=== PATIENT | male | born 1935 | race Caucasian/White ===

== ENCOUNTER 2020-08-14 14:43 | Outpatient (CLI) | payer MEDICARE, SELFPAY ==
--- NOTE | ~2020-08-14 | XR_ITS ---
XR knee LT min 4V 08/14/2020 15:21 Indication: Left knee pain Procedure: 4 views left knee Comparison: No prior studies for comparison. Findings: Mild patellofemoral compartment osteoarthritis. No fracture or traumatic malalignment. Smal l joint effusion. Impression: 1: Mild patellofemoral compartment osteoarthritis. 2: Small joint effusion. Reviewed, dictated and finalized at location B. Impression: 1: Mild patellofemoral compartment osteoarthritis. 2: Small joint effusion.
--- NOTE | ~2020-08-14 | XR_ITS ---
XR knee RT min 4V 08/14/2020 15:22 Indication: Right knee pain Procedure: 4 views right knee Comparison: . No prior studies for comparison. Findings: No fracture, subluxation or dislocation small joint effusion. No significant joint effusion . Mild prepatellar soft tissue swelling. Impression: 1: No acute fracture. 2: Small joint effusion. Reviewed, dictated and finalized at location B. Impression: 1: No acute fracture. 2: Small joint effusion.
== END 2020-08-14 14:44 | disposition home or self-care (01) ==
PROVIDERS: PCP Family Medicine; Visit Provider Family Medicine
DX: M25.462 Effusion, left knee (principal); M25.461 Effusion, right knee; M79.89 Other specified soft tissue disorders; M17.12 Unilateral primary osteoarthritis, left knee
CPT/HCPCS: 73564

== ENCOUNTER 2021-03-15 18:01 | Emergency (ER) | payer MEDICARE, SELFPAY ==
--- NOTE | ~2021-03-15 | XR_ITS ---
XR lumbar spine 2-3V 03/15/2021 19:55 Indication: Low back pain Procedure: 3 views lumbar spine Comparison: 10/27/2013 Findings: There is disc narrowing at L3-4, L4-5 and L5-S1. There is facet hypertrophy at these levels . Vertebral body heights are maintained. No acute fracture or traumatic malalignment. No evidence for spondylolisthesis. Pedicles intact. Sacral foramen are symmetric. Impression: 1: Progression of moderate lumbar spondylosis, most advanced at L4-5. Reviewed, dictated and finalized at location A. Impression: 1: Progression of moderate lumbar spondylosis, most advanced at L4-5.
--- NOTE | ~2021-03-15 | CT_ITS ---
EXAMINATION: CT abdomen pelvis wo con DATE: 03/15/2021 21:09 INDICATION: Flank pain TECHNIQUE: Computed tomography (CT) of the abdomen and pelvis was performed without intravenous contr ast. The dose-length product was 278.18 mGy-cm. Automated exposure control and iterative reconstructi on technique were employed. COMPARISON: None. FINDINGS: Heart size is normal. No significant pleural or pericardial effusion. Moderate atherosclero sis. No aneurysm. No lymphadenopathy. No free air or free fluid. Multiple low-density lesions in the liver, likely benign cysts. The spleen, pancreas, adrenal glands and kidneys are unremarkable. Gallbladder is present. Kidneys are within normal limits. No hydronephr osis. No renal or ureteral stone. Moderate colonic fecal loading. Prostate gland is enlarged. Bladder is moderately distended. IMPRESSION: 1. Enlarged prostate gland with moderate bladder distention. 2: No acute abnormality of the abdomen or pelvis. Reviewed, dictated and finalized at location A.
[2021-03-15 18:02] VITALS: BP 158/79; PULSE 75; RESP 16; TEMP 36.4; O2SAT 100
--- NOTE | 2021-03-15 19:40 | PC.NURSE ---
Pt to imaging at this time.
--- NOTE | 2021-03-15 20:08 | ED.GENADULT ---
HPI - General Adult General Chief complaint: Back Pain/Injury Stated complaint: knee and back pain Time Seen by Provider: 03/15/21 19:02 History of Present Illness HPI narrative: Patient is an 85-year-old male who presents ER with right-sided back pain. Began today. Aching. Radiates towards his leg. Worse with going from sitting to standing. No numbness or tingling in his privates or his lower extremity. No recent trauma. Has had similar pain in the past that usually responds ibuprofen. He took Aleve today with mild improvement. He has scheduled follow-up with his PCP in a couple weeks. He has history of microdiscectomy in the 80s. Patient also reports some chronic knee issues for which she is gone to physical therapy with minimal improvement. No acute changes with his knees today. Related Data Home Medications Medication Instructions Recorded Confirmed aspirin 81 mg tablet,delayed 81 mg PO DAILY 08/14/19 02/19/21 release cholecalciferol (vitamin D3) 25 1,000 unit PO DAILY cap 08/14/19 02/19/21 mcg (1,000 unit) capsule glucosamine HCl 1,500 mg tablet 1,500 mg PO DAILY 08/14/19 02/19/21 multivitamin 1 tablet PO DAILY 08/14/19 02/19/21 omega-3 fatty acids 1,000 mg 1,000 mg PO DAILY 09/15/19 02/19/21 capsule Allergies Allergy/AdvReac Type Severity Reaction Status Date / Time No Known Allergies Allergy Verified 02/19/21 14:04 Review of Systems Review of Systems: All systems reviewed & are unremarkable except as noted in HPI and below Constitutional: Constitutional: Denies chills, Denies fever(s) and Denies weakness Gastrointestinal: Gastrointestinal: Denies abdominal pain, Denies nausea and Denies vomiting Genitourinary: Genitourinary: Denies hematuria, Denies dysuria, Denies urinary frequency and Denies urinary incontinence [facility] Past Medical History Medical History (Updated 03/15/21 @ 21:45 by Alex Kimball MD) Benign prostatic hyperplasia Hearing problem Pure hypercholesterolemia, unspecified Surgical History Surgical History (Updated 03/15/21 @ 21:46 by Alex Kimball MD) History of microdiscectomy Family History Family History Father Family history of diabetes mellitus in first degree relative Diabetes mellitus Family history of cardiovascular disease Cerebrovascular accident Patient's father is , Onset Age: 83 Mother Family history of diabetes mellitus in first degree relative Diabetes mellitus Patient's mother is , Onset Age: 99 Other Family history of malignant neoplasm of brain Social History Social History (Updated 02/19/21 @ 14:04 by Tena Anderson [facility]) Alcohol intake: never Exam Narrative: GENERAL: Well-appearing, well-nourished, and in no acute distress. HEAD: Normocephalic, atraumatic. CHEST: Clear to auscultation. No respiratory distress. HEART: Regular rate and rhythm. Normal peripheral pulses. Back: No reproducible midline tenderness. Moderate paraspinal muscular tenderness in lower lumbar region. No SI tenderness. EXTREMITIES: Normal range of motion. No edema. SKIN: Warm, dry, no rash. NEURO: Alert and oriented x3. PSYCH: Normal mood and affect. Course Course Emergency Course: Patient informed results. Will start on Flomax as well as inflammatories and muscle x-rays. Keep follow-up with PCP. Also recommend follow-up with urology. Vital Signs Vital signs: Vital Signs Temperature 97.5 F L 03/15/21 18:02 Pulse Rate 75 03/15/21 18:02 Respiratory Rate 16 03/15/21 18:02 Blood Pressure 158/79 H 03/15/21 18:02 Pulse Oximetry 100 03/15/21 18:02 Temperature 97.5 F L 03/15/21 18:02 Pulse Rate 75 03/15/21 18:02 Respiratory Rate 16 03/15/21 18:02 Blood Pressure 158/79 H 03/15/21 18:02 Pulse Oximetry 100 03/15/21 18:02 Medical Decision Making Vital Signs Vital Signs: Vital Signs Temperature 97.5 F L 1
[2021-03-15 20:30] LABS: Add Urine Microscopic? YES; Appearance Urine Clear (Clear); Bacteria Urine Trace /hpf; Bilirubin Urine Negative (Negative); Blood Urine 1+ (Negative); Color Urine Yellow (Yellow); Glucose Urine UA Negative (Negative); Ketones Urine Negative (Negative); Leukocyte Esterase Ur Negative LEU/UL (Negative); Nitrate Urine Negative (Negative); Protein Urine Negative (Negative); Specific Grav Ur 1.009 (1.001-1.035); Urobilinogen Urine Negative mg/dL (<2.0); WBC Urine 0-3 /hpf
--- NOTE | 2021-03-15 21:02 | PC.NURSE ---
Pt to imaging at this time.
[2021-03-15] MEDS: TAMSULOSIN HCL 0.4 MG CAPSULE PO (22:10)
[2021-03-15] MEDS: CYCLOBENZAPRINE HCL 5 MG TABLET PO (22:10)
[2021-03-15 22:11] VITALS: BP 159/80; PULSE 64; RESP 18; O2SAT 100
== END 2021-03-15 22:14 | disposition home or self-care (01) ==
PROVIDERS: Emergency Provider Emergency Medicine; PCP Family Medicine
DX: S39.012A Strain of muscle, fascia and tendon of lower back, initial encounter (principal); N40.0 Benign prostatic hyperplasia without lower urinary tract symptoms; E78.00 Pure hypercholesterolemia, unspecified; Z79.82 Long term (current) use of aspirin; X58.XXXA Exposure to other specified factors, initial encounter
CPT/HCPCS: 72100; 74176; 81001; 99284; A9270

== ENCOUNTER 2022-12-23 15:27 | Emergency (ER) | payer MEDICARE, SELFPAY ==
--- NOTE | ~2022-12-23 | CT_ITS ---
EXAMINATION: CT facial & cervical spine wo DATE: 12/23/2022 16:00 INDICATION: Fall. TECHNIQUE: Computed tomography (CT) of the maxillofacial region and cervical spine was performed with out intravenous contrast. Automated exposure control and iterative reconstruction technique were empl oyed. The dose-length product was 314.08 mGy-cm. COMPARISON: None FINDINGS: MAXILLOFACIAL CT: There is frontal scalp soft tissue swelling. There is right periorbital soft tissue swelling. There a re likely changes of ocular lens replacement surgeries. There is mild mucosal thickening in the paran kat sinuses. There is rightward deviation of the nasal septum. No fracture. CERVICAL SPINE CT: There is mild scarring at the lung apices. There is kyphosis of cervical spine. There is 2 mm anterol isthesis of C4 on C5. There is interbody fusion at C3-C4 and C5-C6. There is mildly decreased disc he ight at C2-C3 and moderately decreased disc height at C4-C5. The following disc levels are specifical ly discussed: C2-C3: There is mild bilateral uncovertebral joint osteoarthritis. There is severe bilateral facet dick int osteoarthritis. There is mild bilateral neural foraminal stenosis. There is no central canal sten osis. C3-C4: There is mild bilateral uncovertebral joint hypertrophy. There is ankylosis of the facet joint s with severe left hypertrophy. There is mild left neural foraminal stenosis. There is no central can al stenosis. C4-C5: There is severe bilateral uncovertebral joint osteoarthritis. There is severe right facet join t osteoarthritis. There is ankylosis of left facet joint with severe hypertrophy. There is mild right and moderate left neural foraminal stenosis. There is mild central canal stenosis. C5-C6: There is no uncovertebral joint hypertrophy. There is ankylosis of the facet joints without hy pertrophy. There is no neural foraminal stenosis. There is no central canal stenosis. C6-C7: There is no uncovertebral joint osteoarthritis. There is mild bilateral facet joint osteoarthr itis. There is no neural foraminal stenosis. There is no central canal stenosis. C7-T1: There is no uncovertebral joint osteoarthritis. There is severe bilateral facet joint osteoart hritis. There is mild bilateral neural foraminal stenosis. There is no central canal stenosis. IMPRESSION: 1. No fracture. 2. Moderate cervical spondylosis. Reviewed, dictated and finalized at location A.
--- NOTE | ~2022-12-23 | CT_ITS ---
EXAMINATION: CT brain wo con DATE: 12/23/2022 15:58 INDICATION: Fall. TECHNIQUE: Computed tomography (CT) of the head was performed without intravenous contrast. The mA wa s adjusted according to patient size. Iterative reconstruction technique was employed. The dose-lengt h product was 681.00 mGy-cm. COMPARISON: None FINDINGS: There is no intracranial hemorrhage, acute infarction, or abnormal intracranial mass lesion . The ventricles are normal in size. There are likely changes of ocular lens replacement surgeries. T here is mild mucosal thickening in the ethmoid sinuses. The mastoid air cells are normal. There is ri ght periorbital soft tissue swelling. IMPRESSION: 1. Normal brain. Reviewed, dictated and finalized at location A. IMPRESSION: 1. Normal brain.
[2022-12-23 15:31] VITALS: BP 138/57; PULSE 66; RESP 16; TEMP 37.1; O2SAT 100
--- NOTE | 2022-12-23 15:50 | PC.NURSE ---
Patient off unit to CT.
--- NOTE | 2022-12-23 17:54 | ED.GENADULT ---
HPI - General Adult General Chief complaint: Fall Stated complaint: fall Time Seen by Provider: 12/23/22 17:06 Source: patient Mode of arrival: ambulatory History of Present Illness HPI narrative: This is an 87-year-old male who presents to the ED with chief complaint of a fall and head injury that occurred 2 days ago. Patient states he was walking in his basement which was dark and he accidentally stumbled on a stool on the ground. Reports that he fell onto his hands but hit his face on the ground. Reports immediate pain in the area but did not have any LOC. He is not on blood thinners. He reports since the fall he has noticed some more bruising around his eyes which prompted him to come to the ED. He reports a knot to the forehead and a little bit of soreness in that region. Denies any problems with ambulation. Denies numbness, weakness, further site of pain or injury. He does endorse some abrasions to his elbow and right knee but denies any pain or problems with range of motion. Denies any neck pain after the injury or today. Related Data Home Medications Medication Instructions Recorded Confirmed aspirin 81 mg tablet,delayed 81 mg PO DAILY 08/14/19 11/23/22 release (Adult Low Dose Aspirin) cholecalciferol (vitamin D3) 25 1,000 unit PO DAILY 08/14/19 11/23/22 mcg (1,000 unit) capsule glucosamine HCl 1,500 mg tablet 1,500 mg PO DAILY 08/14/19 11/23/22 multivitamin 1 tablet PO DAILY 08/14/19 11/23/22 omega-3 fatty acids 1,000 mg 1,000 mg PO DAILY 09/15/19 11/23/22 capsule (Fish Oil Concentrate) Allergies Allergy/AdvReac Type Severity Reaction Status Date / Time No Known Allergies Allergy Verified 11/23/22 13:04 Review of Systems Review of Systems: All systems as dictated in [facility] Past Medical History Medical History Benign prostatic hyperplasia Carpal tunnel syndrome Hearing problem Pure hypercholesterolemia, unspecified Surgical History Surgical History History of carpal tunnel release History of microdiscectomy Family History Family History Father Family history of diabetes mellitus in first degree relative Diabetes mellitus Family history of cardiovascular disease Cerebrovascular accident Patient's father is , Onset Age: 83 Mother Family history of diabetes mellitus in first degree relative Diabetes mellitus Patient's mother is , Onset Age: 99 Other Family history of malignant neoplasm of brain Social History Social History Smoking status: Never smoker Alcohol intake: never Substance use: never Substance use type: does not use Lack of Transportation: No Lack of Food: Never True Current Housing: I Have Housing Concerned About Future Housing: No Difficulty Paying Gas/Electric Bills: No Difficulty Paying for Meds: No Currently Unemployed: No Education: Master's Degree or Higher Difficulty w/ Childcare or Family Care: No Living arrangements: alone Occupation/Education: retired Gender identity (if verbalized by the patient): Male Exam Narrative: GENERAL: Well-appearing, well-nourished, and in no acute distress. HEAD: Slight bruising and swelling in the frontal head. No tenderness. Normocephalic, atraumatic. EYES: Periorbital bruising noted bilaterally, right greater than left. Minimal tenderness. PERRLA and EOMI. no pain with EOMs. ENT: No tenderness throughout the facial bones. Nares clear, no rhinorrhea or epistaxis. Mucous membranes moist. Oropharynx without tonsillar hypertrophy exudate or other lesions. TMs intact bilaterally. NECK: Supple. No adenopathy or masses. CHEST: No respiratory distress. Clear to auscultation. No wheezes rales or rhonchi HEART: Regular rate and rhythm.
== END 2022-12-23 18:18 | disposition home or self-care (01) ==
PROVIDERS: Emergency Provider Physician Assistant; PCP Family Medicine
DX: S00.83XA Contusion of other part of head, initial encounter (principal); S00.12XA Contusion of left eyelid and periocular area, initial encounter; S00.11XA Contusion of right eyelid and periocular area, initial encounter; N40.0 Benign prostatic hyperplasia without lower urinary tract symptoms; E78.00 Pure hypercholesterolemia, unspecified; W18.09XA Striking against other object with subsequent fall, initial encounter
CPT/HCPCS: 70450; 70486; 72125; 99284

== ENCOUNTER 2022-12-25 10:14 | Emergency (ER) | payer MEDICARE, SELFPAY ==
[2022-12-25 10:28] VITALS: BP 140/66; PULSE 72; RESP 16; TEMP 36.8; O2SAT 100
--- NOTE | 2022-12-25 11:18 | ED.FALL ---
HPI - Fall General Chief Complaint: Fall Stated Complaint: fall last week Time Seen by Provider: 12/25/22 10:33 History of Present Illness HPI Narrative: This is an 87-year-old male, with past medical history of BPH and hyperlipidemia, who presents emergency department for evaluation of bruising around the eyes after a fall approximately 1 week ago. The patient states he has had no difficulty, weakness, nausea, numbness or vomiting since the fall. However, he has noticed swelling and bruising around the eyes, drifting down from the forehead. He is primarily concerned with his appearance. Related Data Home Medications Medication Instructions Recorded Confirmed aspirin 81 mg tablet,delayed 81 mg PO DAILY 08/14/19 11/23/22 release (Adult Low Dose Aspirin) cholecalciferol (vitamin D3) 25 1,000 unit PO DAILY 08/14/19 11/23/22 mcg (1,000 unit) capsule glucosamine HCl 1,500 mg tablet 1,500 mg PO DAILY 08/14/19 11/23/22 multivitamin 1 tablet PO DAILY 08/14/19 11/23/22 omega-3 fatty acids 1,000 mg 1,000 mg PO DAILY 09/15/19 11/23/22 capsule (Fish Oil Concentrate) Allergies Allergy/AdvReac Type Severity Reaction Status Date / Time No Known Allergies Allergy Verified 11/23/22 13:04 Review of Systems Review of Systems: CONSTITUTIONAL: Denies fever, chills, or sweats. EYES: Denies visual changes, redness, or discharge. CARDIOVASCULAR: Denies chest pain, palpitations, or edema. RESPIRATORY: Denies cough or dyspnea. GASTROINTESTINAL: Denies abdominal pain, nausea, vomiting, or diarrhea. GENITOURINARY: Denies dysuria or hematuria. SKIN: Bruising around the bilateral eyes denies rash or itching. MUSCULOSKELETAL: Denies back pain, joint pain, or myalgia. NEUROLOGIC: Denies headache, numbness, dizziness, or weakness. PSYCHIATRIC: Denies anxiety or depression. [facility] Past Medical History Medical History Benign prostatic hyperplasia Carpal tunnel syndrome Hearing problem Pure hypercholesterolemia, unspecified Surgical History Surgical History History of carpal tunnel release History of microdiscectomy Family History Family History Father Family history of diabetes mellitus in first degree relative Diabetes mellitus Family history of cardiovascular disease Cerebrovascular accident Patient's father is , Onset Age: 83 Mother Family history of diabetes mellitus in first degree relative Diabetes mellitus Patient's mother is , Onset Age: 99 Other Family history of malignant neoplasm of brain Social History Social History Smoking status: Never smoker Alcohol intake: never Substance use: never Substance use type: does not use Lack of Transportation: No Lack of Food: Never True Current Housing: I Have Housing Concerned About Future Housing: No Difficulty Paying Gas/Electric Bills: No Difficulty Paying for Meds: No Currently Unemployed: No Education: Master's Degree or Higher Difficulty w/ Childcare or Family Care: No Living arrangements: alone Occupation/Education: retired Gender identity (if verbalized by the patient): Male Exam Narrative: GENERAL: Well-developed, well-nourished, and in no acute distress. HEAD: Normocephalic, atraumatic. EYES: PERRLA and EOMI. bilateral periorbital ecchymosis ENT: Nares clear, no rhinorrhea or epistaxis. Mucous membranes moist. Oropharynx without tonsillar hypertrophy exudate or other lesions. Bilateral TMs pearly escobar nonbulging. No hemotympanum NECK: Supple. No adenopathy or masses. No midline spine tenderness to palpation, no step-off or crepitus CHEST: Clear to auscultation. No respiratory distress. No wheezes rales or rhonchi HEART: Regular rate and rhythm. No murmur heard.
== END 2022-12-25 11:30 | disposition home or self-care (01) ==
PROVIDERS: Emergency Provider Preventive Medicine Aerospace Medicine; PCP Family Medicine
DX: S05.12XA Contusion of eyeball and orbital tissues, left eye, initial encounter (principal); S05.11XA Contusion of eyeball and orbital tissues, right eye, initial encounter; E78.5 Hyperlipidemia, unspecified; W19.XXXA Unspecified fall, initial encounter
CPT/HCPCS: 99282

== ENCOUNTER 2023-06-21 11:21 | Emergency (ER) | payer MEDICARE, SELFPAY ==
--- NOTE | ~2023-06-21 | XR_ITS ---
XR wrist LT min 3V DATE: 06/21/2023 12:04 INDICATION: Lateral wrist pain when using and dorsalis. TECHNIQUE: 4 views COMPARISON: None FINDINGS: There is mild radiocarpal joint space narrowing and minimal spurring. Mild osteoarthritis a t the first carpometacarpal joint. No fracture or dislocation, periosteal reaction or bone destruction. No erosive change. IMPRESSION: Mild osteoarthritis Reviewed, dictated and finalized at location B. 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
[2023-06-21 11:30] VITALS: BP 111/50; PULSE 70; RESP 16; TEMP 36.4; O2SAT 100
--- NOTE | 2023-06-21 12:49 | ED.EXTPRO ---
HPI - Extremity Problem General Chief complaint: Extremity Problem,Nontraumatic Stated complaint: L WRIST PAIN [id number] Time Seen by Provider: 06/21/23 12:27 Source: patient Mode of arrival: ambulatory Limitations: no limitations History of Present Illness HPI Narrative: 87-year-old with history of osteoarthritis, hyperlipidemia here with complaints of left wrist pain for past few days. Patient states that he was trying to get out of the chair felt a pain in his left wrist which is almost a week ago and ever since then he has been having constant pain.Denies any fall , he states if he moves his wrist certain way gets intense pain around the base of thumb . Complaint: joint paint Onset (ago): week(s) (1) Pain Consistency: intermittent Location: left and upper extremity Quality: aching Radiation: none Relieving factors: immobilization Exacerbating factors: range of motion Associated symptoms: denies other symptoms Related Data Home Medications Medication Instructions Recorded Confirmed aspirin 81 mg tablet,delayed 81 mg PO DAILY 08/14/19 04/05/23 release (Adult Low Dose Aspirin) cholecalciferol (vitamin D3) 25 1,000 unit PO DAILY 08/14/19 04/05/23 mcg (1,000 unit) capsule glucosamine HCl 1,500 mg tablet 1,500 mg PO DAILY 08/14/19 04/05/23 multivitamin 1 tablet PO DAILY 08/14/19 04/05/23 omega-3 fatty acids 1,000 mg 1,000 mg PO DAILY 09/15/19 04/05/23 capsule (Fish Oil Concentrate) Allergies Allergy/AdvReac Type Severity Reaction Status Date / Time No Known Allergies Allergy Verified 04/05/23 11:46 Review of Systems Review of Systems: All systems reviewed & are unremarkable except as noted in HPI and below Constitutional: Constitutional: Reports no additional constitutional complaints Eyes: Eyes: Reports no additional eye complaints ENT: Reports system reviewed and no additional complaints, except as documented Cardiovascular: Cardiovascular: Reports no additional cardiovascular complaints Respiratory: Respiratory: Reports no additional respiratory complaints Gastrointestinal: Gastrointestinal: Reports no additional gastrointestinal complaints Musculoskeletal: Musculoskeletal: Reports as per HPI Neurologic: Reports system reviewed and no additional complaints, except as documented PMFSH Past Medical History Medical History Benign prostatic hyperplasia Carpal tunnel syndrome Hearing problem Pure hypercholesterolemia, unspecified Surgical History Surgical History History of carpal tunnel release History of microdiscectomy Family History Family History Father Family history of diabetes mellitus in first degree relative Diabetes mellitus Family history of cardiovascular disease Cerebrovascular accident Patient's father is , Onset Age: 83 Mother Family history of diabetes mellitus in first degree relative Diabetes mellitus Patient's mother is , Onset Age: 99 Other Family history of malignant neoplasm of brain Social History Social History Smoking status: Never smoker Alcohol intake: never Substance use: never Substance use type: does not use Lack of Transportation: No Lack of Food: Never True Current Housing: I Have Housing Concerned About Future Housing: No Difficulty Paying Gas/Electric Bills: No Difficulty Paying for Meds: No Currently Unemployed: No Education: Master's Degree or Higher Difficulty w/ Childcare or Family Care: No Living arrangements: alone Occupation/Education: retired Gender identity (if verbalized by the patient): Male Exam Narrative: GENERAL: Well-appearing, well-nourished, and in no acute distress. HEAD: Normocephalic, atraumatic. EYES: PERRLA and EOMI. NECK: Supple. CHEST:
== END 2023-06-21 13:30 | disposition home or self-care (01) ==
PROVIDERS: Emergency Provider Family Medicine; PCP Family Medicine
DX: M77.8 Other enthesopathies, not elsewhere classified (principal); E78.00 Pure hypercholesterolemia, unspecified; N40.0 Benign prostatic hyperplasia without lower urinary tract symptoms; M19.032 Primary osteoarthritis, left wrist
CPT/HCPCS: 73110; 99283

== ENCOUNTER 2023-08-31 10:00 | Outpatient (CLI) | payer MEDICARE, SELFPAY ==
--- NOTE | ~2023-08-31 | US_ITS ---
EXAMINATION:US venous doppler LE BI INDICATION:Lower extremity swelling TECHNIQUE: Multiple grayscale, color flow and Doppler images of the right and left lower extremity de ep venous systems were obtained and reviewed. COMPARISON:No prior studies for comparison. FINDINGS: The common femoral, superficial femoral and popliteal veins demonstrate normal respiratory variation, augmentation and compressibility. Color flow is also seen within the posterior tibial, pe roneal, greater saphenous and profunda veins. IMPRESSION: 1: No lower extremity deep venous thrombosis. Reviewed, dictated and finalized at location B.
== END 2023-08-31 10:01 | disposition home or self-care (01) ==
PROVIDERS: PCP Family Medicine; Visit Provider Family Medicine
DX: M79.89 Other specified soft tissue disorders (principal); M79.604 Pain in right leg; M79.605 Pain in left leg
CPT/HCPCS: 93970

== ENCOUNTER 2023-09-13 10:11 | Outpatient (CLI) | payer MEDICARE, SELFPAY ==
--- NOTE | ~2023-09-13 | US_ITS ---
US arterial ankle brachial ind INDICATION: Lower extremity Doppler examination TECHNIQUE: Segmental pressures and plethysmographic and Doppler waveforms of the brachial and lower e xtremity arteries were obtained. COMPARISON: None. FINDINGS: Right and left brachial artery pressures of 123 mm Hg and 138 mm Hg, respectively, are concordant (no rmal difference <= 30 mmHg). The right ankle-brachial index (LEEANNE) is 1.07 (normal >= 0.9-1.0). The right great toe-brachial index (TBI) is 0.55 (normal >= 0.60). The left LEEANNE is 1.09. The left TBI is 0.7. IMPRESSION: 1. Normal bilateral ankle-brachial indices. Mildly decreased right toe brachial index, consistent wit h peripheral arterial disease. Reviewed, dictated and finalized at location B. IMPRESSION: 1. Normal bilateral ankle-brachial indices. Mildly decreased right toe brachial index, consistent with peripheral arterial disease.
== END 2023-09-13 10:12 | disposition home or self-care (01) ==
PROVIDERS: PCP Family Medicine; Visit Provider Family Medicine
DX: M79.89 Other specified soft tissue disorders (principal)
CPT/HCPCS: 93922

== ENCOUNTER 2023-09-17 06:32 | Observation (INO) | payer MEDICARE, SELFPAY ==
[2023-09-17] VITALS (25 sets, daily range): BP systolic 116–142; BP diastolic 52–76; PULSE 67–97; RESP 15–20; TEMP 35.8–36.7; O2SAT 94–100; BMI 21.2
--- NOTE | ~2023-09-17 | US_ITS ---
US right upper quadrant INDICATION: Right upper quadrant and chest pain PROCEDURE: Realtime right upper abdominal ultrasound. COMPARISON: No prior studies for comparison. FINDINGS: The pancreas is normal without focal mass or pancreatic ductal dilation. Liver echotexture is normal without focal mass or intrahepatic biliary dilatation. There is normal directional flow i n the portal vein. The gallbladder is normal without stones, gallbladder wall thickening or pericholecystic fluid. Comm on bile duct measures 2 mm. No sonographic Guevara's sign. There is a small right pleural effusion. IMPRESSION: 1: Normal limited abdominal ultrasound. 2: Small right pleural effusion. Reviewed, dictated and finalized at location B.
--- NOTE | ~2023-09-17 | CT_ITS ---
EXAMINATION: CTA chest PE protocol DATE: 09/17/2023 08:51 CDT INDICATION: Chest pain TECHNIQUE: Computed tomographic angiography (CTA) of the chest was performed with 100 mL Omnipaque-35 0 intravenous contrast. The dose-length product was 249.40 mGy-cm. Maximum intensity projection 3D-re constructions of the aorta and other arteries were constructed by the technologist on a separate work station. Automated exposure control and iterative reconstruction technique were employed. COMPARISON: None. FINDINGS: Study is technically adequate without evidence for pulmonary embolism. Small pleural effusi ons, right greater than left. No thoracic lymphadenopathy. Cardiomegaly. Mild atherosclerosis. There is a cyst of the right hepatic lobe. There is apical pleural thickening/scarring. There is atelectasi s/scarring of the right middle lobe, lingula and lower lobes. Cannot exclude superimposed pneumonia. No acute osseous abnormality. IMPRESSION: 1. No pulmonary embolism. 2: Small pleural effusions. 3: Linear infiltrates of the right middle lobe, lingula and lower lobes, most likely atelectasis or s carring. Pneumonia less favored. Reviewed, dictated and finalized at location B. IMPRESSION: 1. No pulmonary embolism. 2: Small pleural effusions. 3: Linear infiltrates of the right middle lobe, lingula and lower lobes, most l ikely atelectasis or scarring. Pneumonia less favored.
--- NOTE | ~2023-09-17 | XR_ITS ---
Clinical Indication: Chest pain PA and lateral views of the chest: Comparison: 11/18/2013 Findings: There is probable linear scarring or atelectasis right lung base. Probable COPD. Cardiomed iastinal silhouette is within normal limits. Bones and soft tissues are unremarkable. Impression: Probable COPD and linear scarring or atelectasis right lung base. Reviewed, dictated and finalized at location . Impression: Probable COPD and linear scarring or atelectasis right lung base.
--- NOTE | 2023-09-17 06:45 | ECG_ITS ---
SEE SCANNED COPY FOR CONFIRMED REPORT MTDD
[2023-09-17] MEDS: ASPIRIN 81 MG CHEWABLE TABLET 324 MG PO (07:00)
[2023-09-17 07:04] LABS: Basophils Percent Auto 0.4 % (0.2-1.2); Eosinophils Absolute Auto 0.1 K/mm3 (0-0.3); Eosinophils Percent Auto 0.6 % (0-4.4); Hematocrit 39.4 % (42.0-52.0); Hemoglobin 13.3 g/dL (14.0-18.0); Immature Granulocyte Absolute 0.03 K/mm3 (0.00-0.031); Immature Granulocyte Percent A 0.3 % (0-0.5); Immature Platelet Fraction Pct 3.8 % (0.9-11.2); Lymphocytes Absolute Auto 0.81 K/mm3 (0.9-3.2); Lymphocytes Percent Auto 8.6 % (18.3-44.2); Mean Corpuscular HGB Conc 33.8 g/dl (32-36); Mean Corpuscular Hemoglobin 32.4 pg (26-34); Mean Corpuscular Volume 95.9 fl (80-100); Mean Platelet Volume 10.7 fl (7.4-10.4); Monocytes Absolute Auto 0.6 K/mm3 (0.1-0.6); Monocytes Percent Auto 6.8 % (2.6-8.5); Neutrophils Absolute Auto 7.9 K/mm3 (1.3-6.7); Neutrophils Percent Auto 83.3 % (45.5-73.1); Platelet Count Result 133 k/mm3 (150-375); Red Blood Count 4.11 M/mm3 (4.6-6.20); Red Cell Distribution Width 14.4 % (11.5-14.5); White Blood Count 9.4 K/mm3 (4.5-10.0)
--- NOTE | 2023-09-17 07:10 | ED.GENADULT ---
HPI - General Adult General Chief complaint: Chest Pain Stated complaint: chest pain, rib pain Time Seen by Provider: 09/17/23 07:00 History of Present Illness HPI narrative: patient is an 87-year-old male who presents ER right-sided abdominal pain/chest pain. Has occurred each of the last 2 nights. Sharp. Worse with movements. No nausea or vomiting. No pain with eating or drinking. No exertional component. Denies fevers or chills or sweats. Has taken Aleve with only mild improvement. Pain is currently 10. Occassional radiation to the neck. Related Data Home Medications Medication Instructions Recorded Confirmed aspirin 81 mg tablet,delayed 81 mg PO DAILY 08/14/19 08/31/23 release (Adult Low Dose Aspirin) cholecalciferol (vitamin D3) 25 1,000 unit PO DAILY 08/14/19 08/31/23 mcg (1,000 unit) capsule glucosamine HCl 1,500 mg tablet 1,500 mg PO DAILY 08/14/19 08/31/23 multivitamin 1 tablet PO DAILY 08/14/19 08/31/23 omega-3 fatty acids 1,000 mg 1,000 mg PO DAILY 09/15/19 08/31/23 capsule (Fish Oil Concentrate) Allergies Allergy/AdvReac Type Severity Reaction Status Date / Time No Known Allergies Allergy Verified 08/31/23 08:32 Review of Systems Review of Systems: All systems reviewed & are unremarkable except as noted in HPI and below Constitutional: Constitutional: Reports no additional constitutional complaints ENT: Reports system reviewed and no additional complaints, except as documented Cardiovascular: Cardiovascular: Reports chest pain, Denies rapid heart rate and Denies radiating jaw, neck or arm pain Respiratory: Respiratory: Reports no additional respiratory complaints Gastrointestinal: Gastrointestinal: Reports abdominal pain, Denies constipation, Denies diarrhea, Denies nausea and Denies vomiting Genitourinary: Genitourinary: Reports no additional male genitourinary complaints Musculoskeletal: Musculoskeletal: Reports no additional musculoskeletal complaints FORMERLY [facility], [facility] Past Medical History Medical History Benign prostatic hyperplasia Carpal tunnel syndrome Hearing problem Pure hypercholesterolemia, unspecified Surgical History Surgical History History of carpal tunnel release History of microdiscectomy Family History Family History Father Family history of diabetes mellitus in first degree relative Diabetes mellitus Family history of cardiovascular disease Cerebrovascular accident Patient's father is , Onset Age: 83 Mother Family history of diabetes mellitus in first degree relative Diabetes mellitus Patient's mother is , Onset Age: 99 Other Family history of malignant neoplasm of brain Social History Social History Smoking status: Never smoker Alcohol intake: never Substance use: never Substance use type: does not use Do You Feel Safe in your Home?: Yes Lack of Transportation: No Lack of Food: Never True Current Housing: I Have Housing Concerned About Future Housing: No Difficulty Paying Gas/Electric Bills: No Difficulty Paying for Meds: No Currently Unemployed: No Education: Master's Degree or Higher Difficulty w/ Childcare or Family Care: No Living arrangements: alone Occupation/Education: retired Gender identity (if verbalized by the patient): Male Spiritual care concerns: No Exam Narrative: GENERAL: Well-appearing, well-nourished, and in no acute distress. HEAD: Normocephalic, atraumatic. EYES: PERRL and EOMI. Scleral icterus ENT: Mucous membranes moist. CHEST: Clear to auscultation. No respiratory distress. HEART: Regular rate and rhythm. Normal peripheral pulses. ABDOMEN: Soft, tender to palpation right upper quadrant, nondistended. EXTREMITIES: Normal range of motion
[2023-09-17 07:12] LABS: Alanine Aminotransferase 19 U/L (6-50); Alkaline Phosphatase 59 U/L (38-126); Anion Gap 8 mmol/L (4-12); Aspartate Amino Transferase 28 U/L (17-59); Bilirubin,Total 2.6 mg/dL (0.2-1.3); Blood Urea Nitrogen 20 mg/dL (9-20); Calcium 8.8 mg/dL (8.4-10.2); Carbon Dioxide 23 mmol/L (22-30); Chloride 103 mmol/L (98-107); Estimated CRCL calculation 57 ml/min; Estimated Glomerular Filt Rate > 60; Glucose 127 mg/dL (65-110); Lipase 21 U/L (23-300); Sodium 134 mmol/L (137-145)
[2023-09-17 07:14] LABS: INR 1.5; Partial Thromboplastin Time 40.1 Seconds (22.3-36.8); Prothrombin Time 19.5 Seconds (11.1-14.7)
[2023-09-17 07:31] LABS: Troponin I 0.087 ng/mL (0.000-0.034)
[2023-09-17] MEDS: MORPHINE SULFATE (*CRX) 2 MG/ML INJ IV PUSH ×2 (08:09→18:23)
[2023-09-17 08:50] LABS: Bilirubin Indirect 1.9 mg/dL (0-1.1)
[2023-09-17] MEDS: HEPARIN SODIUM 5,000 UNITS/ML VIAL 4000 UNITS IV PUSH (08:50)
[2023-09-17] MEDS: HEPARIN SOD/D5W 100 UNITS/ML 25,000 UNITS/250 ML BAG 8 UNITS IV CONT (08:51)
--- NOTE | 2023-09-17 09:05 | ADMGEN ---
This patient, Gerald Leonardo, was admitted to IMU Room 204-01. Patient/family oriented to hospital policies and general routines including ID bracelet, bed and alarms, visiting hours, pain management, procedures, bathroom and other care routines, personal items, smoking policy, room service/diet, and visiting hours. Information on how to activate the Rapid Response Team has been discussed. Patient/Family are encouraged to report perceived risks to care and to ask questions if they do not understand what they are told or what they should do.
[2023-09-17 10:32] LABS: Troponin I 0.092 ng/mL (0.000-0.034)
--- NOTE | 2023-09-17 12:28 | PM.CNCAR ---
Assessment and Plan Assessment and plan (1) Non-ST elevation GA (NSTEMI): Code(s): I21.4 - Non-ST elevation (NSTEMI) myocardial infarction Status: Acute Plan This is an 87-year-old man with a chest pain syndrome that is in my opinion noncardiac in nature he has relative ease significant right-sided chest pain that gets worse with changing body positions radiates down to the right lower quadrant. This sort of pain is highly unlikely to be related to myocardial ischemia. His electrocardiogram however does demonstrate some abnormalities not seen on previous tracings as mentioned above calling it a question of coronary disease and is a indicating potential evidence of a previous inferior infarction. He also has modestly elevated troponin levels. For further evaluation of this I believe a coronary angiogram should be performed to delineate his coronary anatomy and guide therapeutic decision making. He is agreeable with this and understands the procedure and its risks and would like to proceed. Derek Givens MD [facility] History of Present Illness History of Present Illness Consult date/time: 09/17/23 12:28 Reason For Visit: NSTEMI Narrative: This is a very pleasant 87-year-old man I am seeing at the request of the hospitalist because of chest pain and abnormality of his troponin level that was done following admission in the end evaluation in the emergency department. This gentleman came to the hospital early this morning because he has been having episodes of pain that began yesterday in the afternoon and evening he describes episodes of pain in the lower a lateral aspect of his thoracic area on the right side the pain would radiate down sometimes into the abdomen and out into the right lower quadrant and then radiate up into the center of the chest and across both sides of the chest the discomfort was intermittent was not exertional in nature but when it recurred as this morning and became more severe he came to the emergency department for evaluation. He did notice in his bed last night the pain was much worse if he laid in the right lateral decubitus position. The patient's electrocardiogram shows sinus rhythm with first-degree AV block, right bundle branch block and evidence consistent with previous inferior infarction. Whole ECGs that are present in the patient's record were normal. His troponin levels are slightly elevated at 0.08 and are essentially flat. In this setting he was placed on heparin diagnosed with a non ST elevation GA and admitted to the IMU. He has noticed in the last recent months that his exertional capability has declined primarily because of shortness of breath. He is an active gentleman the does walk for exercise he also works in [place] at the [employer] and tries to lead an active lifestyle and he had a healthy diet. He is a lifelong nonsmoker and does not have any history of hypertension or diabetes. He does have dyslipidemia for which she was prescribed simvastatin. Of note he has also noted the onset of some mild bilateral lower extremity edema for the last 2-3 weeks. He did mention this to his PCP at the time of her recent office visit. Review of Systems Constitutional: Constitutional: Reports no additional constitutional complaints Eyes: Eyes: Reports no additional eye complaints ENT: Reports system reviewed and no additional complaints, except as documented Cardiovascular: Cardiovascular: Reports as per HPI Respiratory: Respiratory: Reports no additional respiratory complaints Gastrointestinal: Gastrointestinal: Reports no additional gastrointestinal complaints Musculoskeletal: Musculoskeletal: Reports no additional musculoskeletal complaints Integumentary/Breasts: Skin/Breast: Reports system reviewed and no additional complaints, except as docu Neurologic: Reports system reviewed and no additional complaints, except as documented Endocrine: Endocrine: Reports no addition
[2023-09-17 13:05] LABS: Troponin I 0.079 ng/mL (0.000-0.034)
--- NOTE | 2023-09-17 13:09 | PC.NURSE ---
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 Informed solar lab technician of patient's refusal to notify family of his admission and scheduled procedure. Off of unit @ [id number]
[2023-09-17 13:10] LABS: Partial Thromboplastin Time 183.6 Seconds (22.3-36.8)
--- NOTE | 2023-09-17 13:45 | WPDCARDPROC ---
Cardiac Cath Procedure Note Date of procedure:: 09/17/23 Performing physician:: Derek Givens MD Indication:: chest pain clinically atypical of ischemia, elevated troponin Brief clinical history:: this is an 87-year-old man without previous cardiac history. He entered the hospital with a very atypical right-sided chest discomfort that was positional in nature. Troponin levels were found to be slightly elevated his electrocardiogram shows sinus rhythm with first-degree AV block and right bundle branch block as well as small inferior Q-waves. Because of these findings coronary angiography was recommended Procedure Procedure performed:: coronary angiography left ventriculography Angio-Seal to right femoral artery Sedation/Medication given:: fentanyl 25 mg Versed 1 mg case start time 1:29 p.m. case end time 1:41 p.m. sedation provided by Alexa Cage RN, trained observer Access site:: right femoral artery Estimated blood loss:: 20 cc Procedure note:: patient was brought to the cardiac catheterization lab in the postabsorptive state where the right femoral triangle was prepared and draped in the normal fashion. Anesthesia was provided with 1% lidocaine infiltrated locally. Using the modified Seldinger technique the femoral artery was punctured and a 5 Slovak vascular sheath was placed. After this left heart catheterization was carried out. I used 5 Slovak FL4 catheter to engage and inject the left coronary artery. A 5 Slovak JR4 catheter was used to engage inject the right coronary artery. A 5 Slovak angled pigtail catheter was used to measure left-sided hemodynamics and to inject the left ventriculogram in the CABA projection. After this the case was terminated. The angiogram was done of the femoral artery through the sheath and then an Angio-Seal device was deployed with a good hemostatic result. There were no apparent procedural complications and he left the labor law professor with no evidence of groin hematoma. Findings:: Hemodynamics: Central aortic pressure is 122 over 46 left ventricle 1 26/0 end-diastolic 12 there was pullback across the aortic valve. Left ventricle: The LV is normal in size all segments contract appropriately the global ejection fraction visually estimated to be 50%. The left main coronary artery is widely patent the left anterior descending caliber artery extending down to, around the apex provides the inferior wall as well. The LAD has minimal luminal irregularities but no significant disease. There is a very small distal 3rd diagonal branch that has an ostial 80% stenosis. The circumflex is a moderate caliber artery giving rise to the marginal branch. The circumflex system is tortuous but angiographically normal. Right coronary artery is moderate to large caliber. It gives rise to the right coronary trunk in the RPL branches there is no RPDA over to the fact that the LAD is providing flow to the inferior PDA territory as well as described above. The right coronary artery is angiographically free of disease. Conclusion:: 1. Codominant coronary circulation with very long LAD providing flow to the inferior segment as well. 2. 80% ostial stenosis of a very small distal 3rd diagonal branch 3. well-preserved left ventricular systolic function 4. based on these findings the patient has atypical chest pain is NOT cardiac and his modestly elevated troponins are NOT indicative of acute myocardial infarction in my opinion 5. simple medical therapy with low-dose aspirin and statin therapy should be continued for his moderate stenosis in the very tiny distal 3rd diagonal branch Derek Givens MD [facility]
[2023-09-17] MEDS: SODIUM CHLORIDE 0.9% IV 1,000 ML 125 ML IV CONT (15:18)
--- NOTE | 2023-09-17 15:33 | PC.NURSE ---
Patient returned from clam bed laborer @ 1505, bedside handoff received from clam bed laborer RNs.
--- NOTE | 2023-09-17 15:55 | PM.IMHP ---
H&P: HPI History of Present Illness Date/Time: 09/17/23 15:55 Chief Complaint: Chest pain Narrative: This is a very pleasant 87-year-old gentleman with a past medical history BPH. The patient presents with complaint of chest pain. He has already been taking baby aspirin and statin daily. His has multiple different complaints. He reports yesterday there is pain in the lateral aspects of his thoracic area on the rib cages with sometimes radiate into the abdomen sometime into the center of the chest. Describes it as sharp in nature. Upon ER evaluation is troponin is 0.079 and shortly peaked at 0.092. His EKG did not demonstrate acute ischemia but some old Q-wave right bundle branch block. Fortunately, the journalist Dr. Givens was available on the patient was shortly taken to veterinarian laboratory animal care. Results are as follows : 1.? ? Codominant coronary circulation with very long LAD providing flow to the inferior segment as well. 2. ? ? 80% ostial stenosis of a very small distal 3rd diagonal branch 3. ? well-preserved left ventricular systolic function 4. ? based on these findings the patient has atypical chest pain is NOT? cardiac and his modestly elevated troponins are NOT? indicative of acute myocardial infarction in my opinion 5. ? simple medical therapy with low-dose aspirin and statin therapy should be continued for his moderate stenosis in the very tiny distal 3rd diagonal branch Shortly after cardiac catheterization the patient is seen in room 204 bed 1 and he reports no symptomatology at the moment but further delineates that he has had few weeks of increased ankle swelling along with exertional dyspnea. He also reports the pain is exacerbated by changing the structure of his ribcage such as deep breathing. 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 He otherwise denies any exposure to fumes/dust/secondhand smoke. He is a never smoker. He has not used drugs. Does not have seasonal allergies aside from some sinus congestion 2 weeks ago that has now resolved. He denies having pets. No mold that he knows of in his house. He denies orthopnea. He is very active and frequents the gym to exercise 3 times per week. He lays flat at night and has no issues sleeping. Review of Systems Review of Systems: All systems reviewed & are unremarkable except as noted in HPI and below (Subjective) [facility] Past Medical History Medical History Benign prostatic hyperplasia Carpal tunnel syndrome Hearing problem Pure hypercholesterolemia, unspecified Surgical History Surgical History History of carpal tunnel release History of microdiscectomy Family History Family History Father Family history of diabetes mellitus in first degree relative Diabetes mellitus Family history of cardiovascular disease Cerebrovascular accident Patient's father is , Onset Age: 83 Mother Family history of diabetes mellitus in first degree relative Diabetes mellitus Patient's mother is , Onset Age: 99 Other Family history of malignant neoplasm of brain Social History Social History Smoking status: Never smoker Alcohol intake: never Substance use: never Substance use type: does not use Do You Feel Safe in your Home?: Yes Lack of Transportation: No Lack of Food: Never True Current Housing: I Have Housing Concerned About Future Housing: No Difficulty Paying Gas/Electric Bills: No Difficulty Paying for Meds: No Currently Unemployed: No Education: Master's Degree or Higher Difficulty w/ Childcare or Family Care: No Living arrangements: alone Occupation/Education: retired Gender identity (if verbalized by the patient): Male Spiritual care concerns: No Meds Ho
--- NOTE | 2023-09-17 16:08 | ECG_ITS ---
SEE SCANNED COPY FOR CONFIRMED REPORT MTDD
[2023-09-17 16:22] LABS: NT Pro B Type Natriuretic Pept 2450 pg/mL (19.9-100)
[2023-09-17] MEDS: FUROSEMIDE INJ 40 MG/4 ML VIAL 20 MG IV PUSH (16:40)
[2023-09-17 16:46] LABS: Influenza A QL RT-PCR Negative (Negative); Influenza B QL RT-PCR Negative (Negative); RSV RNA, RT-PCR Negative (Negative); SARS-CoV-2 RNA PCR Negative (Negative)
--- NOTE | 2023-09-17 17:55 | ECG_ITS ---
SEE SCANNED COPY FOR CONFIRMED REPORT MTDD
--- NOTE | 2023-09-17 18:05 | PC.NURSE ---
Patient experienced recurrence of chest and internal rib pain rating 8/10 @ 1800. Assessment of heart and lungs unchanged from previous assessment, no diaphoresis. Cath site clean dry and intact with no swelling or pain, right pedal pulse easily detected with doppler (unchanged from baseline assessment) Hospitalist notified, orders for repeat EKG, troponin, and 2mg IV morphine x1 obtained.
[2023-09-17 19:26] LABS: Troponin I 0.065 ng/mL (0.000-0.034)
[2023-09-17] MEDS: IBUPROFEN 200 MG TABLET PO (20:07)
[2023-09-18] VITALS: PULSE 83; PULSE 84
[2023-09-18 04:00] VITALS: PULSE 83
[2023-09-18 04:11] VITALS: BP 138/50; PULSE 78; RESP 18; TEMP 36.4; O2SAT 96
[2023-09-18 04:38] LABS: Basophils Percent Auto 0.4 % (0.2-1.2); Eosinophils Absolute Auto 0.1 K/mm3 (0-0.3); Eosinophils Percent Auto 1.4 % (0-4.4); Hematocrit 41.4 % (42.0-52.0); Hemoglobin 13.3 g/dL (14.0-18.0); Immature Granulocyte Absolute 0.05 K/mm3 (0.00-0.031); Immature Granulocyte Percent A 0.5 % (0-0.5); Lymphocytes Absolute Auto 0.68 K/mm3 (0.9-3.2); Lymphocytes Percent Auto 6.6 % (18.3-44.2); Mean Corpuscular HGB Conc 32.1 g/dl (32-36); Mean Corpuscular Hemoglobin 31.4 pg (26-34); Mean Corpuscular Volume 97.6 fl (80-100); Mean Platelet Volume 10.8 fl (7.4-10.4); Monocytes Absolute Auto 0.6 K/mm3 (0.1-0.6); Monocytes Percent Auto 6.3 % (2.6-8.5); Neutrophils Absolute Auto 8.7 K/mm3 (1.3-6.7); Neutrophils Percent Auto 84.8 % (45.5-73.1); Platelet Count Result 153 k/mm3 (150-375); Red Blood Count 4.24 M/mm3 (4.6-6.20); Red Cell Distribution Width 14.6 % (11.5-14.5); White Blood Count 10.2 K/mm3 (4.5-10.0)
[2023-09-18 04:55] LABS: Alanine Aminotransferase 15 U/L (6-50); Albumin Level 3.6 g/dL (3.5-5.1); Alkaline Phosphatase 59 U/L (38-126); Anion Gap 2 mmol/L (4-12); Aspartate Amino Transferase 21 U/L (17-59); Bilirubin Indirect 1.4 mg/dL (0-1.1); Bilirubin,Total 1.9 mg/dL (0.2-1.3); Blood Urea Nitrogen 19 mg/dL (9-20); Calcium 8.4 mg/dL (8.4-10.2); Carbon Dioxide 29 mmol/L (22-30); Chloride 105 mmol/L (98-107); Estimated CRCL calculation 47 ml/min; Estimated Glomerular Filt Rate > 60; Glucose 147 mg/dL (65-110); Sodium 136 mmol/L (137-145)
[2023-09-18 07:47] VITALS: BP 148/54; PULSE 94; RESP 18; TEMP 36.6; O2SAT 97
[2023-09-18 08:00] VITALS: PULSE 97; O2SAT 97
[2023-09-18] MEDS: FUROSEMIDE INJ 40 MG/4 ML VIAL 20 MG IV PUSH (08:13)
[2023-09-18] MEDS: ACIDOPHILUS/BULGARICUS CHEWABLE TABLET 1 TABLET BY MOUTH (08:14)
[2023-09-18] MEDS: ASPIRIN 81 MG ENTERIC TABLET PO (08:14)
[2023-09-18] MEDS: MULTIVITAMINS THERAPEUTIC TAB (*BKC) 1 TABLET PO (08:14)
[2023-09-18] MEDS: CHOLECALCIFEROL 1,000 UNITS TABLET 1000 UNITS PO (08:15)
[2023-09-18] MEDS: OMEGA 3 POLYUNSAT FATTY ACIDS 1 GM CAP PO (08:15)
[2023-09-18] MEDS: TAMSULOSIN HCL 0.4 MG CAPSULE PO (08:16)
--- NOTE | 2023-09-18 09:39 | PM.DS ---
DS: Admitting Diagnosis Discharge Date September 18, 2023 Admitting Diagnosis Chest pain DS: Discharge Diagnosis Discharge Diagnosis (1) Chest pain: Code(s): R07.9 - Chest pain, unspecified Status: Acute Assessment and Plan: Likely musculoskeletal (2) Impaired glucose tolerance: Code(s): R73.02 - Impaired glucose tolerance (oral) Status: Acute (3) Pure hypercholesterolemia, unspecified: Code(s): E78.00 - Pure hypercholesterolemia, unspecified Status: Acute (4) Nocturnal leg cramps: Code(s): G47.62 - Sleep related leg cramps Status: Acute DS: Summary Hospital Course Hospital Course: Admitted for evaluation of chest discomfort and mildly elevated troponin that was trending down. Had and negative CTA of the chest. EKG showed right bundle branch block with sinus rhythm. Coronary angiography showed good LV function and valvular function without obstructing coronary lesions. Patient continued to have a mild crampy discomfort bilaterally in his lateral chest wall. He said was similar to his nocturnal leg cramps but not as severe. He will try stretches and sugar free tonic water 1/2-1 cup at bedtime and discuss this further with his primary care physician. Incidentally noted was elevated bilirubin at 2.6 that improved to 1.9 overnight. Indirect bilirubin was 1.4. It was noted the bilirubin had been mildly elevated in the past. Given that his right upper quadrant ultrasound was normal and that this was likely a chronic issue no further evaluation was undertaken at this time. Time Spent with Patient Time attestation: Total time spent providing and/or coordinating discharge services: Exam Narrative: HEENT: PERRL, sclerae nonicteric, pharyngeal mucosa pink and intact NECK: No JVD CHEST: Clear to auscultation. Normal effort. HEART: NL S1/S2, regular, no murmur ABDOMEN: BS+, soft, nontender, no mass, no bruits EXTREMITIES: No cyanosis, edema, or clubbing NEUROLOGIC: CN intact and symmetric to inspection. MUSCULOSKELETAL: Tone and strength symmetric. PSYCH: Alert. Oriented to person, place, and time. DS: Data Data Completed and Pending Labs on day of discharge: Labs from last 24 hours 09/18/23 09/17/23 09/17/23 03:59 18:42 16:04 WBC 10.2 H RBC 4.24 L Hgb 13.3 L Hct 41.4 L MCV 97.6 MCH 31.4 MCHC 32.1 RDW 14.6 H Plt Count 153 MPV 10.8 H Immature Gran % (Auto) 0.5 Neut % (Auto) 84.8 H Lymph % (Auto) 6.6 L Crosby % (Auto) 6.3 Eos % (Auto) 1.4 Baso % (Auto) 0.4 Lymph # (Auto) 0.68 L Crosby # (Auto) 0.6 Eos # (Auto) 0.1 Baso # (Auto) 0.0 Abs Immat Gran (auto) 0.05 H Absolute Neuts (auto) 8.7 H Absolute Nucleated RBC 0.000 Nucleated RBC % 0.0 APTT Sodium 136 L Potassium 4.0 Chloride 105 Carbon Dioxide 29 Anion Gap 2 L BUN 19 Creatinine 1.00 Estim Creat Clear Calc 47 Estimated GFR > 60 Glucose 147 H Calcium 8.4 Total Bilirubin 1.9 H Indirect Bilirubin 1.4 H AST 21 ALT 15 Alkaline Phosphatase 59 Troponin I 0.065 H* NT-Pro-B Natriuret Pep Total Protein 6.0 L Albumin 3.6 Influenza A (RT-PCR) Negative Influenza B (RT-PCR) Negative RSV (RT-PCR) Negative SARS-CoV-2 RNA (RT-PCR) Negative 09/17/23 09/17/23 09/17/23 12:32 12:30 09:41 WBC RBC Hgb Hct MCV MCH MCHC RDW Plt Count MPV Immature Gran % (Auto) Neut % (Auto) Lymph % (Auto) Crosby % (Auto) Eos % (Auto) Baso % (Auto) Lymph # (Auto) Crosby # (Auto) Eos # (Auto) Baso # (Auto) Abs Immat Gran (auto) Absolute Neuts (auto) Absolute Nucleated RBC Nucleated RBC % APTT 183.6 H* Sodium Potassium Chloride Carbon Dioxide Anion Gap BUN Creatinine Estim Creat Clear Calc Estimated GFR Glucose Calcium Total Bilirubin Indirect Bilirubin
--- NOTE | 2023-09-18 10:29 | PM.PNCARD ---
Progress Note: A&P Assessment and Plan (1) Non-ST elevation [place] (NSTEMI): Code(s): I21.4 - Non-ST elevation (NSTEMI) myocardial infarction Status: Acute Assessment and Plan: Not related to obstructive CAD (2) CAD (coronary artery disease): Code(s): I25.10 - Atherosclerotic heart disease of [place] coronary artery without angina pectoris Status: Acute Assessment and Plan: No significant disease noted by catheterization. Will continue to treat medically. Statin, aspirin should be continued. (3) Shortness of breath: Code(s): R06.02 - Shortness of breath Status: Acute Assessment and Plan: No complaints today of shortness of breath. Will DC IV Lasix. (4) Chest pain: Code(s): R07.9 - Chest pain, unspecified Status: Acute Assessment and Plan: Resolved Plan Okay for discharge from cardiac perspective Subjective Date/time seen: 09/18/23 10:29 Interval history: 87-year-old admitted for chest pain and elevated troponins Catheterization showed ?1.? ? Codominant coronary circulation with very long LAD providing flow to the inferior segment as well. 2. ? ? 80% ostial stenosis of a very small distal 3rd diagonal branch 3. ? well-preserved left ventricular systolic function 4. ? based on these findings the patient has atypical chest pain is NOT? cardiac and his modestly elevated troponins are NOT? indicative of acute myocardial infarction in my opinion 5. ? simple medical therapy with low-dose aspirin and statin therapy should be continued for his moderate stenosis in the very tiny distal 3rd diagonal branch Date of service 09/18/2023: Feels well. No groin pain, chest pain or shortness of breath. Review of Systems Constitutional: Constitutional: Reports no additional constitutional complaints Eyes: Eyes: Reports no additional eye complaints ENT: Reports system reviewed and no additional complaints, except as documented Cardiovascular: Cardiovascular: Reports as per HPI Respiratory: Respiratory: Reports no additional respiratory complaints Gastrointestinal: Gastrointestinal: Reports no additional gastrointestinal complaints Musculoskeletal: Musculoskeletal: Reports no additional musculoskeletal complaints Integumentary/Breasts: Skin/Breast: Reports system reviewed and no additional complaints, except as docu Neurologic: Reports system reviewed and no additional complaints, except as documented Endocrine: Endocrine: Reports no additional endocrine complaints Hematologic/Lymphatic: Hematologic/Lymphatic: Reports no additional hematologic/lymphatic complaints Allergic/Immunologic: Allergic/Immunologic: Reports no additional allergic/immunologic complaints Exam Const: General: comfortable and no acute distress Other: Very pleasant elderly man resting comfortably in bed IV heparin is running HENMT: Mouth: Yes moist mucous membranes Eyes: Sclera: sclerae normal Neck: Neck: supple and no JVD Other: Carotid pulses are intact no bruits are audible over the neck Resp: Effort & Inspection: normal respiratory effort Auscultation: clear to auscultation bilaterally Other: Right groin is free of hematoma, ecchymosis or bruit Cardio: Rate: regular rate Rhythm: regular rhythm Other: S1 is soft S2 is normal there is no significant murmur GI: Auscultation: normal bowel sounds Skin: General skin exam: normal color Neuro: Other: Alert and oriented x3 Extrem: Other: Patient has mild soft pitting edema to the mid calf bilaterally excellent distal pulses Psych: Mental Status: mental status grossly normal Objective Data Vital Signs Vital Signs: Vital Signs - 24 hr 09/17/23 11:32 09/17/23 12:00 09/17/23 14:00 Temperature 35.8 C L Pulse Rate 67 74 74 Pulse Rate [Monitor] Respiratory Rate 20 16 Blood Pressure 116/56 L 119/65 Pulse Oximetry 100 99 Oxygen Delivery Room Air 05
== END 2023-09-18 10:34 | disposition home or self-care (01) ==
LOC: ANHED 07:44 → ANHIMU 09:43
PROVIDERS: Emergency Medicine; Specialist; Admitting Provider General Practice; Emergency Provider Emergency Medicine; PCP Family Medicine; Visit Provider Internal Medicine
PROC: 4A023N7 Measurement of Cardiac Sampling and Pressure, Left Heart, Percutaneous Approach (ICD-10-PCS; CPT 93452; principal; 2023-09-17 13:00)
DX: R07.89 Other chest pain (principal); R06.09 Other forms of dyspnea; R79.89 Other specified abnormal findings of blood chemistry; E80.6 Other disorders of bilirubin metabolism; J90 Pleural effusion, not elsewhere classified; R73.02 Impaired glucose tolerance (oral); G47.62 Sleep related leg cramps; I25.10 Atherosclerotic heart disease of native coronary artery without angina pectoris; E78.00 Pure hypercholesterolemia, unspecified; N40.0 Benign prostatic hyperplasia without lower urinary tract symptoms; Z79.82 Long term (current) use of aspirin; Z20.822 Contact with and (suspected) exposure to COVID-19
CPT/HCPCS: 36415; 71046; 71275; 76705; 80053; 83690; 83880; 84484; 85025; 85055; 85610; 85730; 87637; 93005; 93458; 96365; 96366; 96375; 96376; 99285; A9270; C1760; C1887; C1894; G0269; G0378; J1644; J1940; J2250; J2270; J3010; J7030; J7040; Q9967

== ENCOUNTER 2023-09-20 14:59 | Outpatient (CLI) | payer MEDICARE, SELFPAY ==
--- NOTE | 2023-09-20 15:08 | ECHO_ITS ---
Patient Info Name: Gerald Leonardo Age: 87 years : 1935 Gender: Male Ht: 72 in Wt: 152 lbs BSA: 1.86 m2 HR: 91 bpm BP: 138 / 69 mmHg Heart Rhythm: Sinus Rhythm Technical Quality: Good Exam Date: 09/20/2023 3:13 PM Exam Location: Echo Lab Patient Status: Outpatient Admit Date: 09/20/2023 Staff Ordering Physician: Latanya Vee DO Health Care Liaison: Trinidad Norton RDCS Attending Provider: Latanya Vee DO Referring Physician: Anjelica GUTIERREZ Exam Type: CA echo doppler color flow Study Info Indications - other buttermaker (current) drug therapy Complete two-dimensional, color flow and Doppler transthoracic echocardiogram is performed. Summary 1. Complete two-dimensional, color flow and Doppler transthoracic echocardiogram is performed. 2. Left ventricular chamber dimension is normal. 3. Left ventricular systolic function is normal, estimated at 60-65%. 4. There is moderate concentric increased left ventricular wall thickness. 5. The left ventricular diastolic function is abnormal. 6. E/e' 12 is mildly elevated. 7. Left atrial chamber dimension is moderately enlarged. 8. Right atrial chamber dimension is severely enlarged. 9. There is mild aortic valve sclerosis. 10. There is trace aortic valve regurgitation. 11. There is mild mitral valve regurgitation. Left Ventricle E/e' 12 is mildly elevated. Left ventricular chamber dimension is normal. Left ventricular systolic function is normal, estimated at 60-65%. There is moderate concentric increased left ventricular wall thickness. The left ventricular diastolic function is abnormal. Right Ventricle Right ventricular chamber dimension is normal. Right ventricular systolic function is normal. Left Atria Left atrial chamber dimension is moderately enlarged. Right Atria Right atrial chamber dimension is severely enlarged. Aortic Valve The aortic valve is trileaflet. There is mild aortic valve sclerosis. There is no aortic valve stenosis. There is trace aortic valve regurgitation. Pulmonic Valve There is no pulmonic regurgitation. Mitral Valve There is no mitral valve stenosis. There is mild mitral valve regurgitation. Tricuspid Valve There is no tricuspid valve regurgitation. Pericardium/Pleural There is no pericardial effusion. Inferior Vena Cava Normal inferior vena cava with >50% collapse upon inspiration consistent with normal right atrial pressure, 5 mmHg. Aorta The aortic root size at the sinus of Valsalva is normal. Tricuspid Valve Name Value Normal Estimated PAP/RSVP RA Pressure 5 mmHg <=5 Report Signatures
== END 2023-09-20 15:00 | disposition home or self-care (01) ==
LOC: ANHCARD 15:00
PROVIDERS: PCP Family Medicine; Visit Provider Family Medicine
DX: M79.89 Other specified soft tissue disorders (principal); E78.00 Pure hypercholesterolemia, unspecified; Z79.899 Other long term (current) drug therapy; I34.0 Nonrheumatic mitral (valve) insufficiency
CPT/HCPCS: 93306

== ENCOUNTER 2023-09-27 13:48 | Outpatient (CLI) | payer MEDICARE, SELFPAY ==
--- NOTE | ~2023-09-27 | XR_ITS ---
Clinical Indication: Pleural effusion PA and lateral views of the chest: Comparison: 09/17/2023 Findings: There is small layering right pleural effusion as well as rounded opacity right midlung, mo st compatible with fluid in the right minor fissure. Left lung clear.. Cardiomediastinal silhouette is within normal limits. Bones and soft tissues are unremarkable. Impression: Small layering right pleural effusion as well as additional probable fluid in the right minor fissure . Follow-up to radiographic resolution should be considered to better exclude underlying mass. Reviewed, dictated and finalized at location . Impression: Small layering right pleural effusion as well as additional probable fluid in t he right minor fissure. Follow-up to radiographic resolution should be consider ed to better exclude underlying mass.
== END 2023-09-27 13:49 ==
LOC: GOSHIMG 13:49
PROVIDERS: PCP Family Medicine; Visit Provider Nurse Practitioner
DX: J90 Pleural effusion, not elsewhere classified (principal)
CPT/HCPCS: 71046

== ENCOUNTER 2023-10-05 10:42 | Outpatient (CLI) | payer MEDICARE, SELFPAY ==
--- NOTE | ~2023-10-05 | XR_ITS ---
Clinical Indication: Pleural effusion PA and lateral views of the chest: Comparison: 09/27/2023 Findings: Small right pleural effusion present with right basilar consolidation. Left lung clear. Ca rdiomediastinal silhouette is within normal limits. Bones and soft tissues are unremarkable. Impression: Small right pleural effusion with right basilar atelectasis versus pneumonia. Correlate clinically. Reviewed, dictated and finalized at location . Impression: Small right pleural effusion with right basilar atelectasis versus pneumonia. C orrelate clinically.
== END 2023-10-05 10:43 | disposition home or self-care (01) ==
PROVIDERS: PCP Family Medicine; Referring Provider Nurse Practitioner Adult Health; Visit Provider Nurse Practitioner
DX: J90 Pleural effusion, not elsewhere classified (principal)
CPT/HCPCS: 71046

== ENCOUNTER 2023-10-06 12:07 | Observation (INO) | payer MEDICARE, SELFPAY ==
[2023-10-06] VITALS (25 sets, daily range): BP systolic 113–142; BP diastolic 54–80; PULSE 67–77; RESP 16–33; TEMP 36.5–37.1; O2SAT 97–100
--- NOTE | ~2023-10-06 | XR_ITS ---
EXAMINATION: [id number] DATE: 10/07/2023 10:25 INDICATION: Right pleural effusion status post thoracentesis. TECHNIQUE: Frontal and lateral views of the chest were obtained. COMPARISON: Chest 2 views 10/06/2023, chest CT 10/06/2023 FINDINGS: There are airspace opacities in the mid and lower lung zones bilaterally. There is a small loculated right pleural effusion. No pneumothorax. Cardiomegaly is noted. IMPRESSION: 1. Small loculated right pleural effusion. 2. Worsened airspace opacities in the mid and lower lung zones, right worse than left, consistent wit h pneumonia. 3. Cardiomegaly. Reviewed, dictated and finalized at location A. IMPRESSION: 1. Small loculated right pleural effusion. 2. Worsened airspace opacities in the mid and lower lung zones, right worse petar n left, consistent with pneumonia. 3. Cardiomegaly.
--- NOTE | ~2023-10-06 | CT_ITS ---
EXAMINATION: CTA chest PE protocol DATE: 10/06/2023 17:06 INDICATION: Dyspnea on exertion. TECHNIQUE: Computed tomography angiography (CTA) of the chest was performed with 100 mL Omnipaque-350 intravenous contrast timed to evaluate the pulmonary arteries. Coronal maximum intensity projection 3D-reconstructions were created by the technologist. Automated exposure control and iterative reconst ruction technique were employed. The dose-length product was 292.31 mGy-cm. COMPARISON: Chest CT 09/17/2023 FINDINGS: There is mild scarring at the lung apices. There is smooth septal thickening in the lungs, consistent mild pulmonary edema. There is mild atelectasis bilaterally. There is mild bronchiectasis in right middle lobe and lingula. There is a small right pleural effusion with pleural thickening and enhancement. There are dependent airspace opacities in right lower lobe with volume loss and hypoenh ancement, consistent with pneumonia. There is mild right hilar lymphadenopathy, likely reactive. Ther e is no pulmonary embolus. There is 11 mm cyst in the liver. There are bridging endplate osteophytes at multiple levels in the spine, consistent with diffuse idiopathic skeletal hyperostosis (DISH). IMPRESSION: 1. Right lower lobe pneumonia. 2. Small right pleural effusion with pleural thickening, likely an exudate. 3. Mild pulmonary edema. 4. Mild right hilar lymphadenopathy, likely reactive. 5. No pulmonary embolus. Reviewed, dictated and finalized at location A.
--- NOTE | ~2023-10-06 | US_ITS ---
EXAMINATION: US thoracentesis DATE: 10/07/2023 10:34 INDICATION: pleural effusion TECHNIQUE: The procedure and its risks, benefits, and alternatives were discussed with the patient. P otential risks discussed included bleeding, infection, and pneumothorax. The patient understood the r isks and agreed to proceed. The skin was prepped and draped in sterile fashion. 1% lidocaine was used for local anesthesia. Under ultrasound guidance, a 5 Fr catheter with trochar was advanced into the right pleural effusion. Fluid was aspirated. The catheter was removed, and a dressing was applied. Th ere were no immediate complications. FINDINGS: Ultrasound images demonstrate a right pleural effusion and the catheter within the fluid. IMPRESSION: 1. Successful ultrasound-guided thoracentesis yielding 36 mL of peach-colored fluid. Reviewed, dictated and finalized at location A.
--- NOTE | ~2023-10-06 | XR_ITS ---
XR chest 2V DATE: 10/06/2023 14:59 INDICATION: Increasing fatigue, weakness. Headache. TECHNIQUE: PA and lateral views COMPARISON: 10/05/2023 2 view chest FINDINGS: No significant change of cardiomegaly, mild right pleural effusion and right mid and lower lung infiltrate and/or atelectasis since 10/05/2023. Moderate bilateral hyperinflation. IMPRESSION: No significant change since 10/05/2023 Reviewed, dictated and finalized at location B.
--- NOTE | ~2023-10-06 | CT_ITS ---
EXAMINATION: CTA BRAIN/CAROTID DATE: 10/06/2023 17:06 INDICATION: Headache TECHNIQUE: Computed tomographic angiography (CTA) of the head and neck was performed with 100 mL Omni paque-350 intravenous contrast. Multiplanar reconstructions and maximum intensity projection 3D-recon structions of the carotid arteries and of the intracranial arteries were created by the technologist on a separate workstation. Precontrast CT of the head was also obtained. Automated exposure control and iterative reconstruction technique were employed.The dose-length product was 1957.09 mGy-cm. COMPARISON: None. FINDINGS: Carotid arteries: Aortic arch is normal in caliber with no dissection. There is 20% stenosis of the right carotid bulb relative to normal distal artery lumen diameter (NASCET criteria). There is a small amount of atheros clerotic plaque with 0% stenosis of the left carotid bulb relative to normal distal artery lumen diam eter. Visualized portions of the upper lungs and the superior mediastinum are unremarkable. Moderate to severe cervical spondylosis. Head: No acute intracranial hemorrhage, acute infarction or abnormal extra axial fluid collection. Symmetri c prominence of the sulci consistent with mild age-appropriate diffuse cerebral and cerebellar volume loss. Ventricles are normal and symmetric. No mass/mass effect. No abnormally enhancing brain lesio ns on postcontrast imaging. Changes of bilateral intraocular lens replacement. Frontal sinuses are de velopmentally absent. The orbits, remaining paranasal sinuses and mastoid air cells are normal. Intracranial arteries The left vertebral artery is dominant. There is no hemodynamically significant stenosis in the verteb ral, basilar and internal carotid arteries. There are no aneurysms identified. The bilateral A1 and l eft P1 segments are patent. The right posterior cerebral artery supplied via a patent right posterior communicating artery. Cerebral arterial arborization appears symmetric. IMPRESSION: 1. 20% stenosis of the right carotid bulb relative to normal distal artery lumen diameter (NASCET cri teria). 2. Small amount of atherosclerotic plaque with 0% stenosis of the left carotid bulb relative to lora l distal artery lumen diameter. 3. Normal aging brain with mild diffuse volume loss but no acute osseous abnormality or abnormally en hancing lesions. 4. Unremarkable cerebral CT angiogram with normal anatomic variant supply of the right posterior cere bral artery via a patent right posterior communicating artery. Reviewed, dictated and finalized at location A. IMPRESSION: 1. 20% stenosis of the right carotid bulb relative to normal distal artery lume n diameter (NASCET criteria). 2. Small amount of atherosclerotic plaque with 0% stenosis of the left carotid bulb relative to normal distal artery lumen diameter. 3. Normal aging brain with mild diffuse volume loss but no acute osseous abnorm ality or abnormally enhancing lesions. 4. Unremarkable cerebral CT angiogram with normal anatomic variant supply of th e right posterior cerebral artery via a patent right posterior communicating ar lindsey.
--- NOTE | 2023-10-06 14:23 | ED.GENADULT ---
HPI - General Adult General Chief complaint: Weakness Stated complaint: weakness Time Seen by Provider: 10/06/23 14:20 Source: patient Mode of arrival: ambulatory Limitations: no limitations History of Present Illness HPI narrative: Patient presents with a note that says: Since early September I have suffered from a strange array of symptoms. A hardened pain the right side of my head, right neck, and of shoulder. Upper right scalp remains touch sensitive. The ability to move my head up, down right, or left, is reduced and it is painful to push the limits. Pain meds (nsaids), taken once or twice a day help a little. One nurse call this a muscular/skeletal/ neurological issue. Long list of meds I have been prescribed reduce no notable resolved. Week ago I could taking mildly female walk. Walking to the car is now a challenge. Along with this is greatly increased weakness, to 25% of my usual energy. Foods: my oatmeal breakfast, or two slice PB&J lunch, cannot be finished. I eat half, feel indigestion, take a TUMS, then down for another nap. All of this shows no sign of abatement. Just constant increasing loss. With no relief in sight, life's meaning, as I define it, is disappearing. Patient states the pain is behind his ear. Unknown why eating less, can't determine if early satiety versus fatigue versus indigestion, change in taste, etc. Has been napping more frequently. Used to be more active, working out in the morning and staying mentally active writing a book. He denies any anhedonia; he wishes he could still participate in these activities. Increased urinary frequency. No photophobia or phonophobia. No vision changes. No chest pain. Has been having some shortness of breath with exertion and a dry cough of increasing frequency and intensity. No fevers. Admitted somewhat recently to this hospital. Also has received care through [facility]. Lives by himself; son visiting from [facility]. He does state that he has some ideas of suicide if he continues to feel this way and unable to resume his quality of life. Is frustrated with his decreased stamina. Denies alcohol or recreational drugs. Recent Medrol dose pack. Related Data Home Medications Medication Instructions Recorded Confirmed aspirin 81 mg tablet,delayed 81 mg PO DAILY 08/14/19 10/06/23 release (Adult Low Dose Aspirin) glucosamine HCl 1,500 mg tablet 1,500 mg PO DAILY 08/14/19 10/06/23 multivitamin 1 tablet PO DAILY 08/14/19 10/06/23 L.acidop,casei,lactis,rham-B.lact,colin 1 cap PO DAILY 09/17/23 10/06/23 625 mg (10 billion cell) capsule (Advanced Probiotic) simvastatin 5 mg tablet 5 mg PO DAILY 09/17/23 10/06/23 tamsulosin 0.4 mg capsule 0.4 mg PO DAILY 09/17/23 10/06/23 carvedilol 6.25 mg tablet 6.25 mg PO BID 09/27/23 10/06/23 furosemide 40 mg tablet 40 mg PO DAILY 09/27/23 10/06/23 lidocaine 5 % topical patch 1 patch topical DAILY 09/27/23 10/06/23 Allergies Allergy/AdvReac Type Severity Reaction Status Date / Time No Known Allergies Allergy Verified 09/27/23 13:21 [facility] Past Medical History Medical History Benign prostatic hyperplasia CAD (coronary artery disease) Carpal tunnel syndrome Hearing problem Heart failure Nocturnal leg cramps Prediabetes 5.7% on 09/07/23 Pure hypercholesterolemia, unspecified Vitamin D deficiency Surgical History Surgical History History of carpal tunnel release History of microdiscectomy Family History Family History Father Family history of diabetes mellitus in first degree relative Diabetes mellitus Family history of cardiovascular disease Cerebrovascular accident Patient's father is , Onset Age: 83 Mother Family history of diabetes mellitus in first degree relative Diabetes mellitus Patient's mother is
--- NOTE | 2023-10-06 14:29 | ECG_ITS ---
SEE SCANNED COPY FOR CONFIRMED REPORT MTDD
[2023-10-06 14:57] LABS: Basophils Percent Auto 0.2 % (0.2-1.2); Hematocrit 40.5 % (42.0-52.0); Hemoglobin 13.1 g/dL (14.0-18.0); Immature Granulocyte Percent A 0.7 % (0-0.5); Lymphocytes Absolute Auto 0.61 K/mm3 (0.9-3.2); Lymphocytes Percent Auto 4.1 % (18.3-44.2); Mean Corpuscular HGB Conc 32.3 g/dl (32-36); Mean Platelet Volume 9.4 fl (7.4-10.4); Monocytes Absolute Auto 0.7 K/mm3 (0.1-0.6); Monocytes Percent Auto 4.4 % (2.6-8.5); Neutrophils Absolute Auto 13.5 K/mm3 (1.3-6.7); Neutrophils Percent Auto 90.6 % (45.5-73.1); Platelet Count Result 389 k/mm3 (150-375); Red Blood Count 4.22 M/mm3 (4.6-6.20); Red Cell Distribution Width 14.1 % (11.5-14.5); White Blood Count 14.9 K/mm3 (4.5-10.0)
[2023-10-06 15:07] LABS: Appearance Urine Clear (Clear); Bilirubin Urine Negative (Negative); Blood Urine Negative (Negative); Color Urine Yellow (Yellow); Glucose Urine UA Negative (Negative); Ketones Urine Negative (Negative); Leukocyte Esterase Ur Negative LEU/UL (Negative); Nitrate Urine Negative (Negative); Protein Urine Negative (Negative); Specific Grav Ur 1.013 (1.001-1.035); pH Urine 5.5 (5.0-9.0)
[2023-10-06 15:16] LABS: Add Urine Microscopic? NO
[2023-10-06 15:23] LABS: Alanine Aminotransferase 28 U/L (6-50); Albumin Level 3.4 g/dL (3.5-5.1); Alkaline Phosphatase 109 U/L (38-126); Aspartate Amino Transferase 27 U/L (17-59); Bilirubin,Total 1.5 mg/dL (0.2-1.3); Blood Urea Nitrogen 21 mg/dL (9-20); Calcium 8.5 mg/dL (8.4-10.2); Carbon Dioxide 28 mmol/L (22-30); Creatine Kinase 44 U/L (55-170); Estimated CRCL calculation 53 ml/min; Estimated Glomerular Filt Rate > 60; Glucose 201 mg/dL (65-110); Lipase 23 U/L (23-300); Magnesium 2.1 mg/dL (1.6-2.3); Potassium 4.4 mmol/L (3.4-5.0); Sodium 132 mmol/L (137-145)
[2023-10-06 15:31] LABS: D Dimer 3.55 ug/mL (<0.48)
[2023-10-06 15:40] LABS: Troponin I 0.108 ng/mL (0.000-0.034)
[2023-10-06 15:48] LABS: Influenza A QL RT-PCR Negative (Negative); Influenza B QL RT-PCR Negative (Negative); RSV RNA, RT-PCR Negative (Negative); SARS-CoV-2 RNA PCR Negative (Negative)
[2023-10-06] MEDS: ASPIRIN 81 MG CHEWABLE TABLET 324 MG PO (16:06)
[2023-10-06 16:08] LABS: Anion Gap 6 mmol/L (4-12); Chloride 98 mmol/L (98-107)
[2023-10-06 16:55] LABS: Troponin I 0.106 ng/mL (0.000-0.034)
--- NOTE | 2023-10-06 18:36 | ECG_ITS ---
SEE SCANNED COPY FOR CONFIRMED REPORT MTDD
[2023-10-06] MEDS: CEFEPIME 1 GM/NS 50 ML 1 GM/50 ML BAG IVPB (18:49)
[2023-10-06 19:09] LABS: Troponin I 0.103 ng/mL (0.000-0.034)
--- NOTE | 2023-10-06 19:14 | PC.NURSE ---
assumed care of pt from ROSELINE Powell at this time.
[2023-10-06 19:21] LABS: NT Pro B Type Natriuretic Pept 4420 pg/mL (19.9-100)
[2023-10-06] MEDS: VANCOMYCIN 1,750 MG/NS 500 ML 1,750 MG/500 ML BAG 250 MG IVPB (19:28)
--- NOTE | 2023-10-06 19:38 | PM.IMHP ---
H&P: HPI History of Present Illness Date/Time: 10/06/23 19:39 Chief Complaint: Headache, Fatigue, Poor Appetite Narrative: 87 y/o M presents here with multiple complaints with PMH of BPH, CAD, CHF, prediabetic, and HLD. Patient presents here with complaints of pain to the right side of his head, right neck, and right shoulder with onset around 5/4 or 5/5. Pain has been constant despite trying multiple therapies (Tylenol, lidocaine patches etc). Reporting concurrent fatigue and lack of appetite over the past few weeks but has worsened in the last few days. Has lost approximately 5 lbs in the last month. Denies night sweats or easy bruising. No hx of smoking or alcohol use. Patient recently seen for complaints of chest pain on 09/16 at [facility], underwent a cardiac catheterization on same day which showed 80% stenosis of a very small distal 3rd diagonal branch was started on low-dose aspirin and statin therapy. Initial VS at presentation: 98.8? F, HR 77, RR 20, 139/57, and 99% on RA. ED workup showed: WBC 14.9, mild/stable anemia, elevated D-dimer, sodium 132, creatinine 0.8 and GFR >60, CK 44, initial troponin 0.108, UA unremarkable, viral PCR negative. CXR showed no significant changes. CTA of the head/neck showed 20% stenosis of the right carotid bulb, small amount of atherosclerotic plaque of the left carotid bulb, normal aging brain, and unremarkable cerebral CT angiogram. CTA of the chest showed right lower lobe pneumonia, small right pleural effusion with pleural thickening likely exudate, mild pulmonary edema, and mild right hilar lymphadenopathy likely reactive, no PE. Review of Systems Review of Systems: All systems reviewed & are unremarkable except as noted in HPI and below [facility] Past Medical History Medical History Benign prostatic hyperplasia CAD (coronary artery disease) Carpal tunnel syndrome Hearing problem Heart failure Nocturnal leg cramps Prediabetes 5.7% on 09/07/23 Pure hypercholesterolemia, unspecified Vitamin D deficiency Surgical History Surgical History History of carpal tunnel release History of microdiscectomy Family History Family History Father Family history of diabetes mellitus in first degree relative Diabetes mellitus Family history of cardiovascular disease Cerebrovascular accident Patient's father is , Onset Age: 83 Mother Family history of diabetes mellitus in first degree relative Diabetes mellitus Patient's mother is , Onset Age: 99 Other Family history of malignant neoplasm of brain Social History Social History Smoking status: Never smoker Alcohol intake: never Substance use: never Substance use type: does not use Do You Feel Safe in your Home?: Yes Lack of Transportation: No Lack of Food: Never True Current Housing: I Have Housing Concerned About Future Housing: No Difficulty Paying Gas/Electric Bills: No Difficulty Paying for Meds: No Currently Unemployed: No Education: Decline to Answer Difficulty w/ Childcare or Family Care: No Living arrangements: alone Occupation/Education: retired Gender identity (if verbalized by the patient): Male Spiritual care concerns: No Meds Home Medications and Allergies Home Medications Medication Instructions Recorded Confirmed Type aspirin 81 mg tablet,delayed 81 mg PO DAILY 08/14/19 10/06/23 History release (Adult Low Dose Aspirin) glucosamine HCl 1,500 mg tablet 1,500 mg PO DAILY 08/14/19 10/06/23 History multivitamin 1 tablet PO DAILY 08/14/19 10/06/23 History L.acidop,casei,lactis,rham-B.lact,colin 1 cap PO DAILY 09/17/23 10/06/23 History 625 mg (10 billion cell) capsule (Advanced Probiotic) simvastatin 5 mg ta
--- NOTE | 2023-10-06 21:21 | ADMGEN ---
This patient, Gerald Leonardo, was admitted to IMU Room 231-01. Patient/family oriented to hospital policies and general routines including ID bracelet, bed and alarms, visiting hours, pain management, procedures, bathroom and other care routines, personal items, smoking policy, room service/diet, and visiting hours. Information on how to activate the Rapid Response Team has been discussed. Patient/Family are encouraged to report perceived risks to care and to ask questions if they do not understand what they are told or what they should do.
[2023-10-07] VITALS (16 sets, daily range): BP systolic 106–165; BP diastolic 46–74; PULSE 73–105; RESP 16–20; TEMP 36.2–36.8; O2SAT 94–98
[2023-10-07 00:10] LABS: MRSA (PCR) NOT DETECTED (NOT DETECTE)
[2023-10-07 01:19] LABS: INR 1.4; Prothrombin Time 17.9 Seconds (11.1-14.7)
[2023-10-07 01:22] LABS: Albumin Level 3.6 g/dL (3.5-5.1); Amylase 48 U/L (30-110); Bilirubin,Total 1.4 mg/dL (0.2-1.3); Cholesterol 113 mg/dL (0-200); Glucose 177 mg/dL (65-110); Lactate Dehydrogenase 199 U/L (120-246); Triglycerides 89 mg/dL (<150)
[2023-10-07 04:34] LABS: Basophils Absolute Auto 0.1 K/mm3 (0.0-0.1); Basophils Percent Auto 0.4 % (0.2-1.2); Eosinophils Percent Auto 0.2 % (0-4.4); Hematocrit 38.8 % (42.0-52.0); Immature Granulocyte Percent A 0.6 % (0-0.5); Lymphocytes Absolute Auto 0.39 K/mm3 (0.9-3.2); Lymphocytes Percent Auto 2.4 % (18.3-44.2); Mean Corpuscular HGB Conc 33.5 g/dl (32-36); Mean Corpuscular Volume 92.6 fl (80-100); Mean Platelet Volume 9.1 fl (7.4-10.4); Monocytes Absolute Auto 0.6 K/mm3 (0.1-0.6); Neutrophils Absolute Auto 14.7 K/mm3 (1.3-6.7); Neutrophils Percent Auto 92.4 % (45.5-73.1); Platelet Count Result 327 k/mm3 (150-375); Red Blood Count 4.19 M/mm3 (4.6-6.20); Red Cell Distribution Width 14.1 % (11.5-14.5); White Blood Count 15.9 K/mm3 (4.5-10.0)
[2023-10-07 05:02] LABS: Alanine Aminotransferase 27 U/L (6-50); Albumin Level 3.1 g/dL (3.5-5.1); Alkaline Phosphatase 113 U/L (38-126); Anion Gap 5 mmol/L (4-12); Aspartate Amino Transferase 26 U/L (17-59); Bilirubin,Total 1.5 mg/dL (0.2-1.3); Blood Urea Nitrogen 20 mg/dL (9-20); Calcium 8.1 mg/dL (8.4-10.2); Carbon Dioxide 28 mmol/L (22-30); Chloride 100 mmol/L (98-107); Estimated CRCL calculation 53 ml/min; Estimated Glomerular Filt Rate > 60; Glucose 168 mg/dL (65-110); Magnesium 1.9 mg/dL (1.6-2.3); Potassium 4.3 mmol/L (3.4-5.0); Sodium 133 mmol/L (137-145)
[2023-10-07 05:32] LABS: CRP 20.1 mg/dL (<1.0)
[2023-10-07] MEDS: CEFEPIME 2 GM/NS 50 ML 2 GM/50 ML BAG IVPB ×2 (06:41→17:21)
--- NOTE | 2023-10-07 08:28 | PC.NURSE ---
Patient transported off unit to ultrasound for thoracentesis @ [id number] Returned to unit from ultrasound @ [id number]
[2023-10-07] MEDS: ASPIRIN 81 MG ENTERIC TABLET PO (08:50)
[2023-10-07] MEDS: FUROSEMIDE 40 MG TABLET PO (08:50)
[2023-10-07] MEDS: TAMSULOSIN HCL 0.4 MG CAPSULE PO (08:50)
[2023-10-07] MEDS: carvediloL 6.25 MG TABLET PO ×2 (08:50→20:05)
[2023-10-07] MEDS: MULTIVITAMINS THERAPEUTIC TAB (*BKC) 1 TABLET PO (08:50)
[2023-10-07] MEDS: LIDOCAINE 5% PATCH 1 PATCH TOPICAL (08:50)
[2023-10-07] MEDS: SACCHAROMYCES BOULARDII 250 MG CAPSULE PO (08:50)
[2023-10-07] MEDS: SIMVASTATIN 5 MG TABLET PO (08:50)
[2023-10-07 10:59] LABS: pH Pleural Fluid < 7.000 (7.210-7.500)
--- NOTE | 2023-10-07 11:12 | PM.IMPN ---
Progress Note: A&P Assessment and Plan (1) Pneumonia: Code(s): J18.9 - Pneumonia, unspecified organism Status: Acute Assessment and Plan: Patient presents with headache, fatigue, and poor appetite. CXR showing CMG, mild Rt pleural effusion, hyperinflation and Rt mid and lower lung infiltrate. Seen by CXR 10/04 and 09/26. CTA chest 09/16 showing small pleural effusions and infiltrate RML, lingula and BLL. Chest CTA here showing RLL airspace disease, small rt pleural effusion with thickening c/w exudative fluid, mild pulm edema and reacive adenopathy but no PE. Patient recently hospitalization on 09/16 who returns to find a possible exudative pleural effusion BCx collected. Broad spectrum abx started as Vanc and Cefepime COVID, RSV and influenza viral PCR negative MRSA screen negative. Urine Ag ordered. CRp 20. WBC 15K and unchanged on repeat Continue IV abx and narrow when possible. (2) Pleural effusion: Code(s): J90 - Pleural effusion, not elsewhere classified Status: Acute Assessment and Plan: Chest CTA shows small right pleural effusion with pleural thickening, likely an exudate. Some findings of this over the past month but could be chronic pleural effusion that is now infected Started on Vanc and Cefepime on 10/05 Diagnostic thoracentesis performed 10/06 pH <7.0, RBC 20K, WBC 31.6K with 54% neutrophils. Probably too small for chest tube. Pulmonary consult. (3) Elevated troponin: Code(s): R79.89 - Other specified abnormal findings of blood chemistry Status: Acute Assessment and Plan: No active chest pain on admission. Troponin: 0.108 -> 0.106 -> 0.103 CXR as above. EKG showing NSR, 1st degree AVB, incomplete Rt BBB. Recently underwent left heart cath on 09/17/23 and found to have 80% ostial stenosis of a very small distal 3rd diagonal branch; medical management recommended. ASA 324 mg given once and SL nitro available PRN Continue ASA and statin. - telemetry monitoring (4) Headache: Code(s): R51.9 - Headache, unspecified Status: Acute Assessment and Plan: Complaints of pain to right head/neck/shoulder, no neuro deficits on exam for the past few weeks. Patient is right handed. CTA head/neck showing an unremarkable cerebral CT angiogram Patient has follow-up outpatient with [facility] in [facility] per outpatient provider note on 09/26 - continue lidocaine patch p.r.n. daily (5) Heart failure: Code(s): I50.9 - Heart failure, unspecified Status: Acute Assessment and Plan: Patient has chronic diastolic CHF. BNP 4420. CTA chest: Mild pulmonary edema. Echo (09/20/23): EF 60 65%, diastolic function abnormal, systolic function normal. Resumed on home dose of Lasix 40 mg daily Daily weights Monitor I&Os - trend renal function Plan Hyperbili - noted before and felt to be benign. DVT Prophylaxis: SCDs Code Status: full code Subjective Date/time seen: 10/07/23 11:12 Interval history: 87yo male with BPH, CAD, CHF, prediabetic, and HLD here for headache, fatigue, and poor appetite Patient with chills overnight finally improved after multiple warm blankets applied. No fevers. No CP or SOB. Still with neck pain since early September. Cough is nonproductive. Feels fatigued. Exam Narrative: AF 97.6 124/50 83 20 97% ra Gen - NARD Neck - ROM intact bu mildly limited with forward flexion and lat rotation. Negative Kernig's and Brudzinski's Chest - R>L bibasilar inspiratory crackles. nml RR CV - RRR S1/S2. Tele showing NSR with occasional PAC Abd - Soft, NT/ND, Positive BS Ext - No pedal edema. Normal range of motion of the right shoulder without pain. Neuro - Alert and appropriate Psych - Nml mood and affect Skin - Warm and dry Objective Data Vital Signs Vital Signs: Vital Signs - 24 hr 10/06/23 12:23 10/06/23 14:28 10/06/23 14:19 Temperature 98.8 F Pulse Rate 77 74 75 Respirator
[2023-10-07 11:26] LABS: Appearance Pleural Fluid Turbid (Clear); Color Pleural Fluid Yellow (Colorless); Nucleated Cell Pleural Fluid 31605 /uL (0-1000); Pleural fluid source Pleural fluid
[2023-10-07 11:27] LABS: Lymphocytes Pleural Fluid 25 %; Macrophages Pleural Fluid 3 %; Monocytes Pleural Fluid 18 %; Neutrophils Pleural Fluid 54 % (0-25); RBC Pleural Fluid 20000 /uL (0-10000)
--- NOTE | 2023-10-07 15:10 | PM.CNPUL ---
History of Present Illness History of Present Illness Chief complaint: NSTEMI,Pneumonia [facility] Past Medical History Medical History Benign prostatic hyperplasia CAD (coronary artery disease) Carpal tunnel syndrome Hearing problem Heart failure Nocturnal leg cramps Prediabetes 5.7% on 09/07/23 Pure hypercholesterolemia, unspecified Vitamin D deficiency Surgical History Surgical History History of carpal tunnel release History of microdiscectomy Family History Family History Father Family history of diabetes mellitus in first degree relative Diabetes mellitus Family history of cardiovascular disease Cerebrovascular accident Patient's father is , Onset Age: 83 Mother Family history of diabetes mellitus in first degree relative Diabetes mellitus Patient's mother is , Onset Age: 99 Other Family history of malignant neoplasm of brain Social History Social History Smoking status: Never smoker Alcohol intake: never Substance use: never Substance use type: does not use Do You Feel Safe in your Home?: Yes Lack of Transportation: No Lack of Food: Never True Current Housing: I Have Housing Concerned About Future Housing: No Difficulty Paying Gas/Electric Bills: No Difficulty Paying for Meds: No Currently Unemployed: No Education: Decline to Answer Difficulty w/ Childcare or Family Care: No Living arrangements: alone Occupation/Education: retired Gender identity (if verbalized by the patient): Male Spiritual care concerns: No Meds Home Medications and Allergies Home Medications Medication Instructions Recorded Confirmed Type aspirin 81 mg tablet,delayed 81 mg PO DAILY 08/14/19 10/06/23 History release (Adult Low Dose Aspirin) glucosamine HCl 1,500 mg tablet 1,500 mg PO DAILY 08/14/19 10/06/23 History multivitamin 1 tablet PO DAILY 08/14/19 10/06/23 History L.acidop,casei,lactis,rham-B.lact,colin 1 cap PO DAILY 09/17/23 10/06/23 History 625 mg (10 billion cell) capsule (Advanced Probiotic) simvastatin 5 mg tablet 5 mg PO DAILY 09/17/23 10/06/23 History tamsulosin 0.4 mg capsule 0.4 mg PO DAILY 09/17/23 10/06/23 History carvedilol 6.25 mg tablet 6.25 mg PO BID 09/27/23 10/06/23 History furosemide 40 mg tablet 40 mg PO DAILY 09/27/23 10/06/23 History lidocaine 5 % topical patch 1 patch topical DAILY 09/27/23 10/06/23 History Allergies Allergy/AdvReac Type Severity Reaction Status Date / Time No Known Allergies Allergy Verified 09/27/23 13:21 Vital Signs Vital Signs - 24 hr 10/06/23 15:15 10/06/23 15:50 10/06/23 16:00 Temperature Pulse Rate 72 71 72 Respiratory Rate 18 23 H 22 H Blood Pressure 142/80 H Pulse Oximetry 99 98 100 Oxygen Delivery 10/06/23 16:15 10/06/23 16:16 10/06/23 16:17 Temperature Pulse Rate 71 75 77 Respiratory Rate 27 H 22 H 28 H Blood Pressure 115/57 L 123/54 L Pulse Oximetry 98 98 98 Oxygen Delivery 10/06/23 16:30 10/06/23 17:10 10/06/23 17:17 Temperature Pulse Rate 75 73 Respiratory Rate 23 H 16 Blood Pressure 123/68 Pulse Oximetry 100 99 99 Oxygen Delivery 10/06/23 17:30 10/06/23 17:31 10/06/23 17:49 Temperature Pulse Rate Respiratory Rate Blood Pressure 119/58 L Pulse Oximetry 97 97 99 Oxygen Delivery 10/06/23 18:00 10/06/23 18:01 10/06/23 18:26 Temperature Pulse Rate Respiratory Rate Blood Pressure 137/62 Pulse Oximetry 100 99 99 Oxygen Delivery 10/06/23 18:30 10/06/23 18:31 10/06/23 21:14 Temperature Pulse Rate 76 73 76 Respiratory Rate 22 H 23 H 19 Blood Pressure 116/64 125/56 L Pulse Oximetry 100 99 100 Oxygen Delivery 10/06/23 21:35 10/07/23 00:00 10/07/23 04:00 T
[2023-10-07] MEDS: AZITHROMYCIN 250 MG TABLET 500 MG PO (17:20)
[2023-10-07] MEDS: ENOXAPARIN 40 MG/0.4 ML SYRINGE SUB-Q (17:21)
[2023-10-07] MEDS: VANCOMYCIN 1,250 MG/NS 250 ML 1,250 MG/250 ML BAG 166.67 MG IVPB (19:56)
--- NOTE | 2023-10-07 22:43 | PC.NURSE ---
Patient has bed at [facility]. Room 2307A Vanessa Hamilton is accepting physician. Phone number to nurses station is [phone]. Patient aware and son, Vladimir called given complete information. Charge nurse, Tena DUKES made aware.
[2023-10-07] MEDS: ACETAMINOPHEN 325 MG TABLET 650 MG PO (23:57)
[2023-10-08] VITALS: PULSE 76; PULSE 77; RESP 18; O2SAT 97
[2023-10-08] MEDS: TIZANIDINE HCL 4 MG TABLET PO (00:21)
--- NOTE | 2023-10-08 00:31 | PC.NURSE ---
[facility] No answer
[2023-10-08 02:00] VITALS: PULSE 70
--- NOTE | 2023-10-08 02:27 | PC.NURSE ---
Report called to Coral DUKES at [facility].
--- NOTE | 2023-10-08 03:38 | PC.NURSE ---
Patient left for [facility] with [facility] and 2 attendants. Clothes, glasses, cellphone, shoes and other belongings with him. No change from previous assessment. Coral DUKES at [facility] notified that patient is en route.
[2023-10-09 21:43] LABS: Legionella pneumophila Ag Ur NOT DETECTED
[2023-10-11 16:09] LABS: Pneumococcal Antigen Urine NOT DETECTED
[2023-10-16 14:08] LABS: Albumin Pleural Fluid 2.1 g/dL; Amylase, Pleural Fluid 13 U/L; Glucose Pleural Fluid <10 mg/dL; Total Protein Pleural Fluid 4.3 g/dL
[2023-10-21 18:28] LABS: Mycoplasma IgM Antibody Titer 70 U/mL
--- NOTE | 2023-10-23 18:12 | PM.TDS ---
Transfer Discharge Sum: Prov Provider Date of admission: 10/06/23 18:17 Primary care physician: Latanya Vee DO Admitting clinician: Eloy St MD DS: Admitting Diagnosis Discharge Date 10/08/23 Admitting Diagnosis headache, fatigue, and poor appetite DS: Discharge Diagnosis Discharge Diagnosis (1) Pneumonia: Code(s): J18.9 - Pneumonia, unspecified organism Status: Acute (2) Pleural effusion: Code(s): J90 - Pleural effusion, not elsewhere classified Status: Acute (3) Elevated troponin: Code(s): R79.89 - Other specified abnormal findings of blood chemistry Status: Acute (4) Headache: Code(s): R51.9 - Headache, unspecified Status: Acute (5) Heart failure: Code(s): I50.9 - Heart failure, unspecified Status: Acute Transfer Discharge Sum: Med Medications Active and Home Medications: Home Medications aspirin 81 mg tablet,delayed release (Adult Low Dose Aspirin) 81 mg PO DAILY 08/14/19 [History Confirmed 10/06/23] glucosamine HCl 1,500 mg tablet 1,500 mg PO DAILY 08/14/19 [History Confirmed 10/06/23] multivitamin 1 tablet PO DAILY 08/14/19 [History Confirmed 10/06/23] L.acidop,casei,lactis,rham-B.lact,colin 625 mg (10 billion cell) capsule (Advanced Probiotic) 1 cap PO DAILY 09/17/23 [History Confirmed 10/06/23] simvastatin 5 mg tablet 5 mg PO DAILY 09/17/23 [History Confirmed 10/06/23] tamsulosin 0.4 mg capsule 0.4 mg PO DAILY 09/17/23 [History Confirmed 10/06/23] carvedilol 6.25 mg tablet 6.25 mg PO BID 09/27/23 [History Confirmed 10/06/23] furosemide 40 mg tablet 40 mg PO DAILY 09/27/23 [History Confirmed 10/06/23] lidocaine 5 % topical patch 1 patch topical DAILY 09/27/23 [History Confirmed 10/06/23] Transfer Discharge Sum: Hosp Hospital Course Hospital course: Gerald Leonardo is a 87yo male with BPH, CAD, CHF, prediabetic, and HLD here for headache, fatigue, and poor appetite. Please see H&P for details. Patient presents with headache, fatigue, and poor appetite. CXR showing CMG, mild Rt pleural effusion, hyperinflation and Rt mid and lower lung infiltrate. Seen by CXR 10/04 and 09/26. CTA chest 09/16 showing small pleural effusions and infiltrate RML, lingula and BLL. Chest CTA here showing RLL airspace disease, small rt pleural effusion with thickening c/w exudative fluid, mild pulm edema and reactive adenopathy but no PE. Patient recently hospitalization on 09/16 who returns to find a possible exudative pleural effusion. BCx negative. Broad spectrum abx started as Vanc and Cefepime. COVID, RSV and influenza viral PCR negative. MRSA screen negative. Urine Ag negative. CRP 20. WBC 15K and was unchanged on repeat. Diagnostic thoracentesis performed 10/06 with pH <7.0, RBC 20K, WBC 31.6K with 54% neutrophils. Discussed with pulmonary who felt patient should be transferred. Gram stain was positive. After discharge, pleural fluid grew Strep pneumoniae from the culture. No active chest pain on admission. Troponin: 0.108 -> 0.106 -> 0.103. EKG showing NSR, 1st degree AVB, incomplete Rt BBB. Recently underwent left heart cath on 09/17/23 and found to have 80% ostial stenosis of a very small distal 3rd diagonal branch; medical management recommended. ASA 324 mg given once and SL nitro available PRN. We continued ASA and statin. Patient complains of pain to right head/neck/shoulder, no neuro deficits on exam for the past few weeks. Patient is right handed. CTA head/neck showing an unremarkable cerebral CT angiogram. Patient has follow-up outpatient with Physical Medicine and Rehabilitation in [facility] per outpatient provider note on 09/26. Could be related to diaphragmatic irritation. He was treated with lidocaine patch p.r.n.. Patient has chronic diastolic CHF. BNP 4420. CTA chest: Mild pulmonary edema. Echo (09/20/23): EF 60 65%, diastolic function abnormal, systolic function normal. We resumed on home dose of Lasix 40 mg daily. Probably mild acute on chronic CHF. He r
== END 2023-10-08 03:30 | disposition short-term general hospital (02) ==
LOC: ANHED 15:11 → ANHIMU 21:15
PROVIDERS: Student in an Organized Health Care Education/Training Program; Admitting Provider Internal Medicine; Emergency Provider Student in an Organized Health Care Education/Training Program; PCP Family Medicine; Visit Provider Internal Medicine
DX: J18.9 Pneumonia, unspecified organism (principal); J90 Pleural effusion, not elsewhere classified; R79.89 Other specified abnormal findings of blood chemistry; R51.9 Headache, unspecified; E80.6 Other disorders of bilirubin metabolism; I44.0 Atrioventricular block, first degree; I45.10 Unspecified right bundle-branch block; E87.1 Hypo-osmolality and hyponatremia; D64.9 Anemia, unspecified; R45.851 Suicidal ideations; R59.0 Localized enlarged lymph nodes; I25.10 Atherosclerotic heart disease of native coronary artery without angina pectoris; I50.9 Heart failure, unspecified; E78.00 Pure hypercholesterolemia, unspecified; N40.0 Benign prostatic hyperplasia without lower urinary tract symptoms; E55.9 Vitamin D deficiency, unspecified; R73.03 Prediabetes; Z79.82 Long term (current) use of aspirin; Z20.822 Contact with and (suspected) exposure to COVID-19
CPT/HCPCS: 32555; 36415; 70496; 70498; 71046; 71275; 80053; 81003; 82040; 82042; 82150; 82247; 82465; 82550; 82945; 82947; 83615; 83690; 83735; 83880; 83986; 84100; 84155; 84157; 84311; 84443; 84478; 84484; 85025; 85380; 85610; 86140; 86738; 87040; 87070; 87075; 87077; 87102; 87181; 87205; 87206; 87449; 87637; 87641; 87899; 88108; 88305; 89051; 93005; 96365; 96366; 96375; 96376; 99285; A9270; G0378; J0692; J1650; J3370; Q9967

== ENCOUNTER 2023-10-28 13:11 | Emergency (ER) | payer MEDICARE, SELFPAY ==
--- NOTE | ~2023-10-28 | CT_ITS ---
EXAMINATION: CT abdomen pelvis w con DATE: 10/28/2023 15:18 INDICATION: Lower abdominal pain, constipation and difficulty urinating TECHNIQUE: Computed tomography (CT) of the abdomen and pelvis was performed with 100 mL Omnipaque-350 intravenous contrast. Automated exposure control and iterative reconstruction technique were employe d. The dose-length product was 240.54 mGy-cm. COMPARISON: 03/15/2021 FINDINGS: Small right pleural effusion. Mild discoid atelectasis at the bilateral lung bases. Heart size is nor mal but with right atrial enlargement. No pericardial effusion. Multiple scattered low-attenuation he patic cysts measuring up to 1.6 similar in the right hepatic lobe. Gallbladder, spleen, pancreas, jadon ateral adrenal glands and kidneys are normal. Large amount of stool scattered throughout the colon. T here are few diverticula without adjacent inflammatory stranding to suggest diverticulitis. There is mild wall thickening at the rectum and mild stranding in the perirectal fat consistent with likely st ercoral colitis. No bowel obstruction. The appendix is not visualized. No pericecal inflammatory thomson ge to suggest acute appendicitis. Prominent prostatomegaly measuring 6.0 x 6.6 x 4.9 cm. Minimal like ly reactive free fluid in the deep pelvis. No abscess or free intraperitoneal gas. No pathologically enlarged abdominal or pelvic lymphadenopathy. Severe lumbar spondylosis. IMPRESSION: 1. Large amount of colonic stool consistent with provided history of constipation with mild rectal wa ll thickening and perirectal fat stranding consistent with stercoral colitis. 2. Marked prostatomegaly. 2. Small right pleural effusion. Reviewed, dictated and finalized at location A. IMPRESSION: 1. Large amount of colonic stool consistent with provided history of constipati on with mild rectal wall thickening and perirectal fat stranding consistent wit h stercoral colitis. 2. Marked prostatomegaly. 2. Small right pleural effusion.
[2023-10-28 13:23] VITALS: BP 121/50; PULSE 72; RESP 20; TEMP 36.4; O2SAT 100
--- NOTE | 2023-10-28 14:21 | ED.ABDPAIN ---
HPI - Abdominal Pain General Chief Complaint: Abdominal Pain <RADHA Oshea Last Filed: 10/28/23 14:32> Stated Complaint: I have a blocked colon and I can't urinate <RADHA Oshea Last Filed: 10/28/23 14:32> Time Seen by Provider: 10/28/23 14:20 <RADHA Oshea Last Filed: 10/28/23 14:32> Focused HPI: Patient is an 87 y/o male who presents to the ED with c/o constipation and difficulty urinating. Patient reports his last BM was 3 days ago. He typically has a bowel movement every other day. C/o pain to his lower abdomen and rectum. He is not passing gas. He took dulcolax prior to arrival. He was able to strain to have a small BM in the ED waiting room. He is feeling slightly better currently. Denies rectal bleeding or melena. Also reports difficulty urinating, states he last urinated at 830am. Denies previous hx of retention/catheterization. Denies fevers, N/V. Denies previous hx of bowel obstruction. Denies abdominal surgery. Patient was recently hospitalized for PNA, pleural effusion, sepsis. Was hospitalized here and transferred to [facility]. Finished abx 2 days ago. GENERAL: Elderly, frail, pale, and in no acute distress. HEAD: Normocephalic, atraumatic. CHEST: Clear to auscultation. ?No respiratory distress. HEART: Regular rate and rhythm.? ABD: No significant tenderness, nondistended, normoactive BS. NEURO: ?Alert and oriented x3. Patient screened in triage and initial orders placed.? ?Additional care and disposition to be based upon?diagnostic testing and treatment. <RADHA Oshea Last Filed: 10/28/23 14:32> Source: patient <RADHA Oshea Last Filed: 10/28/23 14:32> Mode of arrival: ambulatory <RADHA Oshea Last Filed: 10/28/23 14:32> Limitations: no limitations <RADHA Oshea Last Filed: 10/28/23 14:32> Related Data Home Medications: Home Medications Medication Instructions Recorded Confirmed aspirin 81 mg tablet,delayed 81 mg PO DAILY 08/14/19 10/06/23 release (Adult Low Dose Aspirin) glucosamine HCl 1,500 mg tablet 1,500 mg PO DAILY 08/14/19 10/06/23 multivitamin 1 tablet PO DAILY 08/14/19 10/06/23 L.acidop,casei,lactis,rham-B.lact,colin 1 cap PO DAILY 09/17/23 10/06/23 625 mg (10 billion cell) capsule (Advanced Probiotic) simvastatin 5 mg tablet 5 mg PO DAILY 09/17/23 10/06/23 tamsulosin 0.4 mg capsule 0.4 mg PO DAILY 09/17/23 10/06/23 carvedilol 6.25 mg tablet 6.25 mg PO BID 09/27/23 10/06/23 furosemide 40 mg tablet 40 mg PO DAILY 09/27/23 10/06/23 lidocaine 5 % topical patch 1 patch topical DAILY 09/27/23 10/06/23 <Veuns Garcia PA-C - Last Filed: 10/28/23 14:32> Allergies/Adverse Reactions: Allergies Allergy/AdvReac Type Severity Reaction Status Date / Time No Known Allergies Allergy Verified 10/28/23 13:12 <Venus Garcia PA-C - Last Filed: 10/28/23 14:32> Review of Systems Review of Systems: CONSTITUTIONAL: Denies fever GASTROINTESTINAL: Reports abdominal pain. Denies nausea, vomiting, or diarrhea. GENITOURINARY: Denies dysuria <Mago Choi PA-C - Last Filed: 10/28/23 17:18> All systems reviewed & are unremarkable except as noted in HPI and below <Mago Choi PA-C - Last Filed: 10/28/23 17:18> [facility] Past Medical History Medical History: Medical History Benign prostatic hyperplasia CAD (coronary artery disease) Carpal tunnel syndrome Hearing problem Heart failure Nocturnal leg cramps Prediabetes 5.7% on 09/07/23 Pure hypercholesterolemia, unspecified Vitamin D deficiency <Venus Garcia PA-C - Last Filed: 10/28/23 14:32> Surgical History Surgical History: Surgical History History of carpal tunnel release History of microdiscectomy <Venus Garcia PA-C
[2023-10-28 14:49] LABS: Basophils Absolute Auto 0.1 K/mm3 (0.0-0.1); Basophils Percent Auto 0.9 % (0.2-1.2); Eosinophils Absolute Auto 0.2 K/mm3 (0-0.3); Eosinophils Percent Auto 2.6 % (0-4.4); Hematocrit 32.8 % (42.0-52.0); Hemoglobin 10.5 g/dL (14.0-18.0); Immature Granulocyte Absolute 0.03 K/mm3 (0.00-0.031); Immature Granulocyte Percent A 0.4 % (0-0.5); Lymphocytes Absolute Auto 0.66 K/mm3 (0.9-3.2); Lymphocytes Percent Auto 9.6 % (18.3-44.2); Mean Corpuscular Hemoglobin 31.2 pg (26-34); Mean Corpuscular Volume 97.3 fl (80-100); Mean Platelet Volume 9.4 fl (7.4-10.4); Monocytes Absolute Auto 0.5 K/mm3 (0.1-0.6); Monocytes Percent Auto 6.9 % (2.6-8.5); Neutrophils Absolute Auto 5.5 K/mm3 (1.3-6.7); Neutrophils Percent Auto 79.6 % (45.5-73.1); Platelet Count Result 237 k/mm3 (150-375); Red Blood Count 3.37 M/mm3 (4.6-6.20); Red Cell Distribution Width 17.3 % (11.5-14.5); White Blood Count 6.9 K/mm3 (4.5-10.0)
[2023-10-28 14:58] LABS: Lactic Acid Reflex 1.5 mmol/L (0.7-2.0)
[2023-10-28 15:00] LABS: Alanine Aminotransferase 18 U/L (6-50); Albumin Level 4.1 g/dL (3.5-5.1); Alkaline Phosphatase 80 U/L (38-126); Anion Gap 8 mmol/L (4-12); Aspartate Amino Transferase 32 U/L (17-59); Bilirubin,Total 1.4 mg/dL (0.2-1.3); Blood Urea Nitrogen 25 mg/dL (9-20); Calcium 8.7 mg/dL (8.4-10.2); Carbon Dioxide 28 mmol/L (22-30); Chloride 99 mmol/L (98-107); Estimated CRCL calculation 53 ml/min; Estimated Glomerular Filt Rate > 60; Glucose 114 mg/dL (65-110); Lipase 27 U/L (23-300); Sodium 135 mmol/L (137-145)
[2023-10-28 16:44] LABS: Appearance Urine Clear (Clear); Bilirubin Urine Negative (Negative); Blood Urine Negative (Negative); Color Urine Yellow (Yellow); Glucose Urine UA Negative (Negative); Ketones Urine Negative (Negative); Leukocyte Esterase Ur Negative LEU/UL (Negative); Nitrate Urine Negative (Negative); Protein Urine Negative (Negative); Specific Grav Ur 1.011 (1.001-1.035); Urobilinogen Urine 0.2 mg/dL (<2.0); pH Urine 5.5 (5.0-9.0)
[2023-10-28 16:53] LABS: Add Urine Microscopic? NO
[2023-10-28 17:31] VITALS: BP 126/59; PULSE 66; RESP 15; O2SAT 100
[2023-10-28 17:42] VITALS: BP 108/63; PULSE 62; RESP 12; TEMP 36.7; O2SAT 100
== END 2023-10-28 17:43 | disposition home or self-care (01) ==
PROVIDERS: Physician Assistant; Emergency Provider Physician Assistant; PCP Family Medicine
DX: K59.00 Constipation, unspecified (principal); I25.10 Atherosclerotic heart disease of native coronary artery without angina pectoris; I50.9 Heart failure, unspecified; E78.00 Pure hypercholesterolemia, unspecified; E55.9 Vitamin D deficiency, unspecified; R73.03 Prediabetes; N40.0 Benign prostatic hyperplasia without lower urinary tract symptoms; Z87.01 Personal history of pneumonia (recurrent); Z79.899 Other long term (current) drug therapy; Z79.82 Long term (current) use of aspirin
CPT/HCPCS: 36415; 74177; 80053; 81003; 83605; 83690; 85025; 99284; Q9967

== ENCOUNTER 2023-12-23 10:07 | Outpatient (CLI) | payer MEDICARE, SELFPAY ==
--- NOTE | ~2023-12-23 | XR_ITS ---
XR chest 2V 12/23/2023 10:21 Indication: Shortness of breath Procedure: 2 view chest Comparison: Comparison to multiple prior studies sequentially, with oldest reviewed study dated 07/2023. Findings: Chronic pleural effusion/pleural thickening. Unchanged interstitial and airspace infiltrate s of the mid and lower lungs unchanged. No edema or pneumothorax. No acute osseous abnormality. Impression: 1: No significant interval change. Reviewed, dictated and finalized at location B. Impression: 1: No significant interval change.
== END 2023-12-23 10:08 ==
LOC: GOSHIMG 10:08
PROVIDERS: PCP Family Medicine; Visit Provider Nurse Practitioner
DX: R06.02 Shortness of breath (principal)
CPT/HCPCS: 71046

== ENCOUNTER 2024-06-08 16:18 | Inpatient (IN) | payer MEDICARE, SELFPAY ==
--- NOTE | ~2024-06-08 | XR_ITS ---
CHEST RADIOGRAPH, PA AND LATERAL CLINICAL HISTORY: sob, unexplained weight gain, bilateral leg swelling . COMPARISON: 12/23/2023 and dating back to 10/07/2023 TECHNIQUE: PA and lateral views of the chest. FINDINGS The cardiomediastinal silhouette is enlarged and partially obscured Large right-sided pleural effusion, extending into the major fissure in addition to a focal infiltrat e within the superior segment of the right lower lobe. Small left-sided pleural effusion is also note d. IMPRESSION: Large right-sided pleural effusion extending into the major fissure in addition to a focal infiltrate within the superior segment of the right lower lobe with a small left-sided pleural effusion. Reviewed, dictated and finalized at location A. E GOODS CLERK
--- NOTE | ~2024-06-08 | CT_ITS ---
Clinical indication:Shortness of breath, pleural effusion. COMPARISON:10/06/2023 TECHNIQUE: Multiple contiguous axial images of the chest were performed without the administration of intravenous contrast. FINDINGS: LUNG:Biapical scarring, unchanged. Interval development of a left-sided pleural effusion, an interval change from prior. The right-sided pleural effusion is now partially loculated, owing to the appearance on plain radiogr aph. Interstitial thickening is detected bilaterally, along with patchy groundglass opacification. MEDIASTINUM:No discrete lymph nodes are appreciated within the mediastinum. HEART:The heart is enlarged with a small pericardial effusion. SOFT TISSUES OF THE CHEST: Unremarkable BONES OF THE CHEST: Degenerative disease, without acute compression fracture. VISUALIZED PORTION OF THE UPPER ABDOMEN: Densely calcified atherosclerotic disease. Fatty atrophy of the pancreas. IMPRESSION: Left-sided pleural effusion, consistent with most recent radiograph (performed approximately 1 hour e arlier) with partially loculated right-sided pleural effusion and interstitial thickening/groundglass opacification. Reviewed, dictated and finalized at location A. [place] CLIENT SOLUTIONS CONSULTANT IMPRESSION: Left-sided pleural effusion, consistent with most recent radiograph (performed approximately 1 hour earlier) with partially loculated right-sided pleural effu rosa and interstitial thickening/groundglass opacification.
--- NOTE | 2024-06-08 16:20 | ECG_ITS ---
Test Date: 2024-06-08 16:53:40 Measurements Intervals [place] Rate: 52 P: 0 CA: 0 QRS: 77 QRSD: 149 T: 20 QT: 454 QTc: 424 Interpretive Statements ATRIAL FIBRILLATION WITH SLOW VENTRICULAR RESPONSE RIGHT BUNDLE BRANCH BLOCK [120+ ms QRS DURATION, UPRIGHT V1, 40+ ms S IN I/aVL/V4/V5/V6] No previous ECG available for comparison Electronically Signed On 06-09-2024 11:52:14 [employer] by [place] Shah
[2024-06-08 16:32] VITALS: BP 143/61; PULSE 68; RESP 24; TEMP 36.7; O2SAT 100
--- NOTE | 2024-06-08 16:37 | ED.SOB ---
HPI - SOB/Dyspnea General Chief Complaint: Shortness of Breath/Dyspnea <Ewa Owens APRN - Last Filed: 06/08/24 16:40> Stated Complaint: SOB,edema <Ewa Owens APRN - Last Filed: 06/08/24 16:40> Time Seen by Provider: 06/08/24 16:30 <Ewa Owens APRN - Last Filed: 06/08/24 16:40> Focused HPI: Patient is pleasant 88-year-old male who presents to the ER with complaints of shortness of breath and edema. He reports I gained 10 lb in the past 8 days. Patient reports he takes a water pill at home. Patient also endorses indigestion and has had to ?take more Tums lately. He denies chest pain, recent fevers, wheezing, recent signs/symptoms of infection. Patient reports he was hospitalized for pneumonia this past summer. GENERAL: Well-appearing, well-nourished, and in no acute distress. HEAD: Normocephalic, atraumatic. CHEST: Clear to auscultation. ?No respiratory distress. HEART: Regular rate and rhythm.? NEURO: ?Alert and oriented x3. Patient screened in triage and initial orders placed.? ?Additional care and disposition to be based upon?diagnostic testing and treatment. <Ewa Owens APRN - Last Filed: 06/08/24 16:40> History of Present Illness HPI Narrative: Patient a 88-year-old gentleman presents emergency department chief complaint of shortness of breath and edema. Patient reports he has been having significant increase in peripheral edema reports that he has had pneumonia last summer and reports that he has been getting much more short of breath. The patient reports this feels similar to whenever he had pneumonia in the past. <Ethan Esposito MD - Last Filed: 06/08/24 20:49> Related Data Home Medications: Home Medications ?Medication ?Instructions ?Recorded ?Confirmed ?Last Taken ?Type aspirin 81 mg tablet,delayed 81 mg PO DAILY 08/14/19 04/04/24 1 Day Ago History release (Adult Low Dose Aspirin) ~09/16/23 glucosamine HCl 1,500 mg tablet 1,500 mg PO DAILY 08/14/19 04/04/24 1 Day Ago History ~09/16/23 multivitamin 1 tablet PO DAILY 08/14/19 04/04/24 1 Day Ago History ~09/16/23 L.acidop,casei,lactis,rham-B.lact,colin 1 cap PO DAILY 09/17/23 04/04/24 1 Day Ago History 625 mg (10 billion cell) capsule ~09/16/23 (Advanced Probiotic) ascorbate calcium (vitamin C) 500 500 mg PO DAILY 12/23/23 04/04/24 Unknown History mg tablet docusate sodium 100 mg capsule 100 mg PO DAILY 12/23/23 04/04/24 Unknown History (Colace) ferrous sulfate 325 mg (65 mg 325 mg PO DAILY 12/23/23 04/04/24 Unknown History iron) tablet,delayed release <Ewa Owens APRN - Last Filed: 06/08/24 16:40> Allergies/Adverse Reactions: Allergies Allergy/AdvReac Type Severity Reaction Status Date / Time No Known Allergies Allergy Verified 06/08/24 16:19 <Ewa Owens APRN - Last Filed: 06/08/24 16:40> Review of Systems Review of Systems: A 10 system review of systems was completed on the patient and is negative except for what is stated in the HPI. Nursing and ancillary documentation was reviewed. <Ethan Esposito MD - Last Filed: 06/08/24 20:49> [facility], [facility] Past Medical History Medical History: Medical History Heart failure CAD (coronary artery disease) Nocturnal leg cramps Vitamin D deficiency Carpal tunnel syndrome Benign prostatic hyperplasia Prediabetes 5.7% on 09/07/23 Pure hypercholesterolemia, unspecified Hearing problem <Ewa Owens APRN - Last Filed: 06/08/24 16:40> Surgical History Surgical History: Surgical History History of carpal tunnel release History of microdiscectomy <Ewa Owens APRN - Last Filed: 06/08/24 16:40> Family History Family History: Family History Father Family history of diabetes mellitus in first degree relative Diabetes mellitus Family history of cardiovascular disease Cerebrovascular accident Patient's father is , Onset Age: 83 Mother Family history of diabetes mellitus in first degree relative Diabetes mellitus Patient's mother is , Onset Age: 99 Other Family history of malignant neoplasm of brain <Ewa Owens, LIFE SKILLS INSTRUCTOR - Last Filed: 06/08/24 16:40> Social History Social History: Social History Social History: Has a son who resides in [facility] Smoking status: Never smoker Alcohol intake: never Substance use: never Substance use type: does not use Do You Feel Safe in your Home?: Yes Lack of Transportation: No Lack of Food: Never True Current Housing: I Have Housing Concerned About Future Housing: No Difficulty Paying Gas/Electric Bills: No Difficulty Paying for Meds: No Currently Unemployed: No Education: Decline to Answer Difficulty w/ Childcare or Family Care: No Living arrangements: alone Occupation/Education: retired Gender identity (if verbalized by the patient): Male Spiritual care concerns: No <Ewa Owens, LIFE SKILLS INSTRUCTOR - Last Filed: 06/08/24 16:40> Exam Narrative: GENERAL: Well-appearing, well-nourished, and in no acute distress. HEAD: Normocephalic, atraumatic. EYES: PERRLA and EOMI. ENT: Nares clear, no rhinorrhea or epistaxis. Mucous membranes moist. NECK: Supple. CHEST: Clear to auscultation. No respiratory distress. HEART: Regular rate and rhythm. No murmur heard. Normal peripheral pulses. ABDOMEN: Soft, nontender, nondistended, normal active bowel sounds. EXTREMITIES: Normal range of motion. 2+ edema. SKIN: Warm, dry, no rash. NEURO: No focal deficits. Alert and oriented x3. PSYCH: Normal mood and affect. <Ethna Esposito MD - Last Filed: 06/08/24 20:49> Course Vital Signs Vital signs: Vital Signs Temperature 36.7 C 06/08/24 16:32 Pulse Rate 68 06/08/24 16:32 Respiratory Rate 24 H 06/08/24 16:32 Blood Pressure 143/61 H 06/08/24 16:32 Pulse Oximetry 100 06/08/24 16:32 Oxygen Delivery Room Air 06/08/24 16:32 Temperature 36.7 C 06/08/24 16:32 Pulse Rate 68 06/08/24 16:32 Respiratory Rate 24 H 06/08/24 16:32 Blood Pressure 143/61 H 06/08/24 16:32 Pulse Oximetry 100 06/08/24 16:32 Oxygen Delivery Room Air 06/08/24 16:32 <Ewa Owens APRN - Last Filed: 06/08/24 16:40> Vital Signs Temperature 36.7 C 06/08/24 16:32 Pulse Rate 68 06/08/24 16:32 Respiratory Rate 24 H 06/08/24 16:32 Blood Pressure 143/61 H 06/08/24 16:32 Pulse Oximetry 100 06/08/24 16:32 Oxygen Delivery Room Air 06/08/24 16:32 Temperature 36.7 C 06/08/24 16:32 Pulse Rate 68 06/08/24 16:32 Respiratory Rate 24 H 06/08/24 16:32 Blood Pressure 143/61 H 06/08/24 16:32 Pulse Oximetry 100 06/08/24 16:32 Oxygen Delivery Room Air 06/08/24 16:32 <Ethan Esposito MD - Last Filed: 06/08/24 20:49> MDM - SOB/Dyspnea MDM Narrative Medical decision making narrative: Differential diagnosis includes pneumonia, CHF, fluid overload, renal failure Laboratory studies were obtained on the patient showed a white blood cell count of 5.3 electrolytes are within normal limits troponin was slightly elevated at 0.058 the patient has chronically elevated troponins BNP was 4480 COVID flu RSV are negative CT of the chest showed Left-sided pleural effusion, consistent with most recent radiograph (performed approximately 1 hour earlier) with partially loculated right-sided pleural effusion and interstitial thickening/groundglass opacification. <Ethan Esposito MD - Last Filed: 06/08/24 20:49> Lab Data Result diagrams: 06/08/24 17:06 06/08/24 17:06 <Ewa Owens APRN - Last Filed: 06/08/24 16:40> Labs: Lab Results 06/08/24 06/08/24 Range/Units 17:06 19:28 WBC 5.3 (4.5-10.0) K/mm3 RBC 4.21 L (4.6-6.20) M/mm3 Hgb 13.5 L D (14.0-18.0) g/dL Hct 42.1 (42.0-52.0) % MCV 100.0 (80-100) fl MCH 32.1 (26-34) pg MCHC 32.1 (32-36) g/dl RDW 15.0 H (11.5-14.5) % Plt Count 129 L (150-375) k/mm3 MPV 11.1 H (7.4-10.4) fl Immature Gran % (Auto) 0.2 (0-0.5) % Neut % (Auto) 66.5 (45.5-73.1) % Lymph % (Auto) 17.2 L (18.3-44.2) % [place] % (Auto) 10.9 H (2.6-8.5) % Eos % (Auto) 3.9 (0-4.4) % Baso % (Auto) 1.3 H (0.2-1.2) % Lymph # (Auto) 0.92 (0.9-3.2) K/mm3 [place] # (Auto) 0.6 (0.1-0.6) K/mm3 Eos # (Auto) 0.2 (0-0.3) K/mm3 Baso # (Auto) 0.1 (0.0-0.1) K/mm3 Abs Immat Gran (auto) 0.01 (0.00-0.031) K/mm3 Absolute Neuts (auto) 3.6 (1.3-6.7) K/mm3 Absolute Nucleated RBC 0.000 (0.0-0.012) K/mm3 Nucleated RBC % 0.0 (0.0-0.2) % % Immature Plt Fraction 5.3 (0.9-11.2) % ESR Pending PT 18.2 H (11.1-14.7) Seconds INR 1.5 APTT 33.2 (22.3-36.8) Seconds Sodium 136 L (137-145) mmol/L Potassium 4.3 (3.4-5.0) mmol/L Chloride 99 (98-107) mmol/L Carbon Dioxide 24 (22-30) mmol/L Anion Gap 13 H (4-12) mmol/L BUN 28 H (9-20) mg/dL Creatinine 0.95 (0.7-1.3) mg/dL Estim Creat Clear Calc 53 ml/min Estimated GFR > 60 (59 - ) Glucose 95 (65-110) mg/dL Calcium 8.5 (8.4-10.2) mg/dL Magnesium 2.4 H (1.6-2.3) mg/dL Total Bilirubin 1.8 H (0.2-1.3) mg/dL AST 34 (17-59) U/L ALT 19 (6-50) U/L Alkaline Phosphatase 86 (38-126) U/L Troponin I 0.058 H* (0.000-0.034) ng/mL C-Reactive Protein Pending NT-Pro-B Natriuret Pep 4480 H (19.9-100) pg/mL Total Protein 7.0 (6.3-8.2) g/dL Albumin 4.2 (3.5-5.1) g/dL Procalcitonin Pending TSH (Reflex) 5.570 H (0.465-4.68) uIU/mL Free T4 1.32 (0.78-2.19) ng/dL Total T3 0.98 (0.97-1.69) NG/ML Influenza A (RT-PCR) Negative (Negative) Influenza B (RT-PCR) Negative (Negative) RSV (RT-PCR) Negative (Negative) SARS-CoV-2 RNA (RT-PCR) Negative (Negative) <Ewa Owens, LIFE SKILLS INSTRUCTOR - Last Filed: 06/08/24 16:40> Lab Results 06/08/24 06/08/24 Range/Units 17:06 19:28 WBC 5.3 (4.5-10.0) K/mm3 RBC 4.21 L (4.6-6.20) M/mm3 Hgb 13.5 L D (14.0-18.0) g/dL Hct 42.1 (42.0-52.0) % MCV 100.0 (80-100) fl MCH 32.1 (26-34) pg MCHC 32.1 (32-36) g/dl RDW 15.0 H (11.5-14.5) % Plt Count 129 L (150-375) k/mm3 MPV 11.1 H (7.4-10.4) fl Immature Gran % (Auto) 0.2 (0-0.5) % Neut % (Auto) 66.5 (45.5-73.1) % Lymph % (Auto) 17.2 L (18.3-44.2) % [place] % (Auto) 10.9 H (2.6-8.5) % Eos % (Auto) 3.9 (0-4.4) % Baso % (Auto) 1.3 H (0.2-1.2) % Lymph # (Auto) 0.92 (0.9-3.2) K/mm3 [place] # (Auto) 0.6 (0.1-0.6) K/mm3 Eos # (Auto) 0.2 (0-0.3) K/mm3 Baso # (Auto) 0.1 (0.0-0.1) K/mm3 Abs Immat Gran (auto) 0.01 (0.00-0.031) K/mm3 Absolute Neuts (auto) 3.6 (1.3-6.7) K/mm3 Absolute Nucleated RBC 0.000 (0.0-0.012) K/mm3 Nucleated RBC % 0.0 (0.0-0.2) % % Immature Plt Fraction 5.3 (0.9-11.2) % ESR Pending PT 18.2 H (11.1-14.7) Seconds INR 1.5 APTT 33.2 (22.3-36.8) Seconds Sodium 136 L (137-145) mmol/L Potassium 4.3 (3.4-5.0) mmol/L Chloride 99 (98-107) mmol/L Carbon Dioxide 24 (22-30) mmol/L Anion Gap 13 H (4-12) mmol/L BUN 28 H (9-20) mg/dL Creatinine 0.95 (0.7-1.3) mg/dL Estim Creat Clear Calc 53 ml/min Estimated GFR > 60 (59 - ) Glucose 95 (65-110) mg/dL Calcium 8.5 (8.4-10.2) mg/dL Magnesium 2.4 H (1.6-2.3) mg/dL Total Bilirubin 1.8 H (0.2-1.3) mg/dL AST 34 (17-59) U/L ALT 19 (6-50) U/L Alkaline Phosphatase 86 (38-126) U/L Troponin I 0.058 H* (0.000-0.034) ng/mL C-Reactive Protein Pending NT-Pro-B Natriuret Pep 4480 H (19.9-100) pg/mL Total Protein 7.0 (6.3-8.2) g/dL Albumin 4.2 (3.5-5.1) g/dL Procalcitonin Pending TSH (Reflex) 5.570 H (0.465-4.68) uIU/mL Free T4 1.32 (0.78-2.19) ng/dL Total T3 0.98 (0.97-1.69) NG/ML Influenza A (RT-PCR) Negative (Negative) Influenza B (RT-PCR) Negative (Negative) RSV (RT-PCR) Negative (Negative) SARS-CoV-2 RNA (RT-PCR) Negative (Negative) <Ethan Esposito MD - Last Filed: 06/08/24 20:49> Discharge Plan Discharge Clinical Impression: Pneumonia, Edema, peripheral <Ewa Owens APRN - Last Filed: 06/08/24 16:40> Patient Disposition: Still a Patient <Ewa Owens APRN - Last Filed: 06/08/24 16:40> Condition: Stable <Ewa Owens APRN - Last Filed: 06/08/24 16:40> Patient Language: Bulgarian <Ewa Owens APRN - Last Filed: 06/08/24 16:40> Prescriptions: No Action aspirin [Adult Low Dose Aspirin] 81 mg tablet,delayed release (DR/EC) 81 mg PO DAILY glucosamine HCl 1,500 mg tablet 1,500 mg PO DAILY Rx Instructions: administer with a meal multivitamin Tablet 1 tablet PO DAILY lidocaine 5 % adhesive patch,medicated 1 patch topical DAILY Qty: 15 0RF Rx Instructions: leave on most painful area for up to 12 hrs furosemide 40 mg tablet 40 mg PO DAILY Qty: 90 1RF ascorbate calcium (vitamin C) 500 mg tablet 500 mg PO DAILY docusate sodium [Colace] 100 mg capsule 100 mg PO DAILY ferrous sulfate 325 mg (65 mg iron) tablet,delayed release (DR/EC) 325 mg PO DAILY levothyroxine 25 mcg tablet 25 mcg PO DAILY Qty: 90 1RF Advanced Probiotic 625 mg (10 billion cell) Capsule 1 cap PO DAILY simvastatin 5 mg tablet 5 mg PO DAILY Qty: 90 1RF carvedilol 6.25 mg tablet 6.25 mg PO BID Qty: 180 1RF tamsulosin 0.4 mg capsule 0.4 mg PO DAILY Qty: 90 1RF Rx Instructions: TAKE 1 CAPSULE BY MOUTH EVERY DAY AT BEDTIME furosemide 20 mg tablet See Rx Instructions .ROUTE .COMPLEX Qty: 90 1RF Dose Instruction: TAKE 1 TABLET BY MOUTH EVERY DAY IN THE MORNING Rx Instructions: TAKE 1 TABLET BY MOUTH EVERY DAY IN THE MORNING <Ewa Owens APRN - Last Filed: 06/08/24 16:40> Follow-up/Referrals: Latanya Vee DO [Primary Care Provider] - <Ewa Owens APRN - Last Filed: 06/08/24 16:40> Time of Disposition: 20:49 <Ewa Owens APRN - Last Filed: 06/08/24 16:40> 20:49 <Ethan Esposito MD - Last Filed: 06/08/24 20:49>
[2024-06-08 17:21] LABS: Basophils Absolute Auto 0.1 K/mm3 (0.0-0.1); Basophils Percent Auto 1.3 % (0.2-1.2); Eosinophils Absolute Auto 0.2 K/mm3 (0-0.3); Eosinophils Percent Auto 3.9 % (0-4.4); Hematocrit 42.1 % (42.0-52.0); Hemoglobin 13.5 g/dL (14.0-18.0); Immature Granulocyte Absolute 0.01 K/mm3 (0.00-0.031); Immature Granulocyte Percent A 0.2 % (0-0.5); Immature Platelet Fraction Pct 5.3 % (0.9-11.2); Lymphocytes Absolute Auto 0.92 K/mm3 (0.9-3.2); Lymphocytes Percent Auto 17.2 % (18.3-44.2); Mean Corpuscular HGB Conc 32.1 g/dl (32-36); Mean Corpuscular Hemoglobin 32.1 pg (26-34); Mean Platelet Volume 11.1 fl (7.4-10.4); Monocytes Absolute Auto 0.6 K/mm3 (0.1-0.6); Monocytes Percent Auto 10.9 % (2.6-8.5); Neutrophils Absolute Auto 3.6 K/mm3 (1.3-6.7); Neutrophils Percent Auto 66.5 % (45.5-73.1); Platelet Count Result 129 k/mm3 (150-375); Red Blood Count 4.21 M/mm3 (4.6-6.20); White Blood Count 5.3 K/mm3 (4.5-10.0)
[2024-06-08 17:31] LABS: INR 1.5; Prothrombin Time 18.2 Seconds (11.1-14.7)
[2024-06-08 17:32] LABS: Partial Thromboplastin Time 33.2 Seconds (22.3-36.8)
[2024-06-08 17:34] LABS: Alanine Aminotransferase 19 U/L (6-50); Albumin Level 4.2 g/dL (3.5-5.1); Alkaline Phosphatase 86 U/L (38-126); Anion Gap 13 mmol/L (4-12); Aspartate Amino Transferase 34 U/L (17-59); Bilirubin,Total 1.8 mg/dL (0.2-1.3); Blood Urea Nitrogen 28 mg/dL (9-20); Calcium 8.5 mg/dL (8.4-10.2); Carbon Dioxide 24 mmol/L (22-30); Chloride 99 mmol/L (98-107); Estimated CRCL calculation 53 ml/min; Estimated Glomerular Filt Rate > 60; Glucose 95 mg/dL (65-110); Magnesium 2.4 mg/dL (1.6-2.3); Potassium 4.3 mmol/L (3.4-5.0); Sodium 136 mmol/L (137-145)
[2024-06-08 17:49] LABS: NT Pro B Type Natriuretic Pept 4480 pg/mL (19.9-100); Troponin I 0.058 ng/mL (0.000-0.034)
[2024-06-08 19:26] LABS: Free T4 Free Thyroxine Reflex 1.32 ng/dL (0.78-2.19)
[2024-06-08 20:12] LABS: Influenza A QL RT-PCR Negative (Negative); Influenza B QL RT-PCR Negative (Negative); RSV RNA, RT-PCR Negative (Negative); SARS-CoV-2 RNA PCR Negative (Negative)
[2024-06-08 20:30] LABS: Total Triiodothyronine (T3) 0.98 NG/ML (0.97-1.69)
[2024-06-08 20:54] LABS: CRP 0.9 mg/dL (<1.0)
[2024-06-08 21:06] LABS: Erythrocyte Sedimentation Rate 8 mm/hr (0-20)
[2024-06-08] MEDS: CEFEPIME 2 GM/NS 50 ML 2 GM/50 ML BAG IVPB (21:09)
[2024-06-08 21:26] LABS: Add Urine Microscopic? NO; Appearance Urine Clear (Clear); Bilirubin Urine Negative (Negative); Blood Urine Negative (Negative); Color Urine Yellow (Yellow); Glucose Urine UA Negative (Negative); Ketones Urine Negative (Negative); Leukocyte Esterase Ur Negative LEU/UL (Negative); Nitrate Urine Negative (Negative); Protein Urine Negative (Negative); Urobilinogen Urine 0.2 mg/dL (<2.0)
[2024-06-08 21:39] VITALS: BP 151/71; PULSE 70; RESP 16; O2SAT 100
[2024-06-08 21:40] VITALS: BP 171/51; PULSE 67; RESP 16; O2SAT 100
[2024-06-08 22:02] VITALS: BMI 23.6
[2024-06-08 22:13] LABS: MRSA (PCR) NOT DETECTED (NOT DETECTE)
--- NOTE | 2024-06-08 22:15 | ADMGEN ---
This patient, Gerald Leonardo, was admitted to 3 [facility] Surg Room 313-01. Patient/family oriented to hospital policies and general routines including ID bracelet, bed and alarms, visiting hours, pain management, procedures, bathroom and other care routines, personal items, smoking policy, room service/diet, and visiting hours. Information on how to activate the Rapid Response Team has been discussed. Patient/Family are encouraged to report perceived risks to care and to ask questions if they do not understand what they are told or what they should do.
[2024-06-08 22:25] VITALS: BP 160/78; PULSE 83; RESP 12; TEMP 36.3; O2SAT 100
[2024-06-08] MEDS: metroNIDAZOLE 500 MG/ISO 100ML 500 MG/100 ML BAG 100 MG IVPB (23:04)
[2024-06-09] VITALS (10 sets, daily range): BP systolic 130–159; BP diastolic 67–80; PULSE 60–83; RESP 14–20; TEMP 36.3–37.2; O2SAT 95–100
--- NOTE | 2024-06-09 | ECHO_ITS ---
Patient Info Name: Gerald Leonardo Age: 88 years : 1935 Gender: Male Ht: 72 in Wt: 174 lbs BSA: 2.00 m2 HR: 62 bpm BP: 159 / 80 mmHg Technical Quality: Excellent Exam Date: 06/09/2024 11:43 AM Exam Location: Echo Lab Exam Room: [facility] Patient Status: Inpatient Admit Date: 06/09/2024 Staff Ordering Physician: Ángel Campos APRN Process Design Chemical Engineer: Piper Lou RDCS Attending Provider: Josemanuel Lawson MD Referring Physician: Andres ALVAREZ; Exam Type: CA echo doppler color flow Study Info Indications - Anasarca, pleural effusions Complete two-dimensional, color flow and Doppler transthoracic echocardiogram is performed. Summary 1. Complete two-dimensional, color flow and Doppler transthoracic echocardiogram is performed. 2. Left ventricular chamber dimension is normal. 3. Left ventricular systolic function is normal, estimated at 55-60%. 4. There is mild concentric increased left ventricular wall thickness. 5. The left ventricular diastolic function is abnormal. 6. E/e' 22 is significantly elevated. 7. Left atrial chamber dimension is moderately enlarged. 8. Right atrial chamber dimension is moderately enlarged. 9. There is mild aortic valve sclerosis. 10. There is mild to moderate aortic valve regurgitation. 11. There is mild to moderate mitral valve regurgitation. 12. There is mild tricuspid valve regurgitation. 13. Moderate pulmonary hypertension, estimated pulmonary arterial systolic pressure is 55 mmHg. 14. There is trace pulmonic regurgitation. 15. Dilated inferior vena cava with <50% collapse upon inspiration consistent with significantly elevated right atrial pressure, 15 mmHg. 16. There is trivial pericardial effusion. Left Ventricle E/e' 22 is significantly elevated. Left ventricular chamber dimension is normal. Left ventricular systolic function is normal, estimated at 55-60%. There is mild concentric increased left ventricular wall thickness. The left ventricular diastolic function is abnormal. Right Ventricle Right ventricular chamber dimension is normal. Right ventricular systolic function is normal. Left Atria Left atrial chamber dimension is moderately enlarged. Right Atria Right atrial chamber dimension is moderately enlarged. Aortic Valve The aortic valve is trileaflet. There is mild aortic valve sclerosis. There is no aortic valve stenosis. There is mild to moderate aortic valve regurgitation. Pulmonic Valve There is trace pulmonic regurgitation. Mitral Valve There is no mitral valve stenosis. There is mild to moderate mitral valve regurgitation. Tricuspid Valve There is mild tricuspid valve regurgitation. Moderate pulmonary hypertension, estimated pulmonary arterial systolic pressure is 55 mmHg. Pericardium/Pleural There is trivial pericardial effusion. Inferior Vena Cava Dilated inferior vena cava with <50% collapse upon inspiration consistent with significantly elevated right atrial pressure, 15 mmHg. Aorta The aortic root size at the sinus of Valsalva is normal. Left Ventricular Outflow Tract Name Value Normal LVOT 2D LVOT Diameter 2.3 cm LVOT Doppler LVOT Peak Gradient 2 mmHg LVOT Mean Gradient 1 mmHg LVOT VTI 15 cm LVOT VTI/AV VTI Ratio 0.8 LVOT Stroke Volume 62 ml LVOT CO 3.8 l/min LVOT CI 1.9 l/min/m2 Pulmonic Valve Name Value Normal PV Doppler PV Peak Gradient 2 mmHg PV Regurgitation Doppler RI Peak End Diastolic Velocity 79 cm/s Mitral Valve Name Value Normal MV Doppler MV Peak Gradient 4 mmHg MV Mean Gradient 1 mmHg MV Decel [place] 774 cm/s2 MV PHT 41 ms MV Area (PHT) 5.4 cm2 4.0-5.0 MV Area (Cont Eq VTI) 2.4 cm2 MV Regurgitation Doppler MR Peak Gradient 96 mmHg MV Diastolic Function MV E Peak Velocity 109 cm/s MV A Peak Velocity 35 cm/s MV E/A 3.1 MV Decel Time 141 ms MV Annular TDI MV E/e' (Septal) 27.3 <=8.0 MV E/e' (Lateral) 18.7 <=8.0 MV E/e' (Average) 23.0 Tricuspid Valve Name Value Normal TV Regurgitation Doppler TR Peak Velocity 317 cm/s TR Peak Gradient 40 mmHg Estimated PAP/RSVP RA Pressure 15 mmHg <=5 PA Systolic Pressure 55 mmHg <36 RV Systolic Pressure 55 mmHg <36 Aortic Valve Name Value Normal AV Doppler AV Peak Velocity 94 cm/s AV Peak Gradient 4 mmHg AV Mean Gradient 2 mmHg AV VTI 20 cm AV Area (Cont Eq VTI) 3.1 cm2 >=3.0 AV Area (Cont Eq Casimiro) 3.1 cm2 AV Regurgitation 2D LVOT Area 4.1 cm2 AV Regurgitation Doppler AR Decel Time 2,426 ms AR Decel [place] 161 cm/s2 AR PHT 703 ms Ventricles Name Value Normal LV Dimensions 2D/MM IVS Diastolic Thickness (2D) 1.3 cm 0.6-1.0 IVS Diastole Thickness (MM) 1.2 cm 0.6-1.0 LVID Diastole (2D) 5.0 cm 4.2-5.8 LVID Diastole (MM) 4.9 cm 4.2-5.8 LVIW Diastolic Thickness (2D) 1.0 cm 0.6-1.0 LVIW Diastolic Thickness (MM) 1.0 cm 0.6-1.0 LVID Systole (2D) 3.4 cm 2.5-4.0 LVID Systole (MM) 3.6 cm 2.5-4.0 LVOT Diameter 2.3 cm LV Mass (2D Cubed) 212.69 g 88.00-224.00 LV Mass Index (2D Cubed) 106 g/m2 49-115 Relative Wall Thickness (2D) 0.40 LV Mass (MM Cubed) 209.03 g 88.00-224.00 LV Mass Index (MM Cubed) 104 g/m2 49-115 Relative Wall Thickness (MM) 0.42 LV Fractional Shortening/Ejection Fraction 2D/MM LV Fractional Shortening (2D) 30 % 25-43 LV Fractional Shortening (MM) 26 % 25-43 LV EF (MM Teicholz) 50 % 52-72 LV EF (2D Teicholz) 57 % 52-72 LV Diastolic Volume (4C MOD) 117 ml LV EF (4C MOD) 60 % LV Diastolic Length (4C) 8.2 cm LV Systolic Length (4C) 7.3 cm LV Stroke Volume (4C MOD) 70 ml Atria Name Value Normal LA Dimensions LA Volume (4C A-L) 105 ml RA Dimensions RA Area (4C) 29.1 cm2 <=18.0 Report Signatures
--- NOTE | 2024-06-09 00:09 | P.HP_ITS ---
H&P: HPI History of Present Illness Date/Time: 06/09/24 00:09 [facility] Past Medical History Medical History Heart failure CAD (coronary artery disease) Nocturnal leg cramps Vitamin D deficiency Carpal tunnel syndrome Benign prostatic hyperplasia Prediabetes 5.7% on 09/07/23 Pure hypercholesterolemia, unspecified Hearing problem Surgical History Surgical History History of carpal tunnel release History of microdiscectomy Family History Family History Father Family history of diabetes mellitus in first degree relative Diabetes mellitus Family history of cardiovascular disease Cerebrovascular accident Patient's father is , Onset Age: 83 Mother Family history of diabetes mellitus in first degree relative Diabetes mellitus Patient's mother is , Onset Age: 99 Other Family history of malignant neoplasm of brain Social History Social History Social History: Has a son who resides in [facility] Smoking status: Never smoker Alcohol intake: never Substance use: never Substance use type: does not use Do You Feel Safe in your Home?: No Lack of Transportation: No Lack of Food: Never True Current Housing: I Have Housing Concerned About Future Housing: No Difficulty Paying Gas/Electric Bills: No Difficulty Paying for Meds: No Currently Unemployed: No Education: Master's Degree or Higher Difficulty w/ Childcare or Family Care: No Living arrangements: alone Occupation/Education: retired Gender identity (if verbalized by the patient): Male Spiritual care concerns: No Meds Home Medications and Allergies Home Medications ?Medication ?Instructions ?Recorded ?Confirmed ?Type aspirin 81 mg tablet,delayed 81 mg PO DAILY 08/14/19 06/08/24 History release (Adult Low Dose Aspirin) glucosamine HCl 1,500 mg tablet 1,500 mg PO DAILY 08/14/19 06/08/24 History multivitamin 1 tablet PO DAILY 08/14/19 06/08/24 History L.acidop,casei,lactis,rham-B.lact,colin 1 cap PO DAILY 09/17/23 06/08/24 History 625 mg (10 billion cell) capsule (Advanced Probiotic) ascorbate calcium (vitamin C) 500 500 mg PO DAILY 12/23/23 06/08/24 History mg tablet docusate sodium 100 mg capsule 100 mg PO DAILY 12/23/23 06/08/24 History (Colace) ferrous sulfate 325 mg (65 mg 325 mg PO DAILY 12/23/23 06/08/24 History iron) tablet,delayed release carvedilol 6.25 mg tablet 6.25 mg PO BID #180 tabs 02/15/24 06/08/24 Rx furosemide 40 mg tablet 40 mg PO DAILY #90 tabs 03/28/24 06/08/24 Rx lidocaine 5 % topical patch 1 patch topical DAILY #15 ea 03/28/24 06/08/24 Rx levothyroxine 25 mcg tablet 25 mcg PO DAILY #90 tabs 04/04/24 06/08/24 Rx furosemide 20 mg tablet See Rx Instructions .Route 05/29/24 06/08/24 Rx .COMPLEX #90 tabs simvastatin 5 mg tablet 5 mg PO QPM 06/08/24 06/08/24 History tamsulosin 0.4 mg capsule 0.4 mg PO QPM 06/08/24 06/08/24 History Allergies Allergy/AdvReac Type Severity Reaction Status Date / Time No Known Allergies Allergy Verified 06/08/24 16:19 Vital Signs Vital Signs - 24 hr 06/08/24 16:32 06/08/24 21:39 06/08/24 21:40 Temperature 36.7 C Pulse Rate 68 70 67 Respiratory Rate 24 H 16 16 Blood Pressure 143/61 H 151/71 H 171/51 H Pulse Oximetry 100 100 100 Oxygen Delivery Room Air 06/08/24 22:25 06/08/24 23:04 Temperature 36.3 C L Pulse Rate 83 Respiratory Rate 12 Blood Pressure 160/78 H Pulse Oximetry 100 Oxygen Delivery Room Air H&P: Results Labs Labs: Short CBC 06/08/24 Range/Units 17:06 WBC 5.3 (4.5-10.0) K/mm3 Hgb 13.5 L D (14.0-18.0) g/dL Hct 42.1 (42.0-52.0) % Plt Count 129 L (150-375) k/mm3 BMP 06/08/24 17:06 Sodium 136 L Potassium 4.3 Chloride 99 Carbon Dioxide 24 BUN 28 H Creatinine 0.95 Glucose 95 Calcium 8.5 Cardiac Enzymes 06/08/24 Range/Units 17:06 Troponin I 0.058 H* (0.000-0.034) ng/mL Liver Function 06/08/24 Range/Units 17:06 Total Bilirubin 1.8 H (0.2-1.3) mg/dL AST 34 (17-59) U/L ALT 19 (6-50) U/L Alkaline Phosphatase 86 (38-126) U/L Albumin 4.2 (3.5-5.1) g/dL Urine 06/08/24 Range/Units 21:08 Urine Color Yellow (Yellow) Urine Appearance Clear (Clear) Urine pH 5.0 (5.0-9.0) Ur Specific [place] 1.020 (1.001-1.035) Urine Protein Negative (Negative) mg/dL Urine Glucose (UA) Negative (Negative) mg/dL
[2024-06-09] MEDS: VANCOMYCIN 2,000 MG/NS 500 ML 2,000 MG/500 ML BAG 250 MG IVPB (00:13)
[2024-06-09] MEDS: LEVOTHYROXINE SODIUM 25 MCG TABLET PO (06:28)
[2024-06-09] MEDS: metroNIDAZOLE 500 MG/ISO 100ML 500 MG/100 ML BAG 100 MG IVPB (06:29)
[2024-06-09 07:49] LABS: Basophils Absolute Auto 0.1 K/mm3 (0.0-0.1); Eosinophils Absolute Auto 0.2 K/mm3 (0-0.3); Eosinophils Percent Auto 3.1 % (0-4.4); Hemoglobin 12.7 g/dL (14.0-18.0); Immature Granulocyte Absolute 0.01 K/mm3 (0.00-0.031); Immature Granulocyte Percent A 0.2 % (0-0.5); Immature Platelet Fraction Pct 4.1 % (0.9-11.2); Lymphocytes Absolute Auto 0.64 K/mm3 (0.9-3.2); Lymphocytes Percent Auto 12.3 % (18.3-44.2); Mean Corpuscular HGB Conc 32.6 g/dl (32-36); Mean Corpuscular Hemoglobin 31.8 pg (26-34); Mean Corpuscular Volume 97.5 fl (80-100); Mean Platelet Volume 11.4 fl (7.4-10.4); Monocytes Percent Auto 18.5 % (2.6-8.5); Neutrophils Absolute Auto 3.4 K/mm3 (1.3-6.7); Neutrophils Percent Auto 64.9 % (45.5-73.1); Platelet Count Result 122 k/mm3 (150-375); Red Cell Distribution Width 14.7 % (11.5-14.5); White Blood Count 5.2 K/mm3 (4.5-10.0)
[2024-06-09 07:59] LABS: Alanine Aminotransferase 16 U/L (6-50); Albumin Level 3.7 g/dL (3.5-5.1); Alkaline Phosphatase 78 U/L (38-126); Anion Gap 7 mmol/L (4-12); Aspartate Amino Transferase 24 U/L (17-59); Bilirubin,Total 1.9 mg/dL (0.2-1.3); Blood Urea Nitrogen 26 mg/dL (9-20); Calcium 8.4 mg/dL (8.4-10.2); Carbon Dioxide 26 mmol/L (22-30); Chloride 103 mmol/L (98-107); Estimated CRCL calculation 56 ml/min; Estimated Glomerular Filt Rate > 60; Glucose 110 mg/dL (65-110); Magnesium 2.2 mg/dL (1.6-2.3); Phosphorus 3.4 mg/dL (2.5-4.5); Potassium 4.1 mmol/L (3.4-5.0); Sodium 136 mmol/L (137-145)
[2024-06-09] MEDS: metOLazone 5 MG TABLET PO (08:42)
[2024-06-09] MEDS: ASCORBIC ACID 500 MG TABLET PO (08:42)
[2024-06-09] MEDS: carvediloL 6.25 MG TABLET PO ×2 (08:42→20:12)
[2024-06-09] MEDS: FERROUS SULFATE 325 MG TABLET DR PO (08:43)
[2024-06-09] MEDS: MULTIVITAMINS THERAPEUTIC TAB (*BKC) 1 TABLET PO (08:43)
[2024-06-09] MEDS: ASPIRIN 81 MG ENTERIC TABLET PO (08:43)
[2024-06-09] MEDS: DOCUSATE SODIUM 100 MG CAPSULE PO (08:43)
[2024-06-09] MEDS: ACIDOPHILUS/BULGARICUS CHEWABLE TABLET 1 TABLET PO (08:43)
[2024-06-09] MEDS: LIDOCAINE 5% PATCH 1 PATCH TOPICAL (08:44)
[2024-06-09] MEDS: CEFEPIME 2 GM/NS 50 ML 2 GM/50 ML BAG IVPB (08:44)
[2024-06-09] MEDS: BUMETANIDE INJ 1 MG/4 ML VIAL IV PUSH ×2 (08:45→17:11)
--- NOTE | 2024-06-09 12:06 | P.HP_ITS ---
H&P: HPI History of Present Illness Date/Time: 06/09/24 12:06 Chief Complaint: Worsening SOB, jadon. LE edema Narrative: Patient presented to the ER with reports of worsening SOB, jadon. LE swelling and scrotal edema within the last couple of days. Patient reports a Hx of CHF and takes 20 mg of Lasix daily and has been compliant. He denies increased fluid or salt intake, change in diet or any change in lifestyle. Patient is and lives alone at home, pretty much independent without assistive devices. He yovani much coughs, only episodes of moist coughs with no sputum, no fevers or chills, dizziness, chest pain, palpitations, abdominal pain, nausea and vomiting or other distressful symptoms. Patient's medical Hx is significant for CHF, CAD, BPH, pre-diabetes and dyslipidemia. Review of Systems Review of Systems: All systems reviewed & are unremarkable except as noted in HPI and below PMFSH Past Medical History Medical History Heart failure CAD (coronary artery disease) Nocturnal leg cramps Vitamin D deficiency Carpal tunnel syndrome Benign prostatic hyperplasia Prediabetes 5.7% on 09/07/23 Pure hypercholesterolemia, unspecified Hearing problem Surgical History Surgical History History of carpal tunnel release History of microdiscectomy Family History Family History Father Family history of diabetes mellitus in first degree relative Diabetes mellitus Family history of cardiovascular disease Cerebrovascular accident Patient's father is , Onset Age: 83 Mother Family history of diabetes mellitus in first degree relative Diabetes mellitus Patient's mother is , Onset Age: 99 Other Family history of malignant neoplasm of brain Social History Social History Social History: Has a son who resides in [facility] Smoking status: Never smoker Alcohol intake: never Substance use: never Substance use type: does not use Do You Feel Safe in your Home?: No Lack of Transportation: No Lack of Food: Never True Current Housing: I Have Housing Concerned About Future Housing: No Difficulty Paying Gas/Electric Bills: No Difficulty Paying for Meds: No Currently Unemployed: No Education: Master's Degree or Higher Difficulty w/ Childcare or Family Care: No Living arrangements: alone Occupation/Education: retired Gender identity (if verbalized by the patient): Male Spiritual care concerns: No Meds Home Medications and Allergies Home Medications ?Medication ?Instructions ?Recorded ?Confirmed ?Type aspirin 81 mg tablet,delayed 81 mg PO DAILY 08/14/19 06/08/24 History release (Adult Low Dose Aspirin) glucosamine HCl 1,500 mg tablet 1,500 mg PO DAILY 08/14/19 06/08/24 History multivitamin 1 tablet PO DAILY 08/14/19 06/08/24 History L.acidop,casei,lactis,rham-B.lact,colin 1 cap PO DAILY 09/17/23 06/08/24 History 625 mg (10 billion cell) capsule (Advanced Probiotic) ascorbate calcium (vitamin C) 500 500 mg PO DAILY 12/23/23 06/08/24 History mg tablet docusate sodium 100 mg capsule 100 mg PO DAILY 12/23/23 06/08/24 History (Colace) ferrous sulfate 325 mg (65 mg 325 mg PO DAILY 12/23/23 06/08/24 History iron) tablet,delayed release carvedilol 6.25 mg tablet 6.25 mg PO BID #180 tabs 02/15/24 06/08/24 Rx furosemide 40 mg tablet 40 mg PO DAILY #90 tabs 03/28/24 06/08/24 Rx lidocaine 5 % topical patch 1 patch topical DAILY #15 ea 03/28/24 06/08/24 Rx levothyroxine 25 mcg tablet 25 mcg PO DAILY #90 tabs 04/04/24 06/08/24 Rx furosemide 20 mg tablet See Rx Instructions .Route 05/29/24 06/08/24 Rx .COMPLEX #90 tabs simvastatin 5 mg tablet 5 mg PO QPM 06/08/24 06/08/24 History tamsulosin 0.4 mg capsule 0.4 mg PO QPM 06/08/24 06/08/24 History Allergies Allergy/AdvReac Type Severity Reaction Status Date / Time No Known Allergies Allergy Verified 06/08/24 16:19 Vital Signs Vital Signs - 24 hr 06/08/24 16:32 06/08/24 21:39 06/08/24 21:40 Temperature 98.1 F Pulse Rate 68 70 67 Respiratory Rate 24 H 16 16 Blood Pressure 143/61 H 151/71 H 171/51 H Pulse Oximetry 100 100 100 Oxygen Delivery Room Air 06/08/24 22:25 06/08/24 23:04 06/09/24 00:00 Temperature 97.4 F L Pulse Rate 83 75 Respiratory Rate 12 Blood Pressure 160/78 H Pulse Oximetry 100 Oxygen Delivery Room Air 06/09/24 04:00 06/09/24 04:48 06/09/24 08:00 Temperature 97.3 F L Pulse Rate 60 62 65 Respiratory Rate 14 Blood Pressure 159/80 H Pulse Oximetry 98 Oxygen Delivery 06/09/24 08:42 06/09/24 09:00 Temperature Pulse Rate 83 Respiratory Rate Blood Pressure Pulse Oximetry Oxygen Delivery Room Air Exam Narrative: General: Fair appearing, no acute distress. HEENT: Atraumatic, PERRL, EOMI, moist mucosa. NECK: Supple. Lungs: Clear bilaterally. Heart: Regular rate and rhythm with no murmurs. Abdomen: Soft, nontender, nondistended, positive bowel sounds x4 quadrants. Extremities: Cyanotic, 1+ edema bilaterally. Skin: Warm and dry with no lesions. 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 Neuro: Well oriented, no focal neuro deficits noted. Psych: Pleasant and cooperative. H&P: Results Labs Labs: Short CBC 06/08/24 06/09/24 Range/Units 17:06 07:23 WBC 5.3 5.2 (4.5-10.0) K/mm3 Hgb 13.5 L D 12.7 L (14.0-18.0) g/dL Hct 42.1 39.0 L (42.0-52.0) % Plt Count 129 L 122 L (150-375) k/mm3 BMP 06/08/24 06/09/24 17:06 07:23 Sodium 136 L 136 L Potassium 4.3 4.1 Chloride 99 103 Carbon Dioxide 24 26 BUN 28 H 26 H Creatinine 0.95 0.89 Glucose 95 110 Calcium 8.5 8.4 Cardiac Enzymes 06/08/24 Range/Units 17:06 Troponin I 0.058 H* (0.000-0.034) ng/mL Liver Function 06/08/24 06/09/24 Range/Units 17:06 07:23 Total Bilirubin 1.8 H 1.9 H (0.2-1.3) mg/dL AST 34 24 (17-59) U/L ALT 19 16 (6-50) U/L Alkaline Phosphatase 86 78 (38-126) U/L Albumin 4.2 3.7 (3.5-5.1) g/dL Urine 06/08/24 Range/Units 21:08 Urine Color Yellow (Yellow) Urine Appearance Clear (Clear) Urine pH 5.0 (5.0-9.0) Ur Specific [place] 1.020 (1.001-1.035) Urine Protein Negative (Negative) mg/dL Urine Glucose (UA) Negative (Negative) mg/dL Assessment and Plan Assessment and plan (1) Acute hypoxic respiratory failure: Code(s): J96.01 - Acute respiratory failure with hypoxia Status: Acute Assessment and Plan: -possibly a multifactorial; pleural effusion +/vs pneumonia +/vs CHF exacerbation +/vs other. -checks x-ray showing large right pleural effusion. -CT chest: Left-sided pleural effusion, consistent with most recent radiograph (performed approximately 1 hour earlier) with partially loculated right-sided pleural effusion and interstitial thickening/groundglass opacification. - Troponin mildly elevated but EKG with no ischemic changes. -currently good O2 sats on room > 92%. -monitor closely for decompensation. Consider supplemental oxygen for O2 sats < than 90% on room air. (2) Pleural effusion, right: Code(s): J90 - Pleural effusion, not elsewhere classified Status: Acute Assessment and Plan: -chest x-ray: Large right-sided pleural effusion extending into the major fissure in addition to a focal infiltrate within the superior segment of the right lower lobe with a small left-sided pleural effusion. -IR consulted for possible thoracentesis. -patient on aspirin but no other anticoagulation. -follow-up chest x-ray post procedure. -currently good O2 sats on room air above 90% but still with some shortness of breath. -continue supplemental O2 for O2 sats less than 90%. (3) CAP (community acquired pneumonia): Code(s): J18.9 - Pneumonia, unspecified organism Status: Acute Assessment and Plan: - CT chest: Left-sided pleural effusion, consistent with most recent radiograph (performed approximately 1 hour earlier) with partially loculated right-sided pleural effusion and interstitial thickening/groundglass opacification. -patient with no fevers or white count. -patient initially on vancomycin and cefepime. - MRSA PCR negative and we'll discontinue vancomycin. -will de-escalate antibiotics to Augmentin with no fevers or white count. -patient clinically with no pneumonia symptoms. - Consider antibiotics escalation if symptoms occur. (4) (HFpEF) heart failure with preserved ejection fraction: Code(s): I50.30 - Unspecified diastolic (congestive) heart failure Status: Acute Assessment and Plan: -echo 10/07 showed EF 60-65%. -BNP 4480 on admission. - Repeat echo ordered. - Started on IV Bumex BID. - Currently good O2 sats > 92 % on RA. (5) Elevated troponin: Code(s): R79.89 - Other specified abnormal findings of blood chemistry Status: Acute Assessment and Plan: - Initial Troponin mildly elevated 0.058. - Repeat level pending. - Likely demand ischemia secondary to hypoxia. - EKG with no ischemic changes. -patient denies chest pain but has SOB likely due to pleural effusion and pneumonia. -follow repeat troponin and continue telemonitoring. (6) CAD (coronary artery disease): Code(s): I25.10 - Atherosclerotic heart disease of [place] coronary artery without angina pectoris Status: Acute Assessment and Plan: -stable. -continue aspirin Coreg and statin. (7) Hypertension: Code(s): I10 - Essential (primary) hypertension Status: Acute Assessment and Plan: - BP trending normal highs. - Monitor closely with diuresis. -Adjust medications as needed. (8) Hypothyroidism: Code(s): E03.9 - Hypothyroidism, unspecified Status: Acute Assessment and Plan: -stable. - TSH/FT4 wnl. -Resume home dose levothyroxine. (9) Dyslipidemia: Code(s): E78.5 - Hyperlipidemia, unspecified Status: Acute Assessment and Plan: -stable. - Continue statin. Quality VTE Prophylaxis VTE prophylaxis: mechanical ordered Hospitalist MIPS Advance Care Plan I have confirmed that the patient's Advanced Care Plan is present, code status is documented, or surrogate decision maker is listed in patient medical record.: Yes Medication Reconciliation I have utilized all available resources to obtain, update and review the patients current medications (includes all prescriptions, OTC, herbals, cannabis, and nutritional supplements).: Yes
[2024-06-09] MEDS: AZITHROMYCIN 250 MG TABLET 500 MG PO (12:45)
[2024-06-09 13:24] LABS: Troponin I 0.052 ng/mL (0.000-0.034)
[2024-06-09] MEDS: SIMVASTATIN 5 MG TABLET PO (17:11)
[2024-06-09] MEDS: TAMSULOSIN HCL 0.4 MG CAPSULE PO (17:11)
[2024-06-09] MEDS: AMOXICILLIN/CLAVULANATE K 875-125 MG TAB 1 TABLET PO (20:12)
[2024-06-09] MEDS: ACETAMINOPHEN 325 MG TABLET 650 MG PO (20:12)
[2024-06-10] VITALS (11 sets, daily range): BP systolic 115–125; BP diastolic 54–58; PULSE 55–74; RESP 14–18; TEMP 36.4–36.7; O2SAT 96–99
--- NOTE | 2024-06-10 02:50 | PM.EVENT ---
Event Note Event Note Event Note: Received a call from the patient's nurse. He had a 15 beat run of nonsustained ventricular tachycardia while asleep and he had a similar episode last night. Electrolytes drawn yesterday were within normal limits. I requested that they drawn morning labs early and consult Cardiology in the morning unless he continues to have repeated runs.
[2024-06-10] MEDS: LEVOTHYROXINE SODIUM 25 MCG TABLET PO (06:19)
[2024-06-10 06:59] LABS: Basophils Absolute Auto 0.1 K/mm3 (0.0-0.1); Basophils Percent Auto 1.5 % (0.2-1.2); Eosinophils Absolute Auto 0.2 K/mm3 (0-0.3); Eosinophils Percent Auto 5.7 % (0-4.4); Hematocrit 37.7 % (42.0-52.0); Hemoglobin 12.2 g/dL (14.0-18.0); Immature Granulocyte Absolute 0.01 K/mm3 (0.00-0.031); Immature Granulocyte Percent A 0.2 % (0-0.5); Lymphocytes Absolute Auto 0.73 K/mm3 (0.9-3.2); Mean Corpuscular HGB Conc 32.4 g/dl (32-36); Mean Corpuscular Hemoglobin 31.6 pg (26-34); Mean Corpuscular Volume 97.7 fl (80-100); Mean Platelet Volume 11.1 fl (7.4-10.4); Monocytes Absolute Auto 0.5 K/mm3 (0.1-0.6); Monocytes Percent Auto 13.1 % (2.6-8.5); Neutrophils Absolute Auto 2.5 K/mm3 (1.3-6.7); Neutrophils Percent Auto 61.5 % (45.5-73.1); Platelet Count Result 117 k/mm3 (150-375); Red Blood Count 3.86 M/mm3 (4.6-6.20); White Blood Count 4.1 K/mm3 (4.5-10.0)
[2024-06-10 07:03] LABS: Alanine Aminotransferase 15 U/L (6-50); Albumin Level 3.7 g/dL (3.5-5.1); Alkaline Phosphatase 79 U/L (38-126); Anion Gap 8 mmol/L (4-12); Aspartate Amino Transferase 23 U/L (17-59); Bilirubin,Total 1.8 mg/dL (0.2-1.3); Blood Urea Nitrogen 26 mg/dL (9-20); Calcium 8.5 mg/dL (8.4-10.2); Carbon Dioxide 29 mmol/L (22-30); Chloride 98 mmol/L (98-107); Estimated CRCL calculation 51 ml/min; Estimated Glomerular Filt Rate > 60; Glucose 108 mg/dL (65-110); Potassium 3.7 mmol/L (3.4-5.0); Sodium 135 mmol/L (137-145)
[2024-06-10] MEDS: FERROUS SULFATE 325 MG TABLET DR PO (10:15)
[2024-06-10] MEDS: MULTIVITAMINS THERAPEUTIC TAB (*BKC) 1 TABLET PO (10:15)
[2024-06-10] MEDS: ACIDOPHILUS/BULGARICUS CHEWABLE TABLET 1 TABLET PO (10:15)
[2024-06-10] MEDS: AMOXICILLIN/CLAVULANATE K 875-125 MG TAB 1 TABLET PO ×2 (10:15→21:36)
[2024-06-10] MEDS: DOCUSATE SODIUM 100 MG CAPSULE PO (10:15)
[2024-06-10] MEDS: metOLazone 5 MG TABLET PO (10:15)
[2024-06-10] MEDS: AZITHROMYCIN 250 MG TABLET 500 MG PO (10:15)
[2024-06-10] MEDS: ASPIRIN 81 MG ENTERIC TABLET PO (10:15)
[2024-06-10] MEDS: carvediloL 6.25 MG TABLET PO ×2 (10:16→21:36)
[2024-06-10] MEDS: ASCORBIC ACID 500 MG TABLET PO (10:16)
[2024-06-10] MEDS: LIDOCAINE 5% PATCH 1 PATCH TOPICAL (10:16)
[2024-06-10] MEDS: BUMETANIDE INJ 1 MG/4 ML VIAL IV PUSH ×2 (10:19→17:00)
--- NOTE | 2024-06-10 11:23 | PM.CNCAR ---
Assessment and Plan Assessment and plan (1) (HFpEF) heart failure with preserved ejection fraction: Qualifiers: Heart failure chronicity: acute on chronic Qualified Code(s): I50.33 - Acute on chronic diastolic (congestive) heart failure Code(s): I50.30 - Unspecified diastolic (congestive) heart failure Status: Acute (2) Hypertension: Qualifiers: Hypertension type: primary hypertension Qualified Code(s): I10 - Essential (primary) hypertension Code(s): I10 - Essential (primary) hypertension Status: Acute (3) Non-ST elevation OK (NSTEMI): Code(s): I21.4 - Non-ST elevation (NSTEMI) myocardial infarction Status: Acute (4) CAD (coronary artery disease): Qualifiers: Associated angina: with stable angina Coronary Disease-Associated Artery/Lesion type: [place] artery [place] vs. transplanted heart: [place] heart Qualified Code(s): I25.118 - Atherosclerotic heart disease of [place] coronary artery with other forms of angina pectoris Code(s): I25.10 - Atherosclerotic heart disease of [place] coronary artery without angina pectoris Status: Acute (5) Dyslipidemia: Code(s): E78.5 - Hyperlipidemia, unspecified Status: Acute Plan Assessment: Acute on chronic diastolic heart failure; echo shows LVEF of 55-60% Elevated troponin with no chest pain at this time-most likely secondary to acute heart failure; EKG shows atrial fibrillation without any ST-T changes New onset AFib with slow ventricular response CAD Mild to moderate AR [id number] MR Moderate pulmonary hypertension with PASP 55 mm Hg Hyperlipidemia Hypertension Hypoxic respiratory failure Bilateral pleural effusion with loculation Sepsis secondary to pneumonia on antibiotic therapy azithromycin and Augmentin Plan: Chads 2 Vasc score of 5 (age greater than 75=2, heart failure=1, CAD=1, hypertension=1). Recommend starting anticoagulation with NOAC Echo done shows normal LVEF with diastolic heart failure Agree with metolazone 5 mg daily as this is helping patient diuresed well. For outpatient management, patient became fluid overloaded while on Lasix 60 mg daily. With, we will need to dose Lasix while patient is in the hospital to determine what looked dose of Lasix to send him home with. Recommend Lasix 40 mg p.o. b.i.d. along with metolazone Monitor daily weights and strict in's and out's Trend troponin to peak. Given no active chest pain, no ischemic changes on EKG, and no regional wall motion abnormalities on echo, and most recent catheterization in September 2023 with nonobstructive CAD, no urgent indication for cardiac catheterization. The small rise in troponin is most likely secondary to his acute heart failure. Continue medical management for CAD Continue aspirin, statin, Coreg Add SGLT2 inhibitor for diastolic heart failure Check and replace electrolytes as needed keeping potassium greater than 4 and magnesium greater than 2 Management of noncardiac medical problems per primary team History of Present Illness History of Present Illness Consult date/time: 06/10/24 11:23 Reason For Visit: Pneumonia Narrative: 88-year-old male with past medical history of CAD , hyperlipidemia, hypertension, HFpEF, hypothyroidism is admitted with chief complaints of shortness of breath. Patient reports shortness of since September of last year when he was diagnosed with pneumonia, pleural effusion with removal of more than 1.5 L of pleural fluid. He states that he also had a complete cardiac workup at that time. His shortness of breath has been getting worse particularly since last fall. He has noticed increased leg swelling and weight gain over the past few months despite not changing his diet or any office medications. He reports off and on chest pain that comes on once a month and lasts for few minutes and resolves spontaneously. Pain is unrelated to activity. He reports chronic cough also off and on without any fever or chills. No diaphoresis, dizziness, lightheadedness, presyncope, syncope, palpitations, nausea, emesis, abdominal pain, headache. On this admission he was noted to have hypoxic respiratory failure and acute on chronic diastolic heart failure. Labs showed anemia with hemoglobin 12.2, elevated troponin of 0.052 and 0.058, elevated BNP of 4480. Chest x-ray and CT chest revealed bilateral pleural effusion with loculation and pneumonia. He is on antibiotic therapy with Augmentin and azithromycin. He has been started on metolazone for heart failure with good urine output. TTE was done and showed normal LVEF with no regional wall motion abnormalities. Cardiology is consulted for further management of acute heart failure and elevated troponin. Workup: Troponin: 0.052, 0.058 BNP: 4480 Chest x-ray CT chest: Left-sided pleural effusion, partially loculated right-sided pleural effusion, bilateral interstitial thickening and patchy ground-glass opacification TTE: Normal LV systolic function with EF 55-60%, mild concentric LV hypertrophy with abnormal diastolic function, mild to moderate AR and mild to moderate MR, moderate pulmonary hypertension with estimated PASP 55 mm Hg, trivial pericardial effusion Cardiac catheterization in Sep, 2023: Nonobstructive CAD with minimal luminal irregularities of LAD and 80% ostial stenosis of a very small distal 3rd diagonal branch Review of Systems Review of Systems: A complete review of systems is negative other than those mentioned in the [facility] Past Medical History Medical History Heart failure CAD (coronary artery disease) Nocturnal leg cramps Vitamin D deficiency Carpal tunnel syndrome Benign prostatic hyperplasia Prediabetes 5.7% on 09/07/23 Pure hypercholesterolemia, unspecified Hearing problem Surgical History Surgical History History of carpal tunnel release History of microdiscectomy Family History Family History Father Family history of diabetes mellitus in first degree relative Diabetes mellitus Family history of cardiovascular disease Cerebrovascular accident Patient's father is , Onset Age: 83 Mother Family history of diabetes mellitus in first degree relative Diabetes mellitus Patient's mother is , Onset Age: 99 Other Family history of malignant neoplasm of brain Social History Social History Social History: Has a son who resides in [facility] Smoking status: Never smoker Alcohol intake: never Substance use: never Substance use type: does not use Do You Feel Safe in your Home?: No Lack of Transportation: No Lack of Food: Never True Current Housing: I Have Housing Concerned About Future Housing: No Difficulty Paying Gas/Electric Bills: No Difficulty Paying for Meds: No Currently Unemployed: No Education: Master's Degree or Higher Difficulty w/ Childcare or Family Care: No Living arrangements: alone Occupation/Education: retired Gender identity (if verbalized by the patient): Male Spiritual care concerns: No Meds Home Medications and Allergies Home Medications ?Medication ?Instructions ?Recorded ?Confirmed ?Type aspirin 81 mg tablet,delayed 81 mg PO DAILY 08/14/19 06/08/24 History release (Adult Low Dose Aspirin) glucosamine HCl 1,500 mg tablet 1,500 mg PO DAILY 08/14/19 06/08/24 History multivitamin 1 tablet PO DAILY 08/14/19 06/08/24 History L.acidop,casei,lactis,rham-B.lact,colin 1 cap PO DAILY 09/17/23 06/08/24 History 625 mg (10 billion cell) capsule (Advanced Probiotic) ascorbate calcium (vitamin C) 500 500 mg PO DAILY 12/23/23 06/08/24 History mg tablet docusate sodium 100 mg capsule 100 mg PO DAILY 12/23/23 06/08/24 History (Colace) ferrous sulfate 325 mg (65 mg 325 mg PO DAILY 12/23/23 06/08/24 History iron) tablet,delayed release carvedilol 6.25 mg tablet 6.25 mg PO BID #180 tabs 02/15/24 06/08/24 Rx furosemide 40 mg tablet 40 mg PO DAILY #90 tabs 03/28/24 06/08/24 Rx lidocaine 5 % topical patch 1 patch topical DAILY #15 ea 03/28/24 06/08/24 Rx levothyroxine 25 mcg tablet 25 mcg PO DAILY #90 tabs 04/04/24 06/08/24 Rx furosemide 20 mg tablet See Rx Instructions .Route 05/29/24 06/08/24 Rx .COMPLEX #90 tabs simvastatin 5 mg tablet 5 mg PO QPM 06/08/24 06/08/24 History tamsulosin 0.4 mg capsule 0.4 mg PO QPM 06/08/24 06/08/24 History Allergies Allergy/AdvReac Type Severity Reaction Status Date / Time No Known Allergies Allergy Verified 06/08/24 16:19 Vital Signs Vital Signs - 24 hr 06/09/24 12:00 06/09/24 13:54 06/09/24 16:00 Temperature 36.7 C Pulse Rate 64 66 64 Respiratory Rate 20 Blood Pressure 132/76 Pulse Oximetry 100 Oxygen Delivery 06/09/24 20:00 06/09/24 20:00 06/09/24 21:21 Temperature 37.2 C Pulse Rate 63 72 63 Respiratory Rate 16 16 Blood Pressure 130/67 Pulse Oximetry 95 95 Oxygen Delivery Room Air 06/10/24 00:00 06/10/24 04:00 06/10/24 05:53 Temperature 36.4 C Pulse Rate 57 L 61 61 Respiratory Rate 18 Blood Pressure 115/55 L Pulse Oximetry 97 Oxygen Delivery 06/10/24 08:00 06/10/24 10:16 Temperature Pulse Rate 71 Respiratory Rate Blood Pressure Pulse Oximetry Oxygen Delivery Room Air Exam Narrative: General: Alert oriented x3, no acute distress Neck: Supple, JVD + 10 cm Chest: Decreased breath sounds at bases of both lungs, bibasilar rales present, no rhonchi Cardiac: S1, S2 +, regular rate, regular rhythm, no murmurs or rubs Extremities: Bilateral lower extremity edema 1+, no skin rash Neurologic: Alert and oriented x3, no focal neurological deficits Results Labs and Meds 06/10/24 06:13 06/10/24 06:13 Lab results: Cardiac Enzymes 06/09/24 06/10/24 Range/Units 07:19 06:13 AST 23 (17-59) U/L Troponin I 0.052 H* (0.000-0.034) ng/mL CBC 06/10/24 Range/Units 06:13 WBC 4.1 L (4.5-10.0) K/mm3 RBC 3.86 L (4.6-6.20) M/mm3 Hgb 12.2 L (14.0-18.0) g/dL Hct 37.7 L (42.0-52.0) % Plt Count 117 L (150-375) k/mm3 Lymph # (Auto) 0.73 L (0.9-3.2) K/mm3 [place] # (Auto) 0.5 (0.1-0.6) K/mm3 Eos # (Auto) 0.2 (0-0.3) K/mm3 Baso # (Auto) 0.1 (0.0-0.1) K/mm3 Comprehensive Metabolic Panel 06/10/24 Range/Units 06:13 Sodium 135 L (137-145) mmol/L Potassium 3.7 (3.4-5.0) mmol/L Chloride 98 (98-107) mmol/L Carbon Dioxide 29 (22-30) mmol/L BUN 26 H (9-20) mg/dL Creatinine 0.99 (0.7-1.3) mg/dL Glucose 108 (65-110) mg/dL Calcium 8.5 (8.4-10.2) mg/dL AST 23 (17-59) U/L ALT 15 (6-50) U/L Alkaline Phosphatase 79 (38-126) U/L Total Protein 6.0 L (6.3-8.2) g/dL Albumin 3.7 (3.5-5.1) g/dL Intake and Output 06/09/24 06/10/24 06/10/24 23:59 07:59 15:59 Intake Total 1740 550 380 Output Total 3225 650 Balance -1485 -100 380 Intake: Oral 1740 550 380 Output: Urine 3225 650
--- NOTE | 2024-06-10 16:59 | PM.IMPN ---
Progress Note: A&P Assessment and Plan (1) Acute hypoxic respiratory failure: Code(s): J96.01 - Acute respiratory failure with hypoxia Status: Acute Assessment and Plan: -possibly a multifactorial; pleural effusion +/vs pneumonia +/vs CHF exacerbation +/vs other. -checks x-ray showing large right pleural effusion. -CT chest: Left-sided pleural effusion, consistent with most recent radiograph (performed approximately 1 hour earlier) with partially loculated right-sided pleural effusion and interstitial thickening/groundglass opacification. - Troponin mildly elevated but EKG with no ischemic changes. -currently good O2 sats on room > 92%. -monitor closely for decompensation. Consider supplemental oxygen for O2 sats < than 90% on room air. (2) Pleural effusion, right: Code(s): J90 - Pleural effusion, not elsewhere classified Status: Acute Assessment and Plan: -chest x-ray: Large right-sided pleural effusion extending into the major fissure in addition to a focal infiltrate within the superior segment of the right lower lobe with a small left-sided pleural effusion. -IR consulted for possible thoracentesis. -effusions loculated and unable to be aspirated by IR. -patient on aspirin but no other anticoagulation. -currently good O2 sats on room air above 90% with shortness of breath improving. -consider supplemental O2 for O2 sats less than 90%. (3) CAP (community acquired pneumonia): Code(s): J18.9 - Pneumonia, unspecified organism Status: Acute Assessment and Plan: - CT chest: Left-sided pleural effusion, consistent with most recent radiograph (performed approximately 1 hour earlier) with partially loculated right-sided pleural effusion and interstitial thickening/groundglass opacification. -patient with no fevers or white count. -patient initially on vancomycin and cefepime. - MRSA PCR negative and we'll discontinue vancomycin. -will de-escalate antibiotics to Augmentin with no fevers or white count. -patient clinically with no pneumonia symptoms. - Consider antibiotics escalation if symptoms occur. (4) (HFpEF) heart failure with preserved ejection fraction: Qualifiers: Heart failure chronicity: acute on chronic Qualified Code(s): I50.33 - Acute on chronic diastolic (congestive) heart failure Code(s): I50.30 - Unspecified diastolic (congestive) heart failure Status: Acute Assessment and Plan: -echo 10/07 showed EF 60-65%. -repeat echo 06/10 showing EF 55-60% with moderate pulmonary hypertension. -BNP 4480 on admission. -currently on 1mg IV Bumex BID. -started on Lasix 40 mg p.o. b.i.d. -seen by handle bar assembler and appreciate input. - Currently good O2 sats > 92 % on RA. -consider SGLT2 inhibitor prior to d/c. (5) Elevated troponin: Code(s): R79.89 - Other specified abnormal findings of blood chemistry Status: Acute Assessment and Plan: - Initial Troponin mildly elevated 0.058. - Repeat troponin 0.052. - Likely demand ischemia secondary to hypoxia from acute CHF. - EKG with no ischemic changes. -patient denies chest pain but has SOB likely due to CHF +/vs pleural effusion +/vs pneumonia. -repeat troponin to eval peak as we continue tele monitoring. (6) CAD (coronary artery disease): Qualifiers: Coronary Disease-Associated Artery/Lesion type: [place] artery [place] vs. transplanted heart: [place] heart Associated angina: with stable angina Qualified Code(s): I25.118 - Atherosclerotic heart disease of [place] coronary artery with other forms of angina pectoris Code(s): I25.10 - Atherosclerotic heart disease of [place] coronary artery without angina pectoris Status: Acute Assessment and Plan: -stable. -continue aspirin Coreg and statin. (7) Hypertension: Qualifiers: Hypertension type: primary hypertension Qualified Code(s): I10 - Essential (primary) hypertension Code(s): I10 - Essential (primary) hypertension Status: Acute Assessment and Plan: - BP currently well controlled. - Continue to monitor closely with diuresis. -Adjust medications as needed. (8) Hypothyroidism: Code(s): E03.9 - Hypothyroidism, unspecified Status: Acute Assessment and Plan: -stable. - TSH/FT4 wnl. -Resume home dose levothyroxine. (9) Dyslipidemia: Code(s): E78.5 - Hyperlipidemia, unspecified Status: Acute Assessment and Plan: -stable. - Continue statin. Plan Patient's [id number] of 5 and advised to consider anticoagulation. Time Spent With Patient Time with patient: 25 - 35 minutes Subjective Date/time seen: 06/10/24 15:59 Patient states he feels a right and believes he is getting ready to go home. States he has an appointment with his handle bar assembler in 3 days. States he's been voiding a lot since he came and feels better. Interval history: Patient seated bedside and looks to be in no acute distress. Review of Systems Review of Systems: All systems reviewed & are unremarkable except as noted in HPI and below Exam Narrative: General: Well appearing, no acute distress. HEENT: Atraumatic, PERRL, EOMI, moist mucosa. NECK: Supple. Lungs: Clear bilaterally. Heart: Regular rate and rhythm with no murmurs. Abdomen: Soft, nontender, nondistended, positive bowel sounds x4 quadrants. Extremities: Cyanotic, 1+ edema bilaterally. Skin: Warm and dry with no lesions. Manager Star: Moderate scrotal edema. Neuro: Well oriented, no focal neuro deficits noted. Psych: Pleasant and cooperative. Objective Data Vital Signs Vital Signs: Vital Signs - 24 hr 06/09/24 20:00 06/09/24 20:00 06/09/24 21:21 Temperature 98.9 F Pulse Rate 63 72 63 Respiratory Rate 16 16 Blood Pressure 130/67 Pulse Oximetry 95 95 Oxygen Delivery Room Air 06/10/24 00:00 06/10/24 04:00 06/10/24 05:53 Temperature 97.6 F Pulse Rate 57 L 61 61 Respiratory Rate 18 Blood Pressure 115/55 L Pulse Oximetry 97 Oxygen Delivery 06/10/24 08:00 06/10/24 10:16 06/10/24 14:00 Temperature 98.1 F Pulse Rate 71 60 Respiratory Rate 16 Blood Pressure 121/58 L Pulse Oximetry 99 Oxygen Delivery Room Air Intake/Output Intake/Output: Intake & Output 06/07/24 06/08/24 06/09/24 06/10/24 23:59 23:59 23:59 23:59 Intake Total 3145 1210 Output Total 120 3225 650 Balance -120 -80 560 Meds/Results Medications: Active Medications Generic Name Dose Route Start Last Admin Trade Name Freq PRN Reason Stop Dose Admin Acetaminophen 650 mg 06/08/24 20:43 06/09/24 20:12 Acetaminophen 325 Mg Tablet PO 650 mg Q4H PRN Administration Mild Pain (1-3) or Fever Amoxicillin/Clavulanate Potassium 1 tablet 06/09/24 21:00 06/10/24 10:15 Amoxicillin/Clavulanate K 875-125 Mg Tab PO 06/13/24 21:01 1 tablet Q12HR MUNIR Administration Ascorbic Acid 500 mg 06/09/24 09:00 06/10/24 10:16 Ascorbic Acid 500 Mg Tablet PO 500 mg DAILY MUNIR Administration Aspirin 81 mg 06/09/24 09:00 06/10/24 10:15 Aspirin 81 Mg Enteric Tablet PO 81 mg DAILY MUNIR Administration Azithromycin 500 mg 06/09/24 12:05 06/10/24 10:15 Azithromycin 250 Mg Tablet PO 06/13/24 09:01 500 mg DAILY MUNIR Administration Carvedilol 6.25 mg 06/09/24 09:00 06/10/24 10:16 Carvedilol 6.25 Mg Tablet PO 6.25 mg Q12HR MUNIR Administration Docusate Sodium 100 mg 06/09/24 09:00 06/10/24 10:15 Docusate Sodium 100 Mg Capsule PO 100 mg DAILY MUNIR Administration Ferrous Sulfate 325 mg 06/09/24 09:00 06/10/24 10:15 Ferrous Sulfate [address] PO 325 mg DAILY MUNIR Administration Lactobacillus Acidophilus 1 tablet 06/09/24 09:00 06/10/24 10:15 Acidophilus/[place] Chewable Tablet PO 1 tablet DAILY MUNIR Administration Levothyroxine Sodium 25 mcg 06/09/24 06:30 06/10/24 06:19 Levothyroxine Sodium 25 Mcg Tablet PO 25 mcg DAILY@0630 MUNIR Administration Lidocaine 1 patch 06/09/24 09:00 06/10/24 10:16 Lidocaine 5% Patch TOPICAL 1 patch DAILY MUNIR Administration Metolazone 5 mg 06/09/24 09:00 06/10/24 10:15 Metolazone 5 Mg Tablet PO 5 mg QAM MUNIR Administration Multivitamins Therapeutic 1 tablet 06/09/24 09:00 06/10/24 10:15 Multivitamins Therapeutic Tab (*Bkc) PO 1 tablet DAILY MUNIR Administration Perflutren Lipid Microsphere 0 ml 06/09/24 05:21 Perflutren Lipid Microspheres 1.5 Ml Vial Diluted To 10 Ml Total Volume IV PUSH 06/12/24 05:22 ONCE PRN adequate visualization Protocol Simvastatin 5 mg 06/09/24 18:00 06/09/24 17:11 Simvastatin 5 Mg Tablet PO 5 mg QPM MUNIR Administration Tamsulosin HCl 0.4 mg 06/09/24 18:00 06/09/24 17:11 Tamsulosin Hcl 0.4 Mg Capsule PO 0.4 mg QPM MUNIR Administration Radiology Results: ITS Impressions Chest X-Ray 06/08/24 17:33 IMPRESSION: Large right-sided pleural effusion extending into the major fissure in addition to a focal infiltrate within the superior segment of the right lower lobe with a small left-sided pleural effusion. Chest CT 06/08/24 19:24 IMPRESSION: Left-sided pleural effusion, consistent with most recent radiograph (performed approximately 1 hour earlier) with partially loculated right-sided pleural effusion and interstitial thickening/groundglass opacification. Labs Labs: Laboratory Results - last 24 hr 06/10/24 06:13 WBC 4.1 L RBC 3.86 L Hgb 12.2 L Hct 37.7 L MCV 97.7 MCH 31.6 MCHC 32.4 RDW 15.0 H Plt Count 117 L MPV 11.1 H Immature Gran % (Auto) 0.2 Neut % (Auto) 61.5 Lymph % (Auto) 18.0 L [place] % (Auto) 13.1 H Eos % (Auto) 5.7 H Baso % (Auto) 1.5 H Lymph # (Auto) 0.73 L [place] # (Auto) 0.5 Eos # (Auto) 0.2 Baso # (Auto) 0.1 Abs Immat Gran (auto) 0.01 Absolute Neuts (auto) 2.5 Absolute Nucleated RBC 0.000 Nucleated RBC % 0.0 Sodium 135 L Potassium 3.7 Chloride 98 Carbon Dioxide 29 Anion Gap 8 BUN 26 H Creatinine 0.99 Estim Creat Clear Calc 51 Estimated GFR > 60 Glucose 108 Calcium 8.5 Phosphorus 4.0 Magnesium 2.0 Total Bilirubin 1.8 H AST 23 ALT 15 Alkaline Phosphatase 79 Total Protein 6.0 L Albumin 3.7 Quality VTE Prophylaxis VTE prophylaxis: mechanical ordered Hospitalist MIPS Advance Care Plan I have confirmed that the patient's Advanced Care Plan is present, code status is documented, or surrogate decision maker is listed in patient medical record.: Yes Medication Reconciliation I have utilized all available resources to obtain, update and review the patients current medications (includes all prescriptions, OTC, herbals, cannabis, and nutritional supplements).: Yes
[2024-06-10] MEDS: SIMVASTATIN 5 MG TABLET PO (17:00)
[2024-06-10] MEDS: TAMSULOSIN HCL 0.4 MG CAPSULE PO (17:00)
[2024-06-11] VITALS (8 sets, daily range): BP systolic 118–126; BP diastolic 49–70; PULSE 54–67; RESP 18; TEMP 36.4; O2SAT 99
[2024-06-11] MEDS: LEVOTHYROXINE SODIUM 25 MCG TABLET PO (05:30)
[2024-06-11 07:26] LABS: Basophils Absolute Auto 0.1 K/mm3 (0.0-0.1); Basophils Percent Auto 1.2 % (0.2-1.2); Eosinophils Absolute Auto 0.3 K/mm3 (0-0.3); Eosinophils Percent Auto 6.6 % (0-4.4); Hematocrit 38.2 % (42.0-52.0); Hemoglobin 12.5 g/dL (14.0-18.0); Immature Granulocyte Absolute 0.01 K/mm3 (0.00-0.031); Immature Granulocyte Percent A 0.2 % (0-0.5); Lymphocytes Absolute Auto 0.84 K/mm3 (0.9-3.2); Lymphocytes Percent Auto 20.4 % (18.3-44.2); Mean Corpuscular HGB Conc 32.7 g/dl (32-36); Mean Corpuscular Hemoglobin 31.7 pg (26-34); Mean Platelet Volume 10.9 fl (7.4-10.4); Monocytes Absolute Auto 0.5 K/mm3 (0.1-0.6); Monocytes Percent Auto 13.1 % (2.6-8.5); Neutrophils Absolute Auto 2.4 K/mm3 (1.3-6.7); Neutrophils Percent Auto 58.5 % (45.5-73.1); Platelet Count Result 117 k/mm3 (150-375); Red Blood Count 3.94 M/mm3 (4.6-6.20); Red Cell Distribution Width 14.7 % (11.5-14.5); White Blood Count 4.1 K/mm3 (4.5-10.0)
[2024-06-11 07:44] LABS: Alanine Aminotransferase 15 U/L (6-50); Albumin Level 3.8 g/dL (3.5-5.1); Alkaline Phosphatase 80 U/L (38-126); Anion Gap 7 mmol/L (4-12); Aspartate Amino Transferase 24 U/L (17-59); Bilirubin,Total 2.1 mg/dL (0.2-1.3); Blood Urea Nitrogen 28 mg/dL (9-20); Calcium 8.9 mg/dL (8.4-10.2); Carbon Dioxide 33 mmol/L (22-30); Chloride 94 mmol/L (98-107); Estimated CRCL calculation 50 ml/min; Estimated Glomerular Filt Rate > 60; Glucose 108 mg/dL (65-110); Magnesium 1.9 mg/dL (1.6-2.3); Phosphorus 4.3 mg/dL (2.5-4.5); Potassium 3.8 mmol/L (3.4-5.0); Sodium 134 mmol/L (137-145)
[2024-06-11] MEDS: AZITHROMYCIN 250 MG TABLET 500 MG PO (08:26)
[2024-06-11] MEDS: ACIDOPHILUS/BULGARICUS CHEWABLE TABLET 1 TABLET PO (08:27)
[2024-06-11] MEDS: MULTIVITAMINS THERAPEUTIC TAB (*BKC) 1 TABLET PO (08:27)
[2024-06-11] MEDS: ASCORBIC ACID 500 MG TABLET PO (08:27)
[2024-06-11] MEDS: FERROUS SULFATE 325 MG TABLET DR PO (08:27)
[2024-06-11] MEDS: DOCUSATE SODIUM 100 MG CAPSULE PO (08:27)
[2024-06-11] MEDS: ASPIRIN 81 MG ENTERIC TABLET PO (08:27)
[2024-06-11] MEDS: AMOXICILLIN/CLAVULANATE K 875-125 MG TAB 1 TABLET PO (08:27)
[2024-06-11] MEDS: carvediloL 6.25 MG TABLET PO (08:28)
[2024-06-11] MEDS: metOLazone 5 MG TABLET PO (08:28)
[2024-06-11] MEDS: LIDOCAINE 5% PATCH 1 PATCH TOPICAL (08:28)
[2024-06-11] MEDS: FUROSEMIDE 40 MG TABLET PO (08:28)
--- NOTE | 2024-06-11 12:31 | P.PNCA_ITS ---
Progress Note: A&P Assessment and Plan (1) (HFpEF) heart failure with preserved ejection fraction: Qualifiers: Heart failure chronicity: acute on chronic Qualified Code(s): I50.33 - Acute on chronic diastolic (congestive) heart failure Code(s): I50.30 - Unspecified diastolic (congestive) heart failure Status: Acute (2) Elevated troponin: Code(s): R79.89 - Other specified abnormal findings of blood chemistry Status: Acute (3) CAD (coronary artery disease): Qualifiers: Coronary Disease-Associated Artery/Lesion type: [place] artery [place] vs. transplanted heart: [place]om[place] heart Associated angina: with stable angina Qualified Code(s): I25.118 - Atherosclerotic heart disease of [place] coronary artery with other forms of angina pectoris Code(s): I25.10 - Atherosclerotic heart disease of [place] coronary artery without angina pectoris Status: Acute (4) Atrial fibrillation with slow ventricular response: Code(s): I48.91 - Unspecified atrial fibrillation Status: Acute Plan Assessment: Acute on chronic diastolic heart failure; echo shows LVEF of 55-60% with diastolic dysfunction Elevated troponin with no chest pain at this time-most likely secondary to acute heart failure; EKG shows atrial fibrillation without any ST-T changes New onset AFib with slow ventricular response CAD Mild to moderate AR [id number] MR Moderate pulmonary hypertension with PASP 55 mm Hg Hyperlipidemia Hypertension Hypoxic respiratory failure Bilateral pleural effusion with loculation Sepsis secondary to pneumonia on antibiotic therapy Plan: Chads 2 Vasc score of 5 (age greater than 75=2, heart failure=1, CAD=1, hypertension=1). Recommend starting anticoagulation with NOAC Recommend Lasix 40 mg p.o. b.i.d. at discharge. If adding metolazone at discharge, then recommend close follow-up with cardiology in 1-2 weeks to reassess fluid status and adjust dose of Lasix and metolazone. Continue medical management for CAD with aspirin, statin, Coreg Add SGLT2 inhibitor for diastolic heart failure Check and replace electrolytes as needed keeping potassium greater than 4 and magnesium greater than 2 Subjective Date/time seen: 06/11/24 12:31 Interval history: Reason For Visit: Pneumonia, acute on chronic diastolic heart failure, elevated troponin, new atrial fibrillation Narrative: 88-year-old male with past medical history of CAD , hyperlipidemia, hypertension, HFpEF, hypothyroidism is admitted with chief complaints of shortness of breath, increased leg swelling and weight gain over the past few months despite not changing his diet or any of his medications. He reports stable angina with off and on chest pain that comes on once a month and lasts for few minutes and resolves spontaneously. He reports chronic cough also off and on without any fever or chills. On this admission he was noted to have hypoxic respiratory failure and acute on chronic diastolic heart failure. Labs showed anemia with hemoglobin 12.2, elevated troponin of 0.052 and 0.058, elevated BNP of 4480. Chest x-ray and CT chest revealed bilateral pleural effusion with loculation and pneumonia treated with antibiotics. Metolazone was started with good response. TTE showed normal LVEF with no regional wall motion abnormalities. Cardiology is consulted for further management of acute heart failure and elevated troponin. Workup: Troponin: 0.052, 0.058 BNP: 4480 Chest x-ray CT chest: Left-sided pleural effusion, partially loculated right-sided pleural effusion, bilateral interstitial thickening and patchy ground-glass opacification TTE: Normal LV systolic function with EF 55-60%, mild concentric LV hypertrophy with abnormal diastolic function, mild to moderate AR and mild to moderate MR, moderate pulmonary hypertension with estimated PASP 55 mm Hg, trivial pericardial effusion Cardiac catheterization in Sep, 2023: Nonobstructive CAD with minimal luminal irregularities of LAD and 80% ostial stenosis of a very small distal 3rd diagonal branch Interval history: Patient is breathing is much improved is not on any oxygen. He is excited to go home today. No chest pain, shortness of breath, dizziness, lightheadedness, palpitations, nausea, abdominal pain. His legs are skinny today. Exam Narrative: General: Alert oriented x3, no acute distress Neck: Supple, no JVD Chest: Bilaterally clear to auscultation, no rales or rhonchi Cardiac: S1, S2 +, regular rate, regular rhythm, no murmurs or rubs Extremities: No pedal edema, no skin rash Neurologic: Alert and oriented x3, no focal neurological deficits Objective Data Vital Signs Vital Signs: Vital Signs - 24 hr 06/10/24 14:00 06/10/24 16:00 06/10/24 20:00 Temperature 36.7 C Pulse Rate 60 55 L Respiratory Rate 16 Blood Pressure 121/58 L Pulse Oximetry 99 Oxygen Delivery Room Air 06/10/24 20:00 06/10/24 21:30 06/10/24 21:36 Temperature 36.4 C Pulse Rate 74 60 64 Respiratory Rate 14 Blood Pressure 125/54 L Pulse Oximetry 96 Oxygen Delivery 06/11/24 00:00 06/11/24 04:00 06/11/24 05:43 Temperature 36.4 C L Pulse Rate 67 54 L 62 Respiratory Rate 18 Blood Pressure 118/49 L Pulse Oximetry 99 Oxygen Delivery 06/11/24 08:00 06/11/24 08:28 06/11/24 08:28 Temperature Pulse Rate 56 L 64 Respiratory Rate Blood Pressure Pulse Oximetry Oxygen Delivery Room Air 06/11/24 08:28 Temperature Pulse Rate 64 Respiratory Rate Blood Pressure 126/70 Pulse Oximetry 99 Oxygen Delivery Intake/Output Intake/Output: Intake & Output 06/08/24 06/09/24 06/10/24 06/11/24 23:59 23:59 23:59 23:59 Intake Total 3145 1330 550 Output Total 120 3225 2400 600 Balance - -50 Meds/Results Medications: Active Medications Generic Name Dose Route Start Last Admin Trade Name Freq PRN Reason Stop Dose Admin Acetaminophen 650 mg 06/08/24 20:43 06/09/24 20:12 Acetaminophen 325 Mg Tablet PO 650 mg Q4H PRN Administration Mild Pain (1-3) or Fever Amoxicillin/Clavulanate Potassium 1 tablet 06/09/24 21:00 06/11/24 08:27 Amoxicillin/Clavulanate K 875-125 Mg Tab PO 06/13/24 21:01 1 tablet Q12HR MUNIR Administration Ascorbic Acid 500 mg 06/09/24 09:00 06/11/24 08:27 Ascorbic Acid 500 Mg Tablet PO 500 mg DAILY MUNIR Administration Aspirin 81 mg 06/09/24 09:00 06/11/24 08:27 Aspirin 81 Mg Enteric Tablet PO 81 mg DAILY MUNIR Administration Azithromycin 500 mg 06/09/24 12:05 06/11/24 08:26 Azithromycin 250 Mg Tablet PO 06/13/24 09:01 500 mg DAILY MUNIR Administration Benzocaine 1 lozenge 06/10/24 22:03 Benzocaine/Menthol (*Bkc) 18 Ea Lozenge PO PRN PRN Sore Throat Carvedilol 6.25 mg 06/09/24 09:00 06/11/24 08:28 Carvedilol 6.25 Mg Tablet PO 6.25 mg Q12HR MUNIR Administration Docusate Sodium 100 mg 06/09/24 09:00 06/11/24 08:27 Docusate Sodium 100 Mg Capsule PO 100 mg DAILY MUNIR Administration Ferrous Sulfate 325 mg 06/09/24 09:00 06/11/24 08:27 Ferrous Sulfate [address] PO 325 mg DAILY MUNIR Administration Furosemide 40 mg 06/10/24 17:00 06/11/24 08:28 Furosemide 40 Mg Tablet PO 40 mg BID MUNIR Administration Lactobacillus Acidophilus 1 tablet 06/09/24 09:00 06/11/24 08:27 Acidophilus/[place] Chewable Tablet PO 1 tablet DAILY MUNIR Administration Levothyroxine Sodium 25 mcg 06/09/24 06:30 06/11/24 05:30 Levothyroxine Sodium 25 Mcg Tablet PO 25 mcg DAILY@0630 MUNIR Administration Lidocaine 1 patch 06/09/24 09:00 06/11/24 08:28 Lidocaine 5% Patch TOPICAL 1 patch DAILY MUNIR Administration Metolazone 5 mg 06/09/24 09:00 06/11/24 08:28 Metolazone 5 Mg Tablet PO 5 mg QAM MUNIR Administration Multivitamins Therapeutic 1 tablet 06/09/24 09:00 06/11/24 08:27 Multivitamins Therapeutic Tab (*Bkc) PO 1 tablet DAILY MUNIR Administration Perflutren Lipid Microsphere 0 ml 06/09/24 05:21 Perflutren Lipid Microspheres 1.5 Ml Vial Diluted To 10 Ml Total Volume IV PUSH 06/12/24 05:22 ONCE PRN adequate visualization Protocol Simvastatin 5 mg 06/09/24 18:00 06/10/24 17:00 Simvastatin 5 Mg Tablet PO 5 mg QPM MUNIR Administration Tamsulosin HCl 0.4 mg 06/09/24 18:00 06/10/24 17:00 Tamsulosin Hcl 0.4 Mg Capsule PO 0.4 mg QPM MUNIR Administration Radiology Results: ITS Impressions Chest X-Ray 06/08/24 17:33 IMPRESSION: Large right-sided pleural effusion extending into the major fissure in addition to a focal infiltrate within the superior segment of the right lower lobe with a small left-sided pleural effusion. Chest CT 06/08/24 19:24 IMPRESSION: Left-sided pleural effusion, consistent with most recent radiograph (performed approximately 1 hour earlier) with partially loculated right-sided pleural effusion and interstitial thickening/groundglass opacification. Labs Labs: Laboratory Results - last 24 hr 06/11/24 06:56 WBC 4.1 L RBC 3.94 L Hgb 12.5 L Hct 38.2 L MCV 97.0 MCH 31.7 MCHC 32.7 RDW 14.7 H Plt Count 117 L MPV 10.9 H Immature Gran % (Auto) 0.2 Neut % (Auto) 58.5 Lymph % (Auto) 20.4 [place] % (Auto) 13.1 H Eos % (Auto) 6.6 H Baso % (Auto) 1.2 Lymph # (Auto) 0.84 L [place] # (Auto) 0.5 Eos # (Auto) 0.3 Baso # (Auto) 0.1 Abs Immat Gran (auto) 0.01 Absolute Neuts (auto) 2.4 Absolute Nucleated RBC 0.000 Nucleated RBC % 0.0 Sodium 134 L Potassium 3.8 Chloride 94 L Carbon Dioxide 33 H Anion Gap 7 BUN 28 H Creatinine 1.00 Estim Creat Clear Calc 50 Estimated GFR > 60 Glucose 108 Calcium 8.9 Phosphorus 4.3 Magnesium 1.9 Total Bilirubin 2.1 H AST 24 ALT 15 Alkaline Phosphatase 80 Total Protein 6.0 L Albumin 3.8
--- NOTE | 2024-06-11 15:57 | P.DS_ITS ---
DS: Admitting Diagnosis Discharge Date 06/11/2024 Admitting Diagnosis Acute hypoxic respiratory failure DS: Discharge Diagnosis Discharge Diagnosis (1) Acute hypoxic respiratory failure: Code(s): J96.01 - Acute respiratory failure with hypoxia Status: Acute Assessment and Plan: -acute (2) Pleural effusion, right: Code(s): J90 - Pleural effusion, not elsewhere classified Status: Acute Assessment and Plan: -acute on chronic (3) CAP (community acquired pneumonia): Code(s): J18.9 - Pneumonia, unspecified organism Status: Acute Assessment and Plan: Acute (4) (HFpEF) heart failure with preserved ejection fraction: Qualifiers: Heart failure chronicity: acute on chronic Qualified Code(s): I50.33 - Acute on chronic diastolic (congestive) heart failure Code(s): I50.30 - Unspecified diastolic (congestive) heart failure Status: Acute Assessment and Plan: Chronic (5) Elevated troponin: Code(s): R79.89 - Other specified abnormal findings of blood chemistry Status: Acute Assessment and Plan: -acute (6) CAD (coronary artery disease): Qualifiers: Coronary Disease-Associated Artery/Lesion type: [place] artery [place] vs. transplanted heart: [place] heart Associated angina: with stable angina Qualified Code(s): I25.118 - Atherosclerotic heart disease of [place] coronary artery with other forms of angina pectoris Code(s): I25.10 - Atherosclerotic heart disease of [place] coronary artery without angina pectoris Status: Acute Assessment and Plan: Chronic (7) Hypertension: Qualifiers: Hypertension type: primary hypertension Qualified Code(s): I10 - Essential (primary) hypertension Code(s): I10 - Essential (primary) hypertension Status: Acute Assessment and Plan: -chronic (8) Hypothyroidism: Code(s): E03.9 - Hypothyroidism, unspecified Status: Acute Assessment and Plan: Chronic (9) Dyslipidemia: Code(s): E78.5 - Hyperlipidemia, unspecified Status: Acute Assessment and Plan: Chronic Plan Discharge home on self DS: Summary Hospital Course Reason for hospitalization: Acute hypoxic respiratory failure Hospital Course: Patient presented to the emergency room with reports of increasing shortness of breath, bilateral lower extremity edema, scrotal edema. CXR done in the emergency room showed large right pleural effusion. The patient also had a CT chest done that showed Left-sided pleural effusion, consistent with most recent radiograph (performed approximately 1 hour earlier) with partially loculated right-sided pleural effusion and interstitial thickening/groundglass opacification. He had mildly elevated troponin that trended down and had no ischemic changes on his EKG. He maintained good O2 sats on room air throughout his hospitalization. His BNP on admission was 4480 and the patient was noted to be in an acute exacerbation of his chronic diastolic CHF. The patient is on 60 mg of p.o. Lasix daily, and was diuresed with 1 mg of IV Bumex b.i.d., that was later changed to 40 mg of Lasix p.o. prior to his discharge. Blood cultures were also obtained with the patient's CT chest suspicious of possible ground- glass opacities. The patient did not have a fever or leukocytosis throughout his admission with his labs remaining fairly unremarkable throughout this hospitalization. He was treated empirically with vancomycin and cefepime, negative MRSA PCR, vancomycin was discontinued. Antibiotics also deescalated to Augmentin p.o. b.i.d. prior to his discharge. Patient had 2 episodes of nonsustained V-tach during sleep without any symptoms. He was seen by the social worker palliative care who evaluated him and recommended continued diuresis and consideration for SGLT2 inhibitor prior to d/c. Patient was also continued for possible anticoagulation per [id number] Score of 5. Patient reported that he would discuss anticoagulation issues with his social worker palliative care during his appointment coming in 2 days. Patient had an echo done that showed an EF of 60- 65%. He had mildly elevated troponin that was suspected to be secondary to his acute CHF as he did not have any chest pain and had no ischemic changes on his EKG. He was continued on aspirin, Coreg and statin for his CAD. Patient reports he has lost fluid weight since his admission and his scrotal and bilateral extremity edema have much improved. He reports that he feels good and wants to go home tomorrow so that he can go for his appointment with his social worker palliative care in 2 days. Patient is medically stable for discharge with no acute distress noted or reported prior to discharge. Status at Discharge Functional status at discharge: independent ambulation Overall status at discharge: patient is progressing back to baseline Time Spent with Patient Time attestation: Total time spent providing and/or coordinating discharge services: Time spent: Greater than 30 minutes Exam Narrative: General: Well appearing, no acute distress. HEENT: Atraumatic, PERRL, EOMI, moist mucosa. NECK: Supple. Lungs: Clear bilaterally. Heart: Regular rate and rhythm with no murmurs. Abdomen: Soft, nontender, nondistended, positive bowel sounds x4 quadrants. Extremities: Cyanotic, 1+ edema bilaterally. Skin: Warm and dry with no lesions. Content Management Specialist: Moderate scrotal edema. Neuro: Well oriented, no focal neuro deficits noted. Psych: Pleasant and cooperative. DS: Data Data Completed and Pending Labs on day of discharge: Labs from last 24 hours 06/11/24 06:56 WBC 4.1 L RBC 3.94 L Hgb 12.5 L Hct 38.2 L MCV 97.0 MCH 31.7 MCHC 32.7 RDW 14.7 H Plt Count 117 L MPV 10.9 H Immature Gran % (Auto) 0.2 Neut % (Auto) 58.5 Lymph % (Auto) 20.4 [place] % (Auto) 13.1 H Eos % (Auto) 6.6 H Baso % (Auto) 1.2 Lymph # (Auto) 0.84 L [place] # (Auto) 0.5 Eos # (Auto) 0.3 Baso # (Auto) 0.1 Abs Immat Gran (auto) 0.01 Absolute Neuts (auto) 2.4 Absolute Nucleated RBC 0.000 Nucleated RBC % 0.0 Sodium 134 L Potassium 3.8 Chloride 94 L Carbon Dioxide 33 H Anion Gap 7 BUN 28 H Creatinine 1.00 Estim Creat Clear Calc 50 Estimated GFR > 60 Glucose 108 Calcium 8.9 Phosphorus 4.3 Magnesium 1.9 Total Bilirubin 2.1 H AST 24 ALT 15 Alkaline Phosphatase 80 Total Protein 6.0 L Albumin 3.8 Preliminary micro results at discharge 06/08/24 19:28 Blood Culture - Preliminary Blood 06/08/24 19:28 Blood Culture - Preliminary Blood Discharge Plan Discharge Attending physician on discharge: Guillermo Reed Consulting providers: [place] Shah Discharging Clinician: Elda Rooney Anticipated Discharge Date/Time: 06/11/24 16:19 Patient Disposition: Home, Self-Care Activity: as tolerated Diet: heart healthy Patient Instructions: Antibiotic Form Patient Language: [place] Stand Alone Forms: General Discharge Information Follow-up/Referrals: Latanya Vee DO [Primary Care Provider] - 1 Week Discharge Medications: New metolazone 5 mg Tablet 5 mg PO QAM Qty: 30 0RF furosemide 40 mg Tablet 40 mg PO BID Qty: 60 0RF amoxicillin-pot clavulanate 875-125 mg tablet 1 tablet PO Q12H Qty: 10 0RF Continued aspirin [Adult Low Dose Aspirin] 81 mg tablet,delayed release (DR/EC) 81 mg PO DAILY glucosamine HCl 1,500 mg tablet 1,500 mg PO DAILY Rx Instructions: administer with a meal multivitamin Tablet 1 tablet PO DAILY lidocaine 5 % adhesive patch,medicated 1 patch topical DAILY Qty: 15 0RF Patient Comments: usually puts on back of neck Rx Instructions: leave on most painful area for up to 12 hrs ascorbate calcium (vitamin C) 500 mg tablet 500 mg PO DAILY docusate sodium [Colace] 100 mg capsule 100 mg PO DAILY ferrous sulfate 325 mg (65 mg iron) tablet,delayed release (DR/EC) 325 mg PO DAILY levothyroxine 25 mcg tablet 25 mcg PO DAILY Qty: 90 1RF Advanced Probiotic 625 mg (10 billion cell) Capsule 1 cap PO DAILY tamsulosin 0.4 mg capsule 0.4 mg PO QPM Rx Instructions: TAKE 1 CAPSULE BY MOUTH EVERY DAY AT BEDTIME simvastatin 5 mg tablet 5 mg PO QPM carvedilol 6.25 mg tablet 6.25 mg PO BID Qty: 180 1RF Discontinued furosemide 40 mg tablet 40 mg PO DAILY Qty: 90 1RF Patient Comments: takes 40mg and 20mg together to make 60mg furosemide 20 mg tablet See Rx Instructions .ROUTE .COMPLEX Qty: 90 1RF Dose Instruction: TAKE 1 TABLET BY MOUTH EVERY DAY IN THE MORNING Patient Comments: takes both 20 mg and 40mg to make 60mg Rx Instructions: TAKE 1 TABLET BY MOUTH EVERY DAY IN THE MORNING Date of admission: 06/09/24 08:46 Primary Care Provider: Latanya Vee Admitting Provider: Josemanuel Lawson Attending physician on admission: Josemanuel Lawson Condition: Stable Quality If No VTE Prophylaxis Answer both mechanical and pharmacologic: Reason no mechanical VTE proph: patient/caregiver refusal Reason no pharmacologic proph: patient/caregiver refusal Hospitalist MIPS Heart Failure (Exclusion) Patient has history of Heart Transplant or Left Ventricular Assistive Device?: No IF YES, STOP HERE Heart Failure (Qualifier) Patient has current or prior documentation of LVEF less than or equal to 40%, or mod/servere depressed LVSF?: No IF NO, STOP HERE
== END 2024-06-11 17:45 | disposition home or self-care (01) | DRG 193 ==
LOC: ANHED 20:49 → ANH3MEDSUR 21:30
PROVIDERS: Nurse Practitioner; Registered Nurse; Admitting Provider Internal Medicine; Emergency Provider Emergency Medicine; PCP Family Medicine; Visit Provider Nurse Practitioner Adult Health
DX: J18.9 Pneumonia, unspecified organism (principal); I50.33 Acute on chronic diastolic (congestive) heart failure; J96.01 Acute respiratory failure with hypoxia; J90 Pleural effusion, not elsewhere classified; I24.89 Other forms of acute ischemic heart disease; I47.20 Ventricular tachycardia, unspecified; I11.0 Hypertensive heart disease with heart failure; I25.10 Atherosclerotic heart disease of native coronary artery without angina pectoris; E03.9 Hypothyroidism, unspecified; E78.5 Hyperlipidemia, unspecified; N40.0 Benign prostatic hyperplasia without lower urinary tract symptoms; E78.00 Pure hypercholesterolemia, unspecified; D64.9 Anemia, unspecified; R73.03 Prediabetes; Z79.82 Long term (current) use of aspirin
CPT/HCPCS: 36415; 71046; 71250; 80053; 80069; 81003; 83735; 83880; 84145; 84439; 84443; 84480; 84484; 85025; 85055; 85610; 85652; 85730; 86140; 87040; 87637; 87641; 93005; 93306; 96365; 96366; 96367; 96368; 96375; 99285; A9270; G0378; J0692; J1836; J1939; J3370

== ENCOUNTER 2024-09-08 12:38 | Emergency (ER) | payer MEDICARE, SELFPAY ==
--- OUTSIDE RECORDS SUMMARY | 2024-09-08 12:41 | XMS_ITS | Clinical Summary ---
Author Organization [facility] Address [address] [place] [address] Care Team Providers Care Field Gauger Name Role Phone Brandon Ruelas MD Primary Care Provider [phone] Source Comments [facility],non-owned Affiliates and Associated Physician Practices is amultiple site organization consisting of ambulatory clinics and hospital sitesin [place], [place], [place] and [place]. This disclosure is being madepursuant to the Care Everywhere program and may not contain all information available regarding this patient. Last updated 18.[facility] Social History Tobacco Use Types Packs/Day Years Used Date Smoking Tobacco: Never Assessed Sex and Gender Information Value Date Recorded Sex Assigned at Not on file Legal Sex Male 6:32 PM TARGET MAN Gender Identity Not on file Sexual Orientation Not on file Plan of Treatment Health Maintenance Due Date Last Done Comments DTAP/TDAP/TD VACCINES (1 - Tdap) 12[birth year]21/1954 PNEUMOCOCCAL VACCINE 50+ (1 of 1 - PCV) 1986 ZOSTER VACCINE (1 of 2) 1986 Respiratory Syncytial Virus (RSV) Vaccine Pt: or over 60 yrs (1 - 1-dose 75+ series) 12/21/2011 COVID-19 VACCINE ( - 2023-2 5 season) 2024 DEPRESSION SCREENING 05/17/2024 MEDICARE AWV CALENDAR YEAR 2024 INFLUENZA VACCINE (Season Ended) 2025 HEPATITIS B VACCINE Aged Out No longe r eligible based on patient's age to complete this topic HIB VACCINE Aged Out No longer eligi ble based on patient's age to complete this topic HPV VACCINE Aged Out No longer eligi ble based on patient's age to complete this topic MENINGOCOCCAL (Group B) VACC INE SHARED DECISION-MAKING Aged Out No longer eligibl e based on patient's age to complete this topic MENINGOCOCCAL GROUPS A/C/Y/W VACCINE Aged Out No longer eligible b ased on patient's age to complete this topic Insurance [employer] MEDICARE ADV Care Teams Field Gauger Relationship Specialty Start Date End Date Brandon Ruelas MD [address] [place] [id number] PCP - General 11/21/13
--- OUTSIDE RECORDS SUMMARY | 2024-09-08 12:41 | XMS_ITS | Encounter Summary ---
Author Organization [facility] Address [address] [place] [address] Phone Care Team Providers Care Enterprise Application Architect Name Role Phone Latanya Vee DO Primary Care Provider [phone] Padmini Miller MD Unavailable Lauro Shane MD Unavailable Encounter Details Date Type Department Care Team (Late st Contact Info) Description 08/19/2024 Results Follow-Up [facility] Cardiology [address] [facility] [address] [place] [address] Zachary Fields MD [address] [facility] [address] [place] [address] Social History Tobacco Use Types Packs/Day Years Used Date Smoking Tobacco: Never Smokeless Tobacco: Never Alcohol Use Standard Drinks/Week Comments Never 0 (1 standard drink = 0.6 oz pur e alcohol) [facility] Utilities Answer Date Recorded In the past 12 months has [employer] electric, gas, oil, or water company threatened to shut off services in your home? No 10/12/2023 Social Connection and Isolat ion Panel [NHANES] Answer Date Recorded In a typical week, how many times do you talk on the phone with family, friends, or neighbors? Once a week 10/12/2023 How often do you get togethe r with friends or relatives? Once a week 10/12/2023 How often do you attend chur ch or yazidism services? 1 to 4 times per year 10/12/2023 Do you belong to any clubs o r organizations such as scientology groups, unions, fraternal or athletic groups, or school groups? Yes 10/12/2023 How often do you attend meet ings of the clubs or organizations you belong to? More than 4 times per year 10/12/2023 Are you , , di vorced, , never , or living with a partner? 10/12/2023 Overall Financial Resource Strain (CARDIA) Answe r Date Recorded How hard is it for you to pa y for the very basics like food, housing, medical care, and heating? Not hard at all 10/12/2023 Hunger Vital Sign Answer Date Recorded Within the past 12 months, y ou worried that your food would run out before you got the money to buy more. Never true 10/12/19 24 Within the past 12 months, t he food you bought just didn't last and you didn't have money to get more. Never true 10/12/2023 PRAPARE - Transportation Answer Date Re corded In the past 12 months, has l ack of transportation kept you from medical appointments or from getting medications? No 09/15 In the past 12 months, has l ack of transportation kept you from meetings, work, or from getting things needed for daily living? No 10/12/2023 Housing Stability Vital Sign Answer Ivan e Recorded In the last 12 months, was t here a time when you were not able to pay the mortgage or rent on time? No 09/22/2023 In the last 12 months, how many places have you lived? 1 09/22/2023 In the last 12 months, was t here a time when you did not have a steady place to sleep or slept in a fdc (including now)? No 09/22/2023 Housing Stability Vital Sign Answer Ivan e Recorded In the last 12 months, was t here a time when you were not able to pay the mortgage or rent on time? No 10/12/2023 In the past 12 months, how m any times have you moved where you were living? 1 10/12/2023 At any time in the past 12 m [facility], were you homeless or living in a fdc (including now)? No 10/12/2023 Personal Safety Answer Date Recorded Have you ever been in or are you currently in a harmful physical or emotional relationship or is someone making you feel afraid or unsafe? Denies 12/04/2023 Sex and Gender Information Value Date Recorded Sex Assigned at Not on file Legal Sex Male 11:12 AM [employer] Gender Identity Not on file Sexual Orientation Not on file documented as of this encounter Plan of Treatment Not on file documented as of this encounter Visit Diagnoses Not on filedocumented in this encounter Care Teams Enterprise Application Architect Relationship Specialty Start Date End Date Latanya Vee DO [facility] [address] TEJADA [address] [place] [id number] PCP - General Family Medicine 09/17/23 Padmini Miller MD [address] [facility] [address] [place] [address] Consulting Physician Physical Medicine and Rehabilitation 09/23/23 Lauro Shane MD [address] [facility] [address] [place] [address] Consulting Physician Pulmonary Disease 10/15/23 documented as of this encounter
--- OUTSIDE RECORDS SUMMARY | 2024-09-08 12:42 | XMS_ITS | Data Portability ---
Author Organization [facility] Arreola [facility] Address [address] [facility] [place] [address] Assessment No assessment recorded. Plan of Treatment Reminders Order Date Submit Date Provider Last Modified By Organization Details Last Modified Time Details Appointments None recorded. Lab rapid flu (A+B) 2018 019 JAMES Not available 16:40:13 Referral None recorded. Procedures None recorded. Surgeries None recorded. Imaging None recorded. Medication Orders albuterol sulfate HFA 90 mcg/actuat ion aerosol inhaler 2018 019 INTERFACE [facility] [id number], [address], [place], [address], 9 20:03:10 Keflex 500 mg capsule 2018 019 INTERFACE [facility] [id number], [address], [address], [place], [address], 9 16:03:08 benzonatat e 200 mg capsule 2018 019 INTERFACE [facility] [id number], [address], [address], [place], [address], 9 16:03:13 Patient TargetsNo targets recorded. Patient InstructionsNo instructions recorded. Reason for Referral None Reported. Results Created Date Observation Date Name Description Value Unit Range Abnormal Flag Note LastModifiedBy Organization Detail LastModifiedTime 05/08/20 19 05/08/2019 rapid flu (A+B) Flu A Negati ve Not Available [facility] [address] [place], [address], 05/08/2019 15:32:23 05/08/20 19 05/08/2019 rapid flu (A+B) Flu B Negati ve Not Available [facility] [address] [place], [address], 05/08/2019 15:32:23 05/08/20 19 05/08/2019 rapid flu (A+B) QC Okay Not Available [facility] [address] [place], [address], 05/08/2019 15:32:23 Result Notes None recorded. Medical Equipment None Reported. Allergies No known drug allergies Medications Name Sig Start Date Stop Date Status Note LastModified by Organization Details LastModified Time benzonatate 200 mg capsule Take 1 capsule 3 times a day by oral route. 2018 active Not Available Not Available Not Avai lable Keflex 500 mg capsule fill if pt requests; 1 po qid 2018 active Not Available Not Available Not Avai lable atovaquone 250 mg-proguani l 100 mg tablet 05/08 completed Not Available Not Available Not Available albuterol sulfate HFA 90 mcg/actuati on aerosol inhaler 2 puffs q 4 hours on schedule & prn until significa ntly better 2018 active Not Available Not Available Not Avai lable aspirin active Not Available Not Avail able Not Available Fish Oil active Not Available Not Avai lable Not Available Vitamin D3 active Not Available Not Av ailable Not Available multivitami n active Not Available Not Available Not Available Shingrix (PF) 50 mcg/0.5 mL intramuscul ar suspension, kit 05/08 completed Not Available Not Available Not Available Vitals Date Recorded Body height Body mass index (BMI) Body weight Body temperature Heart rate Respiratory rate Oxygen saturation Oxygen saturation in Arterial blood by Pulse oximetry Systolic blood pressure Diastolic blood pressure Provider Name and Address Organization Details Last Updated DateTime 9 182.88 cm 22.1 kg/m2 05145.5 6 g 98.6 [degF] 92 /min 16 /min 100 % 100 % 122 mm[Hg] 78 mm[Hg] Maria G Burton [facility] 9 15:30:20 Social History None recorded. Functional Status None recorded. Mental Status None recorded. Family History Nothing Reported. Medical History No medical history recorded. 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 Health Concerns Section Related Observation LastModified by Organization Detai ls LastModified Time None Recorded Concern Status LastModified by Organization Details LastModified Time None Recorded Advance Directives Directive None Recorded Payers Encounter Date Sequence Insurance Name Policy Number Policy Villasenor Covered Member ID Villasenor Member ID Guarantor Name 05/08/[address] [facility] (MEDICARE REPLACEMENT/A DVANTAGE - PPO) [id number] Gerald Leonardo [id number] Gerald Leonardo Notes Date Note Type Note Provider Name and Address Organization Details Recorded Time 05/08/2019 text/html Sick x about 5 days, fatigue/ sleeping more than usual / feels just generally weak, dry cough- hacky repeated once starts, minimal congestion, ST. He took otc cold med initially. Supposed to be traveling today but not feeling well enough to go. No fever, sweats, chills, bodyaches. Some looser stools than usual. No nausea or vomiting. Good appetite, good intake. 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
--- OUTSIDE RECORDS SUMMARY | 2024-09-08 12:42 | XMS_ITS | Clinical Summary ---
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 Pelayos) Active carvediloL (COREG) 6.25 mg tablet Take 1 tablet (6.25 mg total) by mouth 2 (two) times a day with meals 60 tablet 1 09/23/19 24 025 Active ascorbic acid 500 mg tablet,chewable Take 1 tablet/chew tab (500 mg total) by mouth daily Active docusate sodium (COLACE) 100 mg capsuleIndications :constipation Take 1 capsule (100 mg total) by mouth with lunch Active ferrous sulfate 325 mg (65 mg of elemental iron) tabletIndications: Iron Deficiency Anemia Take 1 tablet (325 mg total) by mouth with lunch Active empagliflozin (JARDIANCE) 10 mg tablet Take 1 tablet (10 mg total) by mouth daily 90 tablet 2 03/28/20 24 Active levothyroxine (SYNTHROID) 25 mcg tablet Take 1 tablet (25 mcg total) by mouth daily 04/04/20 24 Active amoxicillin-clavul anate (AUGMENTIN) 875-125 mg per tablet 06/11/19 25 Active acoramidis (Attruby) 356 mg tabletIndications: transthyretin-rela lane amyloid cardiomyopathy Take 2 tablets by mouth 2 (two) times a day 120 tablet 11 07/11/19 25 Active potassium chloride ER (KLOR-CON) 20 mEq CR tabletIndications: Cardiac amyloidosis (HCC),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),Lower extremity edema,Hypokalemia Take FOUR tablets NOW and then one tablet daily starting tomorrow 24 tablet 3 07/25/19 25 Active metOLazone (ZAROXOLYN) 5 mg tabletIndications: Cardiac amyloidosis (HCC),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),Lower extremity edema,Hypokalemia Take 1 tablet (5 mg total) by mouth daily as needed (for 1-3 lbs weight gain in one day or 3-5 lbs weight gain in 1 week.) 30 tablet 3 07/25/19 25 Active torsemide (DEMADEX) 20 mg tabletIndications: Cardiac amyloidosis (HCC),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 09/05/19 Active multivit with minerals/lutein (MULTIVITAMIN 50 PLUS ORAL) 09/05/19 Active cholecalciferol 400 unit capsule 25 mcg, with breakfast 09/05/19 Active apixaban (ELIQUIS) 5 mg tablet Take 1 tablet (5 mg total) by mouth 2 (two) times a day 60 tablet 11 08/12/19 25 Active Hospital, Clinic, or Other Facility Administered Medication Ordered Dose Route Frequency Start Date End Date Status INV-[facility] [id number]/placebo (/[id number] M-301) 50 mg/mL IV 3,200 mgIndications:Research subject 3200 mg IV Once 09/05/2024 09/05/2024 Ended INV-[facility] dextrose 5% in water (D5W) (/[id number] M-301) flush syringe 10 mLIndications:Research subject 10 mL IV Once 09/05/2024 09/05/2024 Ended INV-[facility] acetaminophen (/[id number] M-301) tablet 500 mgIndications:Research subject 500 mg oral Once 09/05/2024 09/05/2024 [address]ed [address] diphenhydrAMINE (/[id number] M-301) 50 mg/mL injection 25 mgIndications:Research subject 25 mg IV Once 09/05/2024 09/05/2024 Ended Active Problems Problem Noted Date Diagnosed Date Diastolic heart failure of unknown etiology 03/17 Shortness of breath 12/04/2023 Atrial ectopy 10/12/2023 Atrial fibrillation 10/11/2023 Pneumonia due to infectious organism 10/09/2023 Empyema lung 10/08/2023 Hypothermia 10/08/2023 Hypotension 10/08/2023 Severe sepsis 10/08/2023 Normocytic anemia 10/08/2023 Age-related physical debility 10/08/2023 Acute CHF 09/21/2023 Dyslipidemia 09/21/2023 Benign prostatic hyperplasia without lower urinary tract symptoms 09/21/2023 Hyperglycemia 09/21/2023 Troponin I above reference range 09/21/2023 Unspecified abnormal findings in urine Acute muscle stiffness of neck 09/21/2023 Resolved Problems Problem Noted Date Diagnosed Date Resolved Date Acute on chronic combined sy stolic (congestive) and diastolic (congestive) heart failure 12/03/2023 03/28/2024 Chronic combined systolic an d diastolic CHF (congestive heart failure) 10/08/2023 03/28/2024 Encounters Date Type Department Care Team Description 09/07/2024 Telephone [facility] [address] [place] [address] Srikanth Cox 09/05/2024 10:20 AM CDT - 09/05/2024 11:59 PM CDT Hospital Encounter [facility] [address] [place] [address] Research subject Discharge Disposition: Discharge to home or self care 09/05/2024 Research Med Pick-Up/CTRU Medical Staff Physician [facility] Clinical Trial 1 [place] [address] Tala Hussein RN Research subject (Primary Dx) 09/05/2024 Results Follow-Up [facility] [address], [address] [place] [address] Zachary Fields MD 09/05/2024 Documentation [facility] Trial 1 [place] [address] Tala Hussein RN 08/29/2024 Orders Only [facility] 1 [place] [address] Tala Hussein RN Research subject (Primary Dx) 08/23/2024 Orders Only [facility] [address], [address] [place] [address] Ivet Zepeda NP 08/21/2024 2:30 PM CDT Office Visit [facility] [address] [place] [address] Sarah Griffin NP Chronic diastolic congestive heart failure (HCC) (Primary Dx); Wild-type transthyretin-related (ATTR) amyloidosis (HCC); Atrial fibrillation, unspecified type (HCC); Encounter for anticoagulation discussion and counseling 08/21/2024 Telephone [facility] 8th [place] [address] [place] [id number] Ivet Zepeda NP 08/19/2024 Results Follow-Up [facility] [address] [place] [address] Zachary Fields MD 08/11/2024 Orders Only [facility] [address], [address] [place] [address] Zachary Fields MD 08/11/2024 Telephone [facility] [address], [address] [place] [address] Zachary Fields MD 08/10/2024 Results Follow-Up [facility], [address] [place] [address] Zachary Fields MD 08/08/2024 Documentation [facility] Trial 1 [place] [address] Tala Hussein RN 08/08/2024 Results Follow-Up [facility] [address], [address] [place] [address] Zachary Fields MD 08/07/2024 10:23 AM CDT - 08/07/2024 11:59 PM CDT Hospital Encounter [address] [address] Discharge Disposition: Discharge to home or self care 08/07/2024 Documentation [facility] 1 [place] [address] Tala Hussein RN 08/07/2024 Research Med Pick-Up/CTRU Medical Staff Physician [facility] 1 [place] [address] Tala Hussein RN Research subject (Primary Dx) 08/07/2024 Orders Only [facility] Trial 1 [place] [address] Tala Hussein RN Research subject (Primary Dx) 08/07/2024 Orders Only [facility] Trial 1 [place] [address] Tala Hussein RN Research subject (Primary Dx) 08/06/2024 Results Follow-Up [facility] 1 [place] [address] Ivet Zepeda NP 08/04/2024 2:45 PM CDT Lab [facility] - Lab Collection [address] [facility] [address] 5 [place] [address] Research subject; Left ventricular hypertrophy; Diastolic heart failure of unknown etiology (HCC); Mixed hyperlipidemia; Coronary artery disease involving [place] coronary artery of [place] heart without angina pectoris; Amyloidosis, unspecified type (HCC) 08/04/2024 1:00 PM CDT Office Visit [facility] [facility] [address], [address] [place] [address] RaterIvet NP Left ventricular hypertrophy (Primary Dx); Diastolic heart failure of unknown etiology (HCC); Mixed hyperlipidemia; Coronary artery disease involving [place] coronary artery of [place] heart without angina pectoris; Amyloidosis, unspecified type (HCC) 07/26/2024 Orders Only [facility] [address] [place] [address] 8th [place] [address] [place] [address] Sarah Interiano RN Cardiac amyloidosis (HCC) (Primary Dx) 07/26/2024 Orders Only [facility] 1 [place] [address] Tala Hussein RN Research subject (Primary Dx) 07/25/2024 Results Follow-Up [facility] [address] [facility] [address] [place] [address] Zachary Fields MD 07/21/2024 Orders Only [facility] Scanning, Provider 07/11/2024 Telephone [facility], [address] [place] [address] Sarah Interiano RN wt down 34 lbs 07/07/2024 12:09 PM [employer] - 07/07/2024 11:59 PM [employer] Hospital Encounter [facility] [address] [place] [address] Research subject Discharge Disposition: Discharge to home or self care 07/07/2024 Documentation [facility] 1 [place] [address] Lynn Yung MS 07/07/2024 Results Follow-Up [facility] [address] [facility] [address] [place] [address] Zachary Fields MD 07/07/2024 Orders Only [facility] Trial 1 [place] [address] Tala Hussein RN Research subject (Primary Dx) 07/06/2024 Telephone [facility] [address] [place] [address] Zachary Fields MD Prior Auth (Attruby 356MG tablets) 07/06/2024 Telephone [facility] [address] [place] [address] Chevy Hu [facility] 07/06/2024 Telephone [facility] [address] 1, [address] [place] [address] Zachary Fields MD 07/06/2024 Orders Only [facility] [address] 1, [address] [place] [address] Zachary Fields MD 06/29/2024 Telephone [facility] [address] [facility] 8th [place] [address] [place] [address] Zachary Fields MD 06/28/2024 Telephone [facility] [address], [address] [place] [address] Zachary Fields MD 06/16/2024 Telephone [facility] 1 [place] [address] Lynn Yung MS 06/14/2024 Orders Only [facility] [address] [place] [address] Florida Shah MD 06/13/2024 12:00 PM [employer] Lab [facility] Collection [address] [facility] [place] [address] 5 [place] [address] Amyloidosis, unspecified type (HCC); Diastolic heart failure of unknown etiology (HCC) 06/13/2024 11:18 AM [employer] - 06/13/2024 11:59 PM [employer] Hospital Encounter [facility] 1 [place] [address] Discharge Disposition: Discharge to home or self care 06/13/2024 11:00 AM [employer] - 06/13/2024 11:59 PM [employer] Hospital Encounter [facility] 1 [place] [address] Amyloidosis, unspecified type (HCC) Discharge Disposition: Discharge to home or self care 06/13/2024 9:00 AM [employer] Office Visit [facility] [address], [address] [place] [address] Zachary Fields MD Diastolic heart failure of unknown etiology (HCC) (Primary Dx); Left ventricular hypertrophy; Mixed hyperlipidemia; Coronary artery disease involving [place] coronary artery of [place] heart without angina pectoris from Last 3 Months Surgical History Surgery Date Site/Laterality Comments BACK SURGERY Medical History Medical History Date Comments Dyslipidemia 09/21/2023 Benign prostatic hyperplasia without lower urina ry tract symptoms 09/21/2023 Chronic combined systolic and diastolic heart fa ilure (HCC) CHF (congestive heart failure) (HCC) Social History Tobacco Use Types Packs/Day Years Used Date Smoking Tobacco: Never Smokeless Tobacco: Never Tobacco Cessation:Counseling Given: Not Answered Alcohol Use Standard Drinks/Week Comments Never 0 (1 standard drink = 0.6 oz pur e alcohol) [facility] Utilities Answer Date Recorded In the past 12 months has e [employer], gas, oil, or water company threatened to [...] often do you attend chur ch or caodaism services? 1 to 4 times per year 10/12/2023 Do you belong to any clubs o r organizations such as islam groups, unions, fraternal or athletic groups, or [...] place to sleep or slept in a longterm (including now)? No 09/22/2023 Housing Stability Vital Sign Answer Ivan e Recorded In the last 12 months, was t here a time when you were not able to pay the mortgage or rent on time? No 10/12/2023 In the past 12 months, how m any times have you moved where you were living? 1 10/12/2023 At any time in the past 12 m [facility], were you homeless or living in a longterm (including now)? No 10/12/2023 Personal Safety Answer Date Recorded Have you ever been in or are you currently in a harmful physical or emotional relationship or is someone making you feel afraid or unsafe? Denies 12/04/2023 Sex and Gender Information Value Date Recorded Sex Assigned at Not on file Legal Sex Male 11:12 AM [employer] Gender Identity Not on file Sexual Orientation Not on file Obstetrics History Last Filed Vital Signs Vital Sign Reading Time Taken Comments Blood Pressure 112/60 08/21/2024 2:47 PM CDT Pulse 68 08/21/2024 2:47 PM CDT Temperature 36.5 C (97.7 F) 08/04/2024 1:37 PM CDT Respiratory Rate 18 08/04/2024 1:37 PM CDT Oxygen Saturation 97% 08/21/2024 2:47 PM CDT Inhaled Oxygen Concentration - - Weight 64 kg (141 lb) 08/21/2024 2:47 PM CDT Height 182.9 cm (6') 08/21/2024 2:47 PM CDT Body Mass Index 19.12 08/21/2024 2:47 PM CDT Plan of Treatment Health Maintenance Due Date Last Done Comments Depression Screening 1936 DTaP/Tdap/Td Vaccine (1 - Tdap) 12/21/1947 Hepatitis B Screening 1954 Well Visit 65+ 2001 Zoster Vaccine (2 of 2) 03/08/2018 01/11/2018 Covid-19 Vaccine (2023-2 5 season) 2024 08/11/2023, 03/08/2023, 10/13/2022, Additional history exists Fall Risk Assessment 12/05/2024 12/06/2023 Influenza Vaccine (Season Ended) 2025 01/29/2023, 01/25/2022, 01/21/2021, Additional history exists Pneumococcal vaccine 65+ Completed 06/09/2023 Procedures Procedure Name Priority Date/Time Associated Diagnosis Comments PLATELET COUNT STAT 09/05/2024 10:20 AM CDT Research subject PLATELET COUNT Routine 08/18/2024 8:28 AM CDT Research subject PLATELET COUNT Routine 08/09/2024 2:36 PM CDT Research subject PLATELET COUNT Routine 08/07/2024 10:23 AM CDT EGFR Routine 08/04/2024 2:46 PM CDT Left ventricular hypertrophy Diastolic heart failure of unknown etiology (HCC) Mixed hyperlipidemia Coronary artery disease involving [place] coronary artery of [place] heart without angina pectoris Amyloidosis, unspecified type (HCC) BASIC METABOLIC PANEL Routine 08/04/2024 2:46 PM CDT Left ventricular hypertrophy Diastolic heart failure of unknown etiology (HCC) Mixed hyperlipidemia Coronary artery disease involving [place] coronary artery of [place] heart without angina pectoris Amyloidosis, unspecified type (HCC) PLATELET COUNT STAT 08/04/2024 2:46 PM CDT Research subject PRO B-TYPE NATRIURETIC PEPTIDE Routine 07/21/2024 8:16 AM [employer] 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) Lower extremity edema BASIC METABOLIC PANEL Routine 07/21/2024 8:15 AM [employer] 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) Lower extremity edema KAPPA/LAMBDA LIGHT CHAINS FREE WITH RATIO, SERUM Routine 07/21/2024 8:15 AM [employer] Amyloidosis, unspecified type (HCC) IMMUNOFIXATION ELECTROPHORESIS Routine 07/21/2024 8:15 AM [employer] Amyloidosis, unspecified type (HCC) SCAN - LABS 07/21/2024 PROTIME-INR Routine 07/07/2024 12:09 PM [employer] Research subject APTT Routine 07/07/2024 12:09 PM [employer] Research subject NM MYOCARDIAL AMYLOIDOSIS IMAGING SPECT/CT Schedule Routine, Read Routine (OP Routine) 06/13/2024 3:05 PM [employer] Amyloidosis, unspecified type (HCC) URINALYSIS AND REFLEX TO MICROSCOPIC Routine 06/13/2024 10:50 AM [employer]T Amyloidosis, unspecified type (HCC) Diastolic heart failure of unknown etiology (HCC) PROTEIN / CREATININE RATIO, URINE, RANDOM Routine 06/13/2024 10:50 AM [employer] Amyloidosis, unspecified type (HCC) Diastolic heart failure of unknown etiology (HCC) LIPID PANEL Routine 06/13/2024 10:40 AM [employer]T Amyloidosis, unspecified type (HCC) Diastolic heart failure of unknown etiology (HCC) EGFR Routine 06/13/2024 10:40 AM [employer] Amyloidosis, unspecified type (HCC) Diastolic heart failure of unknown etiology (HCC) DIFFERENTIAL AUTO Routine 06/13/2024 10:40 AM [employer]T Amyloidosis, unspecified type (HCC) Diastolic heart failure of unknown etiology (HCC) PRO B-TYPE NATRIURETIC PEPTIDE Routine 06/13/2024 10:40 AM [employer]T Amyloidosis, unspecified type (HCC) Diastolic heart failure of unknown etiology (HCC) BASIC METABOLIC PANEL Routine 06/13/2024 10:40 AM [employer] Amyloidosis, unspecified type (HCC) Diastolic heart failure of unknown etiology (HCC) CBC WITH AUTO DIFFERENTIAL Routine 06/13/2024 10:40 AM [employer] Amyloidosis, unspecified type (HCC) Diastolic heart failure of unknown etiology (HCC) IMMUNOTYPING Routine 06/13/2024 10:40 AM [employer] Amyloidosis, unspecified type (HCC) Diastolic heart failure of unknown etiology (HCC) IMMUNOGLOBULIN FREE LIGHT CHAINS Routine 06/13/2024 10:40 AM [employer] Amyloidosis, unspecified type (HCC) Diastolic heart failure of unknown etiology (HCC) TROPONIN I HIGH-SENSITIVITY Routine 06/13/2024 10:40 AM [employer] Amyloidosis, unspecified type (HCC) Diastolic heart failure of unknown etiology (HCC) SCAN - LABS 06/13/2024 CARDIOLOGY DOCUMENT SCAN Routine 06/11/2024 10:51 AM [employer] CARDIOLOGY DOCUMENT SCAN Routine 06/10/2024 10:27 AM [employer] from Last 3 Months Results * Platelet count (09/05/2024 10:20 AM CDT) Pathologist [facility] [address] 150 - 400 K/cumm Blood 09/05/2024 10:2 0 AM CDT 09/05/2024 11:25 AM CDT [facility] - 09/05/2024 1:00 PM CDT 100% BILL TO [facility] [id number] us Zachary Fields MD LAB BLOOD ORDERABLES Final Result Performing Organization Address City/[facility]/ZIP Co de Phone Number [facility] Department [place] [address] * Platelet count (08/18/2024 8:28 AM CDT) [facility] Platelets 195 150 - 450 x10E3/uL [facility] - 01 Blood 08/18/2024 8:28 AM CDT 08/18/2024 Narrative [facility] - 08/19/2024 6:09 AM CDT Performed at: 01 - [facility] [address] [id number] Family Practitioner: Armond Zambrano PhD, Phone: [phone] Specimen Comment: A courtesy copy of this report has been sent to the patient us Zachary Fields MD LAB BLOOD ORDERABLES Final Result Performing Organization Address City/[facility]/ZIP Co de Phone Number [facility] - 01 * (ABNORMAL) Platelet count (08/09/2024 2:36 PM CDT) Platelets 117(L) 150 - 450 x10E3/uL [facility] - 01 Comment:Verified by repeat analysis Blood 08/09/2024 2:36 PM CDT 08/09/2024 Narrative [facility] - 08/10/2024 7:09 AM CDT Performed at: 01 - [address] [id number] Family Practitioner: Armond Zambrano PhD, Phone: [phone] Zachary Fields MD LAB BLOOD ORDERABLES Final Result [facility] - 01 * (ABNORMAL) Platelet count (08/07/2024 10:23 AM CDT) Plt 115(L) 150 - 400 K/cumm Blood 08/07/2024 10:2 3 AM CDT 08/07/2024 11:35 AM CDT us Zachary Fields MD LAB BLOOD ORDERABLES Final Result [facility] Department [place] [address] * (ABNORMAL) eGFR (08/04/2024 2:46 PM CDT) eGFR 53(L) >=60 mL/min/1. 73 m2 Comment: Interpretive Data Reference Interval Normal >/= 90 mL/min/1.73m2 Mildly decreased* 60 - 89 mL/min/1.73m2 Mildly to moderately decreased 45 - 59 mL/min/1.73m2 Moderately to severely decreased 30 - 44 mL/min/1.73m2 Severely decreased 15 - 29 mL/min/1.73m2 Kidney Failure < 15 mL/min/1.73m2 *Relative to young adult level Estimated glomerular filtration rate is determined by the 2020 CKD-EPI equation recommended by the National Kidney Foundation (A Unifying Approach to GFR Estimation: Recommendations of the NKF-ASK Task Force on Reassessing the Inclusion of Race in Diagnosing Kidney Disease, JASN 2020). The CKD-EPI equation should not be used for patients with unstable renal function and has not been validated in children and those over 70. Current interpretive data was last reviewed 2021. Blood 08/04/2024 2:46 PM CDT 08/04/2024 2:52 PM CDT Ivet Zepeda ADULT NEUROPSYCHOLOGIST LAB BLOOD ORDERABLES Final Resul t Performing Organization Address [facility] Co de Phone Number [facility] [place] [address] * (ABNORMAL) Platelet count (08/04/2024 2:46 PM CDT) [facility] Plt 126(L) 150 - 400 K/cumm Comment:Testing performed by : [facility]Note 2], [address] [place] [phone] Blood 08/04/2024 2:46 PM CDT 08/04/2024 2:50 PM CDT Narrative [facility] - 08/04/2024 2:53 PM CDT 100% BILL TO [facility] [id number] 100% BILL TO [facility] [id number] us Zachary Fields MD LAB BLOOD ORDERABLES Final Result Performing Organization Address [facility] de Phone Number [facility] Department [place] [address] * (ABNORMAL) Basic metabolic panel (08/04/2024 2:46 PM CDT) Pathologist [facility] Sodium 140 135 - 145 mmol/L Potassium, pl 4.2 3.3 - 4.9 mmol/L [facility] Chloride 100 97 - 110 mmol/L [facility] CO2 30 22 - 32 mmol/L [facility] Anion gap 10 2 - 15 mmol/L [facility] BUN 32(H) 6 - 25 mg/dL [facility] Creatinine 1.30 0.80 - 1.30 mg/dL [facility] Glucose 95 70 - 199 mg/dL [facility] Comment: Interpretive Data Fasting glucose >/= 126 mg/dl is diagnostic for diabetes. Fasting is defined as no caloric intake for at least 8 hours. Fasting glucose between 100 mg/dl to 125 mg/dl is diagnostic of prediabetes. In a patient with classic symptoms of hyperglycemia or hyperglycemic crisis, a random glucose >/= 200 mg/dl is diagnostic for diabetes. In the absence of unequivocal hyperglycemia, results should be confirmed by repeat testing. The classification and Diagnosis of Diabetes Diabetes Care 2021; 46: S19-S40. Current interpretive data was last revised 2022. Calcium 9.1 8.5 - 10.3 mg/dL [facility] Blood 08/04/2024 2:46 PM CDT 08/04/2024 2:52 PM CDT us Ivet Zepeda ADULT NEUROPSYCHOLOGIST LAB BLOOD ORDERABLES Final Resul t [facility] Department [place] [address] * (ABNORMAL) Pro B-type natriuretic peptide (07/21/2024 8:16 AM [facility]) [facility] proBNP 4,073(H) 0 - 486 pg/mL [facility] - 01 Comment: The following cut-points have been suggested for the use of proBNP for the diagnostic evaluation of heart failure (HF) in patients with acute dyspnea: Modality Age Optimal Cut (years) Point Diagnosis (rule in HF) <50 450 pg/mL 50 - 75 900 pg/mL >75 1800 pg/mL Exclusion (rule out HF) Age independent 300 pg/mL Blood 07/21/2024 8:16 AM [facility] 07/21/2024 Narrative [facility] - 07/22/2024 8:11 AM [facility] Performed at: [address] [id number] Family Practitioner: Armond Zambrano PhD, Phone: [phone] us Zachary Fields MD LAB BLOOD ORDERABLES Final Result Performing Organization Address [facility] Co de Phone Number [facility] - * (ABNORMAL) KAPPA/LAMBDA LIGHT CHAINS FREE WITH RATIO, SERUM (07/21/2024 8:15 AM [facility]) Free Linwood Lt Chains,S 24.4(H) 3.3 - 19.4 mg/L [facility] - 01 Free Lambda Lt Chains,S 14.9 5.7 - 26.3 mg/L [facility] - 01 Linwood/Lambda Ratio, S 1.64 0.26 - 1.65 [facility] - 01 Blood 07/21/2024 8:15 AM [facility] 07/21/2024 Narrative [facility] - 07/24/2024 5:09 PM CDT Performed at: [address] [id number] Family Practitioner: Armond Zambrano PhD, Phone: [phone] us Zachary Fields MD LAB BLOOD ORDERABLES Final Result Performing Organization Address [facility]/ZIP [facility] - * Immunofixation (07/21/2024 8:15 AM [facility]) Pathologist [facility] Immunofixation Comment [facility] - 01 Comment:No monoclonality det ected. Immunoglobulin G, Qn, Serum 1,170 603 - 1,613 mg/dL [facility] - 01 Immunoglobulin A, Qn, Serum 164 61 - 437 mg/dL [facility] - 01 Immunoglobulin M, Qn, Serum 41 15 - 143 mg/dL [facility] - 01 Blood 07/21/2024 8:15 AM [facility] 07/21/2024 Narrative [facility] - 07/25/2024 12:10 PM CDT Performed at: - [facility] [id number] Family Practitioner: Armond Zambrano PhD, Phone: [phone] Zachary Fields MD LAB BLOOD ORDERABLES Final Result Performing Organization Address [facility] Co de Phone Number [facility] - * (ABNORMAL) Basic metabolic panel (07/21/2024 8:15 AM [facility]) Pathologist [facility] Glucose 140(H) 70 - 99 mg/dL [facility] - 01 BUN 60(H) 8 - 27 mg/dL [facility] - 01 Creatinine, Serum 1.58(H) 0.76 - 1.27 mg/dL [facility] - 01 eGFR 42(L) >59 mL/min/1.7 3 [facility] - 01 BUN/creat ratio 38(H) 10 - 24 [facility] - 01 Sodium 141 134 - 144 mmol/L [facility] - 01 Potassium, sr 2.8(L) 3.5 - 5.2 mmol/L [facility] - 01 Chloride 89(L) 96 - 106 mmol/L [facility] - 01 CO2 33(H) 20 - 29 mmol/L [facility] - 01 Calcium 10.2 8.6 - 10.2 mg/dL [facility] - 01 Blood 07/21/2024 8:15 AM [facility] 07/21/2024 Narrative [facility] - 07/22/2024 8:11 AM [facility] Performed at: [address] [place] [id number] Family Practitioner: Armond Zambrano PhD, Phone: [phone] Zachary Fields MD LAB BLOOD ORDERABLES Final Result Performing Organization Address City/[facility]/ZIP Co de Phone Number [facility] - * SCAN - LABS (07/21/2024) Provider Scanning Final Result * aPTT (07/07/2024 12:09 PM [facility]) aPTT 35 28 - 38 sec Comment: Interpretive Data Heparin therapeutic range: 66.0 - 100.0 seconds. Range based on correlation with therapeutic heparin activity range of 0.3 - 0.7 Units/mL. Current interpretive data was last revised on 2023. Blood 07/07/2024 12:0 9 PM [facility] 07/07/2024 1:29 PM [facility] Narrative [facility] - 07/07/2024 1:52 PM [facility] 100% BILL TO RESEARCH DEPLETTR-CM [id number] 100% BILL TO RESEARCH DEPLETTR-CM [id number] Zachary Fields MD LAB BLOOD ORDERABLES Final Result Performing Organization Address City/[facility]/ZIP Co de Phone Number [facility] [place] [address] * (ABNORMAL) Protime-INR (07/07/2024 12:09 PM [facility]) PT 16.0(H) 9.7 - 13.0 sec INR 1.47(H) 0.90 - 1.20 [facility] Comment: Interpretive data Oral anticoagulant therapeutic ranges: Venous thromboembolism prophylaxis or treatment: 2.0-3.0 CARDIOLOGY Standard range: 2.0-3.0 High-intensity range: 2.5-3.5 Refer to indication-specific guidelines for appropriate target ranges for prosthetic heart valve replacement. Current interpretive data was last revised on 2019. Blood 07/07/2024 12:0 9 PM [facility] 07/07/2024 1:29 PM [facility] Narrative [facility] - 07/07/2024 1:52 PM [facility] 0% BILL TO RESEARCH DEPLETTR-CM [id number] 100% BILL TO RESEARCH DEPLETTR-CM [id number] Zachary Fields MD LAB BLOOD ORDERABLES Final Result Performing Organization Address City/[facility]/ZIP Co de Phone Number [facility] [place] [address] * NM Myocardial Amyloidosis Imaging SPECT/CT (06/13/2024 3:05 PM [facility]) Anatomical Region Laterality Modality N/A Nuclear Medicine 06/13/2024 3:58 PM [facility] Impressions 06/13/2024 4:21 PM [facility] 1. This study demonstrates diffuse and severe abnormal myocardial uptake of Tc-99m pyrophosphate uptake while less intense apicolaterally (Grade 3 on a 0-3 scale). See comments below. 2. Patchy sub pleural based opacities in the right Middle Lobe which may be infectious in etiology. Consider clinical correlation. GENERAL COMMENTS CONCERNING THE INTERPRETATION OF TC-99M PYROPHOSPHATE IMAGING FOR DIAGNOSIS OF CARDIAC AMYLOIDOSIS A negative (Grade 0) Tc-99m pyrophosphate scan effectively excludes transthyretin-related cardiac amyloidosis (ATTR), but does not exclude light chain (AL) amyloidosis. If cardiac amyloidosis is suspected despite a negative scan, assessment of monoclonal proteins in serum or urine should be performed, if not already done, to assess for AL amyloidosis. A clearly positive (Grade 2 or 3) Tc-99m pyrophosphate scan can reflect either ATTR or AL amyloidosis, but has a high positive predictive value for ATTR amyloidosis if serum or urine monoclonal proteins are negative. A mildly positive (Grade 1) Tc-99m pyrophosphate scan can indicate either an early stage of ATTR or AL amyloidosis and further distinction requires assessment of monoclonal proteins in serum or urine. For further information, see the ASNC/AHA/ASE/EANM/HFSA/ALONSO/SCMR/SNMMI Expert Consensus Recommendations for Multimodality Imaging in Cardiac Amyloidosis (https://pubmed.ncbi.nlm.nih.gov/85781998/ and https://pubmed.ncbi.nlm.nih.gov/19456994/). Dictated by: Jon Harley M.D. The radiology attending physician has personally reviewed this study, and had reviewed and/or edited this written report and agrees with it. Electronically signed by: Ángel Capone M.D. Narrative 06/13/2024 4:21 PM [facility] EXAMINATION: MYOCARDIAL AMYLOID SCINTIGRAPHY (PLANAR/SPECT-CT) DATE OF STUDY: 06/13/2024 RADIOPHARMACEUTICAL: 34.2 mCi Tc-99m pyrophosphate (PYP) i.v. HISTORY: 88-year-old male with a history of diastolic dysfunction and long-standing persistent atrial fibrillation and cardiac MRI dated 04/18/2024 showing diffuse and relatively subendocardial predominantly gadolinium enhancement here for the evaluation of amyloidosis. COMPARISON: None FINDINGS: Approximately 2.5 hours following administration of Tc-99m pyrophosphate, a planar image of the chest and upper abdomen was performed in the anterior projection, followed by SPECT/CT imaging of the chest. (The low-dose noncontrast CT images are used for attenuation correction and for fusion with emission SPECT images to allow for anatomical localization of SPECT findings and to better distinguish blood pool activity from myocardial uptake of the tracer.) On the planar image, tracer uptake within the region of the myocardium appears to be greater than bone (grade 3). However, additional SPECT/CT images were subsequently obtained to better distinguish between blood pool activity and myocardial uptake, and to better detect small areas of abnormal uptake. SPECT/CT images show diffuse myocardial uptake. After review of SPECT/CT images, myocardial uptake is assessed to be 3 on a 0-3 scale. Incidental findings on the low-dose CT images: Mild coronary calcifications. Small left pleural effusion. Patchy sub pleural based opacities in the Right Middle Lobe which may be infectious in etiology. Procedure Note Ángel Capone MD - 06/13/2024 EXAMINATION: MYOCARDIAL AMYLOID SCINTIGRAPHY (PLANAR/SPECT-CT) DATE OF STUDY: 06/13/2024 RADIOPHARMACEUTICAL: 34.2 mCi Tc-99m pyrophosphate (PYP) i.v. HISTORY: 88-year-old male with a history of diastolic dysfunction and long-standing persistent atrial fibrillation and cardiac MRI dated 04/18/2024 showing diffuse and relatively subendocardial predominantly gadolinium enhancement here for the evaluation of amyloidosis. COMPARISON: None FINDINGS: Approximately 2.5 hours following administration of Tc-99m pyrophosphate, a planar image of the chest and upper abdomen was performed in the anterior projection, followed by SPECT/CT imaging of the chest. (The low-dose noncontrast CT images are used for attenuation correction and for fusion with emission SPECT images to allow for anatomical localization of SPECT findings and to better distinguish blood pool activity from myocardial uptake of the tracer.) On the planar image, tracer uptake within the region of the myocardium appears to be greater than bone (grade 3). However, additional SPECT/CT images were subsequently obtained to better distinguish between blood pool activity and myocardial uptake, and to better detect small areas of abnormal uptake. SPECT/CT images show diffuse myocardial uptake. After review of SPECT/CT images, myocardial uptake is assessed to be 3 on a 0-3 scale. Incidental findings on the low-dose CT images: Mild coronary calcifications. Small left pleural effusion. Patchy sub pleural based opacities in the Right Middle Lobe which may be infectious in etiology. IMPRESSION: 1. This study demonstrates diffuse and severe abnormal myocardial uptake of Tc-99m pyrophosphate uptake while less intense apicolaterally (Grade 3 on a 0-3 scale). See comments below. 2. Patchy sub pleural based opacities in the right Middle Lobe which may be infectious in etiology. Consider clinical correlation. GENERAL COMMENTS CONCERNING THE INTERPRETATION OF TC-99M PYROPHOSPHATE IMAGING FOR DIAGNOSIS OF CARDIAC AMYLOIDOSIS A negative (Grade 0) Tc-99m pyrophosphate scan effectively excludes transthyretin-related cardiac amyloidosis (ATTR), but does not exclude light chain (AL) amyloidosis. If cardiac amyloidosis is suspected despite a negative scan, assessment of monoclonal proteins in serum or urine should be performed, if not already done, to assess for AL amyloidosis. A clearly positive (Grade 2 or 3) Tc-99m pyrophosphate scan can reflect either ATTR or AL amyloidosis, but has a high positive predictive value for ATTR amyloidosis if serum or urine monoclonal proteins are negative. A mildly positive (Grade 1) Tc-99m pyrophosphate scan can indicate either an early stage of ATTR or AL amyloidosis and further distinction requires assessment of monoclonal proteins in serum or urine. For further information, see the ASNC/AHA/ASE/EANM/HFSA/ALONSO/SCMR/SNMMI Expert Consensus Recommendations for Multimodality Imaging in Cardiac Amyloidosis (https://pubmed.ncbi.nlm.nih.gov/96908026/ and https://pubmed.ncbi.nlm.nih.gov/99243590/). Dictated by: Jon Harley M.D. The radiology attending physician has personally reviewed this study, and had reviewed and/or edited this written report and agrees with it. Electronically signed by: Ángel Capone M.D. us Zachary Fields MD [facility] NM PROCEDURES Fin al Result * Urinalysis reflex to microscopic (06/13/2024 10:50 AM [facility]ER [facility]EL[facility]) Color, ur Straw Yellow Clarity, ur Clear Clear [facility] Specific gravity, ur 1.013 1.003 - 1.030 [facility] pH, urine 6.5 [facility] Comment: Interpretive Data U rine pH is affected by diet, medications, systemic acid-base disturbances, and renal tubular function. pH may affect urinary stone formation. For example, urine pH below 6.0 may help reduce the tendency for calcium phosphate stones and pH greater than 6.0 may reduce the tendency for uric acid stone formation. Source: [facility] Current Interpretive Data was last revised on 2017 Protein, ur ql Negative Negative [facility] Glucose, ur ql Negative Negative CERNER [facility] Ketones, ur Negative Negative CERNER [facility] Bilirubin, ur Negative Negative CERNER [facility] Blood, ur Negative Negative CERN[facility] Urobilinogen, ur <2.0 <2.0 mg/dL [facility] Nitrite, ur Negative Negative CERN[facility] Leukocyte esterase, ur Negative CERNER [facility] UA reflex comment Reflex conditions for microscopic UA not met. [facility] Urine 06/13/2024 10:5 0 AM [facility] 06/13/2024 10:50 AM [facility] Zachary Fields MD LAB URINE ORDERABLES Final Result [facility] [place] [address] * Protein / creatinine ratio, urine, random (06/13/2024 10:50 AM [facility]) Protein, ur, quant 7.2 mg/dL Comment: Interpretive Data No reference range established. Current interpretive data was last revised 2018. Creatinine Ur 48.2 mg/dL [facility] Comment: Interpretive Data No reference range established. Current interpretive data was last revised 2018. Protein/creatinin e ratio 149.4 0.0 - 180.0 mg/g CR [facility] Urine 06/13/2024 10:5 0 AM [facility] 06/13/2024 11:03 AM [facility] Zachary Fields MD LAB URINE ORDERABLES Final Result Performing Organization Address [facility] Co de Phone Number HAMZAH [facility] [place] [address] * (ABNORMAL) Troponin I high-sensitivity (06/13/2024 10:40 AM [facility]ER WELT) Pathologist [facility] Trop I hs 50(H) <=35 ng/L Comment: Interpretive Data For further hscTnI resources including the diagnostic algorithm and an aid in interpretation, copy and paste this link: https://bjhlab.testcatalog.org/show/[email or web address] Current Interpretive Data last revised 2019. Blood 06/13/2024 10:4 0 AM [facility] 06/13/2024 11:20 AM [facility] us Zachary Fields MD LAB BLOOD ORDERABLES Final Result Performing Organization Address [facility] Co de Phone Number [facility] [place] [address] * Immunotyping, serum (06/13/2024 10:40 AM [facility]ER WELT) [facility] Immunosubtraction Please see comment Comment: NO PARAPROTEIN DETECTED Reviewed and signed by Nicola Mosley MD, PhD 06-14-24 Blood 06/13/2024 10:4 0 AM [facility] 06/13/2024 1:28 PM [facility] us Zachary Fields MD LAB BLOOD ORDERABLES Final Result Performing Organization Address [facility] Co de Phone Number HAMZAH [facility] [place] [address] * eGFR (06/13/2024 10:40 AM [facility]ER [facility]EL[facility]) [facility] eGFR 69 >=60 mL/min/1. 73 m2 Comment: Interpretive Data Reference Interval Normal >/= 90 mL/min/1.73m2 Mildly decreased* 60 - 89 mL/min/1.73m2 Mildly to moderately decreased 45 - 59 mL/min/1.73m2 Moderately to severely decreased 30 - 44 mL/min/1.73m2 Severely decreased 15 - 29 mL/min/1.73m2 Kidney Failure < 15 mL/min/1.73m2 *Relative to young adult level Estimated glomerular filtration rate is determined by the 2020 CKD-EPI equation recommended by the National Kidney Foundation (A Unifying Approach to GFR Estimation: Recommendations of the NKF-ASK Task Force on Reassessing the Inclusion of Race in Diagnosing Kidney Disease, JASN 2020). The CKD-EPI equation should not be used for patients with unstable renal function and has not been validated in children and those over 70. Current interpretive data was last reviewed 2021. Blood 06/13/2024 10:4 0 AM [facility] 06/13/2024 10:55 AM [facility] Zachary Fields MD LAB BLOOD ORDERABLES Final Result [facility] [place] [address] * Differential, auto (06/13/2024 10:40 AM [facility]EL[facility]) Neutrophil abs 3.2 1.5 - 6.5 K/cumm Comment:Testing performed by : [facility], [address] [place] [phone] Lymphocyte abs 0.8 0.8 - 3.3 K/cumm HAMZAH [facility] Comment:Testing performed by : [facility], [address] [place], [place] [phone] Monocyte abs 0.5 0.2 - 0.8 K/cumm HAMZAH [facility] Comment:Testing performed by : [facility], [address] [place], [place] [phone] Eosinophil abs 0.2 0.0 - 0.5 K/cumm HAMZAH [facility] Comment:Testing performed by : [facility], [address] [place] [phone] Basophil abs 0.1 0.0 - 0.1 K/cumm HAMZAH [facility] Comment:Testing performed by : [facility], [address] [place] [phone] Neutrophil pct 67.8 % [facility] Comment: Interpretive Data Percent cell count reference ranges are not reported, since discordance with absolute values may lead to misinterpretation of CBC data. Current Interpretive Data was last revised on 2017. Testing performed by: [facility], [address] [place] [phone] Lymphocyte pct 16.1 % [facility] Comment: Interpretive Data Percent cell count reference ranges are not reported, since discordance with absolute values may lead to misinterpretation of CBC data. Current Interpretive Data was last revised on 2017. Testing performed by: [facility], [address] [place] [phone] Monocyte pct 10.4 % [facility] Comment: Interpretive Data Percent cell count reference ranges are not reported, since discordance with absolute values may lead to misinterpretation of CBC data. Current Interpretive Data was last revised on 2017. Testing performed by: [facility], [address] [place] [phone] Eosinophil pct 4.3 % [facility] Comment: Interpretive Data Percent cell count reference ranges are not reported, since discordance with absolute values may lead to misinterpretation of CBC data. Current Interpretive Data was last revised on 2017. Testing performed by: [facility], [address] [place] [phone] Basophil pct 1.4 % [facility] Comment: Interpretive Data Percent cell count reference ranges are not reported, since discordance with absolute values may lead to misinterpretation of CBC data. Current Interpretive Data was last revised on 2017. Testing performed by: [facility], [address] [place] [phone] Blood 06/13/2024 10:4 0 AM [facility] 06/13/2024 10:47 AM [facility] us Zachary Fields MD LAB BLOOD ORDERABLES Final Result [facility] [place] [address] * (ABNORMAL) Immunoglobulin free light chains (06/13/2024 10:40 AM [facility]ER WELT) Pathologist [facility] Linwood/Lambda ratio [facility] 1.38 0.26 - 1.65 Comment: Interpretive Data The Binding Site FreeLite assay procedure was used. Results from different manufacturers or methods may not be comparable. Serial testing should be performed using the same methods and instrumentation. Current Interpretive Data was last revised on 2023. Linwood free light chain [facility] 2.10(H) 0.33 - 1.94 mg/dL [facility] Comment: Interpretive Data The Binding Site FreeLite assay procedure was used. Results from different manufacturers or methods may not be comparable. Serial testing should be performed using the same methods and instrumentation. Current Interpretive Data was last revised on 2023. Lambda free light chain [facility] 1.52 0.57 - 2.63 mg/dL [facility] Comment: Interpretive Data The Binding Site FreeLite assay procedure was used. Results from different manufacturers or methods may not be comparable. Serial testing should be performed using the same methods and instrumentation. Current Interpretive Data was last revised on 2023. Blood 06/13/2024 10:4 0 AM [facility] 06/13/2024 1:30 PM [facility] Zachary Fields MD LAB BLOOD ORDERABLES Final Result [facility] Department [place] [address] * (ABNORMAL) Pro B-type natriuretic peptide (06/13/2024 10:40 AM [facility]ER WELT) Pathologist [facility] NT-proBNP 3,562(H) <=450 pg/mL Comment: Interpretive Comments: A. Dyspnea in Acute Care Setting All Ages: < 300 pg/ml, acute heart failure unlikely. < 50 yrs: 300 - 450 pg/ml, further investigation warranted. > 450 pg/ml, acute heart failure likely. 50 - 74 yrs: 300 - 900 pg/ml, further investigation warranted. > 900 pg/ml, acute heart failure likely . > or = 75 yrs: 450 - 1800 pg/ml, further investigation warranted. > 1800 pg/ml, acute heart failure likely. B. Non-acute Setting < 75 yrs < 125 pg/ml, rules out heart failure. > or = 125 pg/ml, further investigation warranted. > or = 75 yrs < 450 pg/ml, rules out heart failure. > or = 450 pg/ml, further investigation warranted. - Knowledge of each individual patient's NT-proBNP range may be more useful than using similar cut-points for every patient. Please note that marked elevations in NT-proBNP levels may be observed in state other than Left Ventricular Congestive Failure, including: acute coronary syndromes, right heart strain/failure (including pulmonary embolism and cor pulmonale), critical illness, renal failure, as well as advanced age. - References: 1. Theresa ERWIN et.al. Eur Heart J. 2006:27:330-337. 2. Mima RW, Mary Ann IGLESIAS. J. AM Albin Cardiol: Cardiovasc Imag. 2009;2: 216- 225. Interpretive Data Last Revised Date: 2018. Blood 06/13/2024 10:4 0 AM [facility] 06/13/2024 11:19 AM [facility] us Zachary Fields MD LAB BLOOD ORDERABLES Final Result [facility] [place] [address] * (ABNORMAL) CBC with auto differential (06/13/2024 10:40 AM [facility]ER WEL[facility]) WBC 4.7 3.8 - 9.9 K/cumm Comment:Testing performed by : [facility], [address] [place] [phone] Hgb 13.4 13.0 - 17.5 g/dL [facility] Comment:Testing performed by : [facility], [address] [place] [phone] Hct 40.4 38.9 - 50.3 % HAMZAH [facility] Comment:Testing performed by : [facility], [address] [place], [place] [phone] Plt 141(L) 150 - 400 K/cumm [facility] Comment:Testing performed by : [facility], [address] [place] [address] MPV 9.0 6.8 - 10.4 fL CERNER BJ Comment:Testing performed by : [facility], [address] [place], [place] [id number] RBC 4.23(L) 4.30 - 5.80 M/cumm CERNER BJ Comment:Testing performed by : [facility], [address] [place], [place] [id number] MCV 95.4 81.3 - 96.4 fL CERNER BJ Comment:Testing performed by : [facility], [address] [place], [place] [id number] MCH 31.6 27.1 - 33.3 pg CERNER BJ Comment:Testing performed by : [facility], [address] [place] [address] MCHC 33.2 32.3 - 35.7 g/dL CERNER BJ Comment:Testing performed by : [facility], [address] [place] [address] RDW CV 15.1(H) 11.1 - 14.9 % CERNER BJ Comment:Testing performed by : [facility], [address] [place] [address] NRBC abs 0.00 0.00 - 0.01 K/cumm CERNER BJ Comment:Testing performed by : [facility], [address] [place] [address] Blood 06/13/2024 10:4 0 AM SOLE STAPLER WELT 06/13/2024 10:47 AM SOLE STAPLER WELT us Zachary Fields MD LAB BLOOD ORDERABLES Final Result H[facility]ZAH [facility] [place] [address] * Lipid panel (06/13/2024 10:40 AM SOLE STAPLER WELT) Cholesterol 117 30 - 199 mg/dL Comment: Interpretive Data Ages < or = 19 years Acceptable: <170 mg/dL Borderline high: 170-199 mg/dL High: >or= 200 mg/dL Ages > or = 20 years Desirable: <200 mg/dL Borderline high: 200-239 mg/dL High: >or= 240 mg/dL Literature References: 1. Expert Panel on Integrated Guidelines for Cardiovascular Health and Risk Reduction in Children and Adolescents. Pediatrics 2011;128:S213 2. NCEP Expert Panel. Circulation 2004;110:227 Current Interpretive Data was last revised on 2018. Triglycerides 74 <=149 mg/dL HAMZAH [facility] Comment: Interpretive Data Ages < or = 9 years Acceptable: <75 mg/dL Borderline high: 75-99 mg/dL High: >or= 100 mg/dL Ages 10 to 20 years Acceptable: <90 mg/dL Borderline high: 90-129 mg/dL High: >or= 130 mg/dL Ages > or = 20 years Desirable: <150 mg/dL Borderline high: 150-199 mg/dL High: 200-499 mg/dL Very high: >or= 499 mg/dL Literature References: 1. Expert Panel on Integrated Guidelines for Cardiovascular Health and Risk Reduction in Children and Adolescents. Pediatrics 2011;128:S213 2. NCEP Expert Panel. Circulation 2004;110:227 Current Interpretive Data was last revised on 2018. HDL 50 >=40 mg/dL HAMZAH [facility] Comment: Interpretive Data Ages < or = 19 years Acceptable: >45 mg/dL Borderline low: 40-45 mg/dL Low: <40 mg/dL Ages > or = 20 years Desirable: >or= 60 mg/dL Low: <40 mg/dL Literature References: 1. Expert Panel on Integrated Guidelines for Cardiovascular Health and Risk Reduction in Children and Adolescents. Pediatrics 2011;128:S213 2. NCEP Expert Panel. Circulation 2004;110:227 Current Interpretive Data was last revised on 2018. LDL, calculated 52 <=129 mg/dL HAMZAH [facility] Comment: Interpretive Data Ages < or = 19 years Acceptable: <110 mg/dL Borderline high: 110-129 mg/dL High: >or= 130 mg/dL Ages > or = 20 years Optimal: <100 mg/dL Near optimal: 100-129 mg/dL Borderline high: 130-159 mg/dL High: >160 mg/dL Calculated using the Simone LDL-C estimating equation. This equation was implemented on 2024. Prior to this date LDL-C was estimated using the Friedewald equation. Literature References: 1. Expert Panel on Integrated Guidelines for Cardiovascular Health and Risk Reduction in Children and Adolescents. Pediatrics 2011;128:S213 2. NCEP Expert Panel. Circulation 2004;110:227 3. Simone M et al. ROMAIN Cardiol. 2020 September 14;5(5):540-548. doi: 10.1001/jamacardio.2020.0013 Current Interpretive Data was last revised on 2024. Non-HDL Cholesterol 67 mg/dL HAMZAH [facility] Comment: Interpretive Data Ages < or = 19 years Acceptable: <120 mg/dL Borderline high: 120-144 mg/dL High: >145 mg/dL Ages > or = 20 years When triglycerides are >200 mg/dL, Non-HDL cholesterol is a secondary target of therapy with treatment goals that are 30 mg/dL greater than the LDL cholesterol target. Literature References: 1. Expert Panel on Integrated Guidelines for Cardiovascular Health and Risk Reduction in Children and Adolescents. Pediatrics 2011;128:S213 2. NCEP Expert Panel. Circulation 2004;110:227 Current Interpretive Data was last revised on 2018. Chol/HDL ratio 2 HAMZAH MALAVE Blood 06/13/2024 10:4 0 AM SOLE STAPLER WELT 06/13/2024 11:31 AM SOLE STAPLER WELT us Zachary Fields MD LAB BLOOD ORDERABLES Final Result [facility]ZAH [facility] [place] [address] * (ABNORMAL) Basic metabolic panel (06/13/2024 10:40 AM SOLE STAPLER WELT) Sodium 137 135 - 145 mmol/L Potassium, pl 3.7 3.3 - 4.9 mmol/L [facility] Chloride 94(L) 97 - 110 mmol/L [facility] CO2 35(H) 22 - 32 mmol/L [facility] Anion gap 8 2 - 15 mmol/L [facility] BUN 27(H) 6 - 25 mg/dL [facility] Creatinine 1.05 0.80 - 1.30 mg/dL [facility] Glucose 140 70 - 199 mg/dL [facility] Comment: Interpretive Data Fasting glucose >/= 126 mg/dl is diagnostic for diabetes. Fasting is defined as no caloric intake for at least 8 hours. Fasting glucose between 100 mg/dl to 125 mg/dl is diagnostic of prediabetes. In a patient with classic symptoms of hyperglycemia or hyperglycemic crisis, a random glucose >/= 200 mg/dl is diagnostic for diabetes. In the absence of unequivocal hyperglycemia, results should be confirmed by repeat testing. The classification and Diagnosis of Diabetes Diabetes Care 2021; 46: S19-S40. Current interpretive data was last revised 2022. Calcium 9.7 8.5 - 10.3 mg/dL [facility] Blood 06/13/2024 10:4 0 AM SOLE STAPLER WELT 06/13/2024 10:55 AM SOLE STAPLER WELT Result [facility] Zachary Fields MD LAB BLOOD ORDERABLES Final Result [facility] [place] [address] * SCAN - LABS (06/13/2024) Provider Scanning Final Result * Cardiology Document Scan (06/11/2024 10:51 AM SOLE STAPLER WELT) Anatomical Region Laterality Modality Other [place] Shah MD CV CARDIAC SERVICES PROCEDU RES Final Result * Cardiology Document Scan (06/10/2024 10:27 AM SOLE STAPLER WELT) Anatomical Region Laterality Modality Other [place] Shah MD CV CARDIAC SERVICES PROCEDU RES Final Result from Last [address] [place] [address] [place] [address] MEDICARE [facility] MEDICARE [id number] MEDICARE RESEARCH Advance Directives For more information, please contact: [phone] * Full Code (Latest Code Status on File) Date Activated Date Inactivated Comments 12/03/2023 9:20 PM 12/06/2023 5:42 PM * Full Code Date Activated Date Inactivated Comments 10/08/2023 5:17 AM 10/15/2023 10:12 PM * Full Code Date Activated Date Inactivated Comments 09/21/2023 5:54 PM 09/23/2023 10:32 PM Care Teams Body Maker Machine Setter Relationship Specialty Start Date End Date Latanya Vee [facility] [address] [address] PCP - General Family Medicine 09/17/23 Padmini Miller MD [address] [place] [address] Consulting Physician Physical Medicine and Rehabilitation 09/23/23 Lauro Shane MD [address] [place] [address] Consulting Physician Pulmonary Disease 10/15/23
--- OUTSIDE RECORDS SUMMARY | 2024-09-08 12:42 | XMS_ITS | Encounter Summary ---
Author Organization [facility] Address [address] [place] [address] Phone Care Team Providers Care Pmo Project Manager Name Role Phone Latanya Vee DO Primary Care Provider [phone] Padmini Miller MD Unavailable Lauro Shane MD Unavailable Encounter Details Date Type Department Care Team (Late st Contact Info) Description 08/10/2024 Results Follow-Up [facility] Cardiology [address], [address] [place] [address] Zachary Fields MD [address] [place] [address] Social History Tobacco Use Types Packs/Day Years Used Date Smoking Tobacco: Never Smokeless Tobacco: Never Alcohol Use Standard Drinks/Week Comments Never 0 (1 standard drink = 0.6 oz pur e alcohol) [facility] Utilities Answer Date Recorded In the past 12 months has [employer], gas, oil, or water [employer] threatened to shut off services in your [...] often do you attend chur ch or anglican services? 1 to 4 times per year 10/12/2023 Do you belong to any clubs o r organizations such as baptist groups, unions, fraternal or athletic groups, or [...] place to sleep or slept in a mcfp (including now)? No 09/22/2023 Housing Stability Vital Sign Answer Ivan e Recorded In the last 12 months, was t here a time when you were not able to pay the mortgage or rent on time? No 10/12/2023 In the past 12 months, how m any times have you moved where you were living? 1 10/12/2023 At any time in the past 12 m [facility], were you homeless or living in a mcfp (including now)? No 10/12/2023 Personal Safety Answer Date Recorded Have you ever been in or are you currently in a harmful physical or emotional relationship or is someone making you feel afraid or unsafe? 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 Gender Identity Not on file Sexual Orientation Not on file documented as of this encounter Plan of Treatment Not on file documented as of this encounter Visit Diagnoses Not on filedocumented in this encounter Care Teams Pmo Project Manager Relationship Specialty Start Date End Date Latanya Vee DO [facility] [address] [address] PCP - General Family Medicine 09/17/23 Padmini Miller MD [address] [place] [address] Consulting Physician Physical Medicine and Rehabilitation 09/23/23 Lauro Shane MD [address] [place] [address] Consulting Physician Pulmonary Disease 10/15/23 documented as of this encounter
--- OUTSIDE RECORDS SUMMARY | 2024-09-08 12:42 | XMS_ITS | Encounter Summary ---
Author Organization [facility] Address [address] [place] [address] Phone Care Team Providers Care Commercial Litigation Associate Name Role Phone Latanya Vee DO Primary Care Provider [phone] Padmini Miller MD Unavailable [phone] Lauro Shane MD Unavailable [phone] Encounter Details Date Type Department Care Team (Late st Contact Info) Description 08/08/2024 Results Follow-Up [facility] Cardiology [address] [address] [facility] [address], [address] [place] [address] Zachary Fields MD [address] [place] [address] Social History Tobacco Use Types Packs/Day Years Used Date Smoking Tobacco: Never Smokeless Tobacco: Never Alcohol Use Standard Drinks/Week Comments Never 0 (1 standard drink = 0.6 oz pur e alcohol) [facility] Utilities Answer Date Recorded In the past 12 months has [employer], gas, oil, or water [employer] threatened to shut off services in your [...] often do you attend chur ch or yazidi services? 1 to 4 times per year 10/12/2023 Do you belong to any clubs o r organizations such as moravian groups, unions, fraternal or athletic groups, or [...] place to sleep or slept in a long-term (including now)? No 09/22/2023 Housing Stability Vital Sign Answer Ivan e Recorded In the last 12 months, was t here a time when you were not able to pay the mortgage or rent on time? No 10/12/2023 In the past 12 months, how m any times have you moved where you were living? 1 10/12/2023 At any time in the past 12 m [facility], were you homeless or living in a long-term (including now)? No 10/12/2023 Personal Safety Answer Date Recorded Have you ever been in or are you currently in a harmful physical or emotional relationship or is someone making you feel afraid or unsafe? 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 Gender Identity Not on file Sexual Orientation Not on file documented as of this encounter Plan of Treatment Not on file documented as of this encounter Visit Diagnoses Not on filedocumented in this encounter Care Teams Commercial Litigation Associate Relationship Specialty Start Date End Date Latanya Vee DO [facility] [address] [address] PCP - General Family Medicine 09/17/23 Padmini Miller MD [address] [place] [address] Consulting Physician Physical Medicine and Rehabilitation 09/23/23 Lauro Shane MD [address] [place] [address] Consulting Physician Pulmonary Disease 10/15/23 documented as of this encounter
--- OUTSIDE RECORDS SUMMARY | 2024-09-08 12:42 | XMS_ITS | Encounter Summary ---
Author Organization [facility] Healthcare Address [address] [place] [address] Care Team Providers Care Information Systems Manager Name Role Phone Latanya Vee DO Primary Care Provider [phone] Padmini Miller MD Unavailable [phone] Lauro Shane MD Unavailable Encounter Details Date Type Department Care Team (Late st Contact Info) Description 08/06/2024 Results Follow-Up [facility] [address] [place] [address] Ivet Zepeda NP [address] [address] Social History Tobacco Use Types Packs/Day Years Used Date Smoking Tobacco: Never Smokeless Tobacco: Never Alcohol Use Standard Drinks/Week Comments Never 0 (1 standard drink = 0.6 oz pur e alcohol) [facility] Utilities Answer Date Recorded In the past 12 months has [employer], gas, oil, or water company threatened [...] often do you attend chur ch or mandaeism services? 1 to 4 times per year 10/12/2023 Do you belong to any clubs o r organizations such as muslim groups, unions, fraternal or athletic groups, or [...] place to sleep or slept in a skilled nursing (including now)? No 09/22/2023 Housing Stability Vital Sign Answer Ivan e Recorded In the last 12 months, was t here a time when you were not able to pay the mortgage or rent on time? No 10/12/2023 In the past 12 months, how m any times have you moved where you were living? 1 10/12/2023 At any time in the past 12 m [facility], were you homeless or living in a skilled nursing (including now)? No 10/12/2023 Personal Safety Answer Date Recorded Have you ever been in or are you currently in a harmful physical or emotional relationship or is someone making you feel afraid or unsafe? Denies 12/04/2023 Sex and Gender Information Value Date Recorded Sex Assigned at Not on file Legal Sex Male 11:12 AM RN WOUND CARE Gender Identity Not on file Sexual Orientation Not on file documented as of this encounter Plan of Treatment Not on file documented as of this encounter Visit Diagnoses Not on filedocumented in this encounter Care Teams Information Systems Manager Relationship Specialty Start Date End Date Latanya Vee DO [facility] [address] [address] PCP - General Family Medicine 09/17/23 Padmini Miller MD [address] [place] [address] Consulting Physician Physical Medicine and Rehabilitation 09/23/23 Lauro Shane MD [address] [place] [address] Consulting Physician Pulmonary Disease 10/15/23 documented as of this encounter
--- OUTSIDE RECORDS SUMMARY | 2024-09-08 12:42 | XMS_ITS | Encounter Summary ---
Author Organization [facility] Address [address] [place] [address] Phone Care Team Providers Care Collections Technician Name Role Phone Latanya Vee DO Primary Care Provider [phone] Padmini Miller MD Unavailable Lauro Shane MD Unavailable [phone] Encounter Details Date Type Department Care Team (Late st Contact Info) Description 08/21/2024 Telephone [facility] Cardiology [address] [facility] Advanced Medicine 8th [place] [address] [place] [address] RaterIvet NP [address] [facility] [address] [place] [address] Social History Tobacco Use Types Packs/Day Years Used Date Smoking Tobacco: Never Smokeless Tobacco: Never Alcohol Use Standard Drinks/Week Comments Never 0 (1 standard drink = 0.6 oz pur e alcohol) [facility] Utilities Answer Date Recorded In the past 12 months has [employer] electric, gas, oil, or water company threatened [...] often do you attend chur ch or sikh services? 1 to 4 times per year [...] place to sleep or slept in a fpc (including now)? No 09/22/2023 Housing Stability Vital Sign Answer Ivan e Recorded In the last 12 months, was t here a time when you were not able to pay the mortgage or rent on time? No 10/12/2023 In the past 12 months, how m any times have you moved where you were living? 1 10/12/2023 At any time in the past 12 m [facility], were you homeless or living in a fpc (including now)? No 10/12/2023 Personal Safety Answer Date Recorded Have you ever been in or are you currently in a harmful physical or emotional relationship or is someone making you feel afraid or unsafe? 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 RaterIvet NP You17 hours ago (5:21 PM) I called him and got through. He did start the Eliquis so he can just keep the October appointment. I was not sure if he needed to discuss anticoagulation but it sounds like he is taking it, thanks * Telephone Encounter - Maday De Los Santos RN - 08/22/2024 10:06 AM CDT Ivet - would it be OK to use your new slot on 12:30 for a zoom appt for this patient? * Telephone Encounter - Gifty Perdomo - 08/21/2024 9:13 AM CDT Rater Pt calling about today apt. Pt just recently moved and will not be able to do the apt today so much of pt stuff is still in boxes. Pt is wanting to know if Ivet could do the zoom appt on 08/24. Please call pt to discuss. documented in this encounter Plan of Treatment Not on file documented as of this encounter Visit Diagnoses Not on filedocumented in this encounter Care Teams Collections Technician Relationship Specialty Start Date End Date Latanya Vee DO [facility]7 [facility] [address] [place] [address] PCP - General Family Medicine 09/17/23 Padmini Miller MD [address] [place] [address] Consulting Physician Physical Medicine and Rehabilitation 09/23/23 Lauro Shane MD [address] [place] [address] Consulting Physician Pulmonary Disease 10/15/23 documented as of this encounter
--- OUTSIDE RECORDS SUMMARY | 2024-09-08 12:42 | XMS_ITS | Encounter Summary ---
Author Organization [facility] Healthcare Address [address] [place] [address] Care Team Providers Care Life Science Technician Name Role Phone Latanya Vee DO Primary Care Provider [phone] Padmini Miller MD Unavailable Lauro Shane MD Unavailable Encounter Details Date Type Department Care Team (Late st Contact Info) Description 09/17/2023 Orders Only [facility] Health Information Management [address] [place] [address] Scanning, Provider Social History Tobacco Use Types Packs/Day Years Used Date Smoking Tobacco: Never Assessed Personal Safety Answer Date Recorded Have you ever been in or are you currently in a harmful physical or emotional relationship or is someone making you feel afraid or unsafe? 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 Gender Identity Not on file Sexual Orientation Not on file documented as of this encounter Plan of Treatment Not on file documented as of this encounter Procedures Procedure Name Priority Date/Time Associated Diagnosis Comments SCAN - RADIOLOGY/IMAGING 09/17/2023 documented in this encounter Results * SCAN - RADIOLOGY/IMAGING (09/17/2023) Anatomical Region Laterality Modality Other us Provider Scanning Edited Result - Final documented in this encounter Visit Diagnoses Not on filedocumented in this encounter Additional Health Concerns Infection Onset Date Last Indicated Resolved Time COVID: Suspected 09/21/2023 09/21/2023 09/21/2023 11:20 AM CDT documented as of this encounter Care Teams Life Science Technician Relationship Specialty Start Date End Date JosephinerejicarleenLatanya NilsaDO [facility] [address] [place] [address] PCP - General Family Medicine 09/17/23 Padmini Miller MD [address] [place] [address] Consulting Physician Physical Medicine and Rehabilitation 09/23/23 Lauro Shane MD [address] [place] [address] Consulting Physician Pulmonary Disease 10/15/23 documented as of this encounter
--- OUTSIDE RECORDS SUMMARY | 2024-09-08 12:42 | XMS_ITS | Encounter Summary ---
Author Organization [facility] Address [address] [place] [address] Phone Care Team Providers Care Title I Director Name Role Phone Latanya Vee DO Primary Care Provider [phone] Padmini Miller MD Unavailable Lauro Shane MD Unavailable Encounter Details Date Type Department Care Team (Late st Contact Info) Description 07/25/2024 Results Follow-Up [facility] Cardiology [address] [facility] [facility] [address] [place] [address] Zachary Fields MD [address] [address] Social History Tobacco Use Types Packs/Day Years Used Date Smoking Tobacco: Never Smokeless Tobacco: Never Alcohol Use Standard Drinks/Week Comments Never 0 (1 standard drink = 0.6 oz pur e alcohol) [facility] Utilities Answer Date Recorded In the past 12 months has [employer], gas, oil, or water company threatened to [...] often do you attend chur ch or quaker services? 1 to 4 times per year 10/12/2023 Do you belong to any clubs o r organizations such as yazdanism groups, unions, fraternal or athletic groups, or [...] place to sleep or slept in a alf (including now)? No 09/22/2023 Housing Stability Vital Sign Answer Ivan e Recorded In the last 12 months, was t here a time when you were not able to pay the mortgage or rent on time? No 10/12/2023 In the past 12 months, how m any times have you moved where you were living? 1 10/12/2023 At any time in the past 12 m [facility], were you homeless or living in a alf (including now)? No 10/12/2023 Personal Safety Answer Date Recorded Have you ever been in or are you currently in a harmful physical or emotional relationship or is someone making you feel afraid or unsafe? 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[employer] Gender Identity Not on file Sexual Orientation Not on file documented as of this encounter Plan of Treatment Not on file documented as of this encounter Visit Diagnoses Not on filedocumented in this encounter Care Teams Title I Director Relationship Specialty Start Date End Date Latanya Vee DO [facility] [address] TEJADA [address] [place] [address] PCP - General Family Medicine 09/17/23 Padmini Miller MD [address] [place] [address] Consulting Physician Physical Medicine and Rehabilitation 09/23/23 Lauro Shane MD [address] [place] [address] Consulting Physician Pulmonary Disease 10/15/23 documented as of this encounter
--- OUTSIDE RECORDS SUMMARY | 2024-09-08 12:42 | XMS_ITS | Encounter Summary ---
Author Organization [facility] Address [address] [place] [address] Phone Care Team Providers Care Medication Technician Name Role Phone Latanya Vee DO Primary Care Provider [phone]- [phone] Padmini Miller MD Unavailable Lauro Shane MD Unavailable [phone] Encounter Details Date Type Department Care Team (Late st Contact Info) Description 09/05/2024 Results Follow-Up [facility] Cardiology [address] [facility] [address], [address] [place] [address] Zachary Fields MD [address] [place] [address] Social History Tobacco Use Types Packs/Day Years Used Date Smoking Tobacco: Never Smokeless Tobacco: Never Alcohol Use Standard Drinks/Week Comments Never 0 (1 standard drink = 0.6 oz pur e alcohol) [facility] Utilities Answer Date Recorded In the past 12 months has [employer], gas, oil, or water [employer] threatened to shut off services in your [...] often do you attend chur ch or episcopal services? 1 to 4 times per year 10/12/2023 Do you belong to any clubs o r organizations such as yazidi groups, unions, fraternal or athletic groups, or [...] place to sleep or slept in a half-way (including now)? No 09/22/2023 Housing Stability Vital Sign Answer Ivan e Recorded In the last 12 months, was t here a time when you were not able to pay the mortgage or rent on time? No 10/12/2023 In the past 12 months, how m any times have you moved where you were living? 1 10/12/2023 At any time in the past 12 m [facility], were you homeless or living in a half-way (including now)? No 10/12/2023 Personal Safety Answer Date Recorded Have you ever been in or are you currently in a harmful physical or emotional relationship or is someone making you feel afraid or unsafe? 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 Gender Identity Not on file Sexual Orientation Not on file documented as of this encounter Plan of Treatment Not on file documented as of this encounter Visit Diagnoses Not on filedocumented in this encounter Care Teams Medication Technician Relationship Specialty Start Date End Date Latanya Vee DO [facility] [address] [address] PCP - General Family Medicine 09/17/23 Padmini Miller MD [address] [place] [address] Consulting Physician Physical Medicine and Rehabilitation 09/23/23 Lauro Shane MD [address] [place] [address] Consulting Physician Pulmonary Disease 10/15/23 documented as of this encounter
--- OUTSIDE RECORDS SUMMARY | 2024-09-08 12:42 | XMS_ITS | Data Portability ---
Author Organization [facility], Main Office Address [address] [place] [address] Care Team Providers Care Economics Faculty Member Name Role Phone MYRA DO Primary Care Provider Assessment No assessment recorded. Plan of Treatment Reminders Order Date Submit Date Provider Last Modified By Organization Details Last Modified Time Details Appointments None record ed. Lab None record ed. Referral None record ed. Procedures None record ed. Surgeries None record ed. Imaging None record ed. Medication Orders None record ed. Patient TargetsNo targets recorded. Patient InstructionsNo instructions recorded. Reason for Referral None Reported. Problems Name Problem SNOMED Code Status Onset Date Resolution Date Notes Provider Name and Address Organization Details Recorded Time Impacted cerumen in left ear 155149982702784 1 Active 2022 Clay Salgado MD [address] [place] [address], [id number] [facility] 14:18:01 Problem Notes None recorded. Procedures Surgical History Date Name Laterality Status Provider Name and Address Organization Details Recorded Time Disc replacement surgery completed Not Available [facility] 07/15/2022 16:27:08 Carpal tunnel surgery completed Venus Manuel RN [facility] 04/20/2023 10:54:37 Imaging Results None recorded. Procedure Notes None recorded. Medical Equipment None Reported. Allergies No known drug allergies Medications Name Sig Start Date Stop Date Status Note LastModified by Organization Details LastModified Time tamsulosin 0.4 mg capsule TAKE 1 CAPSULE BY MOUTH EVERY DAY AT BEDTIME active Not Available Not Available No t Available simvastatin 5 mg tablet TAKE ONE TABLET BY MOUTH ONCE DAILY active Not Available Not Available No t Available aspirin 81 mg PM 04/21 completed Not Available Not Available Not Available tamsulosin 04/21 completed Not Available Not Available Not Available Fish Oil 1000 mg PM 2020 active Not Available Not Available Not Avai lable simvastatin 04/21 completed Not Available Not Available Not Available Glucosamine 1500 mg 04/21 completed Not Available Not Available Not Available Vitamin D3 25 mcg, with breakfast 2020 active Not Available Not Available Not Avai lable multivitami n 2020 active Not Available Not Available Not Avai lable glucosamine sulfate 1,000 mg tablet Take by oral route. 2020 active Not Available Not Available Not Avai lable Vitals Date Recorded Body mass index (BMI) Body height Pain severity - 0-10 verbal numeric rating [Score] - Reported Body weight Provider Name and Address Organization Details Last Updated DateTime 09/04/2020 21.2 kg/m2 185.42 cm 2 37867.37 g Not Available [facility] 07/15/2022 16:27:40 Date Recorded Body height Provider Name an d Address Organization Details Last Updated DateTime 11/01/2020 185.42 cm Not Available [facility] 16:27:40 Date Recorded Body weight Body mass index (BMI) Body height Body temperature Provider Name and Address Organization Details Last Updated DateTime 04/21/2023 80247.68 g 22 kg/m2 182.88 cm 97.7 [degF] Venus Manuel RN [facility] 04/21/2023 14:05:48 Social History Question Answer Notes LastModified by Organizat ion Details LastModified Time Tobacco Smoking Status Never Smoker Venus Manuel RN null, [facility] 04/20/2023 10:54:01 What Is Your Level Of Alcohol Consumption? None [email or web address] Information not available 04/20/2023 What Was The Date Of Your Most Recent Tobacco Screening? 09/04/2020 [id number] Information not available 07/15/2022 Sex: Unknown Functional Status None recorded. Mental Status None recorded. Family History Relationship Description Onset Age of this Age Resolved Age Notes LastModified by Organization Details LastModified Time Brother Family history of stroke [id number] Not available 07/15/2022 16:27:09 Father Family history of stroke [id number] Not available 07/15/2022 16:27:09 Mother Diabetes mellitus [id number] Not available 07/15/2022 16:27:09 Notes:NO ENT Medical History Condition Response DIABETES, TYPE Y EAR OR HEARING PROBLEMS Y URINARY/BLADDER/KIDNEY PROBLEMS Y Past Encounters Encounter ID Performer Location Encounter Start Date Encounter Closed Date Diagnosis/Indication Diagnosis SNOMED-CT Code Diagnosis ICD10 Code Diagnosis Note [id number] [facility] [address] [place] [address] 09/04/2020 00:00:00 09/04/2020 11:17:35 [id number] [facility] [address] [place] [address] 11/01/2020 00:00:00 11/01/2020 10:58:39 [id number] Clay Salgado MD [facility] [address] [place] [address] 04/21/2023 13:53:56 04/21/2023 14:50:32 Impacted cerumen in left ear [id number] 845387 H61.22 Health Concerns Section Related Observation LastModified by Organization Detai ls LastModified Time None Recorded Concern Status LastModified by Organization Details LastModified Time None Recorded Advance Directives Directive None Recorded Payers Encounter Date Sequence Insurance Name Policy Number Policy Villasenor Covered Member ID Villasenor Member ID Guarantor Name 04/21/2023 1 [employer] (MEDICARE REPLACEMENT PPO) [id number] Gerald Leonardo [id number] Gerald Leonardo Notes Date Note Type Note Provider Name and Address Organization Details Recorded Time 04/21/2023 text/html cerumen impaction left Clay Salgado MD [address] [facility] [place] [address], [place], [address], [facility] [employer] 04/21/2023 14:18:26
--- OUTSIDE RECORDS SUMMARY | 2024-09-08 12:42 | XMS_ITS | Referral Summary ---
Author Organization [facility] [address] Address [address] [place] [address] Care Team Providers Care Recreation Program Specialist Name Role Phone Latanya Vee DO Primary Care Provider [phone] Padmini Miller MD Unavailable Lauro Shane MD Unavailable Encounters Date Type Department Care Team Description 09/07/2024 Telephone [facility] [address] [facility] [address] [place] [address] Srikanth Cox 09/05/2024 Research Med Pick-Up/CTRU Drying Room Attendant [facility] 1 [place] [address] Tala Hussein RN Research subject (Primary Dx) 09/05/2024 Results Follow-Up [facility] Cardiology [address] [facility] Floor 1, [address] [place] [address] Zachary Fields MD 09/05/2024 Documentation [facility] 1 [place] [address] Tala Hussein RN 09/05/2024 10:20 AM CDT - 09/05/2024 11:59 PM CDT Hospital Encounter [address] [place] [address] Research subject Discharge Disposition: Discharge to home or self care 08/29/2024 Orders Only [facility] 1 [place] [address] Tala Hussein RN Research subject (Primary Dx) 08/23/2024 Orders Only [facility] Cardiology [address] [facility] Floor 1, [address] [place] [address] RaterIvet NP 08/21/2024 Telephone [facility] Cardiology [address] [facility] 8th [place] [address] [place] [address] Ivet Zepeda NP 08/21/2024 2:30 PM CDT Office Visit [facility] Cardiology [address] [place] [address] Sarah Griffin NP Chronic diastolic congestive heart failure (HCC) (Primary Dx); Wild-type transthyretin-related (ATTR) amyloidosis (HCC); Atrial fibrillation, unspecified type (HCC); Encounter for anticoagulation discussion and counseling 08/19/2024 Results Follow-Up [facility] Cardiology [address] [facility] [address] [place] [address] Zachary Fields MD 08/11/2024 Orders Only [facility] Cardiology [facility] Floor 1, [address] [place] [address] Zachary Fields MD 08/11/2024 Telephone [facility] Cardiology [facility] Floor 1, [address] [place] [address] Zachary Fields MD 08/10/2024 Results Follow-Up [facility] Cardiology [facility] Floor 1, [address] [place] [address] Zachary Fields MD 08/08/2024 Documentation [facility] 1 [place] [address] Tala Hussein RN 08/08/2024 Results Follow-Up [facility] Cardiology [facility] Floor 1, [address] [place] [address] Zachary Fields MD 08/07/2024 Documentation [facility] 1 [place] [address] Tala Hussein RN 08/07/2024 Research Med Pick-Up/CTRU Drying Room Attendant [facility] 1 [place] [address] Tala Hussein RN Research subject (Primary Dx) 08/07/2024 10:23 AM CDT - 08/07/2024 11:59 PM CDT Hospital Encounter [address] [address] Discharge Disposition: Discharge to home or self care 08/07/2024 Orders Only [facility] 1 [place] [address] Tala Hussein RN Research subject (Primary Dx) 08/07/2024 Orders Only [facility] 1 [place] [address] Tala Hussein RN Research subject (Primary Dx) 08/06/2024 Results Follow-Up [address] [address] Ivet Zepeda NP 08/04/2024 2:45 PM CDT Lab [facility] - Lab Collection [address] [place] [address] Floor 5 [place] [address] Research subject; Left ventricular hypertrophy; Diastolic heart failure of unknown etiology (HCC); Mixed hyperlipidemia; 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; Amyloidosis, unspecified type (HCC) 08/04/2024 1:00 PM CDT Office Visit [facility] Cardiology [facility] Floor 1, [address] [place] [address] Ivet Zepeda NP Left ventricular hypertrophy (Primary Dx); Diastolic heart failure of unknown etiology (HCC); Mixed hyperlipidemia; 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; Amyloidosis, unspecified type (HCC) 07/26/2024 Orders Only [facility] Cardiology [address] [facility] Medicine 8th [place] [address] [place] [address] Sarah Interiano RN Cardiac amyloidosis (HCC) (Primary Dx) 07/26/2024 Orders Only [facility] 1 [place] [address] Tala Hussein RN Research subject (Primary Dx) 07/25/2024 Results Follow-Up [facility] Cardiology [address] [facility] [address] [place] [address] Zachary Fields MD 07/21/2024 Orders Only [facility] CARDIOLOGY Scanning, Provider 07/11/2024 Telephone [facility] Cardiology [address] [facility] Floor 1, [address] [place] [address] Sarah Interiano RN wt down 34 lbs 07/07/2024 Documentation [facility] 1 [place] [address] Lynn Yung MS 07/07/2024 Results Follow-Up [facility] Cardiology [address] [facility] [address] [place] [address] Zachary Fields MD 07/07/2024 12:09 PM EVALUATION ENGINEER - 07/07/2024 11:59 PM EVALUATION ENGINEER Hospital Encounter [facility] [address] [place] [address] Research subject Discharge Disposition: Discharge to home or self care 07/07/2024 Orders Only [facility] 1 [place] [address] Tala Hussein RN Research subject (Primary Dx) 07/06/2024 Telephone [facility] Scheduling [address] [place] [address] Zachary Fields MD Prior Auth (Attruby 356MG tablets) 07/06/2024 Telephone [facility] [address] [facility] [address] [place] [address] Chevy Hu RPh 07/06/2024 Telephone [facility] Cardiology [address] [facility] Floor 1, [address] [place] [address] Zachary Fields MD 07/06/2024 Orders Only [facility] Cardiology [address] [facility] Floor 1, [address] [place] [address] Zachary Fields MD 06/29/2024 Telephone [facility] Cardiology [address] [facility] 8th [place] [address] [place] [address] Zachary Fields MD 06/28/2024 Telephone [facility] Cardiology [facility] Floor 1, [address] [place] [address] Zachary Fields MD 06/16/2024 Telephone [facility] 1 [place] [address] Lynn Yung, 06/14/[address] [facility] Cardiology [address] [place] [address] Florida Shah MD 06/13/2024 12:00 PM EVALUATION ENGINEER Lab [facility] - Lab Collection [address] [facility] Floor 5 [place] [address] Amyloidosis, unspecified type (HCC); Diastolic heart failure of unknown etiology (HCC) 06/13/2024 9:00 AM EVALUATION ENGINEER Office Visit [facility] Cardiology [address] [facility] Floor 1, [address] [place] [address] Zachary Fields MD Diastolic heart failure of unknown etiology (HCC) (Primary Dx); Left ventricular hypertrophy; Mixed hyperlipidemia; 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 06/13/2024 11:18 AM EVALUATION ENGINEER - 06/13/2024 11:59 PM EVALUATION ENGINEER Hospital Encounter [facility] 1 [place] [address] Discharge Disposition: Discharge to home or self care 06/13/2024 11:00 AM EVALUATION ENGINEER - 06/13/2024 11:59 PM EVALUATION ENGINEER Hospital Encounter [facility] 1 [place] [address] Amyloidosis, unspecified type (HCC) Discharge Disposition: Discharge to home or self care from Last 3 Months Allergies No known active allergies Medications simvastatin [...] weight gain in 1 week.) 30 tablet 07/25/19 25 Active torsemide (DEMADEX) 20 mg tabletIndications: Cardiac amyloidosis (HCC),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 09/05/19 Active multivit with minerals/lutein (MULTIVITAMIN 50 PLUS ORAL) 09/05/19 Active cholecalciferol 400 unit capsule 25 mcg, with breakfast 09/05/19 Active apixaban (ELIQUIS) 5 mg tablet Take 1 tablet (5 mg total) by mouth 2 (two) times a day 60 tablet 08/12/19 Active Hospital, Clinic, or Other Facility Administered Medication Ordered Dose Route Frequency Start Date End Date Status [facility] GAEX4564/placebo (/[id number] M-301) 50 mg/mL IV 3,200 mgIndications:Research subject 3200 mg IV Once 09/05/2024 09/05/2024 Ended [facility] dextrose 5% in water (D5W) (/[id number] M-301) flush syringe 10 mLIndications:Research subject 10 mL IV Once 09/05/2024 09/05/2024 Ended [facility] acetaminophen (/[id number] M-301) tablet 500 mgIndications:Research subject 500 mg oral Once 09/05/2024 09/05/2024 Ended [facility]V-[facility] diphenhydrAMINE (/[id number] M-301) 50 mg/mL injection 25 mgIndications:Research subject [...] diastolic CHF (congestive heart failure) 10/08/2023 03/28/2024 Social History Tobacco Use Types Packs/Day Years Used Date Smoking Tobacco: Never Smokeless Tobacco: Never Tobacco Cessation:Counseling Given: Not Answered Alcohol Use Standard Drinks/Week Comments Never 0 (1 standard drink = 0.6 oz pur e alcohol) [facility] Utilities Answer Date Recorded In the past 12 months has [employer] electric, gas, oil, or water company threatened [...] week 10/12/2023 How often do you attend [facility] or church services? 1 to 4 times per year 10/12/2023 Do you belong to any clubs o r organizations such as caodaism groups, unions, fraternal or athletic groups, or [...] place to sleep or slept in a usp (including now)? No 09/22/2023 Housing Stability Vital Sign Answer Ivan e Recorded In the last 12 months, was t here a time when you were not able to pay the mortgage or rent on time? No 10/12/2023 In the past 12 months, how m any times have you moved where you were living? 1 10/12/2023 At any time in the past 12 m [facility], were you homeless or living in a usp (including now)? No 10/12/2023 Personal Safety Answer Date Recorded Have you ever been in or are you currently in a harmful physical or emotional relationship or is someone making you feel afraid or unsafe? 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 Amyloidosis, unspecified type (HCC) BASIC METABOLIC PANEL Routine 08/04/2024 2:46 PM CDT Left ventricular hypertrophy Diastolic heart failure of unknown etiology (HCC) Mixed hyperlipidemia 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 Amyloidosis, unspecified type (HCC) PLATELET COUNT STAT 08/04/2024 2:46 PM CDT Research subject PRO B-TYPE NATRIURETIC PEPTIDE Routine 07/21/2024 8:16 AM EVALUATION ENGINEER 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) Lower extremity edema BASIC METABOLIC PANEL Routine 07/21/2024 8:15 AM EVALUATION ENGINEER 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) Lower extremity edema KAPPA/LAMBDA LIGHT CHAINS FREE WITH RATIO, SERUM Routine 07/21/2024 8:15 AM EVALUATION ENGINEER Amyloidosis, unspecified type (HCC) IMMUNOFIXATION ELECTROPHORESIS Routine 07/21/2024 8:15 AM EVALUATION ENGINEER Amyloidosis, unspecified type (HCC) SCAN - LABS 07/21/2024 PROTIME-INR Routine 07/07/2024 12:09 PM EVALUATION ENGINEER Research subject APTT Routine 07/07/2024 12:09 PM EVALUATION ENGINEER Research subject NM MYOCARDIAL AMYLOIDOSIS IMAGING SPECT/CT Schedule Routine, Read Routine (OP Routine) 06/13/2024 3:05 PM EVALUATION ENGINEER Amyloidosis, unspecified type (HCC) URINALYSIS AND REFLEX TO MICROSCOPIC Routine 06/13/2024 10:50 AM EVALUATION ENGINEER Amyloidosis, unspecified type (HCC) Diastolic heart failure of unknown etiology (HCC) PROTEIN / CREATININE RATIO, URINE, RANDOM Routine 06/13/2024 10:50 AM EVALUATION ENGINEER Amyloidosis, unspecified type (HCC) Diastolic heart failure of unknown etiology (HCC) LIPID PANEL Routine 06/13/2024 10:40 AM EVALUATION ENGINEER Amyloidosis, unspecified type (HCC) Diastolic heart failure of unknown etiology (HCC) EGFR Routine 06/13/2024 10:40 AM EVALUATION ENGINEER Amyloidosis, unspecified type (HCC) Diastolic heart failure of unknown etiology (HCC) DIFFERENTIAL AUTO Routine 06/13/2024 10:40 AM EVALUATION ENGINEER Amyloidosis, unspecified type (HCC) Diastolic heart failure of unknown etiology (HCC) PRO B-TYPE NATRIURETIC PEPTIDE Routine 06/13/2024 10:40 AM EVALUATION ENGINEER Amyloidosis, unspecified type (HCC) Diastolic heart failure of unknown etiology (HCC) BASIC METABOLIC PANEL Routine 06/13/2024 10:40 AM EVALUATION ENGINEER Amyloidosis, unspecified type (HCC) Diastolic heart failure of unknown etiology (HCC) CBC WITH AUTO DIFFERENTIAL Routine 06/13/2024 10:40 AM EVALUATION ENGINEER Amyloidosis, unspecified type (HCC) Diastolic heart failure of unknown etiology (HCC) IMMUNOTYPING Routine 06/13/2024 10:40 AM EVALUATION ENGINEER Amyloidosis, unspecified type (HCC) Diastolic heart failure of unknown etiology (HCC) IMMUNOGLOBULIN FREE LIGHT CHAINS Routine 06/13/2024 10:40 AM EVALUATION ENGINEER Amyloidosis, unspecified type (HCC) Diastolic heart failure of unknown etiology (HCC) TROPONIN I HIGH-SENSITIVITY Routine 06/13/2024 10:40 AM EVALUATION ENGINEER Amyloidosis, unspecified type (HCC) Diastolic heart failure of unknown etiology (HCC) SCAN - LABS 06/13/2024 CARDIOLOGY DOCUMENT SCAN Routine 06/11/2024 10:51 AM EVALUATION ENGINEER CARDIOLOGY DOCUMENT SCAN Routine 06/10/2024 10:27 AM EVALUATION ENGINEER from Last 3 Months Results * Platelet count (09/05/2024 10:20 AM CDT) Plt 161 150 - 400 K/cumm Blood 09/05/2024 10:2 0 AM CDT 09/05/2024 11:25 AM CDT Narrative [facility] - 09/05/2024 1:00 PM CDT 100% BILL TO [facility]EARCH [facility] [id number] Zachary Fields MD LAB BLOOD ORDERABLES Final Result [facility] Department [place] [address] * Platelet count (08/18/2024 8:28 AM CDT) Platelets 195 150 - 450 x10E3/uL [facility] - 01 Blood 08/18/2024 8:28 AM CDT 08/18/2024 Narrative [facility] - 08/19/2024 6:09 AM CDT Performed at: [address] [id number] First Line Supervisor: Armond Zambrano PhD, Phone: [phone] Specimen Comment: A courtesy copy of this report has been sent to the patient us Zachary Fields MD LAB BLOOD ORDERABLES Final Result Performing Organization Address [facility] Co de Phone Number [facility]CO [facility] - * (ABNORMAL) Platelet count (08/09/2024 2:36 PM CDT) Platelets 117(L) 150 - 450 x10E3/uL [facility] - 01 Comment:Verified by repeat analysis Blood 08/09/2024 2:36 PM CDT 08/09/2024 Narrative [facility] - 08/10/2024 7:09 AM CDT Performed at: [address] [id number] First Line Supervisor: Armond Zambrano PhD, Phone: [phone] us Zachary Fields MD LAB BLOOD ORDERABLES Final Result Performing Organization Address City/[facility]/ZIP Co de Phone Number [facility] - * (ABNORMAL) Platelet count (08/07/2024 10:23 AM CDT) Plt 115(L) 150 - 400 K/cumm Blood 08/07/2024 10:2 3 AM CDT 08/07/2024 11:35 AM CDT us Zachary Fields MD LAB BLOOD ORDERABLES Final Result Performing Organization Address City/[facility]/ZIP Co de Phone Number [facility] [place] [address] * (ABNORMAL) eGFR (08/04/2024 2:46 PM CDT) [...] 08/04/2024 2:52 PM CDT us Ivet Zepeda NP LAB BLOOD ORDERABLES Final Resul t Performing Organization Address City/[facility]/ZIP Co de Phone Number [facility] [place] [address] * (ABNORMAL) Platelet count (08/04/2024 2:46 PM CDT) Plt 126(L) 150 - 400 K/cumm Comment:Testing performed by : [facility], [address] [place] [phone] Blood 08/04/2024 2:46 PM CDT 08/04/2024 2:50 PM CDT Narrative [facility] - 08/04/2024 2:53 PM CDT 100% BILL TO RESEARCH DEPLETTR-CM [id number] 100% BILL TO RESEARCH DEPLETTR-CM [id number] us Zachary Fields MD LAB BLOOD ORDERABLES Final Result Performing Organization Address City/[facility]/ZIP Co de Phone Number [facility] [place] [address] * (ABNORMAL) Basic metabolic panel (08/04/2024 2:46 PM CDT) Sodium 140 135 - 145 mmol/L Potassium, pl 4.2 3.3 - 4.9 mmol/L [facility] Chloride 100 97 - 110 mmol/L [facility] CO2 30 22 - 32 mmol/L [facility] Anion gap 10 2 - 15 mmol/L [facility] BUN 32(H) 6 - 25 mg/dL [facility] Creatinine 1.30 0.80 - 1.30 mg/dL [facility] Glucose 95 70 - 199 mg/dL [facility] Comment: Interpretive Data Fasting glucose >/= 126 [...] classification and Diagnosis of Diabetes Diabetes Care 202; 46: S19-S40. Current interpretive data was last revised 2022. Calcium 9.1 8.5 - 10.3 mg/dL [facility] Blood 08/04/2024 2:46 PM CDT 08/04/2024 2:52 PM CDT Ivet Zepeda NP LAB BLOOD ORDERABLES Final Resul t Performing Organization Address City/[facility]/ZIP Co de Phone Number [facility] [place] [address] * (ABNORMAL) Pro B-type natriuretic peptide (07/21/2024 8:16 AM EVALUATION ENGINEER) proBNP 4,073(H) 0 - 486 pg/mL [facility] [...] independent 300 pg/mL Blood 07/21/2024 8:16 AM EVALUATION ENGINEER 07/21/2024 Narrative [facility] - 07/22/2024 8:11 AM EVALUATION ENGINEER Performed at: - [place] [id number] First Line Supervisor: Armond Zambrano PhD, Phone: [phone] us Zachary Fields MD LAB BLOOD ORDERABLES Final Result [facility] - 01 * (ABNORMAL) KAPPA/LAMBDA LIGHT CHAINS FREE WITH RATIO, SERUM (07/21/2024 8:15 AM EVALUATION ENGINEER) Free [place] Lt Chains,S 24.4(H) 3.3 - 19.4 mg/L [facility] - 01 Free Lambda Lt Chains,S 14.9 5.7 - 26.3 mg/L [facility] - 01 [place]/Lambda Ratio, S 1.64 0.26 - 1.65 [facility] - 01 Blood 07/21/2024 8:15 AM EVALUATION ENGINEER 07/21/2024 Narrative [facility] - 07/24/2024 5:09 PM CDT Performed at: [address] [id number] First Line Supervisor: Armond Zambrano PhD, Phone: [phone] us Zachary Fields MD LAB BLOOD ORDERABLES Final Result Performing Organization Address [facility] de Phone Number [facility] * Immunofixation (07/21/2024 8:15 AM EVALUATION ENGINEER) [facility] Immunofixation Comment [facility] - Comment:No monoclonality det ected. Immunoglobulin G, Qn, Serum 1,170 603 - 1,613 mg/dL [facility] - 01 Immunoglobulin A, Qn, Serum 164 61 - 437 mg/dL [facility] - 01 Immunoglobulin M, Qn, Serum 41 15 - 143 mg/dL [facility] - 01 Blood 07/21/2024 8:15 AM EVALUATION ENGINEER 07/21/2024 Narrative [facility] - 07/25/2024 12:10 PM CDT Performed at: [address] [id number] First Line Supervisor: Armond Zambrano PhD, Phone: [phone] us Zachary Fields MD LAB BLOOD ORDERABLES Final Result Performing Organization Address [facility] de Phone Number [facility] * (ABNORMAL) Basic metabolic panel (07/21/2024 8:15 AM EVALUATION ENGINEER) [facility] Glucose 140(H) 70 - 99 mg/dL [facility] [...] [facility] - 01 Blood 07/21/2024 8:15 AM EVALUATION ENGINEER 07/21/2024 Narrative [facility] - 07/22/2024 8:11 AM EVALUATION ENGINEER Performed at: [address] [place] [id number] First Line Supervisor: Armond Zambrano PhD, Phone: [phone] Zachary Fields MD LAB BLOOD ORDERABLES Final Result [facility] - * SCAN - LABS (07/21/2024) Provider Scanning Final Result * aPTT (07/07/2024 12:09 PM EVALUATION ENGINEER) aPTT 35 28 - 38 sec Comment: Interpretive Data Heparin therapeutic range: 66.0 - 100.0 seconds. Range based on correlation with therapeutic heparin activity range of 0.3 - 0.7 Units/mL. Current interpretive data was last revised on 2023. Blood 07/07/2024 12:0 9 PM EVALUATION ENGINEER 07/07/2024 1:29 PM EVALUATION ENGINEER Narrative [facility] - 07/07/2024 1:52 PM EVALUATION ENGINEER 100% BILL TO RESEARCH DEPLETTR-CM [id number] 100% BILL TO RESEARCH DEPLETTR-CM [id number] us Zachary Fields MD LAB BLOOD ORDERABLES Final Result [facility] Department [place] [address] * (ABNORMAL) Protime-INR (07/07/2024 12:09 PM EVALUATION ENGINEER) PT 16.0(H) 9.7 - 13.0 sec INR 1.47(H) 0.90 - 1.20 [facility] Comment: Interpretive data Oral anticoagulant therapeutic ranges: Venous thromboembolism prophylaxis or treatment: 2.0-3.0 CARDIOLOGY Standard range: 2.0-3.0 High-intensity range: 2.5-3.5 Refer to indication-specific guidelines for appropriate target ranges for prosthetic heart valve replacement. Current interpretive data was last revised on 2019. Blood 07/07/2024 12:0 9 PM EVALUATION ENGINEER 07/07/2024 1:29 PM EVALUATION ENGINEER Narrative [facility] - 07/07/2024 1:52 PM EVALUATION ENGINEER 0% BILL TO RESEARCH DEPLETTR-CM [id number] 100% BILL TO RESEARCH DEPLETTR-CM [id number] us Zachary Fields MD LAB BLOOD ORDERABLES Final Result [facility] [place] [address] * NM Myocardial Amyloidosis Imaging SPECT/CT (06/13/2024 3:05 PM EVALUATION ENGINEER) Anatomical Region Laterality Modality N/A Nuclear Medicine 06/13/2024 3:58 PM EVALUATION ENGINEER Impressions 06/13/2024 4:21 PM EVALUATION ENGINEER 1. This study demonstrates diffuse and severe [...] Recommendations for Multimodality Imaging in Cardiac Amyloidosis (https://pubmed.ncbi.nlm.nih.gov/83542071/ and https://pubmed.ncbi.nlm.nih.gov/62919745/). Dictated by: Jon Harley M.D. The radiology attending physician has personally reviewed this study, and had reviewed and/or edited this written report and agrees with it. Electronically signed by: Ángel Capone M.D. Narrative 06/13/2024 4:21 PM EVALUATION ENGINEER EXAMINATION: MYOCARDIAL AMYLOID SCINTIGRAPHY (PLANAR/SPECT-CT) DATE OF [...] Recommendations for Multimodality Imaging in Cardiac Amyloidosis (https://pubmed.ncbi.nlm.nih.gov/35584236/ and https://pubmed.ncbi.nlm.nih.gov/74950479/). Dictated by: Jon Harley M.D. The radiology attending physician has personally reviewed this study, and had reviewed and/or edited this written report and agrees with it. Electronically signed by: Ángel Capone M.D. us Zachary Fields MD IMG NM PROCEDURES Fin al Result * Urinalysis reflex to microscopic (06/13/2024 10:50 AM EVALUATION ENGINEER) Color, ur Straw Yellow Clarity, ur Clear Clear [facility] Specific gravity, ur 1.013 1.003 - 1.030 C[facility] pH, urine 6.5 [facility] Comment: Interpretive Data U rine pH is affected by diet, medications, systemic acid-base disturbances, and renal tubular function. pH may affect urinary stone formation. For example, urine pH below 6.0 may help reduce the tendency for calcium phosphate stones and pH greater than 6.0 may reduce the tendency for uric acid stone formation. Source: [place] [employer] Current Interpretive Data was last revised on 2017 Protein, ur ql Negative Negative [facility] Glucose, ur ql Negative Negative [facility] Ketones, ur Negative Negative [facility] Bilirubin, ur Negative Negative [facility] Blood, ur Negative Negative [facility] Urobilinogen, ur <2.0 <2.0 mg/dL [facility] Nitrite, ur Negative Negative [facility] Leukocyte esterase, ur Negative [facility] UA reflex comment Reflex conditions for microscopic UA not met. [facility] Urine 06/13/2024 10:5 0 AM EVALUATION ENGINEER 06/13/2024 10:50 AM EVALUATION ENGINEER Zachary Fields MD LAB URINE ORDERABLES Final Result Performing Organization Address [facility] Co de Phone Number [facility] [place] [address] * Protein / creatinine ratio, urine, random (06/13/2024 10:50 AM EVALUATION ENGINEER) Protein, ur, quant 7.2 mg/dL Comment: Interpretive Data No reference range established. Current interpretive data was last revised 2018. Creatinine Ur 48.2 mg/dL [facility] Comment: Interpretive Data No reference range established. Current interpretive data was last revised 2018. Protein/creatinin e ratio 149.4 0.0 - 180.0 mg/g CR [facility] Urine 06/13/2024 10:5 0 AM EVALUATION ENGINEER 06/13/2024 11:03 AM EVALUATION ENGINEER Zachary Fields MD LAB URINE ORDERABLES Final Result Performing Organization Address [facility] de Phone Number [facility] [place] [address] * (ABNORMAL) Troponin I high-sensitivity (06/13/2024 10:40 AM EVALUATION ENGINEER) Pathologist [facility] Trop I hs 50(H) <=35 ng/L Comment: Interpretive Data For further hscTnI resources including the diagnostic algorithm and an aid in interpretation, copy and paste this link: https://bjhlab.testcatalog.org/show/hsTrop-1 Current Interpretive Data last revised 2019. Blood 06/13/2024 10:4 0 AM EVALUATION ENGINEER 06/13/2024 11:20 AM EVALUATION ENGINEER Zachary Fields MD LAB BLOOD ORDERABLES Final Result Performing Organization Address [facility] de Phone Number [facility] Department [place] [address] * Immunotyping, serum (06/13/2024 10:40 AM EVALUATION ENGINEER) Immunosubtraction Please see comment Comment: NO PARAPROTEIN DETECTED Reviewed and signed by Nicola Mosley MD, PhD 06-14-24 Blood 06/13/2024 10:4 0 AM EVALUATION ENGINEER 06/13/2024 1:28 PM EVALUATION ENGINEER us Zachary Fields MD LAB BLOOD ORDERABLES Final Result [facility] [place] [address] * eGFR (06/13/2024 10:40 AM EVALUATION ENGINEER) eGFR 69 >=60 mL/min/1. 73 m2 Comment: [...] reviewed 2021. Blood 06/13/2024 10:4 0 AM EVALUATION ENGINEER 06/13/2024 10:55 AM EVALUATION ENGINEER us Zachary Fields MD LAB BLOOD ORDERABLES Final Result [facility] [place] [address] * Differential, auto (06/13/2024 10:40 AM EVALUATION ENGINEER) Neutrophil abs 3.2 1.5 - 6.5 K/cumm Comment:Testing performed by : [facility], [address] [place] [phone] Lymphocyte abs 0.8 0.8 - 3.3 K/cumm [facility] Comment:Testing performed by : [facility], [address] [place], [place] [phone] Monocyte abs 0.5 0.2 - 0.8 K/cumm [facility] Comment:Testing performed by : [facility], [address] [place] [phone] Eosinophil abs 0.2 0.0 - 0.5 K/cumm [facility] Comment:Testing performed by : [facility], [address] [place] [phone] Basophil abs 0.1 0.0 - 0.1 K/cumm [facility] Comment:Testing performed by : [facility], [address] [place] [phone] Neutrophil pct 67.8 % [facility] Comment: Interpretive Data Percent cell count reference ranges are not reported, since discordance with absolute values may lead to misinterpretation of CBC data. Current Interpretive Data was last revised on 2017. Testing performed by: [facility], [address] [place] [phone] Lymphocyte pct 16.1 % [facility] Comment: Interpretive Data Percent cell count reference ranges are not reported, since discordance with absolute values may lead to misinterpretation of CBC data. Current Interpretive Data was last revised on 2017. Testing performed by: [facility], [address] [place] [phone] Monocyte pct 10.4 % [facility] Comment: Interpretive Data Percent cell count reference ranges are not reported, since discordance with absolute values may lead to misinterpretation of CBC data. Current Interpretive Data was last revised on 2017. Testing performed by: [facility], [address] [place] [phone] Eosinophil pct 4.3 % [facility] Comment: Interpretive Data Percent cell count reference ranges are not reported, since discordance with absolute values may lead to misinterpretation of CBC data. Current Interpretive Data was last revised on 2017. Testing performed by: [facility], [address] [place] [phone] Basophil pct 1.4 % [facility] Comment: Interpretive Data Percent cell count reference ranges are not reported, since discordance with absolute values may lead to misinterpretation of CBC data. Current Interpretive Data was last revised on 2017. Testing performed by: [facility], [address] [place] [phone] Blood 06/13/2024 10:4 0 AM EVALUATION ENGINEER 06/13/2024 10:47 AM EVALUATION ENGINEER Zachary Fields MD LAB BLOOD ORDERABLES Final Result [facility] [place] [address] * (ABNORMAL) Immunoglobulin free light chains (06/13/2024 10:40 AM EVALUATION ENGINEER) [place]/Lambda ratio [facility] 1.38 0.26 - 1.65 Comment: Interpretive Data The Binding Site FreeLite assay procedure was used. Results from different manufacturers or methods may not be comparable. Serial testing should be performed using the same methods and instrumentation. Current Interpretive Data was last revised on 2023. [place] free light chain [facility] 2.10(H) 0.33 - 1.94 mg/dL [facility] Comment: Interpretive Data The Binding Site FreeLite assay procedure was used. Results from different manufacturers or methods may not be comparable. Serial testing should be performed using the same methods and instrumentation. Current Interpretive Data was last revised on 2023. Lambda free light chain BJ 1.52 0.57 - 2.63 mg/dL [facility] Comment: Interpretive Data The Binding Site FreeLite assay procedure was used. Results from different manufacturers or methods may not be comparable. Serial testing should be performed using the same methods and instrumentation. Current Interpretive Data was last revised on 2023. Blood 06/13/2024 10:4 0 AM EVALUATION ENGINEER 06/13/2024 1:30 PM EVALUATION ENGINEER Zachary Fields MD LAB BLOOD ORDERABLES Final Result [facility] Department [place] [address] * (ABNORMAL) Pro B-type natriuretic peptide (06/13/2024 10:40 AM EVALUATION ENGINEER) NT-proBNP 3,562(H) <=450 pg/mL Comment: Interpretive Comments: [...] J. 2006:27:330-337. 2. Mima RW, Mary Ann AM. J. AM Albin Cardiol: Cardiovasc Imag. 2009;2: 216- 225. Interpretive Data Last Revised Date: 2018. Blood 06/13/2024 10:4 0 AM EVALUATION ENGINEER 06/13/2024 11:19 AM EVALUATION ENGINEER us Zachary Fields MD LAB BLOOD ORDERABLES Final Result [facility] [place] [address] * (ABNORMAL) CBC with auto differential (06/13/2024 10:40 AM EVALUATION ENGINEER) WBC 4.7 3.8 - 9.9 K/cumm Comment:Testing performed by : [facility], [address] [place] [address] Hgb 13.4 13.0 - 17.5 g/dL [facility] Comment:Testing performed by : [facility], [address] [place] [address] Hct 40.4 38.9 - 50.3 % [facility] Comment:Testing performed by : [facility], [address] [place] [address] Plt 141(L) 150 - 400 K/cumm [facility] Comment:Testing performed by : [facility], [address] [place] [address] MPV 9.0 6.8 - 10.4 fL [facility] Comment:Testing performed by : [facility], [address] [place] [address] RBC 4.23(L) 4.30 - 5.80 M/cumm [facility] Comment:Testing performed by : [facility], [address] [place] [address] MCV 95.4 81.3 - 96.4 fL [facility] Comment:Testing performed by : [facility], [address] [place] [address] MCH 31.6 27.1 - 33.3 pg CERIVET [facility] Comment:Testing performed by : [facility], [address] [place] [phone] MCHC 33.2 32.3 - 35.7 g/dL [facility] Comment:Testing performed by : [facility], [address] [place], [place] [phone] RDW CV 15.1(H) 11.1 - 14.9 % [facility] Comment:Testing performed by : [facility], [address] [place] [phone] NRBC abs 0.00 0.00 - 0.01 K/cumm [facility] Comment:Testing performed by : [facility], [address] [place] [phone] Blood 06/13/2024 10:4 0 AM EVALUATION ENGINEER 06/13/2024 10:47 AM EVALUATION ENGINEER Zachary Fields MD LAB BLOOD ORDERABLES Final Result HAMZAH [facility] Department [place] [address] * Lipid panel (06/13/2024 10:40 AM EVALUATION ENGINEER) Cholesterol 117 30 - 199 mg/dL Comment: [...] on 2018. Triglycerides 74 <=149 mg/dL [facility] Comment: Interpretive Data Ages [...] revised on 2018. HDL 50 >=40 mg/dL [facility] Comment: Interpretive Data Ages < or = [...] on 2018. LDL, calculated 52 <=129 mg/dL [facility] Comment: Interpretive Data Ages < or = [...] NCEP Expert Panel. Circulation 2004;110:227 3. Simone Rivera al. ROMAIN Cardiol. 2020 September 14;5(5):540-548. doi: 10.1001/jamacardio.2020.0013 Current Interpretive Data was last revised on 2024. Non-HDL Cholesterol 67 mg/dL [facility] Comment: Interpretive Data Ages < or = [...] last revised on 2018. Chol/HDL ratio 2 [facility] Blood 06/13/2024 10:4 0 AM EVALUATION ENGINEER 06/13/2024 11:31 AM EVALUATION ENGINEER us Zachary Fields MD LAB BLOOD ORDERABLES Final Result [facility] [place] [address] * (ABNORMAL) Basic metabolic panel (06/13/2024 10:40 AM EVALUATION ENGINEER) Sodium 137 135 - 145 mmol/L Potassium, pl 3.7 3.3 - 4.9 mmol/L [facility] Chloride 94(L) 97 - 110 mmol/L [facility] CO2 35(H) 22 - 32 mmol/L [facility] Anion gap 8 2 - 15 mmol/L [facility] BUN 27(H) 6 - 25 mg/dL [facility] Creatinine 1.05 0.80 - 1.30 mg/dL [facility] Glucose 140 70 - 199 mg/dL [facility] Comment: Interpretive Data Fasting glucose >/= 126 [...] 2022. Calcium 9.7 8.5 - 10.3 mg/dL [facility] Blood 06/13/2024 10:4 0 AM EVALUATION ENGINEER 06/13/2024 10:55 AM EVALUATION ENGINEER us Zachary Fields MD LAB BLOOD ORDERABLES Final Result [facility] [place] [address] * SCAN - LABS (06/13/2024) us Provider Scanning Final Result * Cardiology Document Scan (06/11/2024 10:51 AM EVALUATION ENGINEER) Anatomical Region Laterality Modality Other [place] Shah MD CV CARDIAC SERVICES PROCEDU RES Final Result * Cardiology Document Scan (06/10/2024 10:27 AM EVALUATION ENGINEER) Anatomical Region Laterality Modality Other [place] Shah MD CV CARDIAC SERVICES PROCEDU RES Final Result from Last 3 Months Insurance T MEDICARE T MEDICARE MEDICARE [facility] Address: [address] [address] [place] [address] Advance Directives For more information, please contact: [phone] * Full Code (Latest Code Status on File) Date Activated Date Inactivated Comments 12/03/2023 9:20 PM 12/06/2023 5:42 PM * Full Code Date Activated Date Inactivated Comments 10/08/2023 5:17 AM 10/15/2023 10:12 PM * Full Code Date Activated Date Inactivated Comments 09/21/2023 5:54 PM 09/23/2023 10:32 PM Care Teams Recreation Program Specialist Relationship Specialty Start Date End Date Latanya Vee DO [address] [place] [address] [address] PCP - General Family Medicine 09/17/23 Padmini Miller MD [address] [facility] [address] [place] [address] Consulting Physician Physical Medicine and Rehabilitation 09/23/23 Lauro Shane MD [address] [facility] [address] [place] [address] Consulting Physician Pulmonary Disease 10/15/23
--- OUTSIDE RECORDS SUMMARY | 2024-09-08 12:42 | XMS_ITS | Encounter Summary ---
Author Organization [facility] Healthcare Address [address] [place] [address] Care Team Providers Care Emergency Specialist Name Role Phone Latanya Vee DO Primary Care Provider [phone] Padmini Miller MD Unavailable [phone] Lauro Shane MD Unavailable Encounter Details Date Type Department Care Team (Late st Contact Info) Description 09/07/2024 Telephone [facility] [address] [facility] [address] [place] [address] Srikanth Cox Social History Tobacco Use Types Packs/Day Years Used Date Smoking Tobacco: Never Smokeless Tobacco: Never Alcohol Use Standard Drinks/Week Comments Never 0 (1 standard drink = 0.6 oz pur e alcohol) [facility] Utilities Answer Date Recorded In the past 12 months has [employer] gas, oil, or water [employer] threatened to shut off services in your home? No 10/12/2023 Social Connection and Isolat ion Panel [NHANES] Answer Date Recorded In a typical week, how many times do you talk on the phone with family, friends, or neighbors? Once a week 10/12/2023 How often do you get togethe r with friends or relatives? Once a week 10/12/2023 How often do you attend [facility] or yazidism services? 1 to 4 times per year 10/12/2023 Do you belong to any clubs o r organizations such as alevism groups, unions, fraternal or athletic groups, or [...] any time in the past 12 m [facility], were you homeless or living in a fpc (including now)? No 10/12/2023 Personal Safety Answer Date Recorded Have you ever been in or are you currently in a harmful physical or emotional relationship or is someone making you feel afraid or unsafe? Denies 12/04/2023 Sex and Gender Information Value Date Recorded Sex Assigned at Not on file Legal Sex Male 11:12 AM ENVIRONMENTAL ENGINEERING INTERN Gender Identity Not on file Sexual Orientation Not on file documented as of this encounter Miscellaneous Notes * Telephone Encounter - Srikanth Cox - 09/07/2024 4:24 PM CDT We have sent you this letter as we have been unable to reach you by phone. Please call us at your earliest convenience to discuss scheduling your appointment with our [facility] If you have insurance, please be prepared to provide us with your most recent, active insurance information. We will also need you to provide a working phone number, when you call. We can be contacted at [phone]. We look forward to hearing from you. Sincerely, [facility] documented in this encounter Plan of Treatment Not on file documented as of this encounter Visit Diagnoses Not on filedocumented in this encounter Care Teams Emergency Specialist Relationship Specialty Start Date End Date Latanya Vee DO [facility] [address] [address] PCP - General Family Medicine 09/17/23 Padmini Miller MD [address] [facility] [address] [place] [address] Consulting Physician Physical Medicine and Rehabilitation 09/23/23 Lauro Shane MD [address] [facility] [address] [place] [address] Consulting Physician Pulmonary Disease 10/15/23 documented as of this encounter
--- OUTSIDE RECORDS SUMMARY | 2024-09-08 12:42 | XMS_ITS | Continuity of Care Document ---
Author Organization [facility] Address [address] [facility] [address] [place] [address] Phone Care Team Providers Care Informatics Manager Name Role Phone [facility] Unavailable Unavail able Lenore Calderon Unavailable Unavailable Procedures Procedure Date TF Polycarb Sphcyl [place] To +/-4d .12-2d Lens-Index 1.54-1.79 Glass Anti-reflective Coating Eye Exam & Treatment Refraction Office/outpatient Visit, Est Eye Exam & Treatment Refraction Eye Exam & Treatment Refraction SV Poly Carb Sph [place] To +/- 4 008 [facility] Frames Purchases SV Poly Carb Sph [place] To +/- 4 008 Tax - Medical Vision Svcs Frames Purchases SV Poly Carb Sph [place] To +/- 4 007 Tax - Medical Vision Svcs Frames Purchases BF Polycarb Sphcyl [place] To +/-4d .122d Tax - Medical BF Polycarb Sphcyl [place] To +/-4d .122d Tax - Medical Eye Exam & Treatment Refraction Advance Directives Directive Yes / No Effective Date File Name No Information Encounters Encounter Description Practice Location Reason(s) For Visit Diagnoses Date Provider Providers Copied on Encounter [facility], [address], [place], [place], [address], [place] tel:[phone] [facility] No Information Oct-2 0-201 0 [facility]. [address] [facility], [address], [place], [place], [address], [place]. tel:[phone] Referring Provider: Adelso Hernandez OD A, [address] [facility] [address], [place], [address]. tel:[phone] g Provider: Lenore Calderon, [address] [facility], [place], [address]. tel:[phone] [facility], [address], [place], [place], [address], [place] tel:[phone] [facility] No Information Oct-1 5-201 0 Hernandez OD Adelso. [address] [facility] , [address], [place], [place], [facility], [place]. tel:[phone] Office/outpa tient Visit, Est [facility], [address], [place], [place], [address], [place] tel:[phone] [facility] No Information Renato-1 3-201 0 Krishnasamy Hoang. [address] [facility] [address], [place], [address], [place]. tel:[phone] [facility], [address], [place], [place], [address], [place] tel:[phone] [facility] No Information Oct-0 2-200 9 Hernandez OD Adelso. [address] [facility] , [address], [place], [address], [place]. tel:[phone] [facility], [address], [place], [place], [address], [place] tel:[phone] [facility] No Information Sep-1 9-200 8 Hernandez OD Adelso. [address], [address], [place], [address], [place]. tel:[phone] [facility], [address], [place], [place], [address], [place] tel:[phone] [facility] No Information 200 8 [facility]. [address] [facility], [address], [place], [address], [place]. tel:[phone] Consulting Provider: Lenore Calderon, [address] [place] [address], [address]. tel:[phone] [facility], [address], [place], [place], [address], [place] tel:[phone] [facility] No Information 8 [facility]. [address] [facility], [address], [place], [address], [place]. tel:[phone] Consulting Provider: Lenore Calderon, [address] [place] [address], [address]. tel:[phone] [facility], [address] [place] [address] [address], [place], [place], [id number], [place] tel:[phone] [facility] No Information Sep-2 7 [facility]. [address] [facility], [address], [place], [address], [place]. tel:[phone] Consulting Provider: Lenore Calderon, [address] [place] [address], [address]. tel:[phone] [facility], [address] [place] [address] [address], [place], [place], [address], [place] tel:[phone] [facility] No Information Sep-2 -200 7 [facility]. [address] [facility], [address], [place], [address], [place]. tel:[phone] Consulting Provider: Lenore Calderon, [address] [place] [address], [place], [address]. tel:[phone] [facility], [address] [facility] [address], [place], [place], [address], [place] tel:[phone] [facility] No Information Sep-2 1-200 7 [facility]. [address] [facility], [address], [place], [place], [address], [place]. tel:[phone] Referring Provider: Adelso Sanches, [address] [facility] [address], [place], [address]. tel:[phone] g Provider: Lenore Calderon, [address] [place] [address], [address]. tel:[phone] 68[address] [facility], [address] [place], [place] [address], [place], [place], [address], [place] tel:[phone] [facility] No Information Sep-1 8-200 7 Hernandez OD Adelso. [address] [facility] , [address], [place], [address], [place]. tel:[phone] Family History Family Member Type Diagnosis Age At Onset No Information Payers Payer name Insurance type Covered constitution party ID Jered duffy(s) [employer] Plan CI [id number] Social History Type Description Quantity Date Captured Comments Sex Male Smoking Status No Information Chief Complaint And Reason For Visit No Information Reason For Referral Reason For Referral No Information History Of Present Illness Encounter Date Complaint History Of Prese nt Illness No Information Functional Status Date Functional Assessmen t No Information Instructions Date Instruction Additional Infor mation No Information Assessments Type Assessment Date No Information Patient Care Teams Name Effective Dates (start - stop) Status Members No Information
[2024-09-08 12:45] VITALS: BP 111/56; PULSE 63; RESP 14; TEMP 36.9; O2SAT 97
--- NOTE | 2024-09-08 13:33 | ED_ITS ---
HPI - General Adult General Chief complaint: Epistaxis Stated complaint: epistaxis Time Seen by Provider: 09/08/24 13:04 History of Present Illness HPI narrative: 88-year-old male present to the emergency department for evaluation for intermittent epistaxis that is been ongoing since last night. Patient does take Eliquis. Upon arrival emergency department patient has no current epistaxis Related Data Home Medications ?Medication ?Instructions ?Recorded ?Confirmed ?Last Taken ?Type aspirin 81 mg tablet,delayed 81 mg PO DAILY 08/14/19 08/15/24 06/08/24 History release (Adult Low Dose Aspirin) glucosamine HCl 1,500 mg tablet 1,500 mg PO DAILY 08/14/19 08/15/24 06/08/24 History multivitamin 1 tablet PO DAILY 08/14/19 08/15/24 06/08/24 History L.acidop,casei,lactis,rham-B.lact,colin 1 cap PO DAILY 09/17/23 08/15/24 06/08/24 History 625 mg (10 billion cell) capsule (Advanced Probiotic) ascorbate calcium (vitamin C) 500 500 mg PO DAILY 12/23/23 08/15/24 06/08/24 History mg tablet docusate sodium 100 mg capsule 100 mg PO DAILY 12/23/23 08/15/24 06/08/24 History (Colace) ferrous sulfate 325 mg (65 mg 325 mg PO DAILY 12/23/23 08/15/24 06/08/24 History iron) tablet,delayed release acoramidis 356 mg tablet (Attruby) 712 mg PO BID 08/15/24 08/15/24 Unknown History apixaban 5 mg tablet (Eliquis) 5 mg PO BID 08/15/24 08/15/24 Unknown History potassium chloride 20 mEq 20 meq PO DAILY 08/15/24 08/15/24 Unknown History tablet,extended release (K-Tab) Allergies Allergy/AdvReac Type Severity Reaction Status Date / Time No Known Allergies Allergy Verified 08/15/24 11:12 Review of Systems 2 Review of Systems: All systems reviewed & are unremarkable except as noted in HPI and below PMFSH Past Medical History Medical History Heart failure CAD (coronary artery disease) Nocturnal leg cramps Vitamin D deficiency Carpal tunnel syndrome Benign prostatic hyperplasia Prediabetes 5.7% on 09/07/23 Pure hypercholesterolemia, unspecified Hearing problem Surgical History Surgical History History of carpal tunnel release History of microdiscectomy Family History Family History Father Family history of diabetes mellitus in first degree relative Diabetes mellitus Family history of cardiovascular disease Cerebrovascular accident Patient's father is , Onset Age: 83 Mother Family history of diabetes mellitus in first degree relative Diabetes mellitus Patient's mother is , Onset Age: 99 Other Family history of malignant neoplasm of brain Social History Social History Social History: Caffeine-coffee Has a son who resides in [facility] Smoking status: Never smoker Alcohol intake: never Substance use: never Substance use type: does not use Do You Feel Safe in your Home?: No Lack of Transportation: No Lack of Food: Never True Current Housing: I Have Housing Concerned About Future Housing: No Difficulty Paying Gas/Electric Bills: No Difficulty Paying for Meds: No Currently Unemployed: No Education: Master's Degree or Higher Difficulty w/ Childcare or Family Care: No Living arrangements: alone Occupation/Education: retired Gender identity (if verbalized by the patient): Male Spiritual care concerns: No Exam 2 Narrative: APPEARANCE: Well appearing, no pain, no distress, well-nourished. HEAD: normocephalic, atraumatic. EYES: PERRLA/EOMI, conjunctivae clear. NOSE: Normal no drainage EARS:TMS clear with good light reflex. THROAT: Pharynx clear, no exudate. NECK: Supple. No adenopathy, no masses. RESPIRATORY: Airway patent, respirations nonlabored. Clear to auscultation bilaterally, no rales, rhonchi, wheezing. CARDIOVASCULAR: Regular rate and rhythm without murmurs rubs or gallops. ABDOMINAL: Soft, nontender, nondistended, normal bowel sounds MUSCULOSKELETAL: Moves all extremities. Strength/ROM intact, No edema, No calf tenderness. NEURO: Alert. Cranial nerves II through XII intact. Good gait. Good coordination SKIN: Warm, dry. Normal Color Course Vital Signs Vital signs: Vital Signs Temperature 98.4 F 09/08/24 12:45 Pulse Rate 63 09/08/24 12:45 Respiratory Rate 14 09/08/24 12:45 Blood Pressure 111/56 L 09/08/24 12:45 Pulse Oximetry 97 09/08/24 12:45 Temperature 97.4 F L 09/08/24 15:00 Pulse Rate 89 09/08/24 15:00 Respiratory Rate 16 09/08/24 15:00 Blood Pressure 119/54 L 09/08/24 15:00 Pulse Oximetry 99 09/08/24 15:00 Medical Decision Making MDM Narrative Medical decision making narrative: 88-year-old male presents emergency department for evaluation for epistaxis. Epistaxis was resolved upon arrival to the emergency department. Patient was provided Afrin packing. Patient does have a hemoglobin of 12.7, patient's creatinine was down to 1.69, patient does report decreased p.o. intake over the last day or so. Patient was encouraged of close follow-up with ENT. Patient was encouraged to have follow-up with his primary care physician to have his labs were checked Vital Signs Vital Signs: Vital Signs Temperature 98.4 F 09/08/24 12:45 Pulse Rate 63 09/08/24 12:45 Respiratory Rate 14 09/08/24 12:45 Blood Pressure 111/56 L 09/08/24 12:45 Pulse Oximetry 97 09/08/24 12:45 Temperature 97.4 F L 09/08/24 15:00 Pulse Rate 89 09/08/24 15:00 Respiratory Rate 16 09/08/24 15:00 Blood Pressure 119/54 L 09/08/24 15:00 Pulse Oximetry 99 09/08/24 15:00 Lab Data 09/08/24 14:16 09/08/24 14:16 Labs: Lab Results 09/08/24 Range/Units 14:16 WBC 6.3 (4.5-10.0) K/mm3 RBC 4.00 L (4.6-6.20) M/mm3 Hgb 12.7 L (14.0-18.0) g/dL Hct 37.4 L (42.0-52.0) % MCV 93.5 (80-100) fl MCH 31.8 (26-34) pg MCHC 34.0 (32-36) g/dl RDW 15.6 H (11.5-14.5) % Plt Count 155 (150-375) k/mm3 MPV 10.3 (7.4-10.4) fl Immature Gran % (Auto) 0.3 (0-0.5) % Neut % (Auto) 67.0 (45.5-73.1) % Lymph % (Auto) 19.7 (18.3-44.2) % [place] % (Auto) 9.9 H (2.6-8.5) % Eos % (Auto) 2.5 (0-4.4) % Baso % (Auto) 0.6 (0.2-1.2) % Lymph # (Auto) 1.24 (0.9-3.2) K/mm3 [place] # (Auto) 0.6 (0.1-0.6) K/mm3 Eos # (Auto) 0.2 (0-0.3) K/mm3 Baso # (Auto) 0.0 (0.0-0.1) K/mm3 Abs Immat Gran (auto) 0.02 (0.00-0.031) K/mm3 Absolute Neuts (auto) 4.2 (1.3-6.7) K/mm3 Absolute Nucleated RBC 0.000 (0.0-0.012) K/mm3 Nucleated RBC % 0.0 (0.0-0.2) % Sodium 135 L (137-145) mmol/L Potassium 2.9 L (3.4-5.0) mmol/L Chloride 87 L (98-107) mmol/L Carbon Dioxide 39 H (22-30) mmol/L Anion Gap 9 (4-12) mmol/L BUN 83 H D (9-20) mg/dL Creatinine 1.69 H (0.7-1.3) mg/dL Estim Creat Clear Calc 24 ml/min Estimated GFR 39 L (59 - ) Glucose 166 H (65-110) mg/dL Calcium 9.2 (8.4-10.2) mg/dL Discharge Plan Discharge Clinical Impression: Epistaxis, Acute hypokalemia, Acute kidney injury Patient Disposition: Home Condition: Stable Instructions: Antibiotic Form, Nosebleed (ED) Additional Instructions: Nasal clamp as directed for epistaxis. Have close follow-up with ENT. Use your bedside humidifier. Drink plenty of water and have close follow-up with your primary care physician to have your kidney function recheck. Patient Language: Danish Prescriptions: No Action aspirin [Adult Low Dose Aspirin] 81 mg tablet,delayed release (DR/EC) 81 mg PO DAILY glucosamine HCl 1,500 mg tablet 1,500 mg PO DAILY Rx Instructions: administer with a meal multivitamin Tablet 1 tablet PO DAILY ascorbate calcium (vitamin C) 500 mg tablet 500 mg PO DAILY docusate sodium [Colace] 100 mg capsule 100 mg PO DAILY ferrous sulfate 325 mg (65 mg iron) tablet,delayed release (DR/EC) 325 mg PO DAILY levothyroxine 25 mcg tablet 25 mcg PO DAILY Qty: 90 1RF potassium chloride [K-Tab] 20 mEq tablet extended release 20 meq PO DAILY Eliquis 5 mg tablet 5 mg PO BID Attruby 356 mg tablet 712 mg PO BID Advanced Probiotic 625 mg (10 billion cell) Capsule 1 cap PO DAILY carvedilol 6.25 mg tablet 6.25 mg PO BID Qty: 180 1RF simvastatin 5 mg tablet See Rx Instructions .ROUTE .COMPLEX Qty: 90 1RF Dose Instruction: TAKE 1 TABLET BY MOUTH EVERY DAY Rx Instructions: TAKE 1 TABLET BY MOUTH EVERY DAY tamsulosin 0.4 mg capsule 0.4 mg PO QPM Qty: 90 1RF Rx Instructions: TAKE 1 CAPSULE BY MOUTH EVERY DAY AT BEDTIME Follow-up/Referrals: Tye Lyon MD [Physician] - Latanya Vee DO [Primary Care Provider] -
--- OUTSIDE RECORDS SUMMARY | 2024-09-08 13:43 | XMS_ITS | Encounter Summary ---
Author Organization [facility] Healthcare Address [address] [place] [address] Care Team Providers Care Show Design Supervisor Name Role Phone Latanya Vee DO Primary Care Provider [phone] Padmini Miller MD Unavailable [phone] Lauro Shane MD Unavailable [phone] Encounter Details Date Type Department Care Team (Late st Contact Info) Description 08/06/2024 Results Follow-Up [facility] [address] [place] [address] Ivet Zepeda NP [address] [address] Social History Tobacco Use Types Packs/Day Years Used Date Smoking Tobacco: Never Smokeless Tobacco: Never Alcohol Use Standard Drinks/Week Comments Never 0 (1 standard drink = 0.6 oz pur e alcohol) [facility] Utilities Answer Date Recorded In the past 12 months has [employer], gas, oil, or water company threatened [...] often do you attend chur ch or spiritism services? 1 to 4 times per year [...] place to sleep or slept in a halfway (including now)? No 09/22/2023 Housing Stability Vital Sign Answer Ivan e Recorded In the last 12 months, was t here a time when you were not able to pay the mortgage or rent on time? No 10/12/2023 In the past 12 months, how m any times have you moved where you were living? 1 10/12/2023 At any time in the past 12 m [facility], were you homeless or living in a halfway (including now)? No 10/12/2023 Personal Safety Answer Date Recorded Have you ever been in or are you currently in a harmful physical or emotional relationship or is someone making you feel afraid or unsafe? 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 [address] [address] PCP - General Family Medicine 09/17/23 Padmini Miller MD [address] [place] [address] Consulting Physician Physical Medicine and Rehabilitation 09/23/23 Lauro Shane MD [address] [place] [address] Consulting Physician Pulmonary Disease 10/15/23 documented as of this encounter
--- OUTSIDE RECORDS SUMMARY | 2024-09-08 13:43 | XMS_ITS | Referral Summary ---
Author Organization [facility] [address] Address [address] [place] [address] Care Team Providers Care Residential Appraiser Name Role Phone Latanya Vee DO Primary Care Provider [phone] Padmini Miller MD Unavailable [phone] Lauro Shane MD Unavailable Encounters Date Type Department Care Team Description 09/07/2024 Telephone [facility] [address] [place] [address] Srikanth Cxo 09/05/2024 Research Med Pick-Up/CTRU Feed In Worker [facility] Clinical Trial 1 [place] [address] Tala Hussein RN Research subject (Primary Dx) 09/05/2024 Results Follow-Up [facility] Cardiology [address] Floor 1, [address] [place] [address] Zachary Fields MD 09/05/2024 Documentation [facility] Clinical Trial 1 [place] [address] Tala Hussein RN 09/05/2024 10:20 AM CDT - 09/05/2024 11:59 PM CDT Hospital Encounter [address] [place] [address] Research subject Discharge Disposition: Discharge to home or self care 08/29/2024 Orders Only [facility] Clinical Trial 1 [place] [address] Tala Hussein RN Research subject (Primary Dx) 08/23/2024 Orders Only [facility] Cardiology [address] Floor 1, [address] [place] [address] RaterIvet NP 08/21/2024 Telephone [facility] Cardiology [address] [facility] 8th [place] [address] [place] [address] Ivet Zepeda NP 08/21/2024 2:30 PM CDT Office Visit [facility] Cardiology [address] [place] [address] Sarah Griffin NP Chronic diastolic congestive heart failure (HCC) (Primary Dx); Wild-type transthyretin-related (ATTR) amyloidosis (HCC); Atrial fibrillation, unspecified type (HCC); Encounter for anticoagulation discussion and counseling 08/19/2024 Results Follow-Up [facility] Cardiology [address] [facility] [address] [place] [address] Zachary Fields MD 08/11/2024 Orders Only [facility] Cardiology [facility] Floor 1, [address] [place] [address] Zachary Fields MD 08/11/2024 Telephone [facility] Cardiology [facility] [address] Floor 1, [address] [place] [address] Zachary Fields MD 08/10/2024 Results Follow-Up [facility] Cardiology [facility] [address] Floor 1, [address] [place] [address] Zachary Fields MD 08/08/2024 Documentation [facility] Clinical Trial 1 [place] [address] Tala Hussein RN 08/08/2024 Results Follow-Up [facility] Cardiology [facility] [address] Floor 1, [address] [place] [address] Zachary Fields MD 08/07/2024 Documentation [facility] Clinical Trial 1 [place] [address] Tala Hussein RN 08/07/2024 Research Med Pick-Up/CTRU Feed In Worker [facility] Clinical Trial 1 [place] [address] Tala Hussein RN Research subject (Primary Dx) 08/07/2024 10:23 AM CDT - 08/07/2024 11:59 PM CDT Hospital Encounter [address] [address] Discharge Disposition: Discharge to home or self care 08/07/2024 Orders Only [facility] Clinical Trial 1 [place] [address] Tala Hussein RN Research subject (Primary Dx) 08/07/2024 Orders Only [facility] Clinical Trial 1 [place] [address] Tala Hussein RN Research subject (Primary Dx) 08/06/2024 Results Follow-Up [address] [address] Ivet Zepeda NP 08/04/2024 2:45 PM CDT Lab [facility] - Lab Collection [address] [place] [address] Floor 5 [place] [address] Research subject; Left ventricular hypertrophy; Diastolic heart failure of unknown etiology (HCC); Mixed hyperlipidemia; 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; Amyloidosis, unspecified type (HCC) 08/04/2024 1:00 PM CDT Office Visit [facility] Cardiology [facility] [address] Floor 1, [address] [place] [address] Ivet Zepeda NP Left ventricular hypertrophy (Primary Dx); Diastolic heart failure of unknown etiology (HCC); Mixed hyperlipidemia; 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; Amyloidosis, unspecified type (HCC) 07/26/2024 Orders Only [facility] Cardiology [address] [facility] Medicine 8th [place] [address] [place] [address] Sarah Interiano RN Cardiac amyloidosis (HCC) (Primary Dx) 07/26/2024 Orders Only [facility] Clinical Trial 1 [place] [address] Tala Hussein RN Research subject (Primary Dx) 07/25/2024 Results Follow-Up [facility] Cardiology [address] [facility] Medical Office Building 3 [address] [place] [address] Zachary Fields MD 07/21/2024 Orders Only [facility] CARDIOLOGY Scanning, Provider 07/11/2024 Telephone [facility] Cardiology [address] Floor 1, [address] [place] [address] Sarah Interiano RN wt down 34 lbs 07/07/2024 Documentation [facility] Clinical Trial 1 [place] [address] Lynn Yung MS 07/07/2024 Results Follow-Up [facility] Cardiology [address] [facility] [address] [place] [address] Zachary Fields MD 07/07/2024 12:09 PM SPIRAL TUBE WINDER HELPER - 07/07/2024 11:59 PM SPIRAL TUBE WINDER HELPER Hospital Encounter [facility] [address] [place] [address] Research subject Discharge Disposition: Discharge to home or self care 07/07/2024 Orders Only [facility] Clinical Trial 1 [place] [address] Tala Hussein RN Research subject (Primary Dx) 07/06/2024 Telephone [facility] Scheduling [address] [place] [address] Zachary Fields MD Prior Auth (Attruby 356MG tablets) 07/06/2024 Telephone [facility] [address] [facility] [address] [place] [address] Chevy Hu RPh 07/06/2024 Telephone [facility] Cardiology [address] Floor 1, [address] [place] [address] Zachary Fields MD 07/06/2024 Orders Only [facility] Cardiology [address] Floor 1, [address] [place] [address] Zachary Fields MD 06/29/2024 Telephone [facility] Cardiology [address] [facility] 8th [place] [address] [place] [address] Zachary Fields MD 06/28/2024 Telephone [facility] Cardiology [facility] [address] Floor 1, [address] [place] [address] Zachary Fields MD 06/16/2024 Telephone [facility] Clinical Trial 1 [place] [address] Lynn Yung, 06/14/2024 Orders Only [facility] Cardiology [address] [place] [address] Florida Shah MD 06/13/2024 12:00 PM SPIRAL TUBE WINDER HELPER Lab [facility] - Lab Collection [address] [facility] Floor 5 [place] [address] Amyloidosis, unspecified type (HCC); Diastolic heart failure of unknown etiology (HCC) 06/13/2024 9:00 AM SPIRAL TUBE WINDER HELPER Office Visit [facility] Cardiology [address] 1, [address] [place] [address] Zachary Fields MD Diastolic heart failure of unknown etiology (HCC) (Primary Dx); Left ventricular hypertrophy; Mixed hyperlipidemia; 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 06/13/2024 11:18 AM SPIRAL TUBE WINDER HELPER - 06/13/2024 11:59 PM SPIRAL TUBE WINDER HELPER Hospital Encounter [facility] Radiology 1 [place] [address] Discharge Disposition: Discharge to home or self care 06/13/2024 11:00 AM SPIRAL TUBE WINDER HELPER - 06/13/2024 11:59 PM SPIRAL TUBE WINDER HELPER Hospital Encounter [facility] Radiology 1 [place] [address] Amyloidosis, unspecified type (HCC) Discharge Disposition: Discharge [...] Information Patient not taking.Reported on 08/21/2024 omega 6-yvv-utg-fish oil (Fish OiL) 1,000 (120-180) mg capsule [...] Route Frequency Start Date End Date Status INV-[facility] [id number]/placebo (/[id number] M-301) 50 mg/mL IV 3,200 mgIndications:Research subject 3200 mg IV Once 09/05/2024 09/05/2024 Ended INV-[facility] dextrose 5% in water (D5W) (/[id number] M-301) flush syringe 10 mLIndications:Research subject 10 mL IV Once 09/05/2024 09/05/2024 Ended INV-[facility] acetaminophen (/[id number] M-301) tablet 500 mgIndications:Research subject 500 mg oral Once 09/05/2024 09/05/2024 Ended INV-[facility] diphenhydrAMINE (/[id number] M-301) 50 mg/mL injection 25 mgIndications:Research subject [...] 0.6 oz pur e alcohol) [facility] Utilities Answer Date Recorded In the past 12 months has [employer] electric, gas, oil, or water company threatened [...] week 10/12/2023 How often do you attend [facility] or pentecostalism services? 1 to 4 times per year 10/12/2023 Do you belong to any clubs o r organizations such as yarsani groups, unions, fraternal or athletic groups, or [...] place to sleep or slept in a assisted (including now)? No 09/22/2023 Housing Stability Vital Sign Answer Ivan e Recorded In the last 12 months, was t here a time when you were not able to pay the mortgage or rent on time? No 10/12/2023 In the past 12 months, how m any times have you moved where you were living? 1 10/12/2023 At any time in the past 12 m [facility], were you homeless or living in a assisted (including now)? No 10/12/2023 Personal Safety Answer Date Recorded Have you ever been in or are you currently in a harmful physical or emotional relationship or is someone making you feel afraid or unsafe? 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 Amyloidosis, unspecified type (HCC) PLATELET COUNT STAT 08/04/2024 2:46 PM CDT Research subject PRO B-TYPE NATRIURETIC PEPTIDE Routine 07/21/2024 8:16 AM SPIRAL TUBE WINDER HELPER 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) Lower extremity edema BASIC METABOLIC PANEL Routine 07/21/2024 8:15 AM SPIRAL TUBE WINDER HELPER 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) Lower extremity edema KAPPA/LAMBDA LIGHT CHAINS FREE WITH RATIO, SERUM Routine 07/21/2024 8:15 AM SPIRAL TUBE WINDER HELPER Amyloidosis, unspecified type (HCC) IMMUNOFIXATION ELECTROPHORESIS Routine 07/21/2024 8:15 AM SPIRAL TUBE WINDER HELPER Amyloidosis, unspecified type (HCC) SCAN - LABS 07/21/2024 PROTIME-INR Routine 07/07/2024 12:09 PM SPIRAL TUBE WINDER HELPER Research subject APTT Routine 07/07/2024 12:09 PM SPIRAL TUBE WINDER HELPER Research subject NM MYOCARDIAL AMYLOIDOSIS IMAGING SPECT/CT Schedule Routine, Read Routine (OP Routine) 06/13/2024 3:05 PM SPIRAL TUBE WINDER HELPER Amyloidosis, unspecified type (HCC) URINALYSIS AND REFLEX TO MICROSCOPIC Routine 06/13/2024 10:50 AM SPIRAL TUBE WINDER HELPER Amyloidosis, unspecified type (HCC) Diastolic heart failure of unknown etiology (HCC) PROTEIN / CREATININE RATIO, URINE, RANDOM Routine 06/13/2024 10:50 AM SPIRAL TUBE WINDER HELPER Amyloidosis, unspecified type (HCC) Diastolic heart failure of unknown etiology (HCC) LIPID PANEL Routine 06/13/2024 10:40 AM SPIRAL TUBE WINDER HELPER Amyloidosis, unspecified type (HCC) Diastolic heart failure of unknown etiology (HCC) EGFR Routine 06/13/2024 10:40 AM SPIRAL TUBE WINDER HELPER Amyloidosis, unspecified type (HCC) Diastolic heart failure of unknown etiology (HCC) DIFFERENTIAL AUTO Routine 06/13/2024 10:40 AM SPIRAL TUBE WINDER HELPER Amyloidosis, unspecified type (HCC) Diastolic heart failure of unknown etiology (HCC) PRO B-TYPE NATRIURETIC PEPTIDE Routine 06/13/2024 10:40 AM SPIRAL TUBE WINDER HELPER Amyloidosis, unspecified type (HCC) Diastolic heart failure of unknown etiology (HCC) BASIC METABOLIC PANEL Routine 06/13/2024 10:40 AM SPIRAL TUBE WINDER HELPER Amyloidosis, unspecified type (HCC) Diastolic heart failure of unknown etiology (HCC) CBC WITH AUTO DIFFERENTIAL Routine 06/13/2024 10:40 AM SPIRAL TUBE WINDER HELPER Amyloidosis, unspecified type (HCC) Diastolic heart failure of unknown etiology (HCC) IMMUNOTYPING Routine 06/13/2024 10:40 AM SPIRAL TUBE WINDER HELPER Amyloidosis, unspecified type (HCC) Diastolic heart failure of unknown etiology (HCC) IMMUNOGLOBULIN FREE LIGHT CHAINS Routine 06/13/2024 10:40 AM SPIRAL TUBE WINDER HELPER Amyloidosis, unspecified type (HCC) Diastolic heart failure of unknown etiology (HCC) TROPONIN I HIGH-SENSITIVITY Routine 06/13/2024 10:40 AM SPIRAL TUBE WINDER HELPER Amyloidosis, unspecified type (HCC) Diastolic heart failure of unknown etiology (HCC) SCAN - LABS 06/13/2024 CARDIOLOGY DOCUMENT SCAN Routine 06/11/2024 10:51 AM SPIRAL TUBE WINDER HELPER CARDIOLOGY DOCUMENT SCAN Routine 06/10/2024 10:27 AM SPIRAL TUBE WINDER HELPER from Last 3 Months Results * Platelet count (09/05/2024 10:20 AM CDT) Plt 161 150 - 400 K/cumm Blood 09/05/2024 10:2 0 AM CDT 09/05/2024 11:25 AM CDT Narrative [facility] - 09/05/2024 1:00 PM CDT 100% BILL TO RESEARCH [facility] [id number] Zachary Fields MD LAB BLOOD ORDERABLES Final Result [facility] Department [place] [address] * Platelet count (08/18/2024 8:28 AM CDT) Platelets 195 150 - 450 x10E3/uL [facility] - 01 Blood 08/18/2024 8:28 AM CDT 08/18/2024 Narrative [facility] - 08/19/2024 6:09 AM CDT Performed at: [address] [id number] Copy Coordinator: Armond Zambrano PhD, Phone: [phone] Specimen Comment: A courtesy copy of this report has been sent to the patient us Zachary Fields MD LAB BLOOD ORDERABLES Final Result Performing Organization Address [facility] Co de Phone Number LABCO [facility] - * (ABNORMAL) Platelet count (08/09/2024 2:36 PM CDT) Platelets 117(L) 150 - 450 x10E3/uL [facility] - 01 Comment:Verified by repeat analysis Blood 08/09/2024 2:36 PM CDT 08/09/2024 Narrative [facility] - 08/10/2024 7:09 AM CDT Performed at: [address] [id number] Copy Coordinator: Armond Zambrano PhD, Phone: [phone] us Zachary Fields MD LAB BLOOD ORDERABLES Final Result Performing Organization Address City/[facility]/ZIP Co de Phone Number [facility] - * (ABNORMAL) Platelet count (08/07/2024 10:23 AM CDT) Plt 115(L) 150 - 400 K/cumm Blood 08/07/2024 10:2 3 AM CDT 08/07/2024 11:35 AM CDT us Zachray Fields MD LAB BLOOD ORDERABLES Final Result Performing Organization Address City/[facility]/ZIP Co de Phone Number [facility] Department [place] [address] * (ABNORMAL) eGFR (08/04/2024 2:46 PM CDT) [...] ORDERABLES Final Resul t Performing Organization Address City/[facility]/ZIP Co de Phone Number [facility] Department [place] [address] * (ABNORMAL) Platelet count (08/04/2024 2:46 PM CDT) Plt 126(L) 150 - 400 K/cumm Comment:Testing performed by : [facility], [address] [place] [id number] Blood 08/04/2024 2:46 PM CDT 08/04/2024 2:50 PM CDT Narrative [facility] - 08/04/2024 2:53 PM CDT 100% BILL TO RESEARCH DEPLETTR-CM [id number] 100% BILL TO RESEARCH DEPLETTR-CM [id number] us Zachary Fields MD LAB BLOOD ORDERABLES Final Result Performing Organization Address City/[facility]/ZIP Co de Phone Number [facility] [place] [address] * (ABNORMAL) Basic metabolic panel (08/04/2024 2:46 PM CDT) Sodium 140 135 - 145 mmol/L Potassium, pl 4.2 3.3 - 4.9 mmol/L [facility] Chloride 100 97 - 110 mmol/L [facility] CO2 30 22 - 32 mmol/L [facility] Anion gap 10 2 - 15 mmol/L [facility] BUN 32(H) 6 - 25 mg/dL [facility] Creatinine 1.30 0.80 - 1.30 mg/dL [facility] Glucose 95 70 - 199 mg/dL [facility] Comment: Interpretive Data Fasting glucose [...] 2022. Calcium 9.1 8.5 - 10.3 mg/dL [facility] Blood 08/04/2024 2:46 PM CDT 08/04/2024 2:52 PM CDT Ivet Zepeda NP LAB BLOOD ORDERABLES Final Resul t Performing Organization Address City/[facility]/ZIP Co de Phone Number [facility] Department [place] [address] * (ABNORMAL) Pro B-type natriuretic peptide (07/21/2024 8:16 AM SPIRAL TUBE WINDER HELPER) proBNP 4,073(H) 0 - 486 pg/mL [facility] [...] independent 300 pg/mL Blood 07/21/2024 8:16 AM SPIRAL TUBE WINDER HELPER 07/21/2024 Narrative [facility] - 07/22/2024 8:11 AM SPIRAL TUBE WINDER HELPER Performed at: - [place] [id number] Copy Coordinator: Armond Zambrano PhD, Phone: [phone] us Zachary Fields MD LAB BLOOD ORDERABLES Final Result [facility] - 01 * (ABNORMAL) KAPPA/LAMBDA LIGHT CHAINS FREE WITH RATIO, SERUM (07/21/2024 8:15 AM SPIRAL TUBE WINDER HELPER) Free [place] Lt Chains,S 24.4(H) 3.3 - 19.4 mg/L [facility] - 01 Free Lambda Lt Chains,S 14.9 5.7 - 26.3 mg/L [facility] - 01 Trophy Club/Lambda Ratio, S 1.64 0.26 - 1.65 [facility] - 01 Blood 07/21/2024 8:15 AM SPIRAL TUBE WINDER HELPER 07/21/2024 Narrative [facility] - 07/24/2024 5:09 PM CDT Performed at: [address] [id number] Copy Coordinator: Armond Zambrano PhD, Phone: [phone] us Zachary Fields MD LAB BLOOD ORDERABLES Final Result Performing Organization Address [facility] de Phone Number [facility] * Immunofixation (07/21/2024 8:15 AM SPIRAL TUBE WINDER HELPER) [facility] Immunofixation Comment [facility] - Comment:No monoclonality det ected. Immunoglobulin G, Qn, Serum 1,170 603 - 1,613 mg/dL [facility] - 01 Immunoglobulin A, Qn, Serum 164 61 - 437 mg/dL [facility] - 01 Immunoglobulin M, Qn, Serum 41 15 - 143 mg/dL [facility] - 01 Blood 07/21/2024 8:15 AM SPIRAL TUBE WINDER HELPER 07/21/2024 Narrative [facility] - 07/25/2024 12:10 PM CDT Performed at: [address] [id number] Copy Coordinator: Armond Zambrano PhD, Phone: [phone] us Zachary Fields MD LAB BLOOD ORDERABLES Final Result Performing Organization Address [facility] de Phone Number [facility] * (ABNORMAL) Basic metabolic panel (07/21/2024 8:15 AM SPIRAL TUBE WINDER HELPER) [facility] Glucose 140(H) 70 - 99 mg/dL [...] [facility] - 01 Blood 07/21/2024 8:15 AM SPIRAL TUBE WINDER HELPER 07/21/2024 Narrative [facility] - 07/22/2024 8:11 AM SPIRAL TUBE WINDER HELPER Performed at: [address] [place] [id number] Copy Coordinator: Armond Zambrano PhD, Phone: [phone] Zachary Fields MD LAB BLOOD ORDERABLES Final Result [facility] - * SCAN - LABS (07/21/2024) Provider Scanning Final Result * aPTT (07/07/2024 12:09 PM SPIRAL TUBE WINDER HELPER) aPTT 35 28 - 38 sec Comment: Interpretive Data Heparin therapeutic range: 66.0 - 100.0 seconds. Range based on correlation with therapeutic heparin activity range of 0.3 - 0.7 Units/mL. Current interpretive data was last revised on 2023. Blood 07/07/2024 12:0 9 PM SPIRAL TUBE WINDER HELPER 07/07/2024 1:29 PM SPIRAL TUBE WINDER HELPER Narrative [facility] - 07/07/2024 1:52 PM SPIRAL TUBE WINDER HELPER 100% BILL TO RESEARCH DEPLETTR-CM [id number] 100% BILL TO [facility]EARCH [facility]PLETTR-CM [id number] us Zachary Fields MD LAB BLOOD ORDERABLES Final Result [facility] [place] [address] * (ABNORMAL) Protime-INR (07/07/2024 12:09 PM SPIRAL TUBE WINDER HELPER) PT 16.0(H) 9.7 - 13.0 sec INR 1.47(H) 0.90 - 1.20 [facility] Comment: Interpretive data Oral anticoagulant therapeutic ranges: Venous thromboembolism prophylaxis or treatment: 2.0-3.0 CARDIOLOGY Standard range: 2.0-3.0 High-intensity range: 2.5-3.5 Refer to indication-specific guidelines for appropriate target ranges for prosthetic heart valve replacement. Current interpretive data was last revised on 2019. Blood 07/07/2024 12:0 9 PM SPIRAL TUBE WINDER HELPER 07/07/2024 1:29 PM SPIRAL TUBE WINDER HELPER Narrative [facility] - 07/07/2024 1:52 PM SPIRAL TUBE WINDER HELPER 0% BILL TO RESEARCH DEPLETTR-CM [id number] 100% BILL TO RESEARCH DEPLETTR-CM [id number] us Zachary Fields MD LAB BLOOD ORDERABLES Final Result [facility] [place] [address] * NM Myocardial Amyloidosis Imaging SPECT/CT (06/13/2024 3:05 PM SPIRAL TUBE WINDER HELPER) Anatomical Region Laterality Modality N/A Nuclear Medicine 06/13/2024 3:58 PM SPIRAL TUBE WINDER HELPER Impressions 06/13/2024 4:21 PM SPIRAL TUBE WINDER HELPER 1. This study demonstrates diffuse and severe [...] Recommendations for Multimodality Imaging in Cardiac Amyloidosis (https://pubmed.ncbi.nlm.nih.gov/92482667/ and https://pubmed.ncbi.nlm.nih.gov/34601090/). Dictated by: Jon Harley M.D. The radiology attending physician has personally reviewed this study, and had reviewed and/or edited this written report and agrees with it. Electronically signed by: Ángel Capone M.D. Narrative 06/13/2024 4:21 PM SPIRAL TUBE WINDER HELPER EXAMINATION: MYOCARDIAL AMYLOID SCINTIGRAPHY (PLANAR/SPECT-CT) DATE OF [...] Recommendations for Multimodality Imaging in Cardiac Amyloidosis (https://pubmed.ncbi.nlm.nih.gov/20810551/ and https://pubmed.ncbi.nlm.nih.gov/10421118/). Dictated by: Jon Harley M.D. The radiology attending physician has personally reviewed this study, and had reviewed and/or edited this written report and agrees with it. Electronically signed by: Ángel Capone M.D. us Zachary Fields MD IMG NM PROCEDURES Fin al Result * Urinalysis reflex to microscopic (06/13/2024 10:50 AM SPIRAL TUBE WINDER HELPER) Color, ur Straw Yellow Clarity, ur Clear Clear [facility] Specific gravity, ur 1.013 1.003 - 1.030 [facility] pH, urine 6.5 [facility] Comment: Interpretive Data U rine pH is affected by diet, medications, systemic acid-base disturbances, and renal tubular function. pH may affect urinary stone formation. For example, urine pH below 6.0 may help reduce the tendency for calcium phosphate stones and pH greater than 6.0 may reduce the tendency for uric acid stone formation. Source: [place] Cloud.CM Current Interpretive Data was last revised on 2017 Protein, ur ql Negative Negative [facility] Glucose, ur ql Negative Negative [facility] Ketones, ur Negative Negative CERNER [facility] Bilirubin, ur Negative Negative C[facility]ER [facility] Blood, ur Negative Negative [facility] Urobilinogen, ur <2.0 <2.0 mg/dL [facility] Nitrite, ur Negative Negative [facility]ER [facility] Leukocyte esterase, ur Negative CERNER [facility] UA reflex comment Reflex conditions for microscopic UA not met. [facility] Urine 06/13/2024 10:5 0 AM SPIRAL TUBE WINDER HELPER 06/13/2024 10:50 AM SPIRAL TUBE WINDER HELPER Zachary Fields MD LAB URINE ORDERABLES Final Result Performing Organization Address [facility] Co de Phone Number [facility] [place] [address] * Protein / creatinine ratio, urine, random (06/13/2024 10:50 AM SPIRAL TUBE WINDER HELPER) Protein, ur, quant 7.2 mg/dL Comment: Interpretive Data No reference range established. Current interpretive data was last revised 2018. Creatinine Ur 48.2 mg/dL [facility] Comment: Interpretive Data No reference range established. Current interpretive data was last revised 2018. Protein/creatinin e ratio 149.4 0.0 - 180.0 mg/g CR [facility] Urine 06/13/2024 10:5 0 AM SPIRAL TUBE WINDER HELPER 06/13/2024 11:03 AM SPIRAL TUBE WINDER HELPER Zachary Fields MD LAB URINE ORDERABLES Final Result Performing Organization Address [facility] de Phone Number [facility] [place] [address] * (ABNORMAL) Troponin I high-sensitivity (06/13/2024 10:40 AM SPIRAL TUBE WINDER HELPER) Pathologist [facility] Trop I hs 50(H) <=35 ng/L Comment: Interpretive Data For further hscTnI resources including the diagnostic algorithm and an aid in interpretation, copy and paste this link: [email or web address].testcatalog.org/show/[email or web address] Current Interpretive Data last revised 2019. Blood 06/13/2024 10:4 0 AM SPIRAL TUBE WINDER HELPER 06/13/2024 11:20 AM SPIRAL TUBE WINDER HELPER Zachary Fields MD LAB BLOOD ORDERABLES Final Result Performing Organization Address [facility] de Phone Number [facility] Department [place] [address] * Immunotyping, serum (06/13/2024 10:40 AM SPIRAL TUBE WINDER HELPER) Immunosubtraction Please see comment Comment: NO PARAPROTEIN DETECTED Reviewed and signed by Nicola Mosley MD, PhD 06-14-24 Blood 06/13/2024 10:4 0 AM SPIRAL TUBE WINDER HELPER 06/13/2024 1:28 PM SPIRAL TUBE WINDER HELPER us Zachary Fields MD LAB BLOOD ORDERABLES Final Result [facility] [place] [address] * eGFR (06/13/2024 10:40 AM SPIRAL TUBE WINDER HELPER) eGFR 69 >=60 mL/min/1. 73 m2 Comment: [...] reviewed 2021. Blood 06/13/2024 10:4 0 AM SPIRAL TUBE WINDER HELPER 06/13/2024 10:55 AM SPIRAL TUBE WINDER HELPER us Zachary Fields MD LAB BLOOD ORDERABLES Final Result [facility] [place] [address] * Differential, auto (06/13/2024 10:40 AM SPIRAL TUBE WINDER HELPER) Neutrophil abs 3.2 1.5 - 6.5 K/cumm Comment:Testing performed by : [facility], [address] [place] [phone] Lymphocyte abs 0.8 0.8 - 3.3 K/cumm [facility] Comment:Testing performed by : [facility], [address] [place], [place] [phone] Monocyte abs 0.5 0.2 - 0.8 K/cumm [facility] Comment:Testing performed by : [facility], [address] [place] [address] Eosinophil abs 0.2 0.0 - 0.5 K/cumm [facility] Comment:Testing performed by : [facility], [address] [place] [phone] Basophil abs 0.1 0.0 - 0.1 K/cumm [facility] Comment:Testing performed by : [facility], [address] [place] [phone] Neutrophil pct 67.8 % [facility] Comment: Interpretive Data Percent cell count reference ranges are not reported, since discordance with absolute values may lead to misinterpretation of CBC data. Current Interpretive Data was last revised on 2017. Testing performed by: [facility], [address] [place] [phone] Lymphocyte pct 16.1 % [facility] Comment: Interpretive Data Percent cell count reference ranges are not reported, since discordance with absolute values may lead to misinterpretation of CBC data. Current Interpretive Data was last revised on 2017. Testing performed by: [facility], [address] [place] [phone] Monocyte pct 10.4 % [facility] Comment: Interpretive Data Percent cell count reference ranges are not reported, since discordance with absolute values may lead to misinterpretation of CBC data. Current Interpretive Data was last revised on 2017. Testing performed by: [facility], [address] [place] [phone] Eosinophil pct 4.3 % [facility] Comment: Interpretive Data Percent cell count reference ranges are not reported, since discordance with absolute values may lead to misinterpretation of CBC data. Current Interpretive Data was last revised on 2017. Testing performed by: [facility], [address] [place] [phone] Basophil pct 1.4 % [facility] Comment: Interpretive Data Percent cell count reference ranges are not reported, since discordance with absolute values may lead to misinterpretation of CBC data. Current Interpretive Data was last revised on 2017. Testing performed by: [facility], [address] [place] [phone] Blood 06/13/2024 10:4 0 AM SPIRAL TUBE WINDER HELPER 06/13/2024 10:47 AM SPIRAL TUBE WINDER HELPER Zachary Fields MD LAB BLOOD ORDERABLES Final Result [facility] [place] [address] * (ABNORMAL) Immunoglobulin free light chains (06/13/2024 10:40 AM SPIRAL TUBE WINDER HELPER) [place]/Lambda ratio [facility] 1.38 0.26 - 1.65 Comment: Interpretive Data The Binding Site FreeLite assay procedure was used. Results from different manufacturers or methods may not be comparable. Serial testing should be performed using the same methods and instrumentation. Current Interpretive Data was last revised on 2023. [place] free light chain [facility] 2.10(H) 0.33 - 1.94 mg/dL H[facility] Comment: Interpretive Data The Binding Site FreeLite assay procedure was used. Results from different manufacturers or methods may not be comparable. Serial testing should be performed using the same methods and instrumentation. Current Interpretive Data was last revised on 2023. Lambda free light chain BJ 1.52 0.57 - 2.63 mg/dL H[facility] Comment: Interpretive Data The Binding Site FreeLite assay procedure was used. Results from different manufacturers or methods may not be comparable. Serial testing should be performed using the same methods and instrumentation. Current Interpretive Data was last revised on 2023. Blood 06/13/2024 10:4 0 AM SPIRAL TUBE WINDER HELPER 06/13/2024 1:30 PM SPIRAL TUBE WINDER HELPER Zachary Fields MD LAB BLOOD ORDERABLES Final Result HAMZAH [facility] [place] [address] * (ABNORMAL) Pro B-type natriuretic peptide (06/13/2024 10:40 AM SPIRAL TUBE WINDER HELPER) NT-proBNP 3,562(H) <=450 pg/mL Comment: Interpretive Comments: [...] Date: 2018. Blood 06/13/2024 10:4 0 AM SPIRAL TUBE WINDER HELPER 06/13/2024 11:19 AM SPIRAL TUBE WINDER HELPER us Zachary Fields MD LAB BLOOD ORDERABLES Final Result [facility] [place] [address] * (ABNORMAL) CBC with auto differential (06/13/2024 10:40 AM SPIRAL TUBE WINDER HELPER) WBC 4.7 3.8 - 9.9 K/cumm Comment:Testing performed by : [facility], [address] [place] [address] Hgb 13.4 13.0 - 17.5 g/dL [facility]AH [facility] Comment:Testing performed by : [facility], [address] [place] [address] Hct 40.4 38.9 - 50.3 % [facility]AH [facility] Comment:Testing performed by : [facility], [address] [place] [address] Plt 141(L) 150 - 400 K/cumm [facility]AH [facility] Comment:Testing performed by : [facility], [address] [place] [address] MPV 9.0 6.8 - 10.4 fL [facility] Comment:Testing performed by : [facility], [address] [place] [address] RBC 4.23(L) 4.30 - 5.80 M/cumm [facility]AH [facility] Comment:Testing performed by : [facility], [address] [place] [address] MCV 95.4 81.3 - 96.4 fL [facility]AH [facility] Comment:Testing performed by : [facility], [address] [place] [address] MCH 31.6 27.1 - 33.3 pg CERIVET MALAVE Comment:Testing performed by : [facility], [address] [place] [phone] MCHC 33.2 32.3 - 35.7 g/dL [facility]AH [facility] Comment:Testing performed by : [facility], [address] [place], [place] [phone] RDW CV 15.1(H) 11.1 - 14.9 % [facility]AH [facility] Comment:Testing performed by : [facility], [address] [place] [phone] NRBC abs 0.00 0.00 - 0.01 K/cumm HAMZAH [facility] Comment:Testing performed by : [facility], [address] [place] [phone] Blood 06/13/2024 10:4 0 AM SPIRAL TUBE WINDER HELPER 06/13/2024 10:47 AM SPIRAL TUBE WINDER HELPER Zachary Fields MD LAB BLOOD ORDERABLES Final Result [facility] [place] [address] * Lipid panel (06/13/2024 10:40 AM SPIRAL TUBE WINDER HELPER) Cholesterol 117 30 - 199 mg/dL Comment: [...] revised on 2018. HDL 50 >=40 mg/dL [facility] Comment: Interpretive Data Ages < [...] on 2018. LDL, calculated 52 <=129 mg/dL [facility] Comment: Interpretive Data Ages < [...] revised on 2024. Non-HDL Cholesterol 67 mg/dL [facility] Comment: Interpretive Data Ages < [...] last revised on 2018. Chol/HDL ratio 2 [facility] Blood 06/13/2024 10:4 0 AM SPIRAL TUBE WINDER HELPER 06/13/2024 11:31 AM SPIRAL TUBE WINDER HELPER us Zachary Fields MD LAB BLOOD ORDERABLES Final Result [facility] [place] [address] * (ABNORMAL) Basic metabolic panel (06/13/2024 10:40 AM SPIRAL TUBE WINDER HELPER) Sodium 137 135 - 145 mmol/L Potassium, pl 3.7 3.3 - 4.9 mmol/L [facility] Chloride 94(L) 97 - 110 mmol/L [facility] CO2 35(H) 22 - 32 mmol/L [facility] Anion gap 8 2 - 15 mmol/L [facility] BUN 27(H) 6 - 25 mg/dL [facility] Creatinine 1.05 0.80 - 1.30 mg/dL [facility] Glucose 140 70 - 199 mg/dL [facility] Comment: Interpretive Data Fasting glucose [...] 2022. Calcium 9.7 8.5 - 10.3 mg/dL [facility] Blood 06/13/2024 10:4 0 AM SPIRAL TUBE WINDER HELPER 06/13/2024 10:55 AM SPIRAL TUBE WINDER HELPER us Zachary Fields MD LAB BLOOD ORDERABLES Final Result [facility] [place] [address] * SCAN - LABS (06/13/2024) us Provider Scanning Final Result * Cardiology Document Scan (06/11/2024 10:51 AM SPIRAL TUBE WINDER HELPER) Anatomical Region Laterality Modality Other Florida Shah MD [facility] PROCEDU RES Final Result * Cardiology Document Scan (06/10/2024 10:27 AM SPIRAL TUBE WINDER HELPER) Anatomical Region Laterality Modality Other Florida Shah MD CV CARDIAC SERVICES PROCEDU RES Final Result from Last 3 Months Insurance T MEDICARE T MEDICARE MEDICARE [facility] Address: [address] [address] [place] [address] Advance Directives For more information, please contact: [phone] * Full Code (Latest Code Status on File) Date Activated Date Inactivated Comments 12/03/2023 9:20 PM 12/06/2023 5:42 PM * Full Code Date Activated Date Inactivated Comments 10/08/2023 5:17 AM 10/15/2023 10:12 PM * Full Code Date Activated Date Inactivated Comments 09/21/2023 5:54 PM 09/23/2023 10:32 PM Care Teams Residential Appraiser Relationship Specialty Start Date End Date Latanya Vee DO [address] [place] [address] [address] PCP - General Family Medicine 09/17/23 Padmini Miller MD [address] [facility] [address] [place] [address] Consulting Physician Physical Medicine and Rehabilitation 09/23/23 Lauro Shane MD [address] [facility] [address] [place] [address] Consulting Physician Pulmonary Disease 10/15/23
--- OUTSIDE RECORDS SUMMARY | 2024-09-08 13:43 | XMS_ITS | Encounter Summary ---
Author Organization [facility] Address [address] [place] [address] Phone Care Team Providers Care Chicken Cutter Name Role Phone Latanya Vee DO Primary Care Provider [phone] Padmini Miller MD Unavailable [phone] Lauro Shane MD Unavailable Encounter Details Date Type Department Care Team (Late st Contact Info) Description 08/10/2024 Results Follow-Up [facility] Cardiology [address], [address] [place] [address] Zachary Fields MD [address] [facility] [place] [address] Social History Tobacco Use Types Packs/Day Years Used Date Smoking Tobacco: Never Smokeless Tobacco: Never Alcohol Use Standard Drinks/Week Comments Never 0 (1 standard drink = 0.6 oz pur e alcohol) [facility] Utilities Answer Date Recorded In the past 12 months has [employer], gas, oil, or water [employer] threatened to shut off services in your [...] often do you attend chur ch or bahai services? 1 to 4 times per year 10/12/2023 Do you belong to any clubs o r organizations such as yazidism groups, unions, fraternal or athletic groups, or [...] place to sleep or slept in a intermediate (including now)? No 09/22/2023 Housing Stability Vital [...] were you homeless or living in a intermediate (including now)? No 10/12/2023 Personal Safety Answer Date Recorded Have you ever been in or are you currently in a harmful physical or emotional relationship or is someone making you feel afraid or unsafe? 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 [address] [address] PCP - General Family Medicine 09/17/23 Padmini Miller MD [address] [place] [address] Consulting Physician Physical Medicine and Rehabilitation 09/23/23 Lauro Shane MD [address] [place] [address] Consulting Physician Pulmonary Disease 10/15/23 documented as of this encounter
--- OUTSIDE RECORDS SUMMARY | 2024-09-08 13:43 | XMS_ITS | Encounter Summary ---
Author Organization [facility] Address [address] [place] [address] Care Team Providers Care Director Of Research And Development Name Role Phone Latanya Vee DO Primary Care Provider [phone] Padmini Miller MD Unavailable [phone] Lauro Shane MD Unavailable Encounter Details Date Type Department Care Team (Late st Contact Info) Description 09/07/2024 Telephone [facility] [address] [facility] [address] [place] [address] Srikanth Cox Social History Tobacco Use Types Packs/Day Years Used Date Smoking Tobacco: Never Smokeless Tobacco: Never Alcohol Use Standard Drinks/Week Comments Never 0 (1 standard drink = 0.6 oz pur e alcohol) [facility] Utilities Answer Date Recorded In the past 12 months has [employer], gas, oil, or water [employer] threatened to shut off services in your home? No 10/12/2023 Social Connection and Isolat ion Panel [NHANES] Answer Date Recorded In a typical week, how many times do you talk on the phone with family, friends, or neighbors? Once a week 10/12/2023 How often do you get togethe r with friends or relatives? Once a week 10/12/2023 How often do you attend [facility] or latter-day services? 1 to 4 times per year 10/12/2023 Do you belong to any clubs o r organizations such as mandaeism groups, unions, fraternal or athletic groups, or [...] any time in the past 12 m [facility], were you homeless or living in a usp (including now)? No 10/12/2023 Personal Safety Answer Date Recorded Have you ever been in or are you currently in a harmful physical or emotional relationship or is someone making you feel afraid or unsafe? 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 We can be contacted at [phone]. We look forward to hearing from you. Sincerely, [facility] documented in this encounter Plan of Treatment Not on file documented as of this encounter Visit Diagnoses Not on filedocumented in this encounter Care Teams Director Of Research And Development Relationship Specialty Start Date End Date Latanya Vee DO [facility] [address] [address] PCP - General Family Medicine 09/17/23 Padmini Miller MD [address] [facility] [address] [place] [address] Consulting Physician Physical Medicine and Rehabilitation 09/23/23 Lauro Shane MD [address] [facility] [address] [place] [address] Consulting Physician Pulmonary Disease 10/15/23 documented as of this encounter
--- OUTSIDE RECORDS SUMMARY | 2024-09-08 13:43 | XMS_ITS | Clinical Summary ---
Author Organization [facility] Address [address] [place] [address] Care Team Providers Care Supervisor Putty And Caluking Name Role Phone Brandon Ruelas MD Primary Care Provider [phone] Source Comments [facility] [employer],non-owned Affiliates and Associated Physician Practices is amultiple site organization consisting of ambulatory clinics and hospital sitesin [place], [place], [place] and [place]. This disclosure is being madepursuant to the Care Everywhere program and may not contain all information available regarding this patient. 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
--- OUTSIDE RECORDS SUMMARY | 2024-09-08 13:43 | XMS_ITS | Encounter Summary ---
Author Organization [facility] Address [address] [place] [address] Phone Care Team Providers Care Design Agent Name Role Phone Latanya Vee DO Primary Care Provider [phone] Padmini Miller MD Unavailable Lauro Shane MD Unavailable Encounter Details Date Type Department Care Team (Late st Contact Info) Description 08/19/2024 Results Follow-Up [facility] Cardiology [address] [facility] [address] [place] [address] Zachary Fields MD [address] [facility] [address] [address] [place] [address] Social History Tobacco Use Types Packs/Day Years Used Date Smoking Tobacco: Never Smokeless Tobacco: Never Alcohol Use Standard Drinks/Week Comments Never 0 (1 standard drink = 0.6 oz pur e alcohol) [facility] Utilities Answer Date Recorded In the past 12 months has [employer] electric, gas, oil, or water company threatened [...] often do you attend chur ch or rastafari services? 1 to 4 times per year [...] place to sleep or slept in a group home (including now)? No 09/22/2023 Housing Stability Vital Sign Answer Ivan e Recorded In the last 12 months, was t here a time when you were not able to pay the mortgage or rent on time? No 10/12/2023 In the past 12 months, how m any times have you moved where you were living? 1 10/12/2023 At any time in the past 12 m [facility], were you homeless or living in a group home (including now)? No 10/12/2023 Personal Safety Answer Date Recorded Have you ever been in or are you currently in a harmful physical or emotional relationship or is someone making you feel afraid or unsafe? 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 Gender Identity Not on file Sexual Orientation Not on file documented as of this encounter Plan of Treatment Not on file documented as of this encounter Visit Diagnoses Not on filedocumented in this encounter Care Teams Design Agent Relationship Specialty Start Date End Date Latanya Vee DO [facility] [address] [place] [address] [place] [address] PCP - General Family Medicine 09/17/23 Padmini Miller MD [address] [facility] [address] [place] [address] Consulting Physician Physical Medicine and Rehabilitation 09/23/23 Lauro Shane MD [address] [facility] [address] [place] [address] Consulting Physician Pulmonary Disease 10/15/23 documented as of this encounter
--- OUTSIDE RECORDS SUMMARY | 2024-09-08 13:43 | XMS_ITS | Clinical Summary ---
Author Organization [facility] [place] [address] Address [address] [place] [address] Care Team Providers Care Tool Checker Name Role Phone Latanya Vee DO Primary Care Provider [phone] Padmini Miller MD Unavailable [phone] Lauro Shane MD Unavailable [phone] Allergies No known active allergies Medications simvastatin [...] Information Patient not taking.Reported on 08/21/2024 omega 5-klj-afw-fish oil (Fish OiL) 1,000 (120-180) mg capsule [...] Route Frequency Start Date End Date Status [facility] TDYM4235/placebo (/[id number] M-301) 50 mg/mL IV 3,200 mgIndications:Research subject 3200 mg IV Once 09/05/2024 09/05/2024 Ended [facility] dextrose 5% in water (D5W) (/[id number] M-301) flush syringe 10 mLIndications:Research subject 10 mL IV Once 09/05/2024 09/05/2024 Ended [facility] acetaminophen (/[id number] M-301) tablet 500 mgIndications:Research subject 500 mg oral Once 09/05/2024 09/05/2024 Ended [facility] diphenhydrAMINE (/[id number] M-301) 50 mg/mL injection 25 mgIndications:Research subject [...] Type Department Care Team Description 09/07/2024 Telephone [facility] [address] [place] [address] Srikanth Cox 09/05/2024 10:20 AM CDT - 09/05/2024 11:59 PM CDT Hospital Encounter [facility] [address] [place] [address] Research subject Discharge Disposition: Discharge to home or self care 09/05/2024 Research Med Pick-Up/CTRU Search Analyst [facility] 1 [place] [address] Tala Hussein RN Research subject (Primary Dx) 09/05/2024 Results Follow-Up [facility] Cardiology [address], [address] [place] [address] Zachary Fields MD 09/05/2024 Documentation [facility] 1 [place] [address] Tala Hussein RN 08/29/2024 Orders Only [facility] 1 [place] [address] Tala Hussein RN Research subject (Primary Dx) 08/23/2024 Orders Only [facility] Cardiology [address], [address] [place] [address] Ivet Zepeda NP 08/21/2024 2:30 PM CDT Office Visit [facility] Medical Group Cardiology [address] [place] [address] Sarah Griffin NP Chronic diastolic congestive heart failure (HCC) (Primary Dx); Wild-type transthyretin-related (ATTR) amyloidosis (HCC); Atrial fibrillation, unspecified type (HCC); Encounter for anticoagulation discussion and counseling 08/21/2024 Telephone [facility] Cardiology [facility]ly [facility] [facility] 8th [place] [address] [place] [address] Ivet Zepeda NP 08/19/2024 Results Follow-Up [facility] Cardiology [address] [place] [address] Zachary Fields MD 08/11/2024 Orders Only [facility] Cardiology [address], [address] [place] [address] Zachary Fields MD 08/11/2024 Telephone [facility] Cardiology [address], [address] [place] [address] Zachary Fields MD 08/10/2024 Results Follow-Up [facility] Cardiology [facility] [facility] [address], [address] [place] [address] Zachary Fields MD 08/08/2024 Documentation [facility] 1 [place] [address] Tala Hussein RN 08/08/2024 Results Follow-Up [facility] Cardiology [address], [address] [place] [address] Zachary Fields MD 08/07/2024 10:23 AM CDT - 08/07/2024 11:59 PM CDT Hospital Encounter [address] [address] Discharge Disposition: Discharge to home or self care 08/07/2024 Documentation [facility] 1 [place] [address] Tala Hussein RN 08/07/2024 Research Med Pick-Up/CTRU Search Analyst [facility] 1 [place] [address] Tala Hussein RN Research subject (Primary Dx) 08/07/2024 Orders Only [facility] 1 [place] [address] Tala Hussein RN Research subject (Primary Dx) 08/07/2024 Orders Only [facility] 1 [place] [address] Tala Hussein RN Research subject (Primary Dx) 08/06/2024 Results Follow-Up [facility] [address] [place] [address] Ivet Zepeda NP 08/04/2024 2:45 PM CDT Lab [facility] - Lab Collection [address] [facility] [address] 5 [place] [address] Research subject; Left ventricular hypertrophy; Diastolic heart failure of unknown etiology (HCC); Mixed hyperlipidemia; 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; Amyloidosis, unspecified type (HCC) 08/04/2024 1:00 PM CDT Office Visit [facility]iology [facility] Floor 1, [address] [place] [address] RaterIvet NP Left ventricular hypertrophy (Primary Dx); Diastolic heart failure of unknown etiology (HCC); Mixed hyperlipidemia; 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; Amyloidosis, unspecified type (HCC) 07/26/2024 Orders Only [facility] Cardiology [address] [place] [address] 8th [place] [address] [place] [address] Sarah Interiano RN Cardiac amyloidosis (HCC) (Primary Dx) 07/26/2024 Orders Only [facility] 1 [place] [address] Tala Hussein RN Research subject (Primary Dx) 07/25/2024 Results Follow-Up [facility] Cardiology [address] [facility] Medical Office Building [address] [place] [address] Zachary Fields MD 07/21/2024 Orders Only [facility] C[facility] Scanning, Provider 07/11/2024 Telephone [facility]iology [facility] Floor [address], [address] [place] [address] Sarah Interiano RN wt down 34 lbs 07/07/2024 12:09 PM DISPATCHER RADIO - 07/07/2024 11:59 PM DISPATCHER RADIO Hospital Encounter [facility] [address] [place] [address] Research subject Discharge Disposition: Discharge to home or self care 07/07/2024 Documentation [facility] 1 [place] [address] Lynn Yung MS 07/07/2024 Results Follow-Up [facility] Cardiology [address] [facility] [address] [place] [address] Zachary Fields MD 07/07/2024 Orders Only [facility] 1 [place] [address] Tala Hussein RN Research subject (Primary Dx) 07/06/2024 Telephone [facility] [address] [place] [address] Zachary Fields MD Prior Auth (Attruby 356MG tablets) 07/06/2024 Telephone [facility] [address] [place] [address] Chevy Hu [facility] 07/06/2024 Telephone [facility] Cardiology [address], [address] [place] [address] Zachary Fields MD 07/06/2024 Orders Only [facility] Cardiology [address], [address] [place] [address] Zachary Fields MD 06/29/2024 Telephone [facility] [address] [facility] 8th [place] [address] [place] [address] Zachary Fields MD 06/28/2024 Telephone [facility] Cardiology [address], [address] [place] [address] Zachary Fields MD 06/16/2024 Telephone [facility] 1 [place] [address] Lynn Yung MS 06/14/2024 Orders Only [facility] Medical Group Cardiology [address] [place] [address] Florida Shah MD 06/13/2024 12:00 PM DISPATCHER RADIO Lab [facility] - Lab Collection [address] [facility] [address] 5 [place] [address] Amyloidosis, unspecified type (HCC); Diastolic heart failure of unknown etiology (HCC) 06/13/2024 11:18 AM DISPATCHER RADIO - 06/13/2024 11:59 PM DISPATCHER RADIO Hospital Encounter [facility] [address] [place] [address] Discharge Disposition: Discharge to home or self care 06/13/2024 11:00 AM DISPATCHER RADIO - 06/13/2024 11:59 PM DISPATCHER RADIO Hospital Encounter [facility] [address] [place] [address] Amyloidosis, unspecified type (HCC) Discharge Disposition: Discharge to home or self care 06/13/2024 9:00 AM DISPATCHER RADIO Office Visit [facility] Cardiology [address], [address] [place] [address] Zachary Fields MD Diastolic heart failure of unknown etiology (HCC) (Primary Dx); Left ventricular hypertrophy; Mixed hyperlipidemia; 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 1 to 4 times per year 10/12/2023 Do you belong to any clubs o r organizations such as congregational groups, unions, fraternal or athletic groups, or [...] any time in the past 12 m [facility], were you homeless or living [...] on file Legal Sex Male 11:12 AM DISPATCHER RADIO Gender Identity Not on file Sexual Orientation [...] (HCC) Mixed hyperlipidemia 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 Amyloidosis, unspecified type (HCC) BASIC METABOLIC PANEL Routine 08/04/2024 2:46 PM CDT Left ventricular hypertrophy Diastolic heart failure of unknown etiology (HCC) Mixed hyperlipidemia 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 Amyloidosis, unspecified type (HCC) PLATELET COUNT STAT 08/04/2024 2:46 PM CDT Research subject PRO B-TYPE NATRIURETIC PEPTIDE Routine 07/21/2024 8:16 AM DISPATCHER RADIO 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) Lower extremity edema BASIC METABOLIC PANEL Routine 07/21/2024 8:15 AM DISPATCHER RADIO 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) Lower extremity edema KAPPA/LAMBDA LIGHT CHAINS FREE WITH RATIO, SERUM Routine 07/21/2024 8:15 AM DISPATCHER RADIO Amyloidosis, unspecified type (HCC) IMMUNOFIXATION ELECTROPHORESIS Routine 07/21/2024 8:15 AM DISPATCHER RADIO Amyloidosis, unspecified type (HCC) SCAN - LABS 07/21/2024 PROTIME-INR Routine 07/07/2024 12:09 PM DISPATCHER RADIO Research subject APTT Routine 07/07/2024 12:09 PM DISPATCHER RADIO Research subject NM MYOCARDIAL AMYLOIDOSIS IMAGING SPECT/CT Schedule Routine, Read Routine (OP Routine) 06/13/2024 3:05 PM DISPATCHER RADIO Amyloidosis, unspecified type (HCC) URINALYSIS AND REFLEX TO MICROSCOPIC Routine 06/13/2024 10:50 AM DISPATCHER RADIO Amyloidosis, unspecified type (HCC) Diastolic heart failure of unknown etiology (HCC) PROTEIN / CREATININE RATIO, URINE, RANDOM Routine 06/13/2024 10:50 AM DISPATCHER RADIO Amyloidosis, unspecified type (HCC) Diastolic heart failure of unknown etiology (HCC) LIPID PANEL Routine 06/13/2024 10:40 AM DISPATCHER RADIO Amyloidosis, unspecified type (HCC) Diastolic heart failure of unknown etiology (HCC) EGFR Routine 06/13/2024 10:40 AM DISPATCHER RADIO Amyloidosis, unspecified type (HCC) Diastolic heart failure of unknown etiology (HCC) DIFFERENTIAL AUTO Routine 06/13/2024 10:40 AM DISPATCHER RADIO Amyloidosis, unspecified type (HCC) Diastolic heart failure of unknown etiology (HCC) PRO B-TYPE NATRIURETIC PEPTIDE Routine 06/13/2024 10:40 AM DISPATCHER RADIO Amyloidosis, unspecified type (HCC) Diastolic heart failure of unknown etiology (HCC) BASIC METABOLIC PANEL Routine 06/13/2024 10:40 AM DISPATCHER RADIO Amyloidosis, unspecified type (HCC) Diastolic heart failure of unknown etiology (HCC) CBC WITH AUTO DIFFERENTIAL Routine 06/13/2024 10:40 AM DISPATCHER RADIO Amyloidosis, unspecified type (HCC) Diastolic heart failure of unknown etiology (HCC) IMMUNOTYPING Routine 06/13/2024 10:40 AM DISPATCHER RADIO Amyloidosis, unspecified type (HCC) Diastolic heart failure of unknown etiology (HCC) IMMUNOGLOBULIN FREE LIGHT CHAINS Routine 06/13/2024 10:40 AM DISPATCHER RADIO Amyloidosis, unspecified type (HCC) Diastolic heart failure of unknown etiology (HCC) TROPONIN I HIGH-SENSITIVITY Routine 06/13/2024 10:40 AM DISPATCHER RADIO Amyloidosis, unspecified type (HCC) Diastolic heart failure of unknown etiology (HCC) SCAN - LABS 06/13/2024 CARDIOLOGY DOCUMENT SCAN Routine 06/11/2024 10:51 AM DISPATCHER RADIO CARDIOLOGY DOCUMENT SCAN Routine 06/10/2024 10:27 AM DISPATCHER RADIO from Last 3 Months Results * Platelet count (09/05/2024 10:20 AM CDT) Pathologist [facility] [address] 161 150 - 400 K/cumm Blood 09/05/2024 10:2 0 AM CDT 09/05/2024 11:25 AM CDT [facility] - 09/05/2024 1:00 PM CDT 100% BILL TO [facility] [phone] us Zachary Fields MD LAB BLOOD ORDERABLES Final Result Performing Organization Address City/[facility]/ZIP Co de Phone Number [facility] Department [place] [address] * Platelet count (08/18/2024 8:28 AM CDT) [facility] Platelets 195 150 - 450 x10E3/uL [facility] - 01 Blood 08/18/2024 8:28 AM CDT 08/18/2024 Narrative [facility] - 08/19/2024 6:09 AM CDT Performed at: 01 - [facility] [address] [id number] Motor Vehicles Supervisor: Armond Zambrano PhD, Phone: [phone] Specimen Comment: A courtesy copy of this report has been sent to the patient us Zachary Fields MD LAB BLOOD ORDERABLES Final Result Performing Organization Address City/[facility]/ZIP Co de Phone Number [facility] - 01 * (ABNORMAL) Platelet count (08/09/2024 2:36 PM CDT) Platelets 117(L) 150 - 450 x10E3/uL [facility] - 01 Comment:Verified by repeat analysis Blood 08/09/2024 2:36 PM CDT 08/09/2024 Narrative [facility] - 08/10/2024 7:09 AM CDT Performed at: 01 - [address] [id number] Motor Vehicles Supervisor: Armond Zambrano PhD, Phone: [phone] Zachary Fields MD LAB BLOOD ORDERABLES Final Result [facility] - 01 * (ABNORMAL) Platelet count (08/07/2024 10:23 AM CDT) Plt 115(L) 150 - 400 K/cumm Blood 08/07/2024 10:2 3 AM CDT 08/07/2024 11:35 AM CDT us Zachary Fields MD LAB BLOOD ORDERABLES Final Result HAMZAH [facility] Department [place] [address] * (ABNORMAL) eGFR (08/04/2024 2:46 PM CDT) [...] CDT 08/04/2024 2:52 PM CDT Ivet Zepeda FIRE BOAT ENGINEER LAB BLOOD ORDERABLES Final Resul t Performing Organization Address [facility]/RUST Co de Phone Number [facility] [place] [address] * (ABNORMAL) Platelet count (08/04/2024 2:46 PM CDT) [facility] Plt 126(L) 150 - 400 K/cumm Comment:Testing performed by : [facility], [address] [place] [phone] Blood 08/04/2024 2:46 PM CDT 08/04/2024 2:50 PM CDT Narrative [facility] - 08/04/2024 2:53 PM CDT 100% BILL TO [facility] DEPLETTR-CM [id number] 100% BILL TO [facility]PLET[facility]-CM [id number] us Zachary Fields MD LAB BLOOD ORDERABLES Final Result Performing Organization Address [facility] de Phone Number [facility] Department [place] [address] * (ABNORMAL) Basic metabolic panel (08/04/2024 2:46 PM CDT) Pathologist [facility] Sodium 140 135 - 145 mmol/L Potassium, pl 4.2 3.3 - 4.9 mmol/L [facility] Chloride 100 97 - 110 mmol/L [facility] CO2 30 22 - 32 mmol/L [facility] Anion gap 10 2 - 15 mmol/L [facility] BUN 32(H) 6 - 25 mg/dL [facility] Creatinine 1.30 0.80 - 1.30 mg/dL [facility] Glucose 95 70 - 199 mg/dL [facility] Comment: Interpretive Data Fasting glucose >/= [...] 2022. Calcium 9.1 8.5 - 10.3 mg/dL [facility] Blood 08/04/2024 2:46 PM CDT 08/04/2024 2:52 PM CDT us Ivet Zepeda FIRE BOAT ENGINEER LAB BLOOD ORDERABLES Final Resul t [facility] One [facility] Department [place] [address] * (ABNORMAL) Pro B-type natriuretic peptide (07/21/2024 8:16 AM DISPATCHER RADIO) [facility] proBNP 4,073(H) 0 - 486 pg/mL [facility] [...] independent 300 pg/mL Blood 07/21/2024 8:16 AM DISPATCHER RADIO 07/21/2024 Narrative [facility] - 07/22/2024 8:11 AM DISPATCHER RADIO Performed at: [address] [id number] Motor Vehicles Supervisor: Armond Zambrano PhD, Phone: [phone] us Zachary Fields MD LAB BLOOD ORDERABLES Final Result Performing Organization Address [facility]/RUST Co de Phone Number [facility] - * (ABNORMAL) KAPPA/LAMBDA LIGHT CHAINS FREE WITH RATIO, SERUM (07/21/2024 8:15 AM DISPATCHER RADIO) Free Mentor Lt Chains,S 24.4(H) 3.3 - 19.4 mg/L [facility] - 01 Free Lambda Lt Chains,S 14.9 5.7 - 26.3 mg/L [facility] - 01 Mentor/Lambda Ratio, S 1.64 0.26 - 1.65 [facility] - 01 Blood 07/21/2024 8:15 AM DISPATCHER RADIO 07/21/2024 Narrative [facility] - 07/24/2024 5:09 PM CDT Performed at: [address] [id number] Motor Vehicles Supervisor: Armond Zambrano PhD, Phone: [phone] us Zachary Fields MD LAB BLOOD ORDERABLES Final Result Performing Organization Address [facility]/ZIP Co de Phone Number [facility] - * Immunofixation (07/21/2024 8:15 AM DISPATCHER RADIO) Pathologist [facility] Immunofixation Comment [facility] - 01 Comment:No monoclonality det ected. Immunoglobulin G, Qn, Serum 1,170 603 - 1,613 mg/dL [facility] - 01 Immunoglobulin A, Qn, Serum 164 61 - 437 mg/dL [facility] - 01 Immunoglobulin M, Qn, Serum 41 15 - 143 mg/dL [facility] - 01 Blood 07/21/2024 8:15 AM DISPATCHER RADIO 07/21/2024 Narrative [facility] - 07/25/2024 12:10 PM CDT Performed at: - [facility] [id number] Motor Vehicles Supervisor: Armond Zambrano PhD, Phone: [phone] Zachary Fields MD LAB BLOOD ORDERABLES Final Result Performing Organization Address [facility]/RUST Co de Phone Number [facility] - * (ABNORMAL) Basic metabolic panel (07/21/2024 8:15 AM DISPATCHER RADIO) Pathologist [facility] Glucose 140(H) 70 - 99 mg/dL [facility] [...] [facility] - 01 Blood 07/21/2024 8:15 AM DISPATCHER RADIO 07/21/2024 Narrative [facility] - 07/22/2024 8:11 AM DISPATCHER RADIO Performed at: [address] [place] [id number] Motor Vehicles Supervisor: Armond Zambrano PhD, Phone: [phone] Zachary Fields MD LAB BLOOD ORDERABLES Final Result Performing Organization Address City/[facility]/ZIP Co de Phone Number [facility] - * SCAN - LABS (07/21/2024) Provider Scanning Final Result * aPTT (07/07/2024 12:09 PM DISPATCHER RADIO) aPTT 35 28 - 38 sec Comment: Interpretive Data Heparin therapeutic range: 66.0 - 100.0 seconds. Range based on correlation with therapeutic heparin activity range of 0.3 - 0.7 Units/mL. Current interpretive data was last revised on 2023. Blood 07/07/2024 12:0 9 PM DISPATCHER RADIO 07/07/2024 1:29 PM DISPATCHER RADIO Narrative [facility] - 07/07/2024 1:52 PM DISPATCHER RADIO 100% BILL TO [facility] DEPLETTR-CM [id number] 100% BILL TO [facility]PLETTR-CM [id number] Zachary Fields MD LAB BLOOD ORDERABLES Final Result Performing Organization Address City/[facility]/ZIP Co de Phone Number [facility] [place] [address] * (ABNORMAL) Protime-INR (07/07/2024 12:09 PM DISPATCHER RADIO) PT 16.0(H) 9.7 - 13.0 sec INR 1.47(H) 0.90 - 1.20 [facility] Comment: Interpretive data Oral anticoagulant therapeutic ranges: Venous thromboembolism prophylaxis or treatment: 2.0-3.0 CARDIOLOGY Standard range: 2.0-3.0 High-intensity range: 2.5-3.5 Refer to indication-specific guidelines for appropriate target ranges for prosthetic heart valve replacement. Current interpretive data was last revised on 2019. Blood 07/07/2024 12:0 9 PM DISPATCHER RADIO 07/07/2024 1:29 PM DISPATCHER RADIO Narrative [facility] - 07/07/2024 1:52 PM DISPATCHER RADIO 0% BILL TO [facility] DEPLETTR-CM [id number] 100% BILL TO [facility]PLETTR-CM [id number] Zachary Fields MD LAB BLOOD ORDERABLES Final Result Performing Organization Address City/[facility]/ZIP Co de Phone Number [facility] Department [place] [employer] [address] * NM Myocardial Amyloidosis Imaging SPECT/CT (06/13/2024 3:05 PM DISPATCHER RADIO) Anatomical Region Laterality Modality N/A Nuclear Medicine 06/13/2024 3:58 PM DISPATCHER RADIO Impressions 06/13/2024 4:21 PM DISPATCHER RADIO 1. This study demonstrates diffuse and severe [...] Recommendations for Multimodality Imaging in Cardiac Amyloidosis (https://pubmed.ncbi.nlm.nih.gov/51019238/ and https://pubmed.ncbi.nlm.nih.gov/38217094/). Dictated by: Jon Harley M.D. The radiology attending physician has personally reviewed this study, and had reviewed and/or edited this written report and agrees with it. Electronically signed by: Ángel Capone M.D. Narrative 06/13/2024 4:21 PM DISPATCHER RADIO EXAMINATION: MYOCARDIAL AMYLOID SCINTIGRAPHY (PLANAR/SPECT-CT) DATE OF [...] Recommendations for Multimodality Imaging in Cardiac Amyloidosis (https://pubmed.ncbi.nlm.nih.gov/61214314/ and https://pubmed.ncbi.nlm.nih.gov/72084478/). Dictated by: Jon Harley M.D. The radiology attending physician has personally reviewed this study, and had reviewed and/or edited this written report and agrees with it. Electronically signed by: Ángel Capone M.D. us Zachary Fields MD [facility] [place] PROCEDURES Fin al Result * Urinalysis reflex to microscopic (06/13/2024 10:50 AM DISPATCHER RADIO) Color, ur Straw Yellow Clarity, ur Clear Clear [facility] Specific gravity, ur 1.013 1.003 - 1.030 [facility] pH, urine 6.5 [facility] Comment: Interpretive Data U rine pH is affected by diet, medications, systemic acid-base disturbances, and renal tubular function. pH may affect urinary stone formation. For example, urine pH below 6.0 may help reduce the tendency for calcium phosphate stones and pH greater than 6.0 may reduce the tendency for uric acid stone formation. Source: [facility] Current Interpretive Data was last revised on 2017 Protein, ur ql Negative Negative [facility] Glucose, ur ql Negative Negative [facility] Ketones, ur Negative Negative [facility] Bilirubin, ur Negative Negative [facility] Blood, ur Negative Negative [facility] Urobilinogen, ur <2.0 <2.0 mg/dL [facility] Nitrite, ur Negative Negative [facility] Leukocyte esterase, ur Negative [facility] UA reflex comment Reflex conditions for microscopic UA not met. [facility] Urine 06/13/2024 10:5 0 AM DISPATCHER RADIO 06/13/2024 10:50 AM DISPATCHER RADIO Zachary Fields MD LAB URINE ORDERABLES Final Result [facility] [facility] Department [place] [address] * Protein / creatinine ratio, urine, random (06/13/2024 10:50 AM DISPATCHER RADIO) Protein, ur, quant 7.2 mg/dL Comment: Interpretive Data No reference range established. Current interpretive data was last revised 2018. Creatinine Ur 48.2 mg/dL [facility] Comment: Interpretive Data No reference range established. Current interpretive data was last revised 2018. Protein/creatinin e ratio 149.4 0.0 - 180.0 mg/g CR [facility] Urine 06/13/2024 10:5 0 AM DISPATCHER RADIO 06/13/2024 11:03 AM DISPATCHER RADIO Zachary Fields MD LAB URINE ORDERABLES Final Result Performing Organization Address [facility] Co de Phone Number HAMZAH [facility] [place] [address] * (ABNORMAL) Troponin I high-sensitivity (06/13/2024 10:40 AM DISPATCHER RADIO) Pathologist [facility] Trop I hs 50(H) <=35 ng/L Comment: Interpretive Data For further hscTnI resources including the diagnostic algorithm and an aid in interpretation, copy and paste this link: https://bjhlab.testcatalog.org/show/hsTrop-[email or web address] Current Interpretive Data last revised 2019. Blood 06/13/2024 10:4 0 AM DISPATCHER RADIO 06/13/2024 11:20 AM DISPATCHER RADIO us Zachary Fields MD LAB BLOOD ORDERABLES Final Result Performing Organization Address [facility] Co de Phone Number [facility] Department [place] [address] * Immunotyping, serum (06/13/2024 10:40 AM DISPATCHER RADIO) [facility] Immunosubtraction Please see comment Comment: NO PARAPROTEIN DETECTED Reviewed and signed by Nicola Mosley MD, PhD 06-14-24 Blood 06/13/2024 10:4 0 AM DISPATCHER RADIO 06/13/2024 1:28 PM DISPATCHER RADIO us Zachary Fields MD LAB BLOOD ORDERABLES Final Result Performing Organization Address [facility] Co de Phone Number HAMZAH [facility] [place] [address] * eGFR (06/13/2024 10:40 AM DISPATCHER RADIO) [facility] eGFR 69 >=60 mL/min/1. 73 m2 Comment: [...] reviewed 2021. Blood 06/13/2024 10:4 0 AM DISPATCHER RADIO 06/13/2024 10:55 AM DISPATCHER RADIO Zachary Fields MD LAB BLOOD ORDERABLES Final Result [facility] One [facility] Department [place] [address] * Differential, auto (06/13/2024 10:40 AM DISPATCHER RADIO) Neutrophil abs 3.2 1.5 - 6.5 K/cumm Comment:Testing performed by : [facility], [address] [place] [address] Lymphocyte abs 0.8 0.8 - 3.3 K/cumm HAMZAH [facility] Comment:Testing performed by : [facility], [address] [place], [place] [phone] Monocyte abs 0.5 0.2 - 0.8 K/cumm HAMZAH [facility] Comment:Testing performed by : [facility], [address] [place], [place] [id number] Eosinophil abs 0.2 0.0 - 0.5 K/cumm HAMZAH [facility] Comment:Testing performed by : [facility], [address] [place] [phone] Basophil abs 0.1 0.0 - 0.1 K/cumm HAMZAH [facility] Comment:Testing performed by : [facility], [address] [place] [phone] Neutrophil pct 67.8 % H[facility]AH [facility] Comment: Interpretive Data Percent cell count reference ranges are not reported, since discordance with absolute values may lead to misinterpretation of CBC data. Current Interpretive Data was last revised on 2017. Testing performed by: [facility], [address] [place] [phone] Lymphocyte pct 16.1 % HAMZAH [facility] Comment: Interpretive Data Percent cell count reference ranges are not reported, since discordance with absolute values may lead to misinterpretation of CBC data. Current Interpretive Data was last revised on 2017. Testing performed by: [facility], [address] [place] [phone] Monocyte pct 10.4 % HAMZAH [facility] Comment: Interpretive Data Percent cell count reference ranges are not reported, since discordance with absolute values may lead to misinterpretation of CBC data. Current Interpretive Data was last revised on 2017. Testing performed by: [facility], [address] [place] [phone] Eosinophil pct 4.3 % H[facility]AH [facility] Comment: Interpretive Data Percent cell count reference ranges are not reported, since discordance with absolute values may lead to misinterpretation of CBC data. Current Interpretive Data was last revised on 2017. Testing performed by: [facility], [address] [place] [phone] Basophil pct 1.4 % HAMZAH [facility] Comment: Interpretive Data Percent cell count reference ranges are not reported, since discordance with absolute values may lead to misinterpretation of CBC data. Current Interpretive Data was last revised on 2017. Testing performed by: [facility], [address] [place] [phone] Blood 06/13/2024 10:4 0 AM DISPATCHER RADIO 06/13/2024 10:47 AM DISPATCHER RADIO us Zachary Fields MD LAB BLOOD ORDERABLES Final Result CERNER [facility] Department [place] [address] * (ABNORMAL) Immunoglobulin free light chains (06/13/2024 10:40 AM DISPATCHER RADIO) Pathologist [facility] Mentor/Lambda ratio [facility] 1.38 0.26 - 1.65 Comment: Interpretive Data The Binding Site FreeLite assay procedure was used. Results from different manufacturers or methods may not be comparable. Serial testing should be performed using the same methods and instrumentation. Current Interpretive Data was last revised on 2023. Mentor free light chain [facility] 2.10(H) 0.33 - 1.94 mg/dL [facility] Comment: Interpretive Data The Binding Site FreeLite assay procedure was used. Results from different manufacturers or methods may not be comparable. Serial testing should be performed using the same methods and instrumentation. Current Interpretive Data was last revised on 2023. Lambda free light chain [facility] 1.52 0.57 - 2.63 mg/dL [facility] Comment: Interpretive Data The Binding Site FreeLite assay procedure was used. Results from different manufacturers or methods may not be comparable. Serial testing should be performed using the same methods and instrumentation. Current Interpretive Data was last revised on 2023. Blood 06/13/2024 10:4 0 AM DISPATCHER RADIO 06/13/2024 1:30 PM DISPATCHER RADIO Zachary Fields MD LAB BLOOD ORDERABLES Final Result [facility] Department [place] [address] * (ABNORMAL) Pro B-type natriuretic peptide (06/13/2024 10:40 AM DISPATCHER RADIO) Pathologist [facility] NT-proBNP 3,562(H) <=450 pg/mL Comment: Interpretive Comments: [...] Date: 2018. Blood 06/13/2024 10:4 0 AM DISPATCHER RADIO 06/13/2024 11:19 AM DISPATCHER RADIO us Zachary Fields MD LAB BLOOD ORDERABLES Final Result [facility] One [facility] Department [place] [address] * (ABNORMAL) CBC with auto differential (06/13/2024 10:40 AM DISPATCHER RADIO) WBC 4.7 3.8 - 9.9 K/cumm Comment:Testing performed by : [facility], [address] [place] [phone] Hgb 13.4 13.0 - 17.5 g/dL HAMZAH [facility] Comment:Testing performed by : [facility], [address] [place] [phone] Hct 40.4 38.9 - 50.3 % HAMZAH [facility] Comment:Testing performed by : [facility], [address] [place], [place] [phone] Plt 141(L) 150 - 400 K/cumm CERNER [facility]J Comment:Testing performed by : [facility], [address] [place] [address] MPV 9.0 6.8 - 10.4 fL CERNER BJ Comment:Testing performed by : [facility], [address] [place], [place] [phone] RBC 4.23(L) 4.30 - 5.80 M/cumm CERNER BJ Comment:Testing performed by : [facility], [address] [place], [place] [phone] MCV 95.4 81.3 - 96.4 fL CERNER BJ Comment:Testing performed by : [facility], [address] [place], [place] [phone] MCH 31.6 27.1 - 33.3 pg CERNER BJ Comment:Testing performed by : [facility], [address] [place] [address] MCHC 33.2 32.3 - 35.7 g/dL CERNER BJ Comment:Testing performed by : [facility], [address] [place] [address] RDW CV 15.1(H) 11.1 - 14.9 % CERNER BJ Comment:Testing performed by : [facility], [address] [place] [address] NRBC abs 0.00 0.00 - 0.01 K/cumm CERNER BJ Comment:Testing performed by : [facility], [address] [place] [address] Blood 06/13/2024 10:4 0 AM DISPATCHER RADIO 06/13/2024 10:47 AM DISPATCHER RADIO us Zachary Fields MD LAB BLOOD ORDERABLES Final Result H[facility]AH [facility] One [facility] Department [place] [address] * Lipid panel (06/13/2024 10:40 AM DISPATCHER RADIO) Cholesterol 117 30 - 199 mg/dL Comment: [...] on 2018. Triglycerides 74 <=149 mg/dL HAMZAH [facility] Comment: Interpretive Data Ages < or = [...] on 2018. HDL 50 >=40 mg/dL HAMZAH [facility] Comment: Interpretive Data Ages < or = [...] HAMZAH [facility] Blood 06/13/2024 10:4 0 AM DISPATCHER RADIO 06/13/2024 11:31 AM DISPATCHER RADIO us Zachary Fields MD LAB BLOOD ORDERABLES Final Result HAMZAH [facility] One [facility] Department [place] [address] * (ABNORMAL) Basic metabolic panel (06/13/2024 10:40 AM DISPATCHER RADIO) Sodium 137 135 - 145 mmol/L Potassium, pl 3.7 3.3 - 4.9 mmol/L [facility] Chloride 94(L) 97 - 110 mmol/L [facility] CO2 35(H) 22 - 32 mmol/L [facility] Anion gap 8 2 - 15 mmol/L [facility] BUN 27(H) 6 - 25 mg/dL [facility] Creatinine 1.05 0.80 - 1.30 mg/dL [facility] Glucose 140 70 - 199 mg/dL [facility] Comment: Interpretive Data Fasting glucose >/= [...] 2022. Calcium 9.7 8.5 - 10.3 mg/dL [facility] Blood 06/13/2024 10:4 0 AM DISPATCHER RADIO 06/13/2024 10:55 AM DISPATCHER RADIO Result [facility] Zachary Fields MD LAB BLOOD ORDERABLES Final Result [facility] One [facility] Department [place] [address] * SCAN - LABS (06/13/2024) Provider Scanning Final Result * Cardiology Document Scan (06/11/2024 10:51 AM DISPATCHER RADIO) Anatomical Region Laterality Modality Other [place] Shah MD CV CARDIAC SERVICES PROCEDU RES Final Result * Cardiology Document Scan (06/10/2024 10:27 AM DISPATCHER RADIO) Anatomical Region Laterality Modality Other [place] Shah MD CV CARDIAC SERVICES PROCEDU RES Final Result from Last [address] [place] [address] [address] [place] [address] MEDICARE [facility] MEDICARE [id number] MEDICARE RESEARCH Advance Directives For more information, please contact: [phone] * Full Code (Latest Code Status on File) Date Activated Date Inactivated Comments 12/03/2023 9:20 PM 12/06/2023 5:42 PM * Full Code Date Activated Date Inactivated Comments 10/08/2023 5:17 AM 10/15/2023 10:12 PM * Full Code Date Activated Date Inactivated Comments 09/21/2023 5:54 PM 09/23/2023 10:32 PM Care Teams Tool Checker Relationship Specialty Start Date End Date Latanya Vee [facility] [address] [address] PCP - General Family Medicine 09/17/23 Padmini Miller MD [address] [place] [address] Consulting Physician Physical Medicine and Rehabilitation 09/23/23 Lauro Shane MD [address] [place] [address] Consulting Physician Pulmonary Disease 10/15/23
--- OUTSIDE RECORDS SUMMARY | 2024-09-08 13:43 | XMS_ITS | Encounter Summary ---
Author Organization [facility] Address [address] [place] [address] Phone Care Team Providers Care Box Cutter Name Role Phone Latanya Vee DO Primary Care Provider [phone] Padmini Miller MD Unavailable [phone] Lauro Shane MD Unavailable Encounter Details Date Type Department Care Team (Late st Contact Info) Description 09/05/2024 Results Follow-Up [facility] Cardiology [address] [facility] Floor [address], [address] [place] [address] Zachary Fields MD [address] [place] [address] Social History Tobacco Use Types Packs/Day Years Used Date Smoking Tobacco: Never Smokeless Tobacco: Never Alcohol Use Standard Drinks/Week Comments Never 0 (1 standard drink = 0.6 oz pur e alcohol) [facility] Utilities Answer Date Recorded In the past 12 months has [employer], gas, oil, or water [employer] threatened to shut off services in your [...] often do you attend chur ch or oriental orthodox services? 1 to 4 times per year 10/12/2023 Do you belong to any clubs o r organizations such as uatsdin groups, unions, fraternal or athletic groups, or [...] any time in the past 12 m [facility], were you homeless or living in a skilled nursing (including now)? No 10/12/2023 Personal Safety Answer Date Recorded Have you ever been in or are you currently in a harmful physical or emotional relationship or is someone making you feel afraid or unsafe? 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 Gender Identity Not on file Sexual Orientation Not on file documented as of this encounter Plan of Treatment Not on file documented as of this encounter Visit Diagnoses Not on filedocumented in this encounter Care Teams Box Cutter Relationship Specialty Start Date End Date Latanya Vee DO [facility] [address] [address] PCP - General Family Medicine 09/17/23 Padmini Miller MD [address] [place] [address] Consulting Physician Physical Medicine and Rehabilitation 09/23/23 Lauro Shane MD [address] [place] [address] Consulting Physician Pulmonary Disease 10/15/23 documented as of this encounter
--- OUTSIDE RECORDS SUMMARY | 2024-09-08 13:43 | XMS_ITS | Encounter Summary ---
Author Organization [facility] Address [address] [place] [address] Phone Care Team Providers Care Cardio Tech Name Role Phone Latanya Vee DO Primary Care Provider [phone] Padmini Miller MD Unavailable Lauro Shane MD Unavailable Encounter Details Date Type Department Care Team (Late st Contact Info) Description 08/08/2024 Results Follow-Up [facility] Cardiology [address] [facility] [address], [address] [place] [address] Zachary Fields MD [address] [place] [address] Social History Tobacco Use Types Packs/Day Years Used Date Smoking Tobacco: Never Smokeless Tobacco: Never Alcohol Use Standard Drinks/Week Comments Never 0 (1 standard drink = 0.6 oz pur e alcohol) [facility] Utilities Answer Date Recorded In the past 12 months has [employer], gas, oil, or water [employer] threatened to shut off services in your [...] often do you attend chur ch or scientology services? 1 to 4 times per year [...] place to sleep or slept in a nursing home (including now)? No 09/22/2023 Housing Stability [...] in the past 12 m [facility], were you homeless or living in a nursing home (including now)? No 10/12/2023 Personal Safety Answer Date Recorded Have you ever been in or are you currently in a harmful physical or emotional relationship or is someone making you feel afraid or unsafe? 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 Gender Identity Not on file Sexual Orientation Not on file documented as of this encounter Plan of Treatment Not on file documented as of this encounter Visit Diagnoses Not on filedocumented in this encounter Care Teams Cardio Tech Relationship Specialty Start Date End Date Latanya Vee DO [facility] [address] [address] PCP - General Family Medicine 09/17/23 Padmini Miller MD [address] [place] [address] Consulting Physician Physical Medicine and Rehabilitation 09/23/23 Lauro Shane MD [address] [place] [address] Consulting Physician Pulmonary Disease 10/15/23 documented as of this encounter
--- OUTSIDE RECORDS SUMMARY | 2024-09-08 13:43 | XMS_ITS | Encounter Summary ---
Author Organization [facility] Address [address] [place] [address] Phone Care Team Providers Care Customer Relations Specialist Name Role Phone Latanya Vee DO Primary Care Provider [phone] Padmini Miller MD Unavailable [phone] Lauro Shane MD Unavailable [phone] Encounter Details Date Type Department Care Team (Late st Contact Info) Description 08/21/2024 Telephone [facility] Cardiology [address] [facility] Advanced Medicine 8th [place] [address] [place] [address] RaterIvet NP [address] [place] [address] Social History Tobacco Use Types Packs/Day Years Used Date Smoking Tobacco: Never Smokeless Tobacco: Never Alcohol Use Standard Drinks/Week Comments Never 0 (1 standard drink = 0.6 oz pur e alcohol) [facility] Utilities Answer Date Recorded In the past 12 months has [employer], gas, oil, or water company threatened [...] often do you attend chur ch or jainism services? 1 to 4 times per year 10/12/2023 Do you belong to any clubs o r organizations such as sabianism groups, unions, fraternal or athletic groups, or [...] place to sleep or slept in a retirement (including now)? No 09/22/2023 Housing Stability Vital Sign Answer Ivan e Recorded In the last 12 months, was t here a time when you were not able to pay the mortgage or rent on time? No 10/12/2023 In the past 12 months, how m any times have you moved where you were living? 1 10/12/2023 At any time in the past 12 m [facility], were you homeless or living in a retirement (including now)? No 10/12/2023 Personal Safety Answer Date Recorded Have you ever been in or are you currently in a harmful physical or emotional relationship or is someone making you feel afraid or unsafe? 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 [address] [place] [address] PCP - General Family Medicine 09/17/23 Padmini Miller MD [address] [place] [address] Consulting Physician Physical Medicine and Rehabilitation 09/23/23 Lauro Shane MD [address] [place] [address] Consulting Physician Pulmonary Disease 10/15/23 documented as of this encounter
--- OUTSIDE RECORDS SUMMARY | 2024-09-08 13:44 | XMS_ITS | Encounter Summary ---
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 Gender Identity Not on file Sexual Orientation [...] documented as of this encounter Care Teams Thermite Welder Relationship Specialty Start Date End Date JosephinerejicarleenLatanya NilsaDO [facility] [address] [place] [address] PCP - General Family Medicine 09/17/23 Padmini Miller MD [address] [place] [address] Consulting Physician Physical Medicine and Rehabilitation 09/23/23 Lauro Shane MD [address] [place] [address] Consulting Physician Pulmonary Disease 10/15/23 documented as of this encounter
--- OUTSIDE RECORDS SUMMARY | 2024-09-08 13:44 | XMS_ITS | Continuity of Care Document ---
Author Organization [facility] Address [address] [place] [address] Phone Care Team Providers Care Strip Roller Name Role Phone [facility] Unavailable Unavail able Lenore Calderon Unavailable Unavailable Procedures Procedure Date TF Polycarb Sphcyl [place] To +/-4d .12-2d Lens-Index 1.54-1.79 Glass Anti-reflective Coating Eye Exam & Treatment Refraction Office/outpatient Visit, Est Eye Exam & Treatment Refraction Eye Exam & Treatment Refraction SV Poly Carb Sph [place] To +/- 4 008 [facility] Frames Purchases SV Poly Carb Sph [place] To +/- 4 008 Tax - Medical [facility] Frames Purchases SV Poly Carb Sph [place] To +/- 4 007 Tax - Medical [facility] Frames Purchases BF Polycarb Sphcyl [place] To +/-4d .122d Tax - Medical BF Polycarb Sphcyl [place] To +/-4d .122d Tax - Medical Eye Exam & Treatment Refraction Advance Directives Directive Yes / No Effective Date File Name No Information Encounters Encounter Description Practice Location Reason(s) For Visit Diagnoses Date Provider Providers [facility], [address], [place], [place], [id number], [place] tel:[phone] [facility] No Information Oct-2 0-201 0 [facility]. [address], [address], [place], [place], [id number], [place]. tel:[phone] Referring Provider: Adelso Hernandez OD A, [address], [place], [address]. tel:[phone] g Provider: Lenore Calderon, [address] [facility], [place], [address]. tel:[phone] [facility], [address], [place], [place], [id number], [place] tel:[phone] [facility] No Information Oct-1 5-201 0 Hernandez OD Adelso. [address] [facility] , [address], [place], [place], [facility], [place]. tel:[phone] Office/outpa tient Visit, Est [facility], [address], [place], [place], [id number], [place] tel:[phone] [facility] No Information Renato-1 3-201 0 Krishnasamy Hoang. [address] [facility] [address], [place], [address], [place]. tel:[phone] [facility], [address], [place], [place], [address], [place] tel:[phone] [facility] No Information Oct-0 2-200 9 Hernandez OD Adelso. [address] [facility] [address] , [address], [place], [address], [place]. tel:[phone] [facility], [address], [place], [place], [id number], [place] tel:[phone] [facility] No Information Sep-1 9-200 8 Hernandez OD Adelso. [address], [address], [place], [address], [place]. tel:[phone] [facility], [address], [place], [place], [address], [place] tel:[phone] [facility] No Information 200 8 [facility]. [address], [address], [place], [address], [place]. tel:[phone] Consulting Provider: Lenore Calderon, [address] [place] [address], [address]. tel:[phone] [facility], [address], [place], [place], [id number], [place] tel:[phone] [facility] No Information 8 [facility]. [address], [address], [place], [address], [place]. tel:[phone] Consulting Provider: Lenore Calderon, [address] [place] [address], [address]. tel:[phone] [facility], [address] [place] [address] [address], [place], [place], [address], [place] tel:[phone] [facility] No Information Sep-2 7 [facility]. [address], [address], [place], [address], [place]. tel:[phone] Consulting Provider: Lenore Calderon, [address] [place] [address], [address]. tel:[phone] [facility], [address] [place] [address] [address], [place], [place], [address], [place] tel:[phone] [facility] No Information Sep-2 -200 7 [facility]. [address], [address], [place], [address], [place]. tel:[phone] Consulting Provider: Lenore Calderon, [address] [place] [address], [place], [address]. tel:[phone] [facility], [address] [facility] [address], [place], [place], [address], [place] tel:[phone] [facility] No Information Sep-2 1-200 7 [facility]. [address] [facility] [address], [address], [place], [place], [address], [place]. tel:[phone] Referring Provider: Adelso Sanches, [address] [facility], [place], [address]. tel:[phone] g Provider: Lenore Calderon, [address] [place] [address], [address]. tel:[phone] [facility], [address] [place], [place] [address] [address], [place], [place], [address], [place] tel:[phone] [facility] No Information Sep-1 8-200 7 Hernandez OD Adelso. [address] [facility] , [address], [place], [address], [place]. tel:[phone] Family History Family Member Type Diagnosis Age At Onset No Information Payers Payer name Insurance type Covered democrat ID Jered duffy(s) [employer] Plan CI [id number] Social History Type Description Quantity Date Captured [...]
--- OUTSIDE RECORDS SUMMARY | 2024-09-08 13:44 | XMS_ITS | Encounter Summary ---
Author Organization [facility] Address [address] [place] [address] Phone Care Team Providers Care Timber Cutter Name Role Phone Latanya Vee DO Primary Care Provider [phone] Padmini Miller MD Unavailable Lauro Shane MD Unavailable Encounter Details Date Type Department Care Team (Late st Contact Info) Description 07/25/2024 Results Follow-Up [facility] Cardiology [address] [facility] [address] [place] [address] Zachary Fields MD [address] [address] Social History Tobacco Use Types Packs/Day Years Used Date Smoking Tobacco: Never Smokeless Tobacco: Never Alcohol Use Standard Drinks/Week Comments Never 0 (1 standard drink = 0.6 oz pur e alcohol) [facility] Utilities Answer Date Recorded In the past 12 months has [employer], gas, oil, or water company threatened to [...] often do you attend chur ch or catholic services? 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 Gender Identity Not on file Sexual Orientation Not on file documented as of this encounter Plan of Treatment Not on file documented as of this encounter Visit Diagnoses Not on filedocumented in this encounter Care Teams Timber Cutter Relationship Specialty Start Date End Date Latanya Vee DO [facility] [facility] [address] TEJADA [address] [place] [address] PCP - General Family Medicine 09/17/23 Padmini Miller MD [address] [place] [address] Consulting Physician Physical Medicine and Rehabilitation 09/23/23 Lauro Shane MD [address] [place] [address] Consulting Physician Pulmonary Disease 10/15/23 documented as of this encounter
[2024-09-08 14:28] LABS: Basophils Percent Auto 0.6 % (0.2-1.2); Eosinophils Absolute Auto 0.2 K/mm3 (0-0.3); Eosinophils Percent Auto 2.5 % (0-4.4); Hematocrit 37.4 % (42.0-52.0); Hemoglobin 12.7 g/dL (14.0-18.0); Immature Granulocyte Absolute 0.02 K/mm3 (0.00-0.031); Immature Granulocyte Percent A 0.3 % (0-0.5); Lymphocytes Absolute Auto 1.24 K/mm3 (0.9-3.2); Lymphocytes Percent Auto 19.7 % (18.3-44.2); Mean Corpuscular Hemoglobin 31.8 pg (26-34); Mean Corpuscular Volume 93.5 fl (80-100); Mean Platelet Volume 10.3 fl (7.4-10.4); Monocytes Absolute Auto 0.6 K/mm3 (0.1-0.6); Monocytes Percent Auto 9.9 % (2.6-8.5); Neutrophils Absolute Auto 4.2 K/mm3 (1.3-6.7); Platelet Count Result 155 k/mm3 (150-375); Red Cell Distribution Width 15.6 % (11.5-14.5); White Blood Count 6.3 K/mm3 (4.5-10.0)
[2024-09-08 14:35] LABS: Anion Gap 9 mmol/L (4-12); Blood Urea Nitrogen 83 mg/dL (9-20); Calcium 9.2 mg/dL (8.4-10.2); Carbon Dioxide 39 mmol/L (22-30); Chloride 87 mmol/L (98-107); Estimated CRCL calculation 24 ml/min; Estimated Glomerular Filt Rate 39; Glucose 166 mg/dL (65-110); Potassium 2.9 mmol/L (3.4-5.0); Sodium 135 mmol/L (137-145)
[2024-09-08] MEDS: POTASSIUM CHLORIDE 20 MEQ PACKET (FOR LIQUID) 40 MEQ PO (14:59)
[2024-09-08 15:00] VITALS: BP 119/54; PULSE 89; RESP 16; TEMP 36.3; O2SAT 99
== END 2024-09-08 15:10 | disposition home or self-care (01) ==
PROVIDERS: Emergency Provider Emergency Medicine; PCP Family Medicine
DX: R04.0 Epistaxis (principal); E87.6 Hypokalemia; N17.9 Acute kidney failure, unspecified; Z79.01 Long term (current) use of anticoagulants; Z79.82 Long term (current) use of aspirin; I25.10 Atherosclerotic heart disease of native coronary artery without angina pectoris; I50.9 Heart failure, unspecified; E55.9 Vitamin D deficiency, unspecified; E78.00 Pure hypercholesterolemia, unspecified
CPT/HCPCS: 36415; 80048; 85025; 99283; A9270